=== PATIENT | male | born 1955 | race Caucasian/White ===

== ENCOUNTER 2017-05-28 07:53 | Day surgery (SDC) | payer BC ==
[2017-05-23 11:45] VITALS: BMI 26.4
[~2017-05-28 07:53] MED LIST: LACTATED RINGERS 1,000 ML IV SCH; LIDOCAINE 1% 20 ML VIAL (10MG/ML) FOR IV START INTRADERMA PRN
[2017-05-28 08:29] VITALS: TEMP 98.3
[2017-05-28] MEDS ORDERED: LIDOCAINE 1% 20 ML VIAL (10MG/ML) FOR IV START SQ ONE (08:29)
[2017-05-28 08:34] LABS: Glucose,Whole Blood 90 mg/dL (75-99)
[2017-05-28] MEDS ORDERED: PROPOFOL 10 MG/ML 20 ML VIAL IV ONE (08:40)
[2017-05-28] MEDS ORDERED: LIDOCAINE 1% INJ 10MG/ML (20 ML MDV) ONE (08:40)
--- NOTE | 2017-05-28 09:09 | P.PCN ---
Date of Procedure: 05/28/17 Preoperative Diagnosis: Postoperative Diagnosis: Procedure(s) Performed: Procedure: Colonoscopy and polypectomy. Preoperative diagnosis: Screening for neoplasia. Postoperative diagnosis: 1. Small polyp in the descending colon snared but no large polyps or cancer. 2. Sigmoid diverticulosis with no evidence of acute diverticulitis or strictures. 3. Low-grade internal hemorrhoids not bleeding at the time of this exam. Preparation: HalfLytely prep. Sedation: Was provided by anesthesia. Brief clinical history: The patient is a 61-year-old male who is referred for this evaluation for screening for neoplasia. His prior exam was around 10 years ago. The patient has no abdominal complaints, bleeding or anemia. No family history of colon cancer. Procedure: With the patient on his left lateral decubitus position and after informed consent and adequate sedation, the perianal area was inspected and it did not show any fissures or fistulas. There were no masses felt on digital rectal examination. The Olympus CFQ 160L video colonoscope was then inserted in the rectum in the usual fashion and advanced to the cecum. The mucosa appeared healthy. Several diverticular orifices were seen scattered in the sigmoid with no evidence of acute diverticulitis or strictures. There was a small polyp in the proximal descending colon which I snared and retrieved by suction but there were no large polyps or cancer. I retroflexed the endoscope in the rectum before the endoscope was withdrawn. Low-grade internal hemorrhoids were noted but there was no bleeding. The patient tolerated the procedure well. Plan: The patient was reassured. Discussed dietary measures and local care for hemorrhoids. He will follow up with you as planned and I recommended a repeat exam in 5 years. Implants: Indications for Procedure: Operative Findings: Description of Procedure:
[2017-05-28 09:10] VITALS: PULSE 57
[2017-05-28 09:23] VITALS: BP 146/89; RESP 16
== END 2017-05-28 09:37 | disposition home or self-care (01) ==
LOC: ORWHC2ENDO 07:53
DX: Z12.11 Encounter for screening for malignant neoplasm of colon (principal); D12.4 Benign neoplasm of descending colon; K57.30 Diverticulosis of large intestine without perforation or abscess without bleeding; K64.8 Other hemorrhoids; J44.9 Chronic obstructive pulmonary disease, unspecified; I10 Essential (primary) hypertension; Z79.82 Long term (current) use of aspirin; Z79.51 Long term (current) use of inhaled steroids; Z79.899 Other long term (current) drug therapy
CPT/HCPCS: 88305; 45385; J2001; J2704

== ENCOUNTER → 2018-07-15 | Outpatient (CLI) | payer MEDICARE ==
[2018-07-15 10:02] LABS: Blood Urea Nitrogen 17 mg/dL (9-20)
[2018-07-15 10:53] LABS: Cholesterol 173 mg/dL (<200); HDL Cholesterol 46 mg/dL (40-60); LDL Cholesterol,Calculated 79 mg/dL (0-99); Triglycerides 242 mg/dL (<150)
--- NOTE | 2018-07-15 11:50 | CT ---
EXAMINATION TYPE: CT chest w con DATE OF EXAM: 07/15/2018 COMPARISON: None HISTORY: 63-year-old male other nonspecific abnormal findings of the lung . TECHNIQUE: Contiguous axial scanning of the chest after the administration of 100 ml mL of Isovue 300 . Coronal/sagittal reconstructions performed. CT DLP: 599mGycm. Automatic exposure control utilized for a dose reduction. FINDINGS: Heart normal size without pericardial effusion. Ectatic aortic root at 3.8 cm. Mildly aneurysmal ascending aorta at 4.0 cm. In the chart. Conventiona l arch vessel branching anatomy Nonenlarged right hilar lymph node at 7 mm and nonenlarged precarinal lymph node at 6 mm. No thoracic lymphadenopathy by CT size criteria. Mild to moderate centrilobular emphysema in the upper to mid lungs. There is a spiculated nodule in the right apex measuring 1.4 cm. A couple of satellite nodules in the right upper lung measure 5 mm, axial image 13, 3 mm, axial image 16, and 4 mm axial image 21. A couple right mid lung pulmonary nodules measure 4 mm, axial image 27 and 28. Nonspecific left upper lobe pulmonary nodules measure 5 mm, axial image 13, 4 mm axial image 22, 3 mm axial image 25, and 4 mm axial image 34. Some patchy opacity, probably pleural parenchymal scarring medial left base. Otherwise, no consolidat ion or pleural effusion is seen. Visualized upper abdomen shows a 2.9 cm hypodense lesion posterior right kidney likely a cyst. Bones: Reverse bilateral shoulder arthroplasties partially visualized. Endplate spondylosis mid to lo wer thoracic spine. IMPRESSION: 1. COPD with moderate emphysema. 2. Spiculated right apical nodule measures 1.4 cm and is suspicious for early lung cancer. Three-mary beth h follow-up versus PET CT with appropriate follow-up and management recommended. 3. Scattered bilateral pulmonary nodules measuring up to 5 mm are nonspecific and can also be reasses sed at follow-up. 4. No suspicious lymphadenopathy by CT size criteria. 5. Mildly aneurysmal ascending aorta 4.0 cm.
== END | disposition home or self-care (01) ==
LOC: RADCTMAIN 09:10
PROVIDERS: ATTEND Internal Medicine Critical Care Medicine
DX: J43.9 Emphysema, unspecified (principal); R91.8 Other nonspecific abnormal finding of lung field
CPT/HCPCS: 80061; 82565; 84520; 71260; 36415; Q9967

== ENCOUNTER → 2018-07-20 | Outpatient (CLI) | payer MEDICARE ==
--- NOTE | 2018-07-22 20:14 | PE ---
EXAMINATION TYPE: PET CT fusion skull to thigh DATE OF EXAM: 07/20/2018 CLINICAL HISTORY: 63-year-old male solitary pulmonary nodule. TECHNIQUE: Following the intravenous administration of 10.15 mCi of F-18 FDG, whole body images are performed from the skull base to the midthigh. Images are reviewed on the computer in the coronal, axial, and sagittal planes. Reconstructed rotating images are created on independent workstation and reviewed on the computer. A localization and attenuation correction CT is performed in conjunction with the PET scan. Glucose level: 88 mg/dL CTDI: 4.48 mGy DLP: 457.09 mGy-cm COMPARISON: CT chest 07/15/2018 FINDINGS: PET: Focal uptake at the shoulders, particularly at the right AC joint, max SUV 3.2 likely on a degenerati ve basis. Bilateral reverse total shoulder arthroplasties are present. The previously described right apical pulmonary nodule slightly smaller, 1.1 cm now versus 1.4 cm on 07/15/2018. Minimal FDG uptake, max SUV 1.5. Left upper lobe pulmonary nodule measures 8 mm versus 5 mm, previously. Axial image 82. Trace uptake here, max SUV 0.9. A second left upper lobe pulmonary nodule measures 5 mm versus 4 mm, previously, axial image 95, max SUV 1.0. 7 mm anterior right midlung pulmonary nodule axial image 103 shows mild uptake, max SUV 1.3 and is la rger as compared to 4 mm on 07/15/2015. A 5 mm peripheral right upper lobe pulmonary nodule is unchanged, axial image 82, and shows no discre te FDG uptake. Physiologic FDG uptake within the abdomen and pelvis. ATTENUATION CORRECTION CT: Visualized paranasal sinuses are clear. No cervical lymphadenopathy seen. Heart upper limits of normal in size. Mildly aneurysmal descending aorta and 4.0 cm, unchanged. Mild ly aneurysmal upper descending thoracic aorta at 3.3 cm. Conventional arch vessel branching anatomy. No thoracic lymphadenopathy by CT size criteria. Trace bilateral gynecomastia. Enlarged caliber to th e main right and left pulmonary arteries at 2.8 and 2.6 cm, respectively, suggesting underlying pulmo nary arterial hypertension. Redemonstrated moderate emphysema. No consolidation or pleural effusion. No new nodules are seen. 2.9 cm right renal cyst redemonstrated. No dilated small bowel, free fluid, or free air. No mesenteri c or retroperitoneal lymphadenopathy. Mild proximal sigmoid diverticulosis. Prostate gland measures 4.8 cm wide. No abnormal fluid collection in the pelvis or pelvic lymphadenop athy. Bones: Bilateral reverse total shoulder arthroplasties as mentioned above. Degenerative changes left SI joint and lower lumbar spine. Endplate spondylosis mid to lower thoracic spine. IMPRESSION: 1. Approximately 5 pulmonary nodules show fluctuation in size. The previous dominant nodule in the ri ght apex is smaller at 1.1 cm versus 1.4 cm, previously and has very mild uptake. Some other nodules have increased in size, such as the anterior right midlung nodule at 7 mm versus 4 mm, previously, an d also shows very mild uptake. The rapid fluctuation from 07/15/2018 is more suggestive of an infectio us/inflammatory etiology rather than neoplasm. Three-month follow-up recommended as neoplasm should s till be excluded by ensuring stability or resolution. 2. COPD with moderate emphysema and pulmonary arterial hypertension. 3. Mildly aneurysmal thoracic aorta (ascending 4.0 cm).
== END | disposition home or self-care (01) ==
LOC: RADPETMAIN 13:22
PROVIDERS: ATTEND Internal Medicine Critical Care Medicine
DX: R91.8 Other nonspecific abnormal finding of lung field (principal); J43.9 Emphysema, unspecified; I27.21 Secondary pulmonary arterial hypertension
CPT/HCPCS: 78815; A9552

== ENCOUNTER → 2019-03-10 | Outpatient (CLI) | payer MEDICARE ==
[2019-03-10 09:32] LABS: Blood Urea Nitrogen 15 mg/dL (9-20)
--- NOTE | 2019-03-10 10:31 | CT ---
EXAMINATION TYPE: CT chest w con DATE OF EXAM: 03/10/2019 COMPARISON: July 15, 2018 HISTORY: Pulmonary nodule CT DLP: 400.10 mGycm Automated exposure control for dose reduction was used. CONTRAST: CT scan of the chest is performed with IV Contrast, patient injected with 100 ml mL of Isovue 300. FINDINGS: LUNGS: Right apical pulmonary nodule identified previously measuring 1.4 cm is not redemonstrated at this time. There is a new nodular density right midlung zone measuring 1.6 cm which was not present p reviously. Bilateral small less than 5 mm nodules remain stable bilaterally. No evidence for pleural effusion. Mild bronchial wall thickening noted. MEDIASTINUM: There are no greater than 1 cm hilar or mediastinal lymph nodes. No pericardial effusi on is seen. Thoracic aorta is of normal caliber. The heart is not enlarged. UPPER ABDOMEN: No significant abnormality appreciated. OTHER: No additional significant abnormality is seen. IMPRESSION: 1.Right apical pulmonary nodule identified previously measuring 1.4 cm is not redemonstrated at this time. There is a new nodular density right midlung zone measuring 1.6 cm which was not present previo usly. 2. Remaining sub-5 mm pulmonary nodules remain stable.
== END ==
LOC: RADCTMAIN 08:24
PROVIDERS: ATTEND Internal Medicine Critical Care Medicine
DX: R91.8 Other nonspecific abnormal finding of lung field (principal)
CPT/HCPCS: 82565; 84520; 71260; 36415; Q9967

== ENCOUNTER → 2019-08-26 | Outpatient (CLI) | payer MEDICARE ==
[2019-08-26 14:34] LABS: African American GFR (CKD) >90 (>60 ml/min/1.73 sqM); Blood Urea Nitrogen 15 mg/dL (9-20)
--- NOTE | 2019-08-27 22:11 | CT ---
EXAMINATION TYPE: CT chest w con DATE OF EXAM: 08/26/2019 COMPARISON: 03/10/2019 and 07/15/2018 HISTORY: 64-year-old male COPD. TECHNIQUE: Contiguous axial scanning of the chest after the administration of 100ml mL of Isovue 300. Coronal/sagittal reconstructions performed. CT DLP: 514mGycm. Automatic exposure control utilized for a dose reduction. FINDINGS: Heart normal size without pericardial effusion. Aortic root is mildly aneurysmal at 4.1 cm. Ascending aorta is ectatic at 3.7 cm. Conventional arch v essel branching anatomy. Ectatic upper descending thoracic aorta 3.3 cm. Scattered nonenlarged mediastinal lymph nodes. Trace bilateral gynecomastia. Moderate centrilobular emphysema particularly in the upper lungs strandy atelectasis or scarring at t he lung bases, left greater than right with some associated mild bibasilar bronchiectasis. Scattered 4 mm pulmonary nodules are unchanged. The larger 1.6 cm irregular density in the right uppe r lobe has resolved entirely. A couple additional small pulmonary nodules have also resolved. A few bilateral pulmonary nodules are new in the interval measuring up to 7 mm, for example, on the l eft axial image 17, 24, and 29. On the right, axial images 36 and 40. A few additional 4 mm and smaller pulmonary nodules are unchanged back to at least 07/15/2018. No consolidation or pleural effusion. Visualized upper abdomen shows a relatively stable 3.3 cm exophytic lesion posterior right kidney sug gestive of a cyst Round fat density lesion along the anterior left axilla measures 5.7 cm, suspected lipoma. Bones: Reverse right total shoulder arthroplasty. Moderate degenerative disc disease mid thoracic spi ne with bridging anterior endplate spondylosis mid and lower thoracic spine. IMPRESSION: 1. COPD with moderate upper lung emphysema. 2. Scattered bilateral pulmonary nodules are again noted to fluctuate. The largest 1.6 cm irregular d ensity previously seen in the right upper lobe has entirely resolved. A number of 4 mm and smaller p ulmonary nodules are stable, a couple have resolved, and approximately 5 nodules, measuring up to 7 m m, are new. Again, infectious/inflammatory etiology is suspected. However, given patient's increased risk for development of lung cancer, ongoing follow-up will be needed. Consider a 6 month interval. 3. Incidental stable 5.7 cm subcutaneous lipoma anterior left axilla. Mildly aneurysmal aortic root a t 4.1 cm.
== END | disposition home or self-care (01) ==
LOC: RADCTMAIN 14:01
PROVIDERS: ATTEND Internal Medicine Critical Care Medicine
DX: J43.2 Centrilobular emphysema (principal); R91.8 Other nonspecific abnormal finding of lung field; I71.2 Thoracic aortic aneurysm, without rupture
CPT/HCPCS: 82565; 84520; 71260; 36415; Q9967

== ENCOUNTER → 2020-05-20 | Outpatient (CLI) | payer MEDICARE ==
[2020-05-20 11:42] LABS: African American GFR (CKD) >90 (>60 ml/min/1.73 sqM); Blood Urea Nitrogen 14 mg/dL (9-20); Non-African American GFR(CKD) >90 (>60 ml/min/1.73 sqM)
--- NOTE | 2020-05-20 12:41 | CT ---
EXAMINATION TYPE: CT chest w con DATE OF EXAM: 05/20/2020 COMPARISON: 08/26/2019 HISTORY: LUNG NODULE CT DLP: 333.5 mGycm Automated exposure control for dose reduction was used. CONTRAST: CT scan of the chest is performed with IV Contrast, patient injected with 100 mL of Isovue 300. FINDINGS: LUNGS: Pulmonary nodules: 1. 4 mm right upper lobe image 14. 2. 3 mm right upper lobe image 13 3. 3 mm right upper lobe pulmonary nodule image 17 4. 4 mm left upper lobe pulmonary nodule image 15 Additional previous noted nodules are redemonstrated. All nodules are stable. Emphysematous changes r edemonstrated. There is no pleural effusion or pneumothorax seen. The tracheobronchial tree is paten t. MEDIASTINUM: There are no greater than 1 cm hilar or mediastinal lymph nodes. No pericardial effusi on is seen. Thoracic aorta is mildly aneurysmal at 4.0 cm versus 4.1 cm previously. The heart is not enlarged. UPPER ABDOMEN: No significant abnormality appreciated. Stable right renal cyst. OTHER: No additional significant abnormality is seen. IMPRESSION: 1. Essentially stable pulmonary nodularity although one or 2 of the nodules seen previously are not d emonstrated at this time. 2. Mild ascending thoracic aortic aneurysm.
== END | disposition home or self-care (01) ==
LOC: RADCTMAIN 11:04
PROVIDERS: ATTEND Internal Medicine Critical Care Medicine
DX: R91.8 Other nonspecific abnormal finding of lung field (principal); I71.2 Thoracic aortic aneurysm, without rupture
CPT/HCPCS: 82565; 84520; 71260; 36415; Q9967

== ENCOUNTER → 2023-04-26 | Outpatient (CLI) | payer MEDICARE ==
[2023-04-26 14:04] LABS: African American GFR (CKD) >90 (>60 ml/min/1.73 sqM); Blood Urea Nitrogen 16 mg/dL (9-20); Non-African American GFR(CKD) >90 (>60 ml/min/1.73 sqM)
--- NOTE | 2023-04-26 14:48 | CT ---
EXAMINATION TYPE: CT chest w con CT DLP: 483 mGycm, Automated exposure control for dose reduction was used. DATE OF EXAM: 04/26/2023 2:36 PM COMPARISON: Multiple CT chest with most recent 05/20/2020 CLINICAL INDICATION:Male, 67 years old with history of R91.8 previous abnormal exam lung ybarra; PHH, Abnormal findings on lung field TECHNIQUE: Multiple axial images were obtained through the chest following the administration of 100 cc of Isovue 300. . MIP was performed. Coronal and sagittal reformats reviewed. FINDINGS: LUNGS/ PLEURA: No pleural effusion, pneumothorax, or focal consolidation. New right upper lobe 1.1 x 0.9 cm pulmonary nodule (series 205, image 28). New left upper lobe 3 mm pulmonary nodule (series 205 , image 16). Stable 2 mm left upper lobe pulmonary nodule (series 205, image 10). Stable right upper lobe 3 mm pulmonary nodule (series 205, image 14). Stable right upper lobe 4 mm pulmonary nodule (ser ies 205, image 13). AIRWAY: Patent and unremarkable.. HEART: Size within normal limits. No pericardial effusion. MEDIASTINUM: No evidence of adenopathy. VASCULATURE: No aortic aneurysm. MUSCULOSKELETAL: No acute osseous abnormalities. Bilateral shoulder arthroplasty changes redemonstrat ed. Multilevel anterior osteophytosis of the thoracic spine. SOFT TISSUES/LYMPH NODES: Unremarkable. LOWER NECK: No significant findings. UPPER ABDOMEN: Stable right renal exophytic cyst measuring up to 4.1 cm. IMPRESSION: Couple of new pulmonary nodules with largest in the right upper lobe measuring up to 1.1 cm. Addition al stable scattered small pulmonary nodules from prior examination. Further evaluation with PET/CT is recommended.
== END | disposition home or self-care (01) ==
LOC: RADCTMAIN 13:28
PROVIDERS: ATTEND Internal Medicine Critical Care Medicine
DX: R91.8 Other nonspecific abnormal finding of lung field (principal)
CPT/HCPCS: 82565; 84520; 71260; 36415; Q9967

== ENCOUNTER 2023-07-05 10:26 | Day surgery (SDC) | payer MEDICARE ==
[2023-07-02 16:07] VITALS: BMI 29.9
[~2023-07-05 10:26] MED LIST changes: -LIDOCAINE 1% 20 ML VIAL (10MG/ML) FOR IV START INTRADERMA PRN
--- NOTE | 2023-07-05 11:02 | CT ---
EXAMINATION TYPE: CT chest wo con CT DLP: 384.1 mGycm, Automated exposure control for dose reduction was used. DATE OF EXAM: 07/05/2023 10:48 AM COMPARISON: Multiple CT chest with most recent 04/26/2023, PET/CT 06/09/2023. CLINICAL INDICATION:Male, 68 years old with history of ion robot; PHH, Pre ION bronchoscopy TECHNIQUE: Multiple axial images were obtained through the chest without IV contrast. Lack of IV or o ral contrast limits evaluation of solid and hollow organ viscera. . Coronal and sagittal reformats re viewed. Veran protocol. FINDINGS: LUNGS/ PLEURA: No pleural effusion, pneumothorax, or focal consolidation. Interval increase in size o f 1.7 x 1.2 cm spiculated nodule within the right upper lobe (series 3, image 138), previously 1.4 x 1.0 cm. New right apical irregular nodular density with surrounding spiculations and groundglass opac ities measuring grossly 2.3 x 1.4 cm (series 3, image 66). Additional scattered stable small left upp er lobe pulmonary nodules. AIRWAY: Patent and unremarkable.. HEART: Size within normal limits. No pericardial effusion. MEDIASTINUM: No evidence of adenopathy. VASCULATURE: No aortic aneurysm. MUSCULOSKELETAL: No acute osseous abnormalities. Bilateral shoulder prosthesis. Multilevel anterior o steophytosis of the thoracic spine. SOFT TISSUES/LYMPH NODES: Unremarkable. LOWER NECK: No significant findings. UPPER ABDOMEN: Stable right renal exophytic cyst measuring up to 4.1 cm. Stable hyperdense exophytic left 1.2 cm lesion likely representing a proteinaceous/hemorrhagic cyst. IMPRESSION: 1. Spiculated right upper lung nodules marginal increase in size measuring 1.7 cm, previously measuri ng 1.4 cm. This did demonstrate FDG avidity on prior examination and is concerning for malignancy. 2. New right apical irregular nodular with surrounding reticular opacities measuring grossly 2.3 x 1. 4 cm and is highly concerning for malignancy/metastasis. 3. Additional scattered stable small pulmonary nodules measuring up to 4 mm.
[2023-07-05] MEDS ORDERED: DEXAMETHASONE SOD PHOSPHATE 4 MG/ML 1 ML VIAL IVP ONE (11:44)
[2023-07-05] MEDS ORDERED: ONDANSETRON 4 MG/2 ML VIAL IVP ONE (11:45)
[2023-07-05] MEDS ORDERED: ONDANSETRON 4 MG/2 ML VIAL ONE (11:46)
[2023-07-05] MEDS ORDERED: MIDAZOLAM 2 MG/2 ML VIAL ONE (12:24)
[2023-07-05] MEDS ORDERED: LIDOCAINE 2% INJ 20 MG/ML (2 ML VIAL) ONE (12:24)
[2023-07-05] MEDS ORDERED: PHENYLEPHRINE-0.9% NACL SYG 1,000 MCG/10 ML SYRINGE ONE (12:24)
[2023-07-05] MEDS ORDERED: SUCCINYLCHOLINE CHLORIDE 200 MG/10 ML VIAL IV ONE (12:24)
[2023-07-05] MEDS ORDERED: fentaNYL (PF) 50 MCG/ML 2 ML AMP ONE (12:24)
[2023-07-05] MEDS ORDERED: NEOSTIGMINE 1 MG/ML 10 ML VIAL ONE (12:24)
[2023-07-05] MEDS ORDERED: ROCURONIUM 10 MG/ML (5 ML VIAL) IV ONE (12:24)
[2023-07-05] MEDS ORDERED: PROPOFOL 10 MG/ML 20 ML VIAL IV ONE (12:24)
[2023-07-05] MEDS ORDERED: GLYCOPYRROLATE 0.2 MG/ML 2 ML VIAL ONE (12:24)
--- NOTE | 2023-07-05 13:58 | P.PCN ---
Date of Procedure: 07/05/23 Operative Findings: Preoperative Diagnosis: Right upper lobe nodule, 1.4 centimeter Right upper lobe groundglass/nodular pulmonary infiltrate Postoperative Diagnosis: Right upper lobe nodule, 1.4 centimeter Right upper lobe groundglass/nodular pulmonary infiltrate Mediastinal adenopathy Procedure(s) Performed: Flexible bronchoscopy Robotic-assisted bronchoscopy and addition to radial ultrasound evaluation of the pulmonary nodule Robotic-assisted transbronchial needle aspirate, transbronchial biopsies, transbronchial brushing of the right upper lobe nodule in addition to a bronchioloalveolar lavage Robotic-assisted transbronchial biopsy of right upper lobe nodular consolidation in addition to a bronchioloalveolar lavage EBUS TBNA of a station 7 LN Anesthesia: GETA Surgeon: Prem Marshall Estimated Blood Loss (ml): 0 Pathology: other Condition: stable Disposition: same day Operative Findings: A physical exam was performed. Informed consent was obtained from the patient after explaining all the risks (pneumothorax, life threatening bleeding, infection and adverse effects due to medications), benefits and alternatives to the procedure which the patient appeared to understand and so stated. The patient was connected to the monitoring devices. General anesthesia was induced and the patient was intubated by anesthesia. A final timeout was performed and the procedure confirmed by the attending staff bronchoscopist. The bronchoscope was inserted and the airway examined. The flexible bronchoscope was removed and the robotic bronchoscope was inserted. Registration was completed. I next guided the robotic bronchoscope using the navigation system into the right upper lobe posterior segment. Once in proper position, the bronchoscope was frozen. The radial EBUS probe was placed through the bronchoscope and confirmed abnormal u/s images vs normal lung. A needle was placed through the working channel and under fluoroscopic guidance, we sampled the area thought to have the mass twice. We then used a cloud biopsy pattern with ultrasound confirmation for 2 additional passes with the needle. U/S evaluation was then used to reconfirm location. Forceps were next introduced through working channel and extended the appropriate distance and 3 transbronchial biopsies were performed using fluoroscopic guidance. The u/s probe was then reinserted to confirm location. When confirmed this process was repeated for a total of 6 transbronchial biopsies. After reassessment with EBUS, a brush was placed through the extendable working channel for 1 pass with fluoroscopic guidance. U/S evaluation was then used to confirm location. 40ml of saline was then instilled into the area of the lesion. The robotic bronchoscope was removed and the airway inspected with a flexible bronchoscope and 10 ml of effluent from the BAL was collected. The aspirate was bloody and ultimately declotted and based on that, the sample was discarded. Subsequently, the robotic bronchoscope was directed to the apical segment of the right upper lobe. Ultrasound evaluation confirmed location. Forceps was introduced and transbronchial biopsies of the right upper lobe nodular consolidation was done, a total of 6 transbronchial biopsies were obtained. Also, a bronchial lavage the right apex was done with a total of 20 mL of fluid was infused and 10 mL was aspirated. Fluoroscopic check for pneumothorax was negative upon completion of the procedure. There was 0 ml blood loss with the procedure. Following that, the endobronchial ultrasound was inserted for mediastinal lymph node evaluation. A complete examination is grossly patient's was done. The patient was found to have a 13 x 7 mm subcarinal lymph node. Using a 22-gauge needle, transbronchial needle aspirate of the subcarinal station 7 lymph node was done. A total of 3 passes were obtained without any complications. Endobronchial ultrasound was removed. X-ray bronchoscope was inserted and regular suctioning was done. At the completion of the procedure, no residual secretions or bloody material within the airway. The bronchoscope was removed. The patient was extubated. FINDINGS: 1.The airways appeared normal 2 Successful navigation, ultrasonographic identification, and biopsies of right upper lobe pulmonary nodule, right upper lobe nodular consolidation 3.The the radial ultrasound view was (Concentric/Eccentric)}. 4 subcarinal lymph node, station 7 measuring 13 x 7 mm in size. RECOMMENDATIONS: Await pathology and cytology results The referring physician will be alerted to the results when available. The patient was advised to follow up with the referring physician with the biopsy results Patient will be called with results.
[2023-07-05 14:06] VITALS: TEMP 97
--- NOTE | 2023-07-05 14:27 | FL ---
Intraoperative/procedural fluoroscopic services were provided. Total fluoroscopy time is 3 minutes wi th a total of 7 submitted images to PACS. Please see the operative/procedural note for further detail s. DAP: 13.481 Gycm2
--- NOTE | 2023-07-05 14:34 | XR ---
EXAMINATION TYPE: XR chest 1V DATE OF EXAM: 07/05/2023 COMPARISON: 07/05/2023 HISTORY: Postbiopsy TECHNIQUE: Single frontal view of the chest is obtained. FINDINGS: There is spiculated nodules in the right upper lobe stable in appearance. There is no siza ble pneumothorax. Hyperinflation suggests COPD. Heart size normal. Atherosclerotic change aorta. Bila teral AC joint arthropathy. Hypertrophic and degenerative change of the spine. Subsegmental linear ch anges left lower lobe most typical of atelectasis or scarring. IMPRESSION: 1. No sizable pneumothorax. Small spiculated nodule seen by prior CT scan within the right upper lobe again noted.
[2023-07-05 14:41] VITALS: RESP 18
[2023-07-05 15:03] VITALS: BP 127/79; PULSE 55
== END 2023-07-05 15:24 | disposition home or self-care (01) ==
LOC: ORWHC2ENDO 10:26
PROVIDERS: ATTEND Internal Medicine Critical Care Medicine
DX: C34.11 Malignant neoplasm of upper lobe, right bronchus or lung (principal)
CPT/HCPCS: 87798 ×3; 87496; 87498; 87529; 88108; 88305; 88173; 88342; 87502; 87634; 88341; 87070; 87205; 87116; 87102; 87206; 71045; 71250; 31625; 31633; 31623; 31624; 31652; J2250; J0330; J1100; J2710; J2405; J3010; J2704; J2001; J2371; S2900

== ENCOUNTER → 2023-07-10 | Outpatient (CLI) | payer MEDICARE | LOC: CPPFTMAIN 08:38 | PROVIDERS: ATTEND Thoracic Surgery (Cardiothoracic Vascular Surgery) | DX: R91.1 Solitary pulmonary nodule (principal); Z87.891 Personal history of nicotine dependence | CPT/HCPCS: 94060; 94726; 94729 ==

== ENCOUNTER → 2023-08-06 | Outpatient (CLI) | payer MEDICARE ==
[2023-08-06 16:48] LABS: INR 0.9 (<1.2); Partial Thromboplastin Time 26.2 sec (22.0-30.0)
[2023-08-06 21:26] LABS: Basophils # (A) 0.06 X 10*3/uL (0.00-0.10); Eosinophils # (A) 0.18 X 10*3/uL (0.04-0.35); Eosinophils % (A) 2.9 %; HCT 42.1 % (39.6-50.0); HGB 13.4 d/dL (13.0-17.0); Lymphocytes # (A) 1.35 X 10*3/uL (0.90-5.00); Lymphocytes % (A) 21.9 %; MCH 28.8 pg (27.0-32.0); MCHC 31.8 d/dL (32.0-37.0); MCV 90.3 FL (80.0-97.0); Mean Platelet Volume 9.4 FL (9.5-12.2); Monocytes # (A) 0.57 X 10*3/uL (0.20-1.00); Monocytes % (A) 9.3 %; NRBC Per 100 WBC 0 X 10*3/uL (0.00-0.01); Neutrophils # (A) 3.99 X 10*3/uL (1.80-7.70); Neutrophils % (A) 64.7 %; Platelet Count 200 X 10*3/uL (140-440); RBC 4.66 X 10*6/uL (4.40-5.60); RDW 12.7 % (11.5-14.5); WBC 6.16 X 10*3/uL (4.50-10.00)
[2023-08-06 22:22] LABS: Blood Urea Nitrogen 14.4 mg/dL (9.0-27.0); Carbon Dioxide 28.1 mmol/L (21.6-31.8); Chloride 104 mmol/L (96-109); Glucose 106 mg/dL (70-110); Potassium 4.1 mmol/L (3.5-5.5); Sodium 140 mmol/L (135-145)
[2023-08-06 23:43] LABS: Appearance,Urine Clear (Clear); Bilirubin,Urine Negative (Negative); Blood,Urine Negative (Negative); Color,Urine Yellow (Yellow); Ketones,Urine Negative (Negative); Nitrite,Urine Negative (Negative); Urobilinogen,Urine 0.2 E.U./DL
== END | disposition home or self-care (01) ==
LOC: LABPAT 15:08
PROVIDERS: ATTEND Thoracic Surgery (Cardiothoracic Vascular Surgery)
DX: Z01.812 Encounter for preprocedural laboratory examination (principal); C34.90 Malignant neoplasm of unspecified part of unspecified bronchus or lung; E87.8 Other disorders of electrolyte and fluid balance, not elsewhere classified
CPT/HCPCS: 80051; 81003; 82565; 82947; 84520; 85025; 85610; 85730; 87086

== ENCOUNTER 2023-08-16 05:44 | Inpatient (IN) | payer MEDICARE ==
[2023-08-16] MEDS ORDERED: ONDANSETRON 4 MG/2 ML VIAL ONE (06:49)
[2023-08-16] MEDS ORDERED: LACTATED RINGERS 1,000 ML IV ONE ×3 (06:50→11:56)
[2023-08-16 06:57] LABS: Glucose,Whole Blood 95 mg/dL (70-110)
[2023-08-16] MEDS ORDERED: MIDAZOLAM 2 MG/2 ML VIAL IVP ONE (06:57)
[2023-08-16] MEDS ORDERED: HYDROmorphone (PF) 1 MG/ML ONE (07:30)
[2023-08-16] MEDS ORDERED: PHENYLEPHRINE-0.9% NACL SYG 1,000 MCG/10 ML SYRINGE ONE (07:30)
[2023-08-16] MEDS ORDERED: ROPIVACAINE 5 MG/ML 30 ML VIAL ONE (07:30)
[2023-08-16] MEDS ORDERED: NEOSTIGMINE 1 MG/ML 10 ML VIAL ONE (07:30)
[2023-08-16] MEDS ORDERED: ALBUTEROL HFA INHALER INHALATION ONE (07:30)
[2023-08-16] MEDS ORDERED: KETAMINE HCL IN 0.9 % NACL 50 MG/5 ML SYRINGE ONE (07:30)
[2023-08-16] MEDS ORDERED: ePHEDrine 50 MG/ML 1 ML VIAL ONE (07:30)
[2023-08-16] MEDS ORDERED: GLYCOPYRROLATE 0.2 MG/ML 2 ML VIAL ONE (07:30)
[2023-08-16] MEDS ORDERED: SODIUM CHLORIDE 0.9% (PF) 10 ML VIAL ONE (07:30)
[2023-08-16] MEDS ORDERED: ROCURONIUM 10 MG/ML (5 ML VIAL) IV ONE (07:30)
[2023-08-16] MEDS ORDERED: MIDAZOLAM 2 MG/2 ML VIAL ONE (07:30)
[2023-08-16] MEDS ORDERED: SUCCINYLCHOLINE CHLORIDE 200 MG/10 ML VIAL IV ONE (07:30)
[2023-08-16] MEDS ORDERED: LIDOCAINE 1% INJ 10MG/ML (20 ML MDV) ONE (07:30)
[2023-08-16] MEDS ORDERED: PROPOFOL 10 MG/ML 20 ML VIAL IV ONE (07:30)
[2023-08-16] MEDS ORDERED: ACETAMINOPHEN IV (For NPO) 1,000 MG/100 ML VIAL ONE (07:30)
[2023-08-16] MEDS ORDERED: fentaNYL (PF) 50 MCG/ML 2 ML AMP ONE (07:30)
[2023-08-16] MEDS ORDERED: BUPIVACAINE (PF) 0.5% 30 ML VIAL MISCELLANE ONE ×2 (08:35→10:40)
--- NOTE | 2023-08-16 09:00 | P.ANPRN ---
Procedure Note - Anesthesia - Nerve Block Performed Right Erector Spinae Single Time Out Performed: Yes ([id number]) Date of Procedure: 08/16/23 Location of Patient: PreOp Indication: Acute Post-Operative Pain, Dx/Pain Location (Right chest), Requested by Surgeon Specifically requested for management of pain by DrNeno: Manny Klein Sedation Type: Sedate with meaningful contact maintained Position: Prone Catheter: None Needle Types: Pajunk Needle Gauge: 21 Ultrasound used to visualize needle placement: Yes Ultrasound used to observe medication spread: Yes Injectate: 0.5% Ropivacaine (see comment for volume) (30 mL is 10 mL of normal saline) Blood Aspirated: No Pain Paresthesia on Injection Noted: No Resistance on Injection: Normal Image Stored and Saved: Yes Events: Uneventful and Well Tolerated
--- NOTE | 2023-08-16 12:30 | XR ---
EXAMINATION TYPE: XR chest 1V portable DATE OF EXAM: 08/16/2023 COMPARISON: 07/05/2023 HISTORY: Postop TECHNIQUE: Single frontal view of the chest is obtained. FINDINGS: Volume loss on the right noted with approximately 20% right-sided pneumothorax. Chest tube in position. Diffuse subcutaneous emphysema. Left lung demonstrates linear basilar atelectasis. Postoperative changes bilateral shoulder and bilat eral shoulder AC joint arthropathy. Hypertrophic and degenerative change of the spine. IMPRESSION: 1. Approximate 20% right pneumothorax with diffuse subcutaneous emphysema.
[2023-08-16] MEDS ORDERED: METOCLOPRAMIDE 5 MG/ML 2 ML VIAL IVP PRN (12:33)
[2023-08-16] MEDS ORDERED: ONDANSETRON 4 MG/2 ML VIAL IVP PRN (12:33)
[2023-08-16] MEDS ORDERED: DEXTROSE 5%-0.45% NACL 1,000 ML IV SCH (13:00)
[2023-08-16] MEDS: ACETAMINOPHEN IV (For NPO) 1,000 MG in EMPTY BAG 1 BAG IVPB SCH ×2 (13:39→18:11)
--- NOTE | 2023-08-16 13:53 | P.OP ---
Date of Procedure: 08/16/23 Preoperative Diagnosis: Lung cancer right upper lobe lung Postoperative Diagnosis: Same Procedure(s) Performed: Robotic-assisted, thoracoscopic right upper lobectomy, blebectomy right lower lobe Anesthesia: ROXANE Surgeon: Manny Klein Professor Of Vegetable [employer] #1: Yo Parks Professor Of Vegetable Science #2: Cleve Goff Estimated Blood Loss (ml): 20 IV fluids (ml): 1,000 Urine output (ml): 0 Pathology: other (Right upper lobe, lymph node stations R11 R10 R9 R8 R4 level7) Condition: stable Disposition: PACU Indications for Procedure: 68-year-old male with enlarging mass in the posterior segment of the right upper lobe fairly deep. He has significant COPD. He has nearly incomplete fissures. Workup had revealed carcinoma. No evidence of metastasis by PET scan or EMMA. Patient has good functional status ECOG 0. Patient was initially seen by Dr. Parks but Dr Mae asked that I see the patient and perform the surgery. Patient was seen in the clinic and scheduled electively. Operative Findings: Lesser fissure was nonexistent. Greater fissure was present between the middle lobe and lower lobe but not between the lower lobe and the upper lobe. Was fairly extensive anthracotic adenopathy present. Description of Procedure: Patient is brought to the operating room and placed supine on the operating table. Gen. anesthesia was induced. Double-lumen endotracheal tube was placed and appropriately positioned for isolated lung ventilation. Patient was turned in the left lateral decubitus position and appropriately positioned positioned for robotic lobectomy. Ribs were counted and plan was made to enter in the eighth interspace. Right chest was sterilely prepped and draped. Incision was made in the eighth interspace and 8 mm robotic port was placed. She became evident that despite being low with the count of the ribs we were in the peritoneum. Scope was removed and the port was placed one in interspace higher successfully entering the pleural space. CO2 insufflation was begun. A 12 mm ports were placed anterior and posterior to the initial port and a second 8 mm port was placed posteriorly near the ribs at the level of the superior segment of the right lower lobe. Working port was placed at the level of the diaphragm between the 2 most anterior ports. Chest was explored with the findings as not ed above. Inferior pulmonary ligament was taken down upon reaching the inferior pulmonary vein dissection was carried posteriorly to the azygos vein. R9, R8, level 7 lymph nodes were resected and sent for permanent section. Dissection was carried anteriorly on the bronchus and the takeoff of the right upper lobe bronchus was identified. Right upper lobe bronchus was dissected out. R 11 lymph nodes between the upper lobe bronchus and the bronchus intermedius were resected and sent for permanent section. Upper lobe bronchus was encircled and ligated and divided with a robotic green stapler. Attention was now directed anteriorly. Pleura was opened from the azygos vein inferior pulmonary vein. As a thick fat wire beneath the pleura and we dissected down encountering both the truncus anterior doses superiorly and the superior pulmonary vein more inferiorly branches draining the middle lobe were identified and the branches draining the upper lobe were ligated and divided with robotic vascular stapler. We then dissected out the truncus anterior doses and ligated and divided it with a robotic vascular stapler. Dissection was now carried deeper into the hilum. Posterior segmental branch of the posterior segment of the right upper lobe was identified and ligated and divided with a vascular stapler. Remaining soft tissue attachments were freed and the lobectomy specimen was placed in the Endo Catch bag. Dissection was carried up superiorly and the R 10 lymph nodes were dissected from beneath the azygos vein. R4 lymph nodes were then dissected above the azygos vein. These were all sent for permanent section. Robot was undocked and the working port incision was enlarged. Specimen was brought out onto the field through the enlarged incision in the Endo Catch bag. Was examined on the back table and noted to contain significant number of lymph nodes and also to contain the tumor relatively deep in the specimen. Chest was irrigated out with warm water. There was a large bleb present in the left lower lobe and this was resected with a endoscopic stapler. There is also a tear of the middle lobe which had an air leak and this was stapled shut with a endoscopic stapler. Some pro-gel was applied to some raw areas of the remaining lung the lung was expanded and noted to expand well. 28-Nepali chest tube was placed through the most anterior incision and positioned posterior apically and connected to a Pleur-evac. The lung ventilation was initiated. Lung was noted to inflate well. Thoracoscope was removed. Chest tube was secured with 0 Ethibond suture. Incisions were closed with layers of Vicryl suture. Skin glue and dry sterile dressings were applied. Posterior rib blocks were performed with half percent Marcaine. Dry sterile dressings were applied and the patient was transferred to recovery in stable condition.
[2023-08-16] MEDS: HEPARIN SODIUM,PORCINE 5,000 UNIT/ML 1 ML VIAL SQ SCH ×2 (14:54→23:32)
[2023-08-16] MEDS: IPRATROPIUM-ALBUTEROL 3 ML NEB IH SCH ×3 (15:02→20:44)
[2023-08-16 15:10] LABS: HCT 41.7 % (39.0-53.0); HGB 13.7 gm/dL (13.0-17.5); MCH 30.1 pg (25.0-35.0); MCHC 32.8 g/dL (31.0-37.0); MCV 91.8 fL (80.0-100.0); Mean Platelet Volume 7.2; Platelet Count 177 k/uL (150-450); RBC 4.55 m/uL (4.30-5.90); WBC 13.4 k/uL (3.8-10.6)
[2023-08-16 15:20] LABS: ALT 29 U/L (4-49); AST 46 U/L (17-59); African American GFR (CKD) >90 (>60 ml/min/1.73 sqM); Alkaline Phosphatase 75 U/L (38-126); Anion Gap 8 mmol/L; Blood Urea Nitrogen 14 mg/dL (9-20); Calcium 9.3 mg/dL (8.4-10.2); Carbon Dioxide 27 mmol/L (22-30); Chloride 100 mmol/L (98-107); Glucose 182 mg/dL (74-99); Non-African American GFR(CKD) >90 (>60 ml/min/1.73 sqM); Sodium 135 mmol/L (137-145); Total Bilirubin 0.9 mg/dL (0.2-1.3); Total Protein 6.8 g/dL (6.3-8.2)
--- NOTE | 2023-08-16 15:36 | P.CNPUL ---
History of Present Illness Consult date: 08/16/23 Requesting physician: Manny Klein Reason for consult: COPD, lung mass, abnormal CXR/CT, other Chief complaint: Lung cancer. History of present illness: Pulmonary consult dated 08/16/2023. 68-year-old male, well-known to me. I've been seeing the patient in the office, for a number of years, for his underlying COPD. In addition, in the past, the patient has had pulmonary nodules, which have been relatively stable, and negative on PET scan. More recently, his been in the right upper lobe, was enlarging, and the PET scan, was positive only in that area. The patient was initially seen by Dr. Parks, who requested a biopsy, and evaluation of lymph nodes. My partner did a robotic bronchoscopy, and endobronchial ultrasound on this patient, and the sampling, of the right upper lobe, with positive for squamous cell carcinoma. Sampling of the station 7/subcarinal node, was negative. The patient was then brought to the operating room, today, by Dr. Klein, for robotically-assisted right upper lobectomy, and lymph node dissection/sampling. The patient is seen today in room 350. He is on room air. He is on D5 with half-normal saline at 40 mL an hour. Today is postop day 0. The patient is doing well, without complaints. His family is in the room with him. The patient has a history of COPD, and hyperlipidemia. Current labs include a white count of 13.4, hemoglobin 13.7, hematocrit 41.7, and a normal platelet count. Sodium 135, potassium 4, chlorides 100, CO2 27, BUN 14, and creatinine 0.73. Review of Systems REVIEW OF SYSTEMS: CONSTITUTIONAL: [Negative.] NEUROLOGIC: [ Negative.] HEENT: [ Negative.] CARDIAC: [Negative.] PULMONARY: Dyspnea on exertion, at baseline. GI: [Negative.] : [Negative.] RHEUMATOLOGIC: [ Negative.] IMMUNOLOGIC: [ Negative.] ENDOCRINE: [Negative. ] DERMATOLOGIC: [Negative.] Past Medical History Past Medical History: COPD, Hearing Disorder / Deafness, Hypertension Additional Past Medical History / Comment(s): Current right lung cancer. Severe emphysema. Hypoglycemic. Hard of hearing. History of Any Multi-Drug Resistant Organisms: None Reported Past Surgical History: Hernia Repair, Joint Replacement, Orthopedic Surgery Additional Past Surgical History / Comment(s): Bilateral shoulder replacement, pin in ankle. Past Anesthesia/Blood Transfusion Reactions: No Reported Reaction Additional Past Anesthesia/Blood Transfusion Reaction / Comment(s): No hx blood transfusion. Past Psychological History: No Psychological Hx Reported Smoking Status: Former smoker Past Alcohol Use History: None Reported Additional Past Alcohol Use History / Comment(s): Quit smoking in the , smoked approx 30yrs, 3ppd. Past Drug Use History: None Reported - Past Family History Mother Family Medical History: No Reported History Father Family Medical History: Myocardial Infarction ([place]) Sister(s) Family Medical History: Vascular Disorder Medications and Allergies Home Medications Medication Instructions Recorded Confirmed Type Albuterol Inhaler [Ventolin Hfa 1 - 2 puff INHALATION Q6HR PRN 05/23/17 08/16/23 History Inhaler] Albuterol Nebulized [Ventolin 2.5 mg INHALATION Q6H PRN 05/23/17 08/16/23 History Nebulized] Atorvastatin [Lipitor] 20 mg PO DAILY 05/23/17 08/16/23 History Montelukast Sodium [Singulair] 10 mg PO HS 05/23/17 08/16/23 History Mv-Min/Folic/K1/Lycopen/Lutein 1 each PO DAILY 05/23/17 08/16/23 History [Centrum Silver Men Tablet] Fluticasone/Umeclidin/Vilanter 1 puff INHALATION DAILY 07/02/23 08/16/23 History [Trelegy Ellipta 200-62.5-25] Valsartan/Hydrochlorothiazide 1 each PO DAILY 07/02/23 08/16/23 History [Diovan Hct 160-12.5 mg Tab] Allergies Allergy/AdvReac Type Severity Reaction Status Date / Time No Known Allergies Allergy Verified 08/16/23 06:14 Physical Exam Osteopathic Statement: *. No significant issues noted on an osteopathic structural exam other than those noted in the History and Physical/Consult. Vitals: Vital Signs Temp Pulse Pulse Resp BP BP Pulse Ox 08/16/23 15:18 77 18 08/16/23 15:11 95 08/16/23 15:10 97.8 F 79 18 153/87 94 L 08/16/23 15:08 78 18 08/16/23 13:38 71 18 08/16/23 12:36 64 14 144/78 95 08/16/23 12:21 72 14 152/79 94 L 08/16/23 12:06 69 14 132/77 99 08/16/23 11:51 70 14 161/85 152/86 100 08/16/23 11:36 73 14 146/80 128/78 93 L 08/16/23 11:21 97.0 F L 71 14 128/87 135/77 96 08/16/23 07:14 70 16 166/95 96 08/16/23 06:25 97.1 F L 66 16 165/91 97 Intake and Output 08/16/23 08/16/23 08/16/23 06:59 14:59 22:59 Intake Total 200 3180 Output Total 910 Balance 200 2270 Intake: IV 200 2400 Oral 780 Output: Chest Tube Drainage 30 Chest Tube Right Upper 30 Anterior Chest Urine 825 Estimated Blood Loss 55 Other: Voiding Method Indwelling Catheter Weight 96.3 kg No acute distress, oriented 3. No respiratory distress. Currently on room ai r. Saturations are 95%. HEENT examination is grossly unremarkable. Mucous membranes are moist. No oral lesions. Neck supple. Full range of motion. No adenopathy thyromegaly or neck vein distention. Cardiovascular examination reveals regular rhythm rate. S1-S2 normal. No S3 or S4. No discernible murmur noted. Heart rate 77 bpm. Lungs reveal minimal scattered rhonchi. No wheezes or crackles. Breath sounds equal bilaterally. Right-sided chest tube is noted. Abdomen soft bowel sounds are heard. No masses or tenderness. Extremities are intact. No cyanosis clubbing or edema. Skin is without rash or lesion. Neurologic examination is brief but nonfocal. Results - Laboratory Findings CBC and BMP: 08/16/23 14:56 08/16/23 14:56 Abnormal lab findings: Abnormal Labs 08/16/23 08/16/23 14:56 14:56 WBC 13.4 H Sodium 135 L Glucose 182 H - Diagnostic Findings Chest x-ray: image reviewed Assessment and Plan Assessment: Postop day #0, S/P robotically assisted thoracoscopic right upper lobectomy and lymph node dissection. Recent robotic bronchoscopy and endobronchial ultrasound, revealing squamous cell carcinoma, right upper lobe. Station 7 lymph node was negative. History of moderately severe COPD. History of hyperlipidemia. History of hypertension. Plan: Plan dated 08/16/2023. The patient is seen in room 350. He is currently getting D5 with half-normal saline at 40 mL an hour. He is on room air. Saturations are 95%. Chest tube on the right side is noted. The patient's chest x-ray shows a pneumothorax. This is not unusual after this type of surgery. We will continue to follow make recommendations along the way. Formoterol was discontinued. Symbicort 160/4.5, 2 puffs twice a day, is admitted to the patient's regimen. Labs, x-rays, and medications are reviewed. Prognosis is guarded. We will continue to follow the patient. Time with Patient: Greater than 30
[2023-08-16] MEDS: traMADol 50 MG TAB PO PRN (19:47)
[2023-08-16] MEDS: MONTELUKAST 10 MG TAB PO SCH (19:48)
[2023-08-16] MEDS ORDERED: FORMOTEROL FUMARATE 20 MCG/2 ML NEBU INHALATION SCH (20:00)
[2023-08-16] MEDS: SYMBICORT 160-4.5 MCG INHALER INHALATION SCH (20:44)
[2023-08-17] MEDS: traMADol 50 MG TAB PO PRN ×2 (02:16→21:02)
[2023-08-17] MEDS: ACETAMINOPHEN TAB 325 MG TAB PO PRN ×2 (04:29→21:01)
[2023-08-17 07:00] LABS: African American GFR (CKD) >90 (>60 ml/min/1.73 sqM); Anion Gap 8 mmol/L; Blood Urea Nitrogen 14 mg/dL (9-20); Calcium 8.8 mg/dL (8.4-10.2); Carbon Dioxide 26 mmol/L (22-30); Chloride 95 mmol/L (98-107); Glucose 137 mg/dL (74-99); Non-African American GFR(CKD) >90 (>60 ml/min/1.73 sqM); Potassium 3.7 mmol/L (3.5-5.1); Sodium 129 mmol/L (137-145)
[2023-08-17] MEDS: KETOROLAC 15 MG/ML 1 ML VIAL IVP SCH ×4 (07:04→23:28)
[2023-08-17 07:07] LABS: Basophils % (A) 0 %; Eosinophils % (A) 0 %; HCT 38.7 % (39.0-53.0); HGB 12.9 gm/dL (13.0-17.5); Lymphocytes # (A) 0.6 k/uL (1.0-4.8); Lymphocytes % (A) 6 %; MCH 29.7 pg (25.0-35.0); MCHC 33.3 g/dL (31.0-37.0); MCV 89.3 fL (80.0-100.0); Mean Platelet Volume 7.7; Monocytes # (A) 0.5 k/uL (0-1.0); Monocytes % (A) 5 %; Neutrophils # (A) 9.7 k/uL (1.3-7.7); Neutrophils % (A) 89 %; Platelet Count 174 k/uL (150-450); RBC 4.34 m/uL (4.30-5.90)
[2023-08-17] MEDS: VALSARTAN 160 MG TAB PO SCH (08:07)
[2023-08-17] MEDS: PANTOPRAZOLE 40 MG TABLET PO SCH (08:07)
[2023-08-17] MEDS: ATORVASTATIN 20 MG TAB PO SCH (08:07)
[2023-08-17] MEDS: hydroCHLOROthiazide 12.5 MG CAP PO SCH (08:07)
[2023-08-17] MEDS: HEPARIN SODIUM,PORCINE 5,000 UNIT/ML 1 ML VIAL SQ SCH ×3 (08:07→23:28)
[2023-08-17] MEDS: MULTIVITAMINS, THERA 1 EACH TAB PO SCH (08:09)
--- NOTE | 2023-08-17 08:21 | XR ---
EXAMINATION TYPE: XR chest 1V DATE OF EXAM: 08/17/2023 COMPARISON: 08/08/2023 HISTORY: Postop TECHNIQUE: Single frontal view of the chest is obtained. FINDINGS: Volume loss on the right noted with less than 5% right apical pneumothorax. Chest tube in position. Diffuse subcutaneous emphysema has increased from prior exam. Left lung demonstrates linear basilar atelectasis. Postoperative changes bilateral shoulder and bilat eral shoulder AC joint arthropathy. Hypertrophic and degenerative change of the spine. IMPRESSION: Reduction in size of pneumothorax now measuring less than 5%. There is interval increase in the amount of subcutaneous emphysema.
[2023-08-17] MEDS: SYMBICORT 160-4.5 MCG INHALER INHALATION SCH ×2 (08:35→21:14)
[2023-08-17] MEDS: IPRATROPIUM-ALBUTEROL 3 ML NEB IH SCH ×4 (08:35→21:14)
--- NOTE | 2023-08-17 08:59 | P.PN ---
Subjective Progress Note Date: 08/17/23 Principal diagnosis: Lung cancer, squamous cell carcinoma right upper lobe of the lung. Previous medical history of COPD, previous tobacco dependence, hypertension, hyperlipidemia POD #1 robotic assisted thoracoscopic right upper lobectomy, blebectomy right lower lobe The patient was seen and examined this morning with Dr. Parks sitting up in bed on the cardiac stepdown unit in no acute distress. States pain is controlled on current medication regimen, denies shortness of breath. Remains in sinus rhythm and hemodynamically stable. Right pleural chest tube remains to continuous wall suction, air leak present with expiration. Subcutaneous air present to right neck and upper chest wall. Currently on room air, able to achieve 2250 mL on his incentive spirometry. Chest x-ray, labs reviewed. No other concerns. Objective - Vital Signs Vital signs: Vital Signs Temp 98.3 F 08/17/23 04:00 Pulse 72 08/17/23 08:44 Resp 21 08/17/23 04:00 BP 162/75 08/17/23 04:00 Pulse Ox 94 L 08/17/23 04:00 FiO2 Intake & Output 08/16/23 08/17/23 08/17/23 18:59 06:59 18:59 Intake Total 3298 1120 240 Output Total 1220 1570 Balance 2078 -450 240 Intake: IV 2400 Intake, IV Titration 160 Amount Dextrose 5%-0.45% NaCl 1, 160 000 ml @ 40 mls/hr IV . Q24H [facility] Rx#:[id number] Oral 898 960 240 Output: Chest Tube Drainage 40 620 Chest Tube Right Upper 40 620 Anterior Chest Urine 1125 950 Estimated Blood Loss 55 Other: Voiding Method Indwelling Catheter Indwelling Catheter # Voids 1 - Exam CONSTITUTIONAL: Appears comfortable, cooperative, no acute distress RESPIRATORY: Lungs sounds diminished bilaterally. Respirations even, nonlabored. Currently on room air with oxygen saturation 94%. Able to achieve 2250 mL on incentive spirometry. Strong cough. CARDIOVASCULAR: S1, S2 present. Regular rate and rhythm, sinus rhythm on telemetry. Palpable peripheral pulses bilaterally. No edema present GASTROINTESTINAL: Abdomen soft, nontender, nondistended. Active bowel sounds present 4 quadrants. Tolerating diet GENITOURINARY: Cotter recently discontinued, due to void INTEGUMENTARY: Skin is warm and dry NEUROLOGIC: Cranial nerves II through XII intact MUSKULOSKELETAL: Able to move all extremities, strength equal bilaterally PSYCHIATRIC: Alert and oriented to person place and time, appropriate affect, intact judgment and insight INVASIVE LINES AND TUBES: Right pleural chest tubes present and connected to wa ll suction, air leak present with expiration, 400 mL serosanguineous drainage overnight, 900 mL since surgery - Allied health notes Allied health notes reviewed: nursing - Labs CBC & Chem 7: 08/17/23 06:24 08/17/23 06:24 Labs: Abnormal Lab Results - Last 24 Hours (Table) 08/16/23 08/16/23 08/17/23 Range/Units 14:56 14:56 06:24 WBC 13.4 H 11.0 H (3.8-10.6) k/uL Hgb 12.9 L (13.0-17.5) gm/dL Hct 38.7 L (39.0-53.0) % Neutrophils # 9.7 H (1.3-7.7) k/uL Lymphocytes # 0.6 L (1.0-4.8) k/uL Sodium 135 L (137-145) mmol/L Chloride (98-107) mmol/L Creatinine (0.66-1.25) mg/dL Glucose 182 H (74-99) mg/dL 08/17/23 Range/Units 06:24 WBC (3.8-10.6) k/uL Hgb (13.0-17.5) gm/dL Hct (39.0-53.0) % Neutrophils # (1.3-7.7) k/uL Lymphocytes # (1.0-4.8) k/uL Sodium 129 L (137-145) mmol/L Chloride 95 L (98-107) mmol/L Creatinine 0.63 L (0.66-1.25) mg/dL Glucose 137 H (74-99) mg/dL - Imaging and Cardiology Chest x-ray: report reviewed, image reviewed Assessment and Plan Assessment: Lung cancer, squamous cell carcinoma right upper lobe of the lung, status post robotic assisted thoracoscopic right upper lobectomy, blebectomy right lower lobe History of COPD Previous tobacco dependence Hypertension Hyperlipidemia Plan: Continue chest tube to -20 cm continuous wall suction, monitor for air leak resolution, monitor drainage Encourage incentive spirometry use 10 times every hour while awake. Bronchodilators per pulmonology Will monitor daily labs and x-rays Hep lock IV GI/DVT prophylaxis Increase activity, ambulate as tolerated. May add extension tubing to allow patient to ambulate around the room Continue home medications Pain control with current medication regimen More recommendations to follow
--- NOTE | 2023-08-17 11:33 | P.PN ---
Subjective Progress Note Date: 08/17/23 Principal diagnosis: Lung cancer. Pulmonary consult dated 08/16/2023. 68-year-old male, well-known to me. I've been seeing the patient in the office, for a number of years, for his underlying COPD. In addition, in the past, the patient has had pulmonary nodules, which have been relatively stable, and negative on PET scan. More recently, his been in the right upper lobe, was enlarging, and the PET scan, was positive only in that area. The patient was initially seen by Dr. Parks, who requested a biopsy, and evaluation of lymph nodes. My partner did a robotic bronchoscopy, and endobronchial ultrasound on this patient, and the sampling, of the right upper lobe, with positive for squamous cell carcinoma. Sampling of the station 7/subcarinal node, was negative. The patient was then brought to the operating room, today, by Dr. Klein, for robotically-assisted right upper lobectomy, and lymph node dissection/sampling. The patient is seen today in room 350. He is on room air. He is on D5 with half-normal saline at 40 mL an hour. Today is postop day 0. The patient is doing well, without complaints. His family is in the room with him. The patient has a history of COPD, and hyperlipidemia. Current labs include a white count of 13.4, hemoglobin 13.7, hematocrit 41.7, and a normal platelet count. Sodium 135, potassium 4, chlorides 100, CO2 27, BUN 14, and creatinine 0.73. Progress note dated 08/17/2023. The patient's currently on room air. He's not receiving any IV fluids. The patient is postop day #1, status post robotically-assisted right upper lobectomy and lymph node dissection, by Dr. Klein. The patient does have anterior leak on the right side. He currently feels relatively comfortable. White count 11, hemoglobin 12.9, hematocrit 38.7, and platelet count 174,000. Sodium 129, potassium 3.7, chlorides 95, CO2 26, BUN 14, and creatinine 0.63. Pneumothorax on the right side, is less than 5%. Objective - Vital Signs Vital signs: Vital Signs Temp 98.3 F 08/17/23 08:30 Pulse 72 08/17/23 08:44 Resp 18 08/17/23 08:30 BP 141/80 08/17/23 08:30 Pulse Ox 94 L 08/17/23 08:30 FiO2 Intake & Output 08/16/23 08/17/23 08/17/23 18:59 06:59 18:59 Intake Total 3298 1120 240 Output Total 1220 1570 280 Balance 2078 -450 -40 Intake: IV 2400 Intake, IV Titration 160 Amount Dextrose 5%-0.45% NaCl 1, 160 000 ml @ 40 mls/hr IV . Q24H [facility] Rx#:[id number] Oral 898 960 240 Output: Chest Tube Drainage 40 620 280 Chest Tube Right Upper 40 620 280 Anterior Chest Urine 1125 950 Estimated Blood Loss 55 Other: Voiding Method Indwelling Catheter Indwelling Catheter # Voids 1 - Exam No acute distress, oriented 3. No respiratory distress. Currently on room air. Saturations are 96 %. HEENT examination is grossly unremarkable. Mucous membranes are moist. No oral lesions. Neck supple. Full range of motion. No adenopathy thyromegaly or neck vein distention. Cardiovascular examination reveals regular rhythm rate. S1-S2 normal. No S3 or S4. No discernible murmur noted. Heart rate 82 bpm. Lungs reveal minimal scattered rhonchi. No wheezes or crackles. Breath sounds equal bilaterally. Right-sided chest tube is noted. Abdomen soft bowel sounds are heard. No masses or tenderness. Extremities are intact. No cyanosis clubbing or edema. Skin is without rash or lesion. Neurologic examination is brief but nonfocal. - Labs CBC & Chem 7: 08/17/23 06:24 08/17/23 06:24 Labs: Abnormal Lab Results - Last 24 Hours (Table) 08/16/23 08/16/23 08/17/23 Range/Units 14:56 14:56 06:24 WBC 13.4 H 11.0 H (3.8-10.6) k/uL Hgb 12.9 L (13.0-17.5) gm/dL Hct 38.7 L (39.0-53.0) % Neutrophils # 9.7 H (1.3-7.7) k/uL Lymphocytes # 0.6 L (1.0-4.8) k/uL Sodium 135 L (137-145) mmol/L Chloride (98-107) mmol/L Creatinine (0.66-1.25) mg/dL Glucose 182 H (74-99) mg/dL 08/17/23 Range/Units 06:24 WBC (3.8-10.6) k/uL Hgb (13.0-17.5) gm/dL Hct (39.0-53.0) % Neutrophils # (1.3-7.7) k/uL Lymphocytes # (1.0-4.8) k/uL Sodium 129 L (137-145) mmol/L Chloride 95 L (98-107) mmol/L Creatinine 0.63 L (0.66-1.25) mg/dL Glucose 137 H (74-99) mg/dL Assessment and Plan Assessment: Postop day #1, S/P robotically assisted thoracoscopic right upper lobectomy and lymph node dissection. Recent robotic bronchoscopy and endobronchial ultrasound, revealing squamous cell carcinoma, right upper lobe. Station 7 lymph node was negative. History of moderately severe COPD. History of hyperlipidemia. History of hypertension. Plan: Plan dated 08/16/2023. The patient is seen in room 350. He is currently getting D5 with half-normal saline at 40 mL an hour. He is on room air. Saturations are 95%. Chest tube on the right side is noted. The patient's chest x-ray shows a pneumothorax. This is not unusual after this type of surgery. We will continue to follow make recommendations along the way. Formoterol was discontinued. Symbicort 160/4.5, 2 puffs twice a day, is admitted to the patient's regimen. Labs, x-rays, and medications are reviewed. Prognosis is guarded. We will continue to follow the patient. Plan dated 08/17/2023. The patient is seen today in room 350. He's postop day #1, status post roboti zakia assisted right upper lobectomy, and lymph node dissection. The patient is clinically doing well. He is on room air. No IV fluids. The patient does have a substantial leak, from the right-sided chest tube. We will continue to follow make recommendations along the way. We encourage him to use the incentive spirometer every hour. We also encouraged to deep breathe, cough, and clear secretions. Labs, x-rays, and medications are reviewed. Time with Patient: Less than 30
[2023-08-17] MEDS ORDERED: SENNOSIDES-DOCUSATE SODIUM 1 EACH TAB PO PRN (13:05)
[2023-08-17] MEDS: SENNOSIDES-DOCUSATE SODIUM 1 EACH TAB PO SCH (14:24)
[2023-08-17] MEDS: polyethylene glycoL 3350 17 GM POWD.PACK PO SCH (16:46)
[2023-08-17] MEDS: MONTELUKAST 10 MG TAB PO SCH (21:02)
[2023-08-18] MEDS: traMADol 50 MG TAB PO PRN (04:07)
[2023-08-18] MEDS: ACETAMINOPHEN TAB 325 MG TAB PO PRN (04:07)
[2023-08-18] MEDS: PANTOPRAZOLE 40 MG TABLET PO SCH (05:28)
[2023-08-18] MEDS: KETOROLAC 15 MG/ML 1 ML VIAL IVP SCH ×3 (05:30→17:19)
[2023-08-18 07:06] LABS: HCT 37.9 % (39.0-53.0); HGB 12.8 gm/dL (13.0-17.5); MCH 30.2 pg (25.0-35.0); MCHC 33.7 g/dL (31.0-37.0); MCV 89.6 fL (80.0-100.0); Mean Platelet Volume 7.3; Platelet Count 197 k/uL (150-450); RBC 4.23 m/uL (4.30-5.90); RDW 13.2 % (11.5-15.5); WBC 11.9 k/uL (3.8-10.6)
--- NOTE | 2023-08-18 07:32 | XR ---
EXAMINATION TYPE: XR chest 1V portable DATE OF EXAM: 08/18/2023 COMPARISON: 08/08/2023 HISTORY: Post partial lung resection TECHNIQUE: Single frontal view of the chest is obtained. FINDINGS: No change in the right chest tube and small to moderate right apical pneumothorax. Increasing subcutaneous emphysema on the right chest wall and supraclavicular regions. The heart size normal and the pulmonary vasculature is not congested. The left lung remains clear. There are bilateral reverse shoulder is otherwise the osseous structures are intact. IMPRESSION: No change in the right chest tube and right apical pneumothorax. Increasing subcutaneous emphysema.
[2023-08-18 07:37] LABS: African American GFR (CKD) >90 (>60 ml/min/1.73 sqM); Anion Gap 8 mmol/L; Blood Urea Nitrogen 14 mg/dL (9-20); Calcium 9.4 mg/dL (8.4-10.2); Carbon Dioxide 28 mmol/L (22-30); Chloride 94 mmol/L (98-107); Glucose 113 mg/dL (74-99); Non-African American GFR(CKD) >90 (>60 ml/min/1.73 sqM); Potassium 4.2 mmol/L (3.5-5.1); Sodium 130 mmol/L (137-145)
[2023-08-18] MEDS: HEPARIN SODIUM,PORCINE 5,000 UNIT/ML 1 ML VIAL SQ SCH ×2 (08:26→15:41)
[2023-08-18] MEDS: VALSARTAN 160 MG TAB PO SCH (08:27)
[2023-08-18] MEDS: SENNOSIDES-DOCUSATE SODIUM 1 EACH TAB PO SCH (08:27)
[2023-08-18] MEDS: polyethylene glycoL 3350 17 GM POWD.PACK PO SCH (08:27)
[2023-08-18] MEDS: MULTIVITAMINS, THERA 1 EACH TAB PO SCH (08:27)
[2023-08-18] MEDS: hydroCHLOROthiazide 12.5 MG CAP PO SCH (08:27)
[2023-08-18] MEDS: ATORVASTATIN 20 MG TAB PO SCH (08:27)
[2023-08-18] MEDS: IPRATROPIUM-ALBUTEROL 3 ML NEB IH SCH ×4 (08:48→21:17)
[2023-08-18] MEDS: SYMBICORT 160-4.5 MCG INHALER INHALATION SCH ×2 (08:48→21:17)
--- NOTE | 2023-08-18 09:03 | P.PN ---
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 Previous medical history of COPD, previous tobacco dependence, hypertension, hyperlipidemia POD #2 robotic assisted thoracoscopic right upper lobectomy, blebectomy right lower lobe Subcutaneous emphysema present, expected given type of surgery The patient was seen and examined this morning sitting up in a recliner on the cardiac stepdown unit in no acute distress. States pain is controlled on current medication regimen, denies shortness of breath. Remains in sinus rhythm and hemodynamically stable. Right pleural chest tube remains to continuous wall suction, air leak present with expiration. Subcutaneous air present to right upper chest, right neck extending up to his right eye, does look a bit worse than yesterday. Lengthy discussion took place yesterday with patient and his regarding subcutaneous emphysema. Currently on room air, able to achieve 2250 mL on his incentive spirometry. Chest x-ray, labs reviewed. No other concerns. Objective - Vital Signs Vital signs: Vital Signs Temp 97.9 F 08/18/23 07:40 Pulse 85 08/18/23 08:49 Resp 18 08/18/23 07:40 BP 144/75 08/18/23 07:40 Pulse Ox 95 08/18/23 07:40 FiO2 Intake & Output 08/17/23 08/18/23 08/18/23 18:59 06:59 18:59 Intake Total 960 Output Total 841 1050 Balance 119 -1050 Intake: Oral 960 Output: Chest Tube Drainage 541 250 Chest Tube Right Upper 541 250 Anterior Chest Urine 300 800 Other: Voiding Method Toilet Toilet Urinal Urinal # Voids 1 - Exam CONSTITUTIONAL: Appears comfortable, cooperative, no acute distress RESPIRATORY: Lungs sounds diminished bilaterally. Respirations even, nonlabored. Currently on room air with oxygen saturation 95%. Able to achieve 2250 mL on incentive spirometry. Strong cough. CARDIOVASCULAR: S1, S2 present. Regular rate and rhythm, sinus rhythm on telemetry. Palpable peripheral pulses bilaterally. No edema present GASTROINTESTINAL: Abdomen soft, nontender, nondistended. Active bowel sounds present 4 quadrants. Tolerating diet GENITOURINARY: Continues to void INTEGUMENTARY: Skin is warm and dry. Subcutaneous emphysema present to chest wall, right neck, extending up to his right eye NEUROLOGIC: Cranial nerves II through XII intact MUSKULOSKELETAL: Able to move all extremities, strength equal bilaterally PSYCHIATRIC: Alert and oriented to person place and time, appropriate affect, intact judgment and insight INVASIVE LINES AND TUBES: Right pleural chest tubes present and connected to wall suction, air leak present, 210 mL serosanguineous drainage overnight, 400 mL in the last 24 hours - Allied health notes Allied health notes reviewed: nursing - Labs CBC & Chem 7: 08/18/23 05:20 08/18/23 05:20 Labs: Abnormal Lab Results - Last 24 Hours (Table) 08/18/23 08/18/23 Range/Units 05:20 05:20 WBC 11.9 H (3.8-10.6) k/uL RBC 4.23 L (4.30-5.90) m/uL Hgb 12.8 L (13.0-17.5) gm/dL Hct 37.9 L (39.0-53.0) % Sodium 130 L (137-145) mmol/L Chloride 94 L (98-107) mmol/L Glucose 113 H (74-99) mg/dL - Imaging and Cardiology Chest x-ray: report reviewed, image reviewed Assessment and Plan Assessment: Lung cancer, 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 Bronchodilators per pulmonology Will monitor daily labs and x-rays GI/DVT prophylaxis Increase activity, ambulate as tolerated. May add extension tubing to allow patient to ambulate around the room Continue home medications Pain control with current medication regimen More recommendations to follow
--- NOTE | 2023-08-18 10:09 | P.CONS ---
History of Present Illness - Reason for Consult Consult date: 08/16/23 Medical management Requesting physician: Manny Klein - Chief Complaint Robotic-assisted right upper lobectomy and Blebectomy right lower lobe - History of Present Illness HISTORY OF PRESENT ILLNESS: This is a 68-year-old male one of my patient and the patient medical history significant for COPD, hypertension and hypertensive cardiovascular disease, hyperlipidemia, history of ALLERGIC rhinitis, remote history of tobacco use and dependence he smoked at least 3 pack every day for many years and quit when he was 43-year-old,, patient has been followed by pulmonary medicine Dr. Rendon on a regular basis, he had pulmonary nodules history, he has been having a computed tomography scan of the chest and PET scan and regular basis until recentlyhis PET scan came back positive patient underwent robotic bronchoscopy with ultrasound of the bronchial tree by Dr. 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 Landon underwent robotic-assisted thoracoscopy right upper lobect marilee with lumpectomy of the right lower lobe, and he was admitted to telemetry unit, he was seen and evaluated in his room, appears to be somewhat short of breath, he does have a chest tube in the right side of the chest, draining quite a bit of serosanguineous material, patient appears to be quite short of breath and debility, he did appear to have a significant subcutaneously emphysema as well, Dr. Klein evaluated the patient and the patient has been stable we will follow the patient along with pulmonary as well as thoracic surgery. REVIEW OF SYSTEMS: Constitutional: No documented fever, no chills, no night sweats. No weight change. No weakness, fatigue or lethargy. No daytime sleepiness. EENT: No headache. No blurred vision or double vision, no loss of vision. No loss of Hearing, no ringing in the ears, no dizziness. No nasal drainage or congestion. No epistaxis. No sore throat. Lungs: positive for shortness of breath, occasional cough, no sputum production. No wheezing. Reports dyspnea with activity. Cardiovascular: No chest pain, no lower extremity edema. No palpitations. No paroxysmal nocturnal dyspnea. No orthopnea. No lightheadedness or dizziness. No syncopal episodes. Abdominal: Reports no abdominal pain. No nausea, vomiting. No diarrhea. positive for constipation. No bloody or tarry stools reports loss of appetite. Genitourinary: No dysuria, increased frequency, urgency. No urinary retention. Musculoskeletal: No myalgias. No muscle weakness, no gait dysfunction, no frequent falls. No back pain. No neck pain. Integumentary: No wounds, no lesions. No rash or pruritus. No unusual bruising. No change in hair or nails. Neurologic: No aphasia. No facial droop. No change in mentation. No head injury. No headache. No paralysis. No paresthesia. Psychiatric: No depression. No anxiety. No mood swings. Endocrine: No abnormal blood sugars. No weight change. PAST MEDICAL HISTORY: Hypertension and hypertensive cardio vascular disease. Hyperlipidemia. COPD. ALLERGIC rhinitis. Squamous cell lung cancer of the right upper lobe. Enlarged prostate. Lipoma. Major depressive disorder PAST SURGICAL HISTORY: Bilateral shoulder surgery 2016 2009. Right inguinal hernia repair 1980 Left inguinal hernia repair 1992 Left ankle ORIF Biopsy of the right lung 07/05/2023 SOCIAL HISTORY: Patient smoked about 3 pack every day since the age of 13 and quit at the age of 43 he smoked for a total of 30 years, he denies any alcohol ingestion, no drug use or abuse. He lives with his . FAMILY HISTORY: Father at age 72 from congestive heart failure and COPD, he also had history of CAD, mother at age of 87 from thoracic aortic aneurysm and COPD, patient has one brother who from alcoholism and airborne encephalitis pat ient also has 5 sisters one COPD and there is fine patient also have 1 son and 2 daughters no major medical problems. PHYSICAL EXAMINATION: General: 68-year-old male sitting up in chair in minimal respiratory distress HEENT: Head is atraumatic, normocephalic, pupils were equal round reactive to light and recommendation, extraocular muscle movement were intact, sclera nonicteric, conjunctivae were pale, mucous membranes of the mouth are somewhat dry. Neck: Supple, no JVP, normal carotid upstroke bilaterally, no lymphadenopathy. Chest: Decreased breath sounds at the bases, few rhonchi, right sided chest tube with subcutaneous emphysema, and the chest wall tenderness minimal intercostal retractions. Heart: First heart sound is normal, second heart sound is normal there is systolic ejection murmur 2/6 located in the left sternal border. Abdomen: Soft, nontender, nondistended, positive bowel sounds. Extremities: There is no edema no calf tenderness DP +2 bilaterally. Neurologic examination: Patient is awake alert and oriented X 3, cranial nerves II-12 appear grossly intact, muscle power were 5 out of 5 in upper extremities and 5 out of 5 in bilateral lower extremities, deep tendon reflexes normal bilaterally. ASSESSMENT AND PLAN: 1. Postoperative day #0 status post robotic-assisted laparoscopic right upper lobectomy with blebectomy of th right lower lobe. Continue patient on the use of incentive spirometer, increase activity, monitor the patient chest tube. Closely, continue with DuoNeb 3 mL nebulization 4 times every day, continue supportive and 60/445 g 2 puffs ablation twice every day, continue current pain management as outlined by prostate surgery 2. Hypertension and hypertensive cardio vascular disease. Continue patient on valsartan 160 mg every day, hydrochlorothiazide 12.5 mg every day, monitor the patient very closely. 3. Mixed hyperlipidemia. Continue patient on atorvastatin 20 mg once every day. 4. ALLERGIC rhinitis. Start the patient back on loratadine 10 mg every day, may use the insulin saline spray 2 sprays initial surgery times every day as well as Flonase as needed patient also would be started back on his montelukast 10 mg orally bedtime. 5. Reported constipation. Start the patient on Senokot at bedtime as well as M iraLAX 17 gram in 8 OZ of water daily, we will increase activity. 6. Enlarged prostate. Monitor for urinary retention. 7. CAD. Continue patient on DuoNeb 3 nebulization 4 times every day, continue Symbicort 160/4.5 g 2. Position twice every day, pulmonary is following. 8. DVT prophylaxis. Continue heparin 5000 units subcutaneously every 8 hours. 9. GI prophylaxis. Continue Protonix 40 mg every day. 10. Thank you for the consult we will follow the patient along with you. Past Medical History Past Medical History: COPD, Hearing Disorder / Deafness, Hypertension Additional Past Medical History / Comment(s): Current right lung cancer. Severe emphysema. Hypoglycemic. Hard of hearing. History of Any Multi-Drug Resistant Organisms: None Reported Past Surgical History: Hernia Repair, Joint Replacement, Orthopedic Surgery Additional Past Surgical History / Comment(s): Bilateral shoulder replacement, pin in ankle. Past Anesthesia/Blood Transfusion Reactions: No Reported Reaction Additional Past Anesthesia/Blood Transfusion Reaction / Comm: No hx blood transfusion. Past Psychological History: No Psychological Hx Reported Smoking Status: Former smoker Past Alcohol Use History: None Reported Additional Past Alcohol Use History / Comment(s): Quit smoking in the , smoked approx 30yrs, 3ppd. Past Drug Use History: None Reported - Past Family History Mother Family Medical History: No Reported History Father Family Medical History: Myocardial Infarction ([place]) Sister(s) Family Medical History: Vascular Disorder Medications and Allergies Home Medications Medication Instructions Recorded Confirmed Type Albuterol Inhaler [Ventolin Hfa 1 - 2 puff INHALATION Q6HR PRN 05/23/17 08/16/23 History Inhaler] Albuterol Nebulized [Ventolin 2.5 mg INHALATION Q6H PRN 05/23/17 08/16/23 History Nebulized] Atorvastatin [Lipitor] 20 mg PO DAILY 05/23/17 08/16/23 History Montelukast Sodium [Singulair] 10 mg PO HS 05/23/17 08/16/23 History Mv-Min/Folic/K1/Lycopen/Lutein 1 each PO DAILY 05/23/17 08/16/23 History [Centrum Silver Men Tablet] Fluticasone/Umeclidin/Vilanter 1 puff INHALATION DAILY 07/02/23 08/16/23 History [Trelegy Ellipta 200-62.5-25] Valsartan/Hydrochlorothiazide 1 each PO DAILY 07/02/23 08/16/23 History [Diovan Hct 160-12.5 mg Tab] Allergies Allergy/AdvReac Type Severity Reaction Status Date / Time No Known Allergies Allergy Verified 08/16/23 06:14 Physical Exam Vitals: Vital Signs Temp Pulse Pulse Resp BP BP Pulse Ox 08/16/23 15:18 77 18 08/16/23 15:11 95 08/16/23 15:10 97.8 F 79 18 153/87 94 L 08/16/23 15:08 78 18 08/16/23 13:38 71 18 08/16/23 12:36 64 14 144/78 95 08/16/23 12:21 72 14 152/79 94 L 08/16/23 12:06 69 14 132/77 99 08/16/23 11:51 70 14 161/85 152/86 100 08/16/23 11:36 73 14 146/80 128/78 93 L 08/16/23 11:21 97.0 F L 71 14 128/87 135/77 96 08/16/23 07:14 70 16 166/95 96 08/16/23 06:25 97.1 F L 66 16 165/91 97 Intake and Output 08/16/23 08/16/23 08/16/23 06:59 14:59 22:59 Intake Total 200 3180 118 Output Total 910 310 Balance 200 2270 -192 Intake: IV 200 2400 Oral 780 118 Output: Chest Tube Drainage 30 10 Chest Tube Right Upper 30 10 Anterior Chest Urine 825 300 Estimated Blood Loss 55 Other: Voiding Method Indwelling Catheter Weight 96.3 kg Results CBC & Chem 7: 08/18/23 05:20 08/18/23 05:20 Labs: Abnormal Lab Results - Last 24 Hours (Table) 08/16/23 08/16/23 Range/Units 14:56 14:56 WBC 13.4 H (3.8-10.6) k/uL Sodium 135 L (137-145) mmol/L Glucose 182 H (74-99) mg/dL
--- NOTE | 2023-08-18 10:12 | P.PN ---
Subjective Progress Note Date: 08/17/23 HISTORY OF PRESENT ILLNESS: This is a 68-year-old male one of my patient and the patient medical history significant for COPD, hypertension and hypertensive cardiovascular disease, hyperlipidemia, history of ALLERGIC rhinitis, remote history of tobacco use and dependence he smoked at least 3 pack every day for many years and quit when he was 43-year-old,, patient has been followed by pulmonary medicine Dr. Rendon on a regular basis, he had pulmonary nodules history, he has been having a computed tomography scan of the chest and PET scan and regular basis until recentlyhis PET scan came back positive patient underwent robotic bronchoscopy with ultrasound of the bronchial tree by Dr. 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 Landon underwent robotic-assisted thoracoscopy right upper lobectomy with lumpectomy of the right lower lobe, and he was admitted to telemetry unit, he was seen and evaluated in his room, appears to be somewhat short of breath, he does have a chest tube in the right side of the chest, draining quite a bit of serosanguineous material, patient appears to be quite short of breath and debility, he did appear to have a significant subcutaneously emphysema as well, Dr. Klein evaluated the patient and the patient has been stable we will follow the patient along with pulmonary as well as thoracic surgery. 08/17: Patient is sitting up in chair continues to have some pain in the right side, he continues to be hospitalized, he has not had a bowel movement, is urinating very well, Senokot and MiraLAX were added, increase activity, continue to monitor the patient very closely, continue DuoNeb, continue Symbicort, we will follow-up the patient very closely, subcutis emphysema spirometer to prevent yesterday. Patient will plan to see the hospital for another 1-2 days. REVIEW OF SYSTEMS: Constitutional: No documented fever, no chills, no night sweats. No weight sampson ge. No weakness, fatigue or lethargy. No daytime sleepiness. EENT: No headache. No blurred vision or double vision, no loss of vision. No loss of Hearing, no ringing in the ears, no dizziness. No nasal drainage or congestion. No epistaxis. No sore throat. Lungs: positive for shortness of breath, occasional cough, no sputum production. No wheezing. Reports dyspnea with activity. Cardiovascular: No chest pain, no lower extremity edema. No palpitations. No paroxysmal nocturnal dyspnea. No orthopnea. No lightheadedness or dizziness. No syncopal episodes. Abdominal: Reports no abdominal pain. No nausea, vomiting. No diarrhea. positive for constipation. No bloody or tarry stools reports loss of appetite. Genitourinary: No dysuria, increased frequency, urgency. No urinary retention. Musculoskeletal: No myalgias. No muscle weakness, no gait dysfunction, no frequent falls. No back pain. No neck pain. Integumentary: No wounds, no lesions. No rash or pruritus. No unusual bruising. No change in hair or nails. Neurologic: No aphasia. No facial droop. No change in mentation. No head injury. No headache. No paralysis. No paresthesia. Psychiatric: No depression. No anxiety. No mood swings. Endocrine: No abnormal blood sugars. No weight change. PHYSICAL EXAMINATION: General: 68-year-old male sitting up in chair in minimal respiratory distress HEENT: Head is atraumatic, normocephalic, pupils were equal round reactive to light and recommendation, extraocular muscle movement were intact, sclera nonicteric, conjunctivae were pale, mucous membranes of the mouth are somewhat dry. Neck: Supple, no JVP, normal carotid upstroke bilaterally, no lymphadenopathy. Chest: Decreased breath sounds at the bases, few rhonchi, right sided chest tube with subcutaneous emphysema, and the chest wall tenderness minimal intercostal retractions. Heart: First heart sound is normal, second heart sound is normal there is systolic ejection murmur 2/6 located in the left sternal border. Abdomen: Soft, nontender, nondistended, positive bowel sounds. Extremities: There is no edema no calf tenderness DP +2 bilaterally. Neurologic examination: Patient is awake alert and oriented X 3, cranial nerves II-12 appear grossly intact, muscle power were 5 out of 5 in upper extremities and 5 out of 5 in bilateral lower extremities, deep tendon reflexes normal bilaterally. ASSESSMENT AND PLAN: 1. Postoperative day #1 status post robotic-assisted laparoscopic right upper lobectomy with blebectomy of th right lower lobe. Continue patient on the use of incentive spirometer, increase activity, monitor the patient chest tube. Closely, continue with DuoNeb 3 mL nebulization 4 times every day, continue supportive and 60/445 g 2 puffs ablation twice every day, continue current pain management as outlined by prostate surgery 2. Hypertension and hypertensive cardio vascular disease. Continue patient on valsartan 160 mg every day, hydrochlorothiazide 12.5 mg every day, monitor the patient very closely. 3. Mixed hyperlipidemia. Continue patient on atorvastatin 20 mg once every day. 4. ALLERGIC rhinitis. Start the patient back on loratadine 10 mg every day, may use the insulin saline spray 2 sprays initial surgery times every day as well as Flonase as needed patient also would be started back on his montelukast 10 mg orally bedtime. 5. Reported constipation. Start the patient on Senokot at bedtime as well as MiraLAX 17 gram in 8 OZ of water daily, we will increase activity. 6. Enlarged prostate. Monitor for urinary retention. 7. CAD. Continue patient on DuoNeb 3 nebulization 4 times every day, continue Symbicort 160/4.5 g 2. Position twice every day, pulmonary is following. 8. DVT prophylaxis. Continue heparin 5000 units subcutaneously every 8 hours. 9. GI prophylaxis. Continue Protonix 40 mg every day. 10. We will follow with you. Objective - Vital Signs Vital signs: Vital Signs Temp 97.9 F 08/18/23 07:40 Pulse 85 08/18/23 09:03 Resp 18 08/18/23 07:40 BP 144/75 08/18/23 07:40 Pulse Ox 95 08/18/23 07:40 FiO2 Intake & Output 08/17/23 08/18/23 08/18/23 18:59 06:59 18:59 Intake Total 960 180 Output Total 841 1050 Balance 119 -1050 180 Intake: Oral 960 180 Output: Chest Tube Drainage 541 250 Chest Tube Right Upper 541 250 Anterior Chest Urine 300 800 Other: Voiding Method Toilet Toilet Urinal Urinal # Voids 1 - Labs CBC & Chem 7: 08/18/23 05:20 08/18/23 05:20 Labs: Abnormal Lab Results - Last 24 Hours (Table) 08/18/23 08/18/23 Range/Units 05:20 05:20 WBC 11.9 H (3.8-10.6) k/uL RBC 4.23 L (4.30-5.90) m/uL Hgb 12.8 L (13.0-17.5) gm/dL Hct 37.9 L (39.0-53.0) % Sodium 130 L (137-145) mmol/L Chloride 94 L (98-107) mmol/L Glucose 113 H (74-99) mg/dL
[2023-08-18] MEDS: ALPRAZolam 0.5 MG TAB PO PRN ×2 (11:59→22:41)
--- NOTE | 2023-08-18 12:33 | P.PN ---
Subjective Progress Note Date: 08/18/23 Principal diagnosis: Lung cancer. Pulmonary consult dated 08/16/2023. 68-year-old male, well-known to me. I've been seeing the patient in the office, for a number of years, for his underlying COPD. In addition, in the past, the patient has had pulmonary nodules, which have been relatively stable, and negative on PET scan. More recently, his been in the right upper lobe, was enlarging, and the PET scan, was positive only in that area. The patient was initially seen by Dr. Parks, who requested a biopsy, and evaluation of lymph nodes. My partner did a robotic bronchoscopy, and endobronchial ultrasound on this patient, and the sampling, of the right upper lobe, with positive for squamous cell carcinoma. Sampling of the station 7/subcarinal node, was negative. The patient was then brought to the operating room, today, by Dr. Klein, for robotically-assisted right upper lobectomy, and lymph node dissection/sampling. The patient is seen today in room 350. He is on room air. He is on D5 with half-normal saline at 40 mL an hour. Today is postop day 0. The patient is doing well, without complaints. His family is in the room with him. The patient has a history of COPD, and hyperlipidemia. Current labs include a white count of 13.4, hemoglobin 13.7, hematocrit 41.7, and a normal platelet count. Sodium 135, potassium 4, chlorides 100, CO2 27, BUN 14, and creatinine 0.73. Progress note dated 08/17/2023. The patient's currently on room air. He's not receiving any IV fluids. The patient is postop day #1, status post robotically-assisted right upper lobectomy and lymph node dissection, by Dr. Klein. The patient does have anterior leak on the right side. He currently feels relatively comfortable. White count 11, hemoglobin 12.9, hematocrit 38.7, and platelet count 174,000. Sodium 129, potassium 3.7, chlorides 95, CO2 26, BUN 14, and creatinine 0.63. Pneumothorax on the right side, is less than 5%. Progress note dated 08/18/2023. The patient's currently on room air. He's not receiving any IV fluids. The patient is postop day #2, status post robotically assisted upper lobectomy and lymph node dissection, by Dr. Klein. The patient does have a leak from the chest tube. He has developed significant subcutaneous emphysema, and the right chest, right neck, and facial area. White count is 11.9, hemoglobin 12.8, hematocrit 37.9, within normal platelet count. Sodium 1:30, potassium 4.2, chlorides 94, CO2 28, BUN 14, creatinine 0.69. Chest x-ray shows a right apical pneumothorax. There is increasing subcutaneous emphysema. Objective - Vital Signs Vital signs: Vital Signs Temp 97.6 F 08/18/23 12:00 Pulse 98 08/18/23 12:00 Resp 18 08/18/23 12:00 BP 139/82 08/18/23 12:00 Pulse Ox 95 08/18/23 12:00 FiO2 Intake & Output 08/17/23 08/18/23 08/18/23 18:59 06:59 18:59 Intake Total 960 180 Output Total 841 1050 300 Balance 119 -1050 -120 Intake: Oral 960 180 Output: Chest Tube Drainage 541 250 Chest Tube Right Upper 541 250 Anterior Chest Urine 300 800 300 Other: Voiding Method Toilet Toilet Urinal Urinal # Voids 1 - Exam No acute distress, oriented 3. No respiratory distress. Currently on room air. Saturations are 95 %. HEENT examination is grossly unremarkable. Mucous membranes are moist. No oral lesions. Neck supple. Full range of motion. No adenopathy thyromegaly or neck vein dist ention. Cardiovascular examination reveals regular rhythm rate. S1-S2 normal. No S3 or S4. No discernible murmur noted. Heart rate 85 bpm. Lungs reveal minimal scattered rhonchi. No wheezes or crackles. Breath sounds equal bilaterally. Right-sided chest tube is noted. There is significant right chest neck and facial subcutaneous emphysema. Abdomen soft bowel sounds are heard. No masses or tenderness. Extremities are intact. No cyanosis clubbing or edema. Skin is without rash or lesion. Neurologic examination is brief but nonfocal. - Labs CBC & Chem 7: 08/18/23 05:20 08/18/23 05:20 Labs: Abnormal Lab Results - Last 24 Hours (Table) 08/18/23 08/18/23 Range/Units 05:20 05:20 WBC 11.9 H (3.8-10.6) k/uL RBC 4.23 L (4.30-5.90) m/uL Hgb 12.8 L (13.0-17.5) gm/dL Hct 37.9 L (39.0-53.0) % Sodium 130 L (137-145) mmol/L Chloride 94 L (98-107) mmol/L Glucose 113 H (74-99) mg/dL Assessment and Plan Assessment: Postop day #2, S/P robotically assisted thoracoscopic right upper lobectomy and lymph node dissection. Persistent air leak, with significant subcutaneous emphysema. Recent robotic bronchoscopy and endobronchial ultrasound, revealing squamous cell carcinoma, right upper lobe. Station 7 lymph node was negative. History of moderately severe COPD. History of hyperlipidemia. History of hypertension. Plan: Plan dated 08/16/2023. The patient is seen in room 350. He is currently getting D5 with half-normal saline at 40 mL an hour. He is on room air. Saturations are 95%. Chest tube on the right side is noted. The patient's chest x-ray shows a pneumothorax. This is not unusual after this type of surgery. We will continue to follow make recommendations along the way. Formoterol was discontinued. Symbicort 160/4.5, 2 puffs twice a day, is admitted to the patient's regimen. Labs, x-rays, and medications are reviewed. Prognosis is guarded. We will continue to follow the patient. Plan dated 08/17/2023. The patient is seen today in room 350. He's postop day #1, status post robotically assisted right upper lobectomy, and lymph node dissection. The patient is clinically doing well. He is on room air. No IV fluids. The patient does have a substantial leak, from the right-sided chest tube. We will continue to follow make recommendations along the way. We encourage him to use the incentive spirometer every hour. We also encouraged to deep breathe, cough, and clear secretions. Labs, x-rays, and medications are reviewed. Plan dated 08/18/2023. The patient is postop day #2. He seen in room 350. He is not requiring any supplemental oxygen. He is not on any IV fluids. The patient has developed significant subcutaneous emphysema involving the right chest, neck, and facial area. Labs, x-rays, and medications are reviewed. The patient has a significant air leak, from the right chest tube. We will continue to follow and make recommendations along the way. Prognosis is guarded. Time with Patient: Less than 30
[2023-08-18] MEDS ORDERED: ALBUTEROL HFA INHALER INHALATION PRN (12:38)
--- NOTE | 2023-08-18 13:43 | P.PN ---
Subjective Progress Note Date: 08/18/23 HISTORY OF PRESENT ILLNESS: This is a 68-year-old male one of my patient and the patient medical history significant for COPD, hypertension and hypertensive cardiovascular disease, hyperlipidemia, history of ALLERGIC rhinitis, remote history of tobacco use and dependence he smoked at least 3 pack every day for many years and quit when he was 43-year-old,, patient has been followed by pulmonary medicine Dr. Rendon on a regular basis, he had pulmonary nodules history, he has been having a computed tomography scan of the chest and PET scan and regular basis until recentlyhis PET scan came back positive patient underwent robotic bronchoscopy with ultrasound of the bronchial tree by Dr. 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 Landon underwent robotic-assisted thoracoscopy right upper lobectomy with lumpectomy of the right lower lobe, and he was admitted to telemetry unit, he was seen and evaluated in his room, appears to be somewhat short of breath, he does have a chest tube in the right side of the chest, draining quite a bit of serosanguineous material, patient appears to be quite short of breath and debility, he did appear to have a significant subcutaneously emphysema as well, Dr. Klein evaluated the patient and the patient has been stable we will follow the patient along with pulmonary as well as thoracic surgery. 08/17: Patient is sitting up in chair continues to have some pain in the right side, he continues to be hospitalized, he has not had a bowel movement, is urinating very well, Senokot and MiraLAX were added, increase activity, continue to monitor the patient very closely, continue DuoNeb, continue Symbicort, we will follow-up the patient very closely, subcutis emphysema spirometer to prevent yesterday. Patient will plan to see the hospital for another 1-2 days. 08/18: Patient sitting up in bed in no apparent distress, he denies any chest pain, he continues to have some cough, no phlegm production, he continues to have a chest tube in the second, subcutaneous emphysema that has progressed and now is all the way to his neck and face , he has no abdominal pain, nausea or vomiting, did have a small bowel movement today, he denies any unusual symptom at this time except for dyspnea on exertion. REVIEW OF SYSTEMS: Constitutional: No documented fever, no chills, no night sweats. No weight change. No weakness, fatigue or lethargy. No daytime sleepiness. HEENT: No headache. No blurred vision or double vision, no loss of vision. No loss of Hearing, no ringing in the ears, no dizziness. No nasal drainage or congestion. No epistaxis. No sore throat. Lungs: positive for shortness of breath, occasional cough, no sputum production. No wheezing. Reports dyspnea with activity. Cardiovascular: No chest pain, no lower extremity edema. No palpitations. No paroxysmal nocturnal dyspnea. No orthopnea. No lightheadedness or dizziness. No syncopal episodes. Abdominal: Reports no abdominal pain. No nausea, vomiting. No diarrhea. positive for constipation. No bloody or tarry stools reports loss of appetite. Genitourinary: No dysuria, increased frequency, urgency. No urinary retention. Musculoskeletal: No myalgias. No muscle weakness, no gait dysfunction, no frequent falls. No back pain. No neck pain. Integumentary: No wounds, no lesions. No rash or pruritus. No unusual bruising. No change in hair or nails. Neurologic: No aphasia. No facial droop. No change in mentation. No head injury. No headache. No paralysis. No paresthesia. Psychiatric: No depression. No anxiety. No mood swings. Endocrine: No abnormal blood sugars. No weight change. PHYSICAL EXAMINATION: General: 68-year-old male sitting up in chair in minimal respiratory distress HEENT: Head is atraumatic, normocephalic, pupils were equal round reactive to light and recommendation, extraocular muscle movement were intact, sclera nonicteric, conjunctivae were pale, mucous membranes of the mouth are somewhat dry, subcutaneous emphysema all the way up to the neck and face Neck: Supple, no JVP, normal carotid upstroke bilaterally, no lymphadenopathy, subcutaneous emphysema. Chest: Decreased breath sounds at the bases, few rhonchi, right sided chest tube with subcutaneous emphysema, and the chest wall tenderness minimal intercostal retractions. Heart: First heart sound is normal, second heart sound is normal there is systolic ejection murmur 2/6 located in the left sternal border. Abdomen: Soft, nontender, nondistended, positive bowel sounds. Extremities: There is no edema no calf tenderness DP +2 bilaterally. Neurologic examination: Patient is awake alert and oriented X 3, cranial nerves II-12 appear grossly intact, muscle power were 5 out of 5 in upper extremities and 5 out of 5 in bilateral lower extremities, deep tendon reflexes normal bilaterally. ASSESSMENT AND PLAN: 1. Postoperative day #2 status post robotic-assisted laparoscopic right upper lobectomy with blebectomy of th right lower lobe. Continue patient on the use of incentive spirometer, increase activity, monitor the patient chest tube. Closely, continue with DuoNeb 3 mL nebulization 4 times every day, continue supportive and 60/445 g 2 puffs ablation twice every day, continue current pain management as outlined by prostate surgery. 2. Extensive subcutaneous emphysema due to aor leak. Thoracic surgery is following we will continue to monitor 3. Hypertension and hypertensive cardiovascular disease. Continue patient on valsartan 160 mg every day, hydrochlorothiazide 12.5 mg every day, monitor the patient very closely. 4. Mixed hyperlipidemia. Continue patient on atorvastatin 20 mg once every day. 5. ALLERGIC rhinitis. Start the patient back on loratadine 10 mg every day, may use the insulin saline spray 2 sprays initial surgery times every day as well as Flonase as needed patient also would be started back on his montelukast 10 mg orally bedtime. 6. constipation. patient on Senokot at bedtime as well as MiraLAX 17 gram in 8 OZ of water daily, we will increase activity. 7. Enlarged prostate. Monitor for urinary retention. 8. COPD. Continue patient on DuoNeb 3 nebulization 4 times every day, continue Symbicort 160/4.5 g 2. Position twice every day, pulmonary is following. 9. DVT prophylaxis. Continue heparin 5000 units subcutaneously every 8 hours. 10. GI prophylaxis. Continue Protonix 40 mg every day. 11. We will follow with you. Objective - Vital Signs Vital signs: Vital Signs Temp 97.9 F 08/18/23 07:40 Pulse 85 08/18/23 09:03 Resp 18 08/18/23 07:40 BP 144/75 08/18/23 07:40 Pulse Ox 95 08/18/23 07:40 FiO2 Intake & Output 08/17/23 08/18/23 08/18/23 18:59 06:59 18:59 Intake Total 960 180 Output Total 841 1050 Balance 119 -1050 180 Intake: Oral 960 180 Output: Chest Tube Drainage 541 250 Chest Tube Right Upper 541 250 Anterior Chest Urine 300 800 Other: Voiding Method Toilet Toilet Urinal Urinal # Voids 1 - Labs CBC & Chem 7: 08/18/23 05:20 08/18/23 05:20 Labs: Abnormal Lab Results - Last 24 Hours (Table) 08/18/23 08/18/23 Range/Units 05:20 05:20 WBC 11.9 H (3.8-10.6) k/uL RBC 4.23 L (4.30-5.90) m/uL Hgb 12.8 L (13.0-17.5) gm/dL Hct 37.9 L (39.0-53.0) % Sodium 130 L (137-145) mmol/L Chloride 94 L (98-107) mmol/L Glucose 113 H (74-99) mg/dL
[2023-08-18] MEDS ORDERED: ALBUTEROL MDI INHALATION PRN (17:00)
[2023-08-18] MEDS: MONTELUKAST 10 MG TAB PO SCH (20:53)
[2023-08-19] MEDS: KETOROLAC 15 MG/ML 1 ML VIAL IVP SCH ×5 (00:09→23:23)
[2023-08-19] MEDS: HEPARIN SODIUM,PORCINE 5,000 UNIT/ML 1 ML VIAL SQ SCH ×4 (00:11→23:22)
[2023-08-19] MEDS: traMADol 50 MG TAB PO PRN (03:12)
[2023-08-19] MEDS: ACETAMINOPHEN TAB 325 MG TAB PO PRN (03:13)
[2023-08-19] MEDS: PANTOPRAZOLE 40 MG TABLET PO SCH (06:06)
[2023-08-19] MEDS: IPRATROPIUM-ALBUTEROL 3 ML NEB IH SCH ×4 (07:49→19:26)
[2023-08-19] MEDS: SYMBICORT 160-4.5 MCG INHALER INHALATION SCH ×4 (07:49→19:28)
--- NOTE | 2023-08-19 08:40 | XR ---
EXAMINATION TYPE: XR chest 1V portable DATE OF EXAM: 08/19/2023 COMPARISON: 08/18/2023 HISTORY: Follow-up right pneumothorax TECHNIQUE: Single frontal view of the chest is obtained. FINDINGS: The right chest tube is unchanged in position. There is a persistent approximate 15-20% right apical pneumothorax which is stable. There is marked subcutaneous emphysema in the right chest wall and supr aclavicular regions. The left lung is clear. Heart and pulmonary vasculature are normal. There are bilateral reverse shoulder prosthetics. IMPRESSION: 1. Right chest tube unchanged in position. 2. Stable 15-20% right apical pneumothorax. 3. Stable diffuse subcutaneous emphysema. 4. Left lung remains clear.
--- NOTE | 2023-08-19 08:41 | P.PN ---
Subjective Progress Note Date: 08/19/23 Principal diagnosis: Lung cancer, squamous cell carcinoma right upper lobe of the lung. Previous medical history of COPD, previous tobacco dependence, hypertension, hyperlipidemia POD #3 robotic assisted thoracoscopic right upper lobectomy, blebectomy right lower lobe Subcutaneous emphysema present, expected given type of surgery The patient was seen and examined this morning sitting up in a recliner on the cardiac stepdown unit in no acute distress. States pain is controlled on current medication regimen, denies shortness of breath. Remains in sinus rhythm and hemodynamically stable. Right pleural chest tube remains to continuous wall suction, air leak present with expiration. Subcutaneous air present to right upper chest, right neck extending up to his right eye. Had extended to the left side of his face yesterday afternoon including the left eye, however this morning subcu air knot present over the left eye. Currently on room air, able to achieve 3000 mL on his incentive spirometry. Chest x-ray, labs reviewed. No other concerns. Objective - Vital Signs Vital signs: Vital Signs Temp 98.2 F 08/18/23 20:00 Pulse 84 08/19/23 08:06 Resp 20 08/19/23 05:00 BP 124/75 08/19/23 05:00 Pulse Ox 94 L 08/19/23 05:00 FiO2 Intake & Output 08/18/23 08/19/23 08/19/23 18:59 06:59 18:59 Intake Total 600 180 Output Total 630 1670 Balance -30 -1670 180 Weight 97.5 kg Intake: Oral 600 180 Output: Chest Tube Drainage 330 570 Chest Tube Right Upper 330 570 Anterior Chest Urine 300 1100 Other: Voiding Method Toilet Urinal # Voids 0 - Exam CONSTITUTIONAL: Appears comfortable, cooperative, no acute distress RESPIRATORY: Lungs sounds diminished bilaterally. Respirations even, nonlabored. Currently on room air with oxygen saturation 94%. Able to achieve 3000 mL on incentive spirometry. Strong cough. CARDIOVASCULAR: S1, S2 present. Regular rate and rhythm, sinus rhythm on telemetry. Palpable peripheral pulses bilaterally. No edema present GASTROINTESTINAL: Abdomen soft, nontender, nondistended. Active bowel sounds present 4 quadrants. Tolerating diet GENITOURINARY: Continues to void INTEGUMENTARY: Skin is warm and dry. Subcutaneous emphysema present to chest wall, neck, extending up to his right eye NEUROLOGIC: Cranial nerves II through XII intact MUSKULOSKELETAL: Able to move all extremities, strength equal bilaterally PSYCHIATRIC: Alert and oriented to person place and time, appropriate affect, intact judgment and insight INVASIVE LINES AND TUBES: Right pleural chest tubes present and connected to wall suction, air leak present, 400 mL serosanguineous drainage overnight, 900 mL in the last 24 hours - Allied health notes Allied health notes reviewed: nursing - Labs CBC & Chem 7: 08/19/23 07:41 08/19/23 07:41 - Imaging and Cardiology Chest x-ray: report reviewed, image reviewed Assessment and Plan Assessment: Lung cancer, squamous cell carcinoma right upper lobe of the lung, status post robotic assisted thoracoscopic right upper lobectomy, blebectomy right lower lobe History of COPD Previous tobacco dependence Hypertension Hyperlipidemia Subcutaneous emphysema, expected Plan: Continue chest tube to -20 cm continuous wall suction, monitor for air leak resolution, monitor drainage Patient encouraged to compress subcu tissues emphysema on his face, neck, upper chest Encourage incentive spirometry use 10 times every hour while awake. Bronchodilators per pulmonology Will monitor daily labs and x-rays GI/DVT prophylaxis Increase activity, ambulate as tolerated. May add extension tubing to allow patient to ambulate around the room Continue home medications Pain control with current medication regimen More recommendations to follow
[2023-08-19 08:43] LABS: Basophils % (A) 0 %; Eosinophils # (A) 0.4 k/uL (0-0.7); Eosinophils % (A) 4 %; HCT 36.8 % (39.0-53.0); HGB 12.3 gm/dL (13.0-17.5); Lymphocytes # (A) 1.2 k/uL (1.0-4.8); Lymphocytes % (A) 11 %; MCH 29.9 pg (25.0-35.0); MCHC 33.3 g/dL (31.0-37.0); MCV 89.7 fL (80.0-100.0); Mean Platelet Volume 7.6; Monocytes # (A) 0.5 k/uL (0-1.0); Monocytes % (A) 5 %; Neutrophils # (A) 8.6 k/uL (1.3-7.7); Neutrophils % (A) 79 %; Platelet Count 212 k/uL (150-450); RBC 4.11 m/uL (4.30-5.90); RDW 13.1 % (11.5-15.5); WBC 10.9 k/uL (3.8-10.6)
[2023-08-19 08:56] LABS: ALT 27 U/L (4-49); AST 46 U/L (17-59); African American GFR (CKD) >90 (>60 ml/min/1.73 sqM); Albumin 3.4 g/dL (3.5-5.0); Alkaline Phosphatase 78 U/L (38-126); Anion Gap 7 mmol/L; Blood Urea Nitrogen 18 mg/dL (9-20); Calcium 9.1 mg/dL (8.4-10.2); Carbon Dioxide 29 mmol/L (22-30); Chloride 93 mmol/L (98-107); Glucose 121 mg/dL (74-99); Non-African American GFR(CKD) >90 (>60 ml/min/1.73 sqM); Sodium 129 mmol/L (137-145); Total Bilirubin 1.4 mg/dL (0.2-1.3); Total Protein 5.9 g/dL (6.3-8.2)
[2023-08-19] MEDS: VALSARTAN 160 MG TAB PO SCH (09:01)
[2023-08-19] MEDS: hydroCHLOROthiazide 12.5 MG CAP PO SCH (09:02)
[2023-08-19] MEDS: SENNOSIDES-DOCUSATE SODIUM 1 EACH TAB PO SCH (09:02)
[2023-08-19] MEDS: polyethylene glycoL 3350 17 GM POWD.PACK PO SCH (09:02)
[2023-08-19] MEDS: ATORVASTATIN 20 MG TAB PO SCH (09:02)
[2023-08-19] MEDS: MULTIVITAMINS, THERA 1 EACH TAB PO SCH (09:02)
--- NOTE | 2023-08-19 10:42 | P.PN ---
Subjective Progress Note Date: 08/19/23 HISTORY OF PRESENT ILLNESS: This is a 68-year-old male one of my patient and the patient medical history significant for COPD, hypertension and hypertensive cardiovascular disease, hyperlipidemia, history of ALLERGIC rhinitis, remote history of tobacco use and dependence he smoked at least 3 pack every day for many years and quit when he was 43-year-old,, patient has been followed by pulmonary medicine Dr. Rendon on a regular basis, he had pulmonary nodules history, he has been having a computed tomography scan of the chest and PET scan and regular basis until recentlyhis PET scan came back positive patient underwent robotic bronchoscopy with ultrasound of the bronchial tree by Dr. 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 Landon underwent robotic-assisted thoracoscopy right upper lobectomy with lumpectomy of the right lower lobe, and he was admitted to telemetry unit, he was seen and evaluated in his room, appears to be somewhat short of breath, he does have a chest tube in the right side of the chest, draining quite a bit of serosanguineous material, patient appears to be quite short of breath and debility, he did appear to have a significant subcutaneously emphysema as well, Dr. Klein evaluated the patient and the patient has been stable we will follow the patient along with pulmonary as well as thoracic surgery. 08/17: Patient is sitting up in chair continues to have some pain in the right side, he continues to be hospitalized, he has not had a bowel movement, is urinating very well, Senokot and MiraLAX were added, increase activity, continue to monitor the patient very closely, continue DuoNeb, continue Symbicort, we will follow-up the patient very closely, subcutis emphysema spirometer to prevent yesterday. Patient will plan to see the hospital for another 1-2 days. 08/18: Patient sitting up in bed in no apparent distress, he denies any chest pain, he continues to have some cough, no phlegm production, he continues to have a chest tube in the second, subcutaneous emphysema that has progressed and now is all the way to his neck and face , he has no abdominal pain, nausea or vomiting, did have a small bowel movement today, he denies any unusual symptom at this time except for dyspnea on exertion. 08/19: Patient is sitting up in chair in no distress, he continues to have significant subcutaneous emphysema involving his right upper chest neck face, no respiratory distress, has been followed by plastic surgery, chest tube still in place, -20 cm of water, patient has not had any abdominal pain, nausea or vomiting, he did not have a bowel movement as of yet increase activity, continue to use the incentive spirometer. REVIEW OF SYSTEMS: Constitutional: No documented fever, no chills, no night sweats. No weight change. No weakness, fatigue or lethargy. No daytime sleepiness. HEENT: No headache. No blurred vision or double vision, no loss of vision. No loss of Hearing, no ringing in the ears, no dizziness. No nasal drainage or congestion. No epistaxis. No sore throat. Lungs: positive for shortness of breath, occasional cough, no sputum pro duction. No wheezing. Reports dyspnea with activity. Cardiovascular: No chest pain, no lower extremity edema. No palpitations. No paroxysmal nocturnal dyspnea. No orthopnea. No lightheadedness or dizziness. No syncopal episodes. Abdominal: Reports no abdominal pain. No nausea, vomiting. No diarrhea. positive for constipation. No bloody or tarry stools reports loss of appetite. Genitourinary: No dysuria, increased frequency, urgency. No urinary retention. Musculoskeletal: No myalgias. No muscle weakness, no gait dysfunction, no frequent falls. No back pain. No neck pain. Integumentary: No wounds, no lesions. No rash or pruritus. No unusual bruising. No change in hair or nails. Neurologic: No aphasia. No facial droop. No change in mentation. No head injury. No headache. No paralysis. No paresthesia. Psychiatric: No depression. No anxiety. No mood swings. Endocrine: No abnormal blood sugars. No weight change. PHYSICAL EXAMINATION: General: 68-year-old male sitting up in chair in minimal respiratory distress HEENT: Head is atraumatic, normocephalic, pupils were equal round reactive to light and recommendation, extraocular muscle movement were intact, sclera nonicteric, conjunctivae were pale, mucous membranes of the mouth are somewhat dry, subcutaneous emphysema all the way up to the neck and face Neck: Supple, no JVP, normal carotid upstroke bilaterally, no lymphadenopathy, subcutaneous emphysema. Chest: Decreased breath sounds at the bases, few rhonchi, right sided chest tube with subcutaneous emphysema, and the chest wall tenderness minimal intercostal retractions. Heart: First heart sound is normal, second heart sound is normal there is systolic ejection murmur 2/6 located in the left sternal border. Abdomen: Soft, nontender, nondistended, positive bowel sounds. Extremities: There is no edema no calf tenderness DP +2 bilaterally. Neurologic examination: Patient is awake alert and oriented X 3, cranial nerves II-12 appear grossly intact, muscle power were 5 out of 5 in upper extremities and 5 out of 5 in bilateral lower extremities, deep tendon reflexes normal bilaterally. ASSESSMENT AND PLAN: 1. Postoperative day #3 status post robotic-assisted laparoscopic right upper lobectomy with blebectomy of th right lower lobe. Continue patient on the use of incentive spirometer, increase activity, monitor the patient chest tube. Closely, continue with DuoNeb 3 mL nebulization 4 times every day, continue supportive and 60/445 g 2 puffs ablation twice every day, continue current pain management as outlined by prostate surgery. 2. Extensive subcutaneous emphysema due to aor leak. Thoracic surgery is following we will continue to monitor 3. Hypertension and hypertensive cardiovascular disease. Continue patient on v alsartan 160 mg every day, hydrochlorothiazide 12.5 mg every day, monitor the patient very closely. 4. Mixed hyperlipidemia. Continue patient on atorvastatin 20 mg once every day. 5. ALLERGIC rhinitis. Start the patient back on loratadine 10 mg every day, may use the insulin saline spray 2 sprays initial surgery times every day as well as Flonase as needed patient also would be started back on his montelukast 10 mg orally bedtime. 6. constipation. patient on Senokot at bedtime as well as MiraLAX 17 gram in 8 OZ of water daily, we will increase activity, add Milk of Magnesia with prune juice 7. Enlarged prostate. Monitor for urinary retention. 8. COPD. Continue patient on DuoNeb 3 nebulization 4 times every day, continue Symbicort 160/4.5 g 2. Position twice every day, pulmonary is following. 9. DVT prophylaxis. Continue heparin 5000 units subcutaneously every 8 hours. 10. GI prophylaxis. Continue Protonix 40 mg every day. 11. We will follow with you. Objective - Vital Signs Vital signs: Vital Signs Temp 98.2 F 08/18/23 20:00 Pulse 84 08/19/23 08:06 Resp 20 08/19/23 05:00 BP 124/75 08/19/23 05:00 Pulse Ox 94 L 08/19/23 05:00 FiO2 Intake & Output 08/18/23 08/19/23 08/19/23 18:59 06:59 18:59 Intake Total 600 180 Output Total 630 1670 Balance -30 -1670 180 Weight 97.5 kg Intake: Oral 600 180 Output: Chest Tube Drainage 330 570 Chest Tube Right Upper 330 570 Anterior Chest Urine 300 1100 Other: Voiding Method Toilet Urinal # Voids 0 - Labs CBC & Chem 7: 08/19/23 07:41 08/19/23 07:41 Labs: Abnormal Lab Results - Last 24 Hours (Table) 08/19/23 08/19/23 Range/Units 07:41 07:41 WBC 10.9 H (3.8-10.6) k/uL RBC 4.11 L (4.30-5.90) m/uL Hgb 12.3 L (13.0-17.5) gm/dL Hct 36.8 L (39.0-53.0) % Neutrophils # 8.6 H (1.3-7.7) k/uL Sodium 129 L (137-145) mmol/L Chloride 93 L (98-107) mmol/L Glucose 121 H (74-99) mg/dL Total Bilirubin 1.4 H (0.2-1.3) mg/dL Total Protein 5.9 L (6.3-8.2) g/dL Albumin 3.4 L (3.5-5.0) g/dL
[2023-08-19] MEDS: MAGNESIUM HYDROXIDE 2,400 MG/30 ML CUP PO PRN (12:26)
[2023-08-19] MEDS: VENLAFAXINE HCL ER 37.5 MG CAP PO SCH (12:27)
--- NOTE | 2023-08-19 12:54 | P.PN ---
Subjective Progress Note Date: 08/19/23 Principal diagnosis: Lung cancer. Pulmonary consult dated 08/16/2023. 68-year-old male, well-known to me. I've been seeing the patient in the office, for a number of years, for his underlying COPD. In addition, in the past, the patient has had pulmonary nodules, which have been relatively stable, and negative on PET scan. More recently, his been in the right upper lobe, was enlarging, and the PET scan, was positive only in that area. The patient was initially seen by Dr. Parks, who requested a biopsy, and evaluation of lymph nodes. My partner did a robotic bronchoscopy, and endobronchial ultrasound on this patient, and the sampling, of the right upper lobe, with positive for squamous cell carcinoma. Sampling of the station 7/subcarinal node, was negative. The patient was then brought to the operating room, today, by Dr. Klein, for robotically-assisted right upper lobectomy, and lymph node dissection/sampling. The patient is seen today in room 350. He is on room air. He is on D5 with half-normal saline at 40 mL an hour. Today is postop day 0. The patient is doing well, without complaints. His family is in the room with him. The patient has a history of COPD, and hyperlipidemia. Current labs include a white count of 13.4, hemoglobin 13.7, hematocrit 41.7, and a normal platelet count. Sodium 135, potassium 4, chlorides 100, CO2 27, BUN 14, and creatinine 0.73. Progress note dated 08/17/2023. The patient's currently on room air. He's not receiving any IV fluids. The patient is postop day #1, status post robotically-assisted right upper lobectomy and lymph node dissection, by Dr. Klein. The patient does have anterior leak on the right side. He currently feels relatively comfortable. White count 11, hemoglobin 12.9, hematocrit 38.7, and platelet count 174,000. Sodium 129, potassium 3.7, chlorides 95, CO2 26, BUN 14, and creatinine 0.63. Pneumothorax on the right side, is less than 5%. Progress note dated 08/18/2023. The patient's currently on room air. He's not receiving any IV fluids. The patient is postop day #2, status post robotically assisted upper lobectomy and lymph node dissection, by Dr. Klein. The patient does have a leak from the chest tube. He has developed significant subcutaneous emphysema, and the right chest, right neck, and facial area. White count is 11.9, hemoglobin 12.8, hematocrit 37.9, within normal platelet count. Sodium 1:30, potassium 4.2, chlorides 94, CO2 28, BUN 14, creatinine 0.69. Chest x-ray shows a right apical pneumothorax. There is increasing subcutaneous emphysema. Progress note dated 08/19/2023. The patient is seen again in room 350. The patient is postop day #3, status post robotically assisted right upper lobectomy, and lymph node dissection. The patient continues with an air leak, and is having significant, subcutaneous emphysema. The patient is in no respiratory distress. He is not receiving any IV fluids. Today we added back his Effexor, and increase his Xanax dose for anxiety. White count 10.9, hemoglobin 12.3, hematocrit 36.8, within normal platelet count. Sodium 129, potassium 4, chlorides 93, CO2 29, BUN 18, and creatinine 0.74. Chest x-ray shows a right chest tube be unchanged in its position, and 15-20% right apical pneumothorax, and diffuse subcutaneous emphysema. Objective - Vital Signs Vital signs: Vital Signs Temp 97.6 F 08/19/23 08:00 Pulse 86 08/19/23 12:00 Resp 18 08/19/23 12:00 BP 111/72 08/19/23 12:00 Pulse Ox 100 08/19/23 12:00 FiO2 Intake & Output 08/18/23 08/19/23 08/19/23 18:59 06:59 18:59 Intake Total 600 180 Output Total 630 1670 Balance -30 -1670 180 Weight 97.5 kg Intake: Oral 600 180 Output: Chest Tube Drainage 330 570 Chest Tube Right Upper 330 570 Anterior Chest Urine 300 1100 Other: Voiding Method Toilet Toilet Urinal Urinal # Voids 0 1 - Exam No acute distress, oriented 3. No respiratory distress. Currently on room air. Saturations are 98 %. HEENT examination is grossly unremarkable. Mucous membranes are moist. No oral lesions. Neck supple. Full range of motion. No adenopathy thyromegaly or neck vein distention. Cardiovascular examination reveals regular rhythm rate. S1-S2 normal. No S3 or S4. No discernible murmur noted. Heart rate 86 bpm. Lungs reveal minimal scattered rhonchi. No wheezes or crackles. Breath sounds equal bilaterally. Right-sided chest tube is noted. There is significant right chest neck and facial subcutaneous emphysema. Abdomen soft bowel sounds are heard. No masses or tenderness. Extremities are intact. No cyanosis clubbing or edema. Skin is without rash or lesion. Neurologic examination is brief but nonfocal. - Labs CBC & Chem 7: 08/19/23 07:41 08/19/23 07:41 Labs: Abnormal Lab Results - Last 24 Hours (Table) 08/19/23 08/19/23 Range/Units 07:41 07:41 WBC 10.9 H (3.8-10.6) k/uL RBC 4.11 L (4.30-5.90) m/uL Hgb 12.3 L (13.0-17.5) gm/dL Hct 36.8 L (39.0-53.0) % Neutrophils # 8.6 H (1.3-7.7) k/uL Sodium 129 L (137-145) mmol/L Chloride 93 L (98-107) mmol/L Glucose 121 H (74-99) mg/dL Total Bilirubin 1.4 H (0.2-1.3) mg/dL Total Protein 5.9 L (6.3-8.2) g/dL Albumin 3.4 L (3.5-5.0) g/dL Assessment and Plan Assessment: Postop day #3, S/P robotically assisted thoracoscopic right upper lobectomy and lymph node dissection. Persistent air leak, with significant subcutaneous emphysema. Recent robotic bronchoscopy and endobronchial ultrasound, revealing squamous cell carcinoma, right upper lobe. Station 7 lymph node was negative. History of moderately severe COPD. History of hyperlipidemia. History of hypertension. Plan: Plan dated 08/16/2023. The patient is seen in room 350. He is currently getting D5 with half-normal saline at 40 mL an hour. He is on room air. Saturations are 95%. Chest tube on the right side is noted. The patient's chest x-ray shows a pneumothorax. This is not unusual after this type of surgery. We will continue to follow make recommendations along the way. Formoterol was discontinued. Symbicort 160/4.5, 2 puffs twice a day, is admitted to the patient's regimen. Labs, x-rays, and medications are reviewed. Prognosis is guarded. We will continue to follow the patient. Plan dated 08/17/2023. The patient is seen today in room 350. He's postop day #1, status post robotically assisted right upper lobectomy, and lymph node dissection. The patient is clinically doing well. He is on room air. No IV fluids. The patient does have a substantial leak, from the right-sided chest tube. We will continue to follow make recommendations along the way. We encourage him to use the incentive spirometer every hour. We also encouraged to deep breathe, cough, and clear secretions. Labs, x-rays, and medications are reviewed. Plan dated 08/18/2023. The patient is postop day #2. He seen in room 350. He is not requiring any s upplemental oxygen. He is not on any IV fluids. The patient has developed significant subcutaneous emphysema involving the right chest, neck, and facial area. Labs, x-rays, and medications are reviewed. The patient has a significant air leak, from the right chest tube. We will continue to follow and make recommendations along the way. Prognosis is guarded. Plan dated 08/19/2023. The patient's right-sided chest tube remains to suction. He has a significant leak. The patient's not having any respiratory distress. The subcutaneous emphysema is about the same. The patient's Effexor is added back, and we increase his Xanax dose for anxiety. Labs, x-rays, medications are reviewed. We continue to follow the patient, and make recommendations along the way. He is postop day #3. Time with Patient: Less than 30
[2023-08-19] MEDS: ALPRAZolam 0.5 MG TAB PO PRN (14:05)
[2023-08-19] MEDS: MONTELUKAST 10 MG TAB PO SCH (19:42)
[2023-08-20] MEDS: KETOROLAC 15 MG/ML 1 ML VIAL IVP SCH ×4 (05:24→23:24)
[2023-08-20] MEDS: PANTOPRAZOLE 40 MG TABLET PO SCH (05:25)
[2023-08-20] MEDS: ALPRAZolam 0.5 MG TAB PO PRN ×3 (06:08→23:24)
[2023-08-20] MEDS: SYMBICORT 160-4.5 MCG INHALER INHALATION SCH ×3 (07:21→21:32)
[2023-08-20] MEDS: IPRATROPIUM-ALBUTEROL 3 ML NEB IH SCH ×4 (07:21→21:32)
[2023-08-20 08:15] LABS: ALT 56 U/L (4-49); AST 74 U/L (17-59); African American GFR (CKD) >90 (>60 ml/min/1.73 sqM); Albumin 3.3 g/dL (3.5-5.0); Alkaline Phosphatase 92 U/L (38-126); Anion Gap 8 mmol/L; Blood Urea Nitrogen 21 mg/dL (9-20); Calcium 9.1 mg/dL (8.4-10.2); Carbon Dioxide 27 mmol/L (22-30); Chloride 93 mmol/L (98-107); Glucose 108 mg/dL (74-99); Non-African American GFR(CKD) >90 (>60 ml/min/1.73 sqM); Potassium 4.5 mmol/L (3.5-5.1); Sodium 128 mmol/L (137-145); Total Bilirubin 1.2 mg/dL (0.2-1.3); Total Protein 5.9 g/dL (6.3-8.2)
--- NOTE | 2023-08-20 08:17 | P.PN ---
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 Previous medical history of COPD, previous tobacco dependence, hypertension, hyperlipidemia POD #4 robotic assisted thoracoscopic right upper lobectomy, blebectomy right lower lobe Subcutaneous emphysema present, expected given type of surgery The patient was seen and examined this morning sitting up in a recliner on the cardiac stepdown unit in no acute distress. States pain is controlled on current medication regimen, does feel a bit more shortness of breath. Remains in sinus rhythm and hemodynamically stable. Right pleural chest tube remains to continuous wall suction, air leak present. Subcutaneous air present to right upper chest, right neck extending up to his entire face. Patient states he did fine all night until he got up this morning-that's when rest of his face "blew up" and he began to feel a little worse than yesterday. Currently on 2LPM NC, able to achieve 2500 mL on his incentive spirometry. Chest x-ray reviewed. Objective - Vital Signs Vital signs: Vital Signs Temp 97.5 F L 08/20/23 04:00 Pulse 88 08/20/23 07:33 Resp 20 08/20/23 04:00 BP 146/82 08/20/23 04:00 Pulse Ox 92 L 08/20/23 04:00 FiO2 Intake & Output 08/19/23 08/20/23 08/20/23 18:59 06:59 18:59 Intake Total 360 Output Total 240 1080 Balance 120 -1080 Weight 97 kg Intake: Oral 360 Output: Chest Tube Drainage 240 380 Chest Tube Right Upper 240 380 Anterior Chest Urine 700 Other: Voiding Method Toilet Toilet Urinal Urinal # Voids 1 - Exam CONSTITUTIONAL: Appears somewhat comfortable, cooperative, no acute distress RESPIRATORY: Lungs sounds diminished bilaterally, right > left. Respirations even, nonlabored. Currently on 2LPM NC with oxygen saturation 92%. Able to achieve 2500 mL on incentive spirometry. Strong cough. CARDIOVASCULAR: S1, S2 present. Regular rate and rhythm, sinus rhythm on telemetry. Palpable peripheral pulses bilaterally. No edema present GASTROINTESTINAL: Abdomen soft, nontender, nondistended. Active bowel sounds present 4 quadrants. Tolerating diet GENITOURINARY: Continues to void INTEGUMENTARY: Skin is warm and dry. Subcutaneous emphysema present to chest wall, neck, extending up to entire face NEUROLOGIC: Cranial nerves II through XII intact MUSKULOSKELETAL: Able to move all extremities, strength equal bilaterally PSYCHIATRIC: Alert and oriented to person place and time, appropriate affect, intact judgment and insight INVASIVE LINES AND TUBES: Right pleural chest tubes present and connected to wall suction, air leak present, 300 mL serosanguineous drainage overnight, 650 mL in the last 24 hours - Allied health notes Allied health notes reviewed: nursing - Labs CBC & Chem 7: 08/20/23 07:01 08/20/23 07:01 Labs: Abnormal Lab Results - Last 24 Hours (Table) 08/19/23 08/19/23 Range/Units 07:41 07:41 WBC 10.9 H (3.8-10.6) k/uL RBC 4.11 L (4.30-5.90) m/uL Hgb 12.3 L (13.0-17.5) gm/dL Hct 36.8 L (39.0-53.0) % Neutrophils # 8.6 H (1.3-7.7) k/uL Sodium 129 L (137-145) mmol/L Chloride 93 L (98-107) mmol/L Glucose 121 H (74-99) mg/dL Total Bilirubin 1.4 H (0.2-1.3) mg/dL Total Protein 5.9 L (6.3-8.2) g/dL Albumin 3.4 L (3.5-5.0) g/dL - Imaging and Cardiology Chest x-ray: image reviewed Assessment and Plan Assessment: Lung cancer, 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 Bronchodilators per pulmonology Will monitor daily labs and x-rays GI/DVT prophylaxis Increase activity, ambulate as tolerated. May add extension tubing to allow patient to ambulate around the room Continue home medications Pain control with current medication regimen More recommendations to follow
[2023-08-20 08:19] LABS: Basophils % (A) 0 %; Eosinophils # (A) 0.4 k/uL (0-0.7); Eosinophils % (A) 4 %; HCT 34.5 % (39.0-53.0); HGB 11.6 gm/dL (13.0-17.5); Lymphocytes # (A) 0.9 k/uL (1.0-4.8); Lymphocytes % (A) 9 %; MCH 29.8 pg (25.0-35.0); MCHC 33.5 g/dL (31.0-37.0); MCV 88.9 fL (80.0-100.0); Mean Platelet Volume 8.3; Monocytes # (A) 0.8 k/uL (0-1.0); Monocytes % (A) 7 %; Neutrophils # (A) 8.1 k/uL (1.3-7.7); Neutrophils % (A) 79 %; Platelet Count 239 k/uL (150-450); RBC 3.88 m/uL (4.30-5.90); RDW 13.3 % (11.5-15.5); WBC 10.3 k/uL (3.8-10.6)
[2023-08-20] MEDS: hydroCHLOROthiazide 12.5 MG CAP PO SCH (08:19)
[2023-08-20] MEDS: SENNOSIDES-DOCUSATE SODIUM 1 EACH TAB PO SCH (08:19)
[2023-08-20] MEDS: VENLAFAXINE HCL ER 37.5 MG CAP PO SCH (08:19)
[2023-08-20] MEDS: polyethylene glycoL 3350 17 GM POWD.PACK PO SCH (08:19)
[2023-08-20] MEDS: ATORVASTATIN 20 MG TAB PO SCH (08:19)
[2023-08-20] MEDS: MULTIVITAMINS, THERA 1 EACH TAB PO SCH (08:19)
[2023-08-20] MEDS: VALSARTAN 160 MG TAB PO SCH (08:20)
[2023-08-20] MEDS: HEPARIN SODIUM,PORCINE 5,000 UNIT/ML 1 ML VIAL SQ SCH ×3 (08:22→23:24)
--- NOTE | 2023-08-20 08:22 | XR ---
EXAMINATION TYPE: XR chest 1V portable DATE OF EXAM: 08/20/2023 COMPARISON: NONE HISTORY: post lobectomy TECHNIQUE: Single frontal view of the chest is obtained. FINDINGS: Diffuse subcutaneous emphysema. Right-sided chest tube seen with approximate 30% pneumotho rax stable. Postsurgical changes bilateral shoulder. Increased density along the right hilum stable. Left lung clear. IMPRESSION: 1. Stable approximate 30 % right-sided pneumothorax and diffuse subcutaneous emphysema.
--- NOTE | 2023-08-20 13:03 | P.PN ---
Subjective Progress Note Date: 08/20/23 Pulmonary consult dated 08/16/2023. 68-year-old male, well-known to me. I've been seeing the patient in the office, for a number of years, for his underlying COPD. In addition, in the past, the patient has had pulmonary nodules, which have been relatively stable, and negative on PET scan. More recently, his been in the right upper lobe, was enlarging, and the PET scan, was positive only in that area. The patient was initially seen by Dr. Parks, who requested a biopsy, and evaluation of lymph nod es. My partner did a robotic bronchoscopy, and endobronchial ultrasound on this patient, and the sampling, of the right upper lobe, with positive for squamous cell carcinoma. Sampling of the station 7/subcarinal node, was negative. The patient was then brought to the operating room, today, by Dr. Klein, for robotically-assisted right upper lobectomy, and lymph node dissection/sampling. The patient is seen today in room 350. He is on room air. He is on D5 with half-normal saline at 40 mL an hour. Today is postop day 0. The patient is doing well, without complaints. His family is in the room with him. The patient has a history of COPD, and hyperlipidemia. Current labs include a white count of 13.4, hemoglobin 13.7, hematocrit 41.7, and a normal platelet count. Sodium 135, potassium 4, chlorides 100, CO2 27, BUN 14, and creatinine 0.73. Progress note dated 08/17/2023. The patient's currently on room air. He's not receiving any IV fluids. The patient is postop day #1, status post robotically-assisted right upper lobectomy and lymph node dissection, by Dr. Klein. The patient does have anterior leak on the right side. He currently feels relatively comfortable. White count 11, hemoglobin 12.9, hematocrit 38.7, and platelet count 174,000. Sodium 129, potassium 3.7, chlorides 95, CO2 26, BUN 14, and creatinine 0.63. Pneumothorax on the right side, is less than 5%. Progress note dated 08/18/2023. The patient's currently on room air. He's not receiving any IV fluids. The patient is postop day #2, status post robotically assisted upper lobectomy and lymph node dissection, by Dr. Klein. The patient does have a leak from the chest tube. He has developed significant subcutaneous emphysema, and the right chest, right neck, and facial area. White count is 11.9, hemoglobin 12.8, hematocrit 37.9, within normal platelet count. Sodium 1:30, potassium 4.2, c hlorides 94, CO2 28, BUN 14, creatinine 0.69. Chest x-ray shows a right apical pneumothorax. There is increasing subcutaneous emphysema. Progress note dated 08/19/2023. The patient is seen again in room 350. The patient is postop day #3, status post robotically assisted right upper lobectomy, and lymph node dissection. The patient continues with an air leak, and is having significant, subcutaneous emphysema. The patient is in no respiratory distress. He is not receiving any IV fluids. Today we added back his Effexor, and increase his Xanax dose for anxiety. White count 10.9, hemoglobin 12.3, hematocrit 36.8, within normal platelet count. Sodium 129, potassium 4, chlorides 93, CO2 29, BUN 18, and creatinine 0.74. Chest x-ray shows a right chest tube be unchanged in its position, and 15-20% right apical pneumothorax, and diffuse subcutaneous emphysema. Today's evaluation of 08/20/2023, the patient is postop day #4. The patient underwent a right upper lobe resection, with lymph node dissection and this was a robotic-assisted procedure. The patient continues to have a right-sided chest tube in place and the patient has a significant ongoing care leak. No follow-up chest x-ray from today shows no evidence of any pneumothorax. Nevertheless, the patient has a continuous air leak and the patient has developed extensive subcu in his emphysema involving the face, neck, eyes, and chest and upper extremities. At the same time, the patient has achieved his voice related to the subcu in his emphysema. His current cardiac rhythm is sinus. Right-sided chest tube in place and is/2 suction. No significant shortness of breath. The patient is an obvious cause of 10.3, hemoglobin is 11.6 and a platelet count is at 239. BUN is at 21 with a creatinine of 0.6 and a sodium level is at 128. No issues with pain. No altered mentation. He remains on oxygen at room air with a pulse ox of 97%. Objective - Vital Signs Vital signs: Vital Signs Temp 97.8 F 08/20/23 08:18 Pulse 74 08/20/23 08:18 Resp 18 08/20/23 08:18 BP 124/76 08/20/23 08:18 Pulse Ox 94 L 08/20/23 08:18 FiO2 Intake & Output 08/19/23 08/20/23 08/20/23 18:59 06:59 18:59 Intake Total 360 Output Total 240 1080 Balance 120 -1080 Weight 97 kg Intake: Oral 360 Output: Chest Tube Drainage 240 380 Chest Tube Right Upper 240 380 Anterior Chest Urine 700 Other: Voiding Method Toilet Toilet Urinal Urinal # Voids 1 - Exam CONSTITUTIONAL: Appears somewhat comfortable, cooperative, no acute distress, the patient has extensive subcutaneous emphysema involving the face neck, eyes, RESPIRATORY: Lungs sounds diminished bilaterally, right > left. Respirations even, nonlabored. Currently on room air oxygen with a pulse ox of 97%. Able to achieve 2500 mL on incentive spirometry. Strong cough. CARDIOVASCULAR: S1, S2 present. Regular rate and rhythm, sinus rhythm on telemetry. Palpable peripheral pulses bilaterally. No edema present GASTROINTESTINAL: Abdomen soft, nontender, nondistended. Active bowel sounds present 4 quadrants. Tolerating diet GENITOURINARY: Continues to void INTEGUMENTARY: Skin is warm and dry. Subcutaneous emphysema present to chest wall, neck, extending up to entire face NEUROLOGIC: Cranial nerves II through XII intact MUSKULOSKELETAL: Able to move all extremities, strength equal bilaterally PSYCHIATRIC: Alert and oriented to person place and time, appropriate affect, intact judgment and insight INVASIVE LINES AND TUBES: Right pleural chest tubes present and connected to wall suction, air leak present, 300 mL serosanguineous drainage overnight, 650 mL in the last 24 hours - Labs CBC & Chem 7: 08/20/23 07:01 08/20/23 07:01 Labs: Abnormal Lab Results - Last 24 Hours (Table) 08/20/23 08/20/23 Range/Units 07:01 07:01 RBC 3.88 L (4.30-5.90) m/uL Hgb 11.6 L (13.0-17.5) gm/dL Hct 34.5 L (39.0-53.0) % Neutrophils # 8.1 H (1.3-7.7) k/uL Lymphocytes # 0.9 L (1.0-4.8) k/uL Sodium 128 L (137-145) mmol/L Chloride 93 L (98-107) mmol/L BUN 21 H (9-20) mg/dL Glucose 108 H (74-99) mg/dL AST 74 H (17-59) U/L ALT 56 H (4-49) U/L Total Protein 5.9 L (6.3-8.2) g/dL Albumin 3.3 L (3.5-5.0) g/dL Assessment and Plan Plan: Lung cancer, 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 No evidence of any pneumothorax Acute hypoxic respiratory failure, improved and the patient is currently on room air oxygen History of COPD Previous tobacco dependence Hypertension Hyperlipidemia Plan: Continue chest tube to -20 cm continuous wall suction, monitor for air leak resolution, monitor drainage Patient encouraged to compress subcu tissues emphysema on his face, neck, upper chest Encourage incentive spirometry use 10 times every hour while awake. Monitored air leak Daily chest x-rays Is had subcutaneous needles to deflate the subcutaneous emphysema, the son discussed with the surgeon Increase activity, ambulate as tolerated. Continue home medications Pain control with current medication regimen More recommendations to follow
--- NOTE | 2023-08-20 13:27 | P.PN ---
Subjective Progress Note Date: 08/20/23 HISTORY OF PRESENT ILLNESS: This is a 68-year-old male one of my patient and the patient medical history significant for COPD, hypertension and hypertensive cardiovascular disease, hyperlipidemia, history of ALLERGIC rhinitis, remote history of tobacco use and dependence he smoked at least 3 pack every day for many years and quit when he was 43-year-old,, patient has been followed by pulmonary medicine Dr. Rendon on a regular basis, he had pulmonary nodules history, he has been having a computed tomography scan of the chest and PET scan and regular basis until recentlyhis PET scan came back positive patient underwent robotic bronchoscopy with ultrasound of the bronchial tree by Dr. 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 Landon underwent robotic-assisted thoracoscopy right upper lobectomy with lumpectomy of the right lower lobe, and he was admitted to telemetry unit, he was seen and evaluated in his room, appears to be somewhat short of breath, he does have a chest tube in the right side of the chest, draining quite a bit of serosanguineous material, patient appears to be quite short of breath and debility, he did appear to have a significant subcutaneously emphysema as well, Dr. Klein evaluated the patient and the patient has been stable we will follow the patient along with pulmonary as well as thoracic surgery. 08/17: Patient is sitting up in chair continues to have some pain in the right side, he continues to be hospitalized, he has not had a bowel movement, is urinating very well, Senokot and MiraLAX were added, increase activity, continue to monitor the patient very closely, continue DuoNeb, continue Symbicort, we will follow-up the patient very closely, subcutis emphysema spirometer to prevent yesterday. Patient will plan to see the hospital for another 1-2 days. 08/18: Patient sitting up in bed in no apparent distress, he denies any chest pain, he continues to have some cough, no phlegm production, he continues to have a chest tube in the second, subcutaneous emphysema that has progressed and now is all the way to his neck and face , he has no abdominal pain, nausea or vomiting, did have a small bowel movement today, he denies any unusual symptom at this time except for dyspnea on exertion. 08/19: Patient is sitting up in chair in no distress, he continues to have significant subcutaneous emphysema involving his right upper chest neck face, no respiratory distress, has been followed by plastic surgery, chest tube still in place, -20 cm of water, patient has not had any abdominal pain, nausea or vomiting, he did not have a bowel movement as of yet increase activity, continue to use the incentive spirometer. 08/20: Repeat chest x-ray this morning reveals stable 30% right-sided pneumothorax and diffuse subcutaneous emphysema. Patient remains with subcutaneous emphysema, chest tube is in place. Patient is performing incentive spirometry and reaching 2000 mL. Heart rate is in the 70s to 90s, blood pressure 12/12/1977, pulse ox 94% on 2 L nasal cannula. The blood work reveals WBC 10.3, hemoglobin 11.6. Sodium is 128, potassium 4.5, chloride 93, CO2 27, BUN 21 creatinine 0.68. AST 74 and ALT 56. Pathology report is pending. REVIEW OF SYSTEMS: Constitutional: No documented fever, no chills, no night sweats. No weight change. No weakness, fatigue or lethargy. No daytime sleepiness. HEENT: No headache. No blurred vision or double vision, no loss of vision. No loss of Hearing, no ringing in the ears, no dizziness. No nasal drainage or congestion. No epistaxis. No sore throat. Lungs: positive for shortness of breath, occasional cough, no sputum production. No wheezing. Reports dyspnea with activity. Cardiovascular: No chest pain, no lower extremity edema. No palpitations. No paroxysmal nocturnal dyspnea. No orthopnea. No lightheadedness or dizziness. No syncopal episodes. Abdominal: Reports no abdominal pain. No nausea, vomiting. No diarrhea. positive for constipation. No bloody or tarry stools reports loss of appetite. Genitourinary: No dysuria, increased frequency, urgency. No urinary retention. Musculoskeletal: No myalgias. No muscle weakness, no gait dysfunction, no frequent falls. No back pain. No neck pain. Integumentary: No wounds, no lesions. No rash or pruritus. No unusual bruising. No change in hair or nails. Neurologic: No aphasia. No facial droop. No change in mentation. No head injury. No headache. No paralysis. No paresthesia. Psychiatric: No depression. No anxiety. No mood swings. Endocrine: No abnormal blood sugars. No weight change. PHYSICAL EXAMINATION: General: 68-year-old male sitting up in chair in minimal respiratory distress HEENT: Head is atraumatic, normocephalic, pupils were equal round reactive to light and recommendation, extraocular muscle movement were intact, sclera nonicteric, conjunctivae were pale, mucous membranes of the mouth are somewhat dry, subcutaneous emphysema all the way up to the neck and face Neck: Supple, no JVP, normal carotid upstroke bilaterally, no lymphadenopathy, subcutaneous emphysema. Chest: Decreased breath sounds at the bases, few rhonchi, right sided chest tube with subcutaneous emphysema, and the chest wall tenderness minimal intercostal retractions. Heart: First heart sound is normal, second heart sound is normal there is systolic ejection murmur 2/6 located in the left sternal border. Abdomen: Soft, nontender, nondistended, positive bowel sounds. Extremities: There is no edema no calf tenderness DP +2 bilaterally. Neurologic examination: Patient is awake alert and oriented X 3, cranial nerves II-12 appear grossly intact, muscle power were 5 out of 5 in upper extremities and 5 out of 5 in bilateral lower extremities, deep tendon reflexes normal bilaterally. ASSESSMENT AND PLAN: 1. Postoperative day #4 status post robotic-assisted laparoscopic right upper lobectomy with blebectomy of the right lower lobe. Continue patient on the use of incentive spirometer, increase activity, monitor the patient chest tube. Continue with DuoNeb 3 mL nebulization 4 times every day, continue Symbicort 60/4.5 g 2 puffs twice every day, continue current pain management as outlined by CTS. 2. Extensive subcutaneous emphysema due to aor leak. Thoracic surgery is following we will continue to monitor 3. Hypertension and hypertensive cardiovascular disease. Continue patient on valsartan 160 mg every day, hydrochlorothiazide 12.5 mg every day, monitor the patient very closely. 4. Mixed hyperlipidemia. Continue patient on atorvastatin 20 mg once every day. 5. ALLERGIC rhinitis. Start the patient back on loratadine 10 mg every day, may use the insulin saline spray 2 sprays initial surgery times every day as well as Flonase as needed patient also would be started back on his montelukast 10 mg orally bedtime. 6. Constipation. patient on Senokot at bedtime as well as MiraLAX 17 gram in 8 OZ of water daily, we will increase activity, add Milk of Magnesia with prune juice 7. Enlarged prostate. Monitor for urinary retention. 8. COPD. Continue patient on DuoNeb 3 nebulization 4 times every day, continue Symbicort 160/4.5 g 2. Position twice every day, pulmonary is following. 9. DVT prophylaxis. Continue heparin 5000 units subcutaneously every 8 hours. 10. GI prophylaxis. Continue Protonix 40 mg every day. 11. We will follow with you. Impression and plan of care have been directed as dictated by the signing physician. Myrtle Giordano nurse practitioner acting as scribe for signing physician. Objective - Vital Signs Vital signs: Vital Signs Temp 97.8 F 08/20/23 08:18 Pulse 74 08/20/23 08:18 Resp 18 08/20/23 08:18 BP 124/76 08/20/23 08:18 Pulse Ox 94 L 08/20/23 08:18 FiO2 Intake & Output 08/19/23 08/20/23 08/20/23 18:59 06:59 18:59 Intake Total 360 Output Total 240 1080 Balance 120 -1080 Weight 97 kg Intake: Oral 360 Output: Chest Tube Drainage 240 380 Chest Tube Right Upper 240 380 Anterior Chest Urine 700 Other: Voiding Method Toilet Toilet Urinal Urinal # Voids 1 - Labs CBC & Chem 7: 08/20/23 07:01 08/20/23 07:01 Labs: Abnormal Lab Results - Last 24 Hours (Table) 08/20/23 08/20/23 Range/Units 07:01 07:01 RBC 3.88 L (4.30-5.90) m/uL Hgb 11.6 L (13.0-17.5) gm/dL Hct 34.5 L (39.0-53.0) % Neutrophils # 8.1 H (1.3-7.7) k/uL Lymphocytes # 0.9 L (1.0-4.8) k/uL Sodium 128 L (137-145) mmol/L Chloride 93 L (98-107) mmol/L BUN 21 H (9-20) mg/dL Glucose 108 H (74-99) mg/dL AST 74 H (17-59) U/L ALT 56 H (4-49) U/L Total Protein 5.9 L (6.3-8.2) g/dL Albumin 3.3 L (3.5-5.0) g/dL
[2023-08-20] MEDS ORDERED: LIDOCAINE 1% INJ 10MG/ML (20 ML MDV) ONE (13:51)
[2023-08-20] MEDS: bisacodyL 10 MG SUPP RECTAL PRN (14:32)
[2023-08-20] MEDS: MONTELUKAST 10 MG TAB PO SCH (20:11)
[2023-08-21] MEDS: IPRATROPIUM-ALBUTEROL 3 ML NEB IH PRN (05:10)
[2023-08-21] MEDS: KETOROLAC 15 MG/ML 1 ML VIAL IVP SCH ×3 (06:13→17:43)
[2023-08-21] MEDS: PANTOPRAZOLE 40 MG TABLET PO SCH (06:17)
--- NOTE | 2023-08-21 06:52 | XR ---
EXAMINATION TYPE: XR chest 1V portable DATE OF EXAM: 08/21/2023 Comparison: 08/20/2023 Clinical History: 68-year-old male chest tube, possible displacement Findings: Right-sided apically directed chest tube remains in place. Extensive subcutaneous emphysema) in the l eft chest dunbar. Volume loss persists in the right lung. Increasing interstitial and patchy opacity r ight mid and lower lung. Decreasing size of the right-sided pneumothorax currently measuring 3.4 cm a t the apex versus right 0.0 cm, previously. Left lung and pleural space appear clear. Heart borderlin e in size. Partially visualized traversing left shoulder arthroplasty. Impression: 1. Right-sided apically directed chest tube remains in place. Slight worsening of volume loss in the right hemithorax with increasing patchy opacity right mid and lower lung. 2. Extensive subcutaneous emphysema persists overlying the right groin and left chest dunbar. An under lying right-sided pneumothorax is decreasing in size currently 3.4 cm at the apex versus 5.0 cm, prev iously.
[2023-08-21 07:58] LABS: HCT 34.1 % (39.0-53.0); HGB 11.4 gm/dL (13.0-17.5); MCH 29.7 pg (25.0-35.0); MCHC 33.6 g/dL (31.0-37.0); MCV 88.5 fL (80.0-100.0); Mean Platelet Volume 7.4; Platelet Count 294 k/uL (150-450); RBC 3.85 m/uL (4.30-5.90); RDW 13.1 % (11.5-15.5)
[2023-08-21 08:10] LABS: African American GFR (CKD) >90 (>60 ml/min/1.73 sqM); Anion Gap 8 mmol/L; Blood Urea Nitrogen 19 mg/dL (9-20); Calcium 9.1 mg/dL (8.4-10.2); Carbon Dioxide 26 mmol/L (22-30); Chloride 94 mmol/L (98-107); Glucose 109 mg/dL (74-99); Non-African American GFR(CKD) >90 (>60 ml/min/1.73 sqM); Potassium 4.3 mmol/L (3.5-5.1); Sodium 128 mmol/L (137-145)
[2023-08-21] MEDS: HEPARIN SODIUM,PORCINE 5,000 UNIT/ML 1 ML VIAL SQ SCH ×2 (08:23→17:43)
[2023-08-21] MEDS: ATORVASTATIN 20 MG TAB PO SCH (08:24)
[2023-08-21] MEDS: hydroCHLOROthiazide 12.5 MG CAP PO SCH (08:24)
[2023-08-21] MEDS: MULTIVITAMINS, THERA 1 EACH TAB PO SCH (08:25)
[2023-08-21] MEDS: SYMBICORT 160-4.5 MCG INHALER INHALATION SCH ×4 (08:25→21:49)
[2023-08-21] MEDS: IPRATROPIUM-ALBUTEROL 3 ML NEB IH SCH ×4 (08:25→21:47)
[2023-08-21] MEDS: polyethylene glycoL 3350 17 GM POWD.PACK PO SCH (08:25)
[2023-08-21] MEDS: VENLAFAXINE HCL ER 37.5 MG CAP PO SCH (08:26)
[2023-08-21] MEDS: VALSARTAN 160 MG TAB PO SCH (08:26)
[2023-08-21] MEDS: SENNOSIDES-DOCUSATE SODIUM 1 EACH TAB PO SCH (08:26)
--- NOTE | 2023-08-21 09:08 | XR ---
EXAMINATION TYPE: XR chest 1V portable DATE OF EXAM: 08/21/2023 COMPARISON: 08/21/2023 HISTORY: Postlobectomy TECHNIQUE: Single frontal view of the chest is obtained. FINDINGS: Severe diffuse subcutaneous emphysema bilaterally. There is a chest tube in position. Smal l pneumothorax measuring approximately 5-10%. Volume loss on the right noted and there is consolidati on in the right lung base stable. Left lung clear. Bilateral shoulder placement surgery. Hypertrophic degenerative change of the spine. IMPRESSION: Approximately 5-10% right pneumothorax with severe diffuse bilateral subcutaneous emphys sunshine.
--- NOTE | 2023-08-21 09:51 | P.PN ---
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 Previous medical history of COPD, previous tobacco dependence, hypertension, hyperlipidemia POD #5 robotic assisted thoracoscopic right upper lobectomy, blebectomy right lower lobe Subcutaneous emphysema present, expected given type of surgery, status post creation of blow hole Prolonged air leak The patient was seen and examined this morning sitting up in a recliner on the cardiac stepdown unit. States pain is controlled on current medication regimen. Remains in sinus rhythm and hemodynamically stable. Right pleural chest tube remains to continuous wall suction, air leak present. Subcutaneous air present to right upper chest, right neck extending up to his entire face. Patient did have a blowhole created surgically yesterday by Dr. Klein who did have a long discussion with the patient in the family regarding subcutaneous emphysema which does sometimes happen after this type of surgery, is not detrimental and takes time to recover from. Yesterday afternoon subcu emphysema had decreased a bit, however overnight it has increased again and remains across his entire face, neck, upper chest. In addition, patient had an episode last night where he couldn't see and was a bit disoriented per the nursing staff, this morning he is alert and oriented and does remember the incident, states he felt a bit out of his head. Currently on 2LPM NC, able to achieve 1500 mL on his incentive spirometry. Chest x-ray reviewed. Objective - Vital Signs Vital signs: Vital Signs Temp 97.3 F L 08/21/23 07:53 Pulse 104 H 08/21/23 08:37 Resp 18 08/21/23 07:53 BP 134/75 08/21/23 07:53 Pulse Ox 94 L 08/21/23 02:56 FiO2 Intake & Output 08/20/23 08/21/23 08/21/23 18:59 06:59 18:59 Intake Total 800 10 120 Output Total 200 835 50 Balance 600 -825 70 Weight 96.3 kg Intake: IV 20 10 10 0.9 10 Invasive Line 4 20 10 Oral 780 110 Output: Chest Tube Drainage 200 260 50 Chest Tube Right Upper 200 260 50 Anterior Chest Urine 575 Other: Voiding Method Toilet Toilet Toilet Urinal Urinal Urinal # Voids 1 - Exam CONSTITUTIONAL: Appears somewhat comfortable, cooperative, no acute distress RESPIRATORY: Lungs sounds diminished bilaterally, right > left. Respirations even, nonlabored. Currently on 2LPM NC with oxygen saturation 94%. Able to achieve 1500 mL on incentive spirometry. Strong cough. CARDIOVASCULAR: S1, S2 present. Regular rate and rhythm, sinus rhythm on telemetry. Palpable peripheral pulses bilaterally. No edema present GASTROINTESTINAL: Abdomen soft, nontender, nondistended. Active bowel sounds present 4 quadrants. Tolerating diet GENITOURINARY: Continues to void INTEGUMENTARY: Skin is warm and dry. Subcutaneous emphysema present to chest wall, neck, extending up to entire face NEUROLOGIC: Cranial nerves II through XII intact MUSKULOSKELETAL: Able to move all extremities, strength equal bilaterally PSYCHIATRIC: Alert and oriented to person place and time, appropriate affect, intact judgment and insight INVASIVE LINES AND TUBES: Right pleural chest tubes present and connected to wall suction, air leak present, 460 mL serosanguineous drainage in the last 24 hours - Allied health notes Allied health notes reviewed: nursing - Labs CBC & Chem 7: 08/21/23 07:26 08/21/23 07:26 Labs: Abnormal Lab Results - Last 24 Hours (Table) 08/21/23 08/21/23 Range/Units 07:26 07:26 RBC 3.85 L (4.30-5.90) m/uL Hgb 11.4 L (13.0-17.5) gm/dL Hct 34.1 L (39.0-53.0) % Sodium 128 L (137-145) mmol/L Chloride 94 L (98-107) mmol/L Glucose 109 H (74-99) mg/dL - Imaging and Cardiology Chest x-ray: report reviewed, image reviewed Assessment and Plan Assessment: Lung cancer, 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 Klein Prolonged air leak Plan: Continue chest tube to continuous wall suction, monitor for air leak resolution, monitor drainage Blow holes placed to left chest wall to aid resolution of subcu emphysema, will take time Patient encouraged to compress subcu tissues emphysema on his face, neck, upper chest Encourage incentive spirometry use 10 times every hour while awake. Bronchodilators per pulmonology Will monitor daily labs and x-rays GI/DVT prophylaxis Increase activity, ambulate as tolerated. May add extension tubing to allow patient to ambulate around the room Continue home medications Pain control with current medication regimen More recommendations to follow
--- NOTE | 2023-08-21 12:23 | P.PN ---
Subjective Progress Note Date: 08/21/23 Pulmonary consult dated 08/16/2023. 68-year-old male, well-known to me. I've been seeing the patient in the office, for a number of years, for his underlying COPD. In addition, in the past, the patient has had pulmonary nodules, which have been relatively stable, and negative on PET scan. More recently, his been in the right upper lobe, was enlarging, and the PET scan, was positive only in that area. The patient was initially seen by Dr. Parks, who requested a biopsy, and evaluation of lymph nod es. My partner did a robotic bronchoscopy, and endobronchial ultrasound on this patient, and the sampling, of the right upper lobe, with positive for squamous cell carcinoma. Sampling of the station 7/subcarinal node, was negative. The patient was then brought to the operating room, today, by Dr. Klein, for robotically-assisted right upper lobectomy, and lymph node dissection/sampling. The patient is seen today in room 350. He is on room air. He is on D5 with half-normal saline at 40 mL an hour. Today is postop day 0. The patient is doing well, without complaints. His family is in the room with him. The patient has a history of COPD, and hyperlipidemia. Current labs include a white count of 13.4, hemoglobin 13.7, hematocrit 41.7, and a normal platelet count. Sodium 135, potassium 4, chlorides 100, CO2 27, BUN 14, and creatinine 0.73. Progress note dated 08/17/2023. The patient's currently on room air. He's not receiving any IV fluids. The patient is postop day #1, status post robotically-assisted right upper lobectomy and lymph node dissection, by Dr. Klein. The patient does have anterior leak on the right side. He currently feels relatively comfortable. White count 11, hemoglobin 12.9, hematocrit 38.7, and platelet count 174,000. Sodium 129, potassium 3.7, chlorides 95, CO2 26, BUN 14, and creatinine 0.63. Pneumothorax on the right side, is less than 5%. Progress note dated 08/18/2023. The patient's currently on room air. He's not receiving any IV fluids. The patient is postop day #2, status post robotically assisted upper lobectomy and lymph node dissection, by Dr. Klein. The patient does have a leak from the chest tube. He has developed significant subcutaneous emphysema, and the right chest, right neck, and facial area. White count is 11.9, hemoglobin 12.8, hematocrit 37.9, within normal platelet count. Sodium 1:30, potassium 4.2, c hlorides 94, CO2 28, BUN 14, creatinine 0.69. Chest x-ray shows a right apical pneumothorax. There is increasing subcutaneous emphysema. Progress note dated 08/19/2023. The patient is seen again in room 350. The patient is postop day #3, status post robotically assisted right upper lobectomy, and lymph node dissection. The patient continues with an air leak, and is having significant, subcutaneous emphysema. The patient is in no respiratory distress. He is not receiving any IV fluids. Today we added back his Effexor, and increase his Xanax dose for anxiety. White count 10.9, hemoglobin 12.3, hematocrit 36.8, within normal platelet count. Sodium 129, potassium 4, chlorides 93, CO2 29, BUN 18, and creatinine 0.74. Chest x-ray shows a right chest tube be unchanged in its position, and 15-20% right apical pneumothorax, and diffuse subcutaneous emphysema. Today's evaluation of 08/20/2023, the patient is postop day #4. The patient underwent a right upper lobe resection, with lymph node dissection and this was a robotic-assisted procedure. The patient continues to have a right-sided chest tube in place and the patient has a significant ongoing care leak. No follow-up chest x-ray from today shows no evidence of any pneumothorax. Nevertheless, the patient has a continuous air leak and the patient has developed extensive subcu in his emphysema involving the face, neck, eyes, and chest and upper extremities. At the same time, the patient has achieved his voice related to the subcu in his emphysema. His current cardiac rhythm is sinus. Right-sided chest tube in place and is/2 suction. No significant shortness of breath. The patient is an obvious cause of 10.3, hemoglobin is 11.6 and a platelet count is at 239. BUN is at 21 with a creatinine of 0.6 and a sodium level is at 128. No issues with pain. No altered mentation. He remains on oxygen at room air with a pulse ox of 97%. 08/21/2023, the patient continues to have persistent air leak and extensive s ubcutaneous emphysema involving the face, neck, chest, and extremities. Blow holes were created with some limited success. Chest tube remains in place. No evidence of any pneumothorax. No significant respiratory distress and the patient remains on O2 at 2 L. Using the senna spirometer. Pulling approximately 1.2 L on his incentive spirometer. His resting comfortably in bed. Overnight, he felt slightly more short of breath. This morning he is feeling comfortable. No cough. No sputum production. Surgical 1 site is dry clean and intact and the patient is currently postoperative day #5 following a robotic-assisted thoracoscopic right upper lobe resection and the patient also had bleb resection from the right lower lobe area. Labs show a white cell count of 10, hemoglobin 11.4, sodium is at 128, BUN is at 19 with a creatinine of 0.7. Remains on subcutaneous heparin for DVT prophylaxis. Remains on tramadol for pain control Objective - Vital Signs Vital signs: Vital Signs Temp 97.3 F L 08/21/23 07:53 Pulse 104 H 08/21/23 08:37 Resp 18 08/21/23 07:53 BP 134/75 08/21/23 07:53 Pulse Ox 94 L 08/21/23 02:56 FiO2 Intake & Output 08/20/23 08/21/23 08/21/23 18:59 06:59 18:59 Intake Total 800 10 120 Output Total 200 835 50 Balance 600 -825 70 Weight 96.3 kg Intake: IV 20 10 10 0.9 10 Invasive Line 4 20 10 Oral 780 110 Output: Chest Tube Drainage 200 260 50 Chest Tube Right Upper 200 260 50 Anterior Chest Urine 575 Other: Voiding Method Toilet Toilet Toilet Urinal Urinal Urinal # Voids 1 - Exam CONSTITUTIONAL: Appears somewhat comfortable, cooperative, no acute distress, the patient has extensive subcutaneous emphysema involving the face neck, eyes, RESPIRATORY: Lungs sounds diminished bilaterally, right > left. Respirations even, nonlabored. Currently on room air oxygen with a pulse ox of 97%. Able to achieve 2500 mL on incentive spirometry. Strong cough. CARDIOVASCULAR: S1, S2 present. Regular rate and rhythm, sinus rhythm on telemetry. Palpable peripheral pulses bilaterally. No edema present GASTROINTESTINAL: Abdomen soft, nontender, nondistended. Active bowel sounds present 4 quadrants. Tolerating diet GENITOURINARY: Continues to void INTEGUMENTARY: Skin is warm and dry. Subcutaneous emphysema present to chest wall, neck, extending up to entire face NEUROLOGIC: Cranial nerves II through XII intact MUSKULOSKELETAL: Able to move all extremities, strength equal bilaterally PSYCHIATRIC: Alert and oriented to person place and time, appropriate affect, intact judgment and insight INVASIVE LINES AND TUBES: Right pleural chest tubes present and connected to wall suction, air leak present, 460 mL serosanguineous drainage in the last 24 hours - Labs CBC & Chem 7: 08/21/23 07:26 08/21/23 07:26 Labs: Abnormal Lab Results - Last 24 Hours (Table) 08/21/23 08/21/23 Range/Units 07:26 07:26 RBC 3.85 L (4.30-5.90) m/uL Hgb 11.4 L (13.0-17.5) gm/dL Hct 34.1 L (39.0-53.0) % Sodium 128 L (137-145) mmol/L Chloride 94 L (98-107) mmol/L Glucose 109 H (74-99) mg/dL Assessment and Plan Plan: Lung cancer, 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 No evidence of any pneumothorax Acute hypoxic respiratory failure, improved and the patient is currently on room air oxygen History of COPD Previous tobacco dependence Hypertension Hyperlipidemia Plan: Continue conservative management Monitor the output from the chest tube Moderate air leak Continue chest tube to -20 cm continuous wall suction, monitor for air leak resolution, monitor drainage Patient encouraged to compress subcu tissues emphysema on his face, neck, upper chest Encourage incentive spirometry use 10 times every hour while awake. Blowhole was constructed Monitored air leak Daily chest x-rays Increase activity, ambulate as tolerated. Continue home medications Pain control with current medication regimen More recommendations to follow
[2023-08-21 13:24] VITALS: BMI 30.4
--- NOTE | 2023-08-21 13:52 | P.PN ---
Subjective Progress Note Date: 08/21/23 HISTORY OF PRESENT ILLNESS: This is a 68-year-old male one of my patient and the patient medical history significant for COPD, hypertension and hypertensive cardiovascular disease, hyperlipidemia, history of ALLERGIC rhinitis, remote history of tobacco use and dependence he smoked at least 3 pack every day for many years and quit when he was 43-year-old,, patient has been followed by pulmonary medicine Dr. Rendon on a regular basis, he had pulmonary nodules history, he has been having a computed tomography scan of the chest and PET scan and regular basis until recentlyhis PET scan came back positive patient underwent robotic bronchoscopy with ultrasound of the bronchial tree by Dr. 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 Landon underwent robotic-assisted thoracoscopy right upper lobectomy with lumpectomy of the right lower lobe, and he was admitted to telemetry unit, he was seen and evaluated in his room, appears to be somewhat short of breath, he does have a chest tube in the right side of the chest, draining quite a bit of serosanguineous material, patient appears to be quite short of breath and debility, he did appear to have a significant subcutaneously emphysema as well, Dr. Klein evaluated the patient and the patient has been stable we will follow the patient along with pulmonary as well as thoracic surgery. 08/17: Patient is sitting up in chair continues to have some pain in the right side, he continues to be hospitalized, he has not had a bowel movement, is urinating very well, Senokot and MiraLAX were added, increase activity, continue to monitor the patient very closely, continue DuoNeb, continue Symbicort, we will follow-up the patient very closely, subcutis emphysema spirometer to prevent yesterday. Patient will plan to see the hospital for another 1-2 days. 08/18: Patient sitting up in bed in no apparent distress, he denies any chest pain, he continues to have some cough, no phlegm production, he continues to have a chest tube in the second, subcutaneous emphysema that has progressed and now is all the way to his neck and face , he has no abdominal pain, nausea or vomiting, did have a small bowel movement today, he denies any unusual symptom at this time except for dyspnea on exertion. 08/19: Patient is sitting up in chair in no distress, he continues to have significant subcutaneous emphysema involving his right upper chest neck face, no respiratory distress, has been followed by plastic surgery, chest tube still in place, -20 cm of water, patient has not had any abdominal pain, nausea or vomiting, he did not have a bowel movement as of yet increase activity, continue to use the incentive spirometer. 08/20: Repeat chest x-ray this morning reveals stable 30% right-sided pneumothorax and diffuse subcutaneous emphysema. Patient remains with subcutaneous emphysema, chest tube is in place. Patient is performing incentive spirometry and reaching 2000 mL. Heart rate is in the 70s to 90s, blood pressure 12/12/1977, pulse ox 94% on 2 L nasal cannula. The blood work reveals WBC 10.3, hemoglobin 11.6. Sodium is 128, potassium 4.5, chloride 93, CO2 27, BUN 21 creatinine 0.68. AST 74 and ALT 56. Pathology report is pending. 08/21: Heart rate is 100 104, blood pressure 134/75, afebrile, pulse ox 94% on 2 L. Repeat blood work reveals sodium of 128, potassium 4.3, CO2 94, BUN 19 creatinine 0.72. WBC 10, hemoglobin 11.4, platelet count 294. Repeat chest x- ray revealed reports approximate 5-10% right pneumothorax with severe diffuse bilateral subcutaneous emphysema. Biopsy report right upper lobectomy invasive moderately differential squamous cell carcinoma, margins negative. 6 lymph nodes negative. Right upper lobe bleb excision benign lung parenchyma. Right pleural chest tubes remain in place to wall suction. Patient continues to have significant subcutaneous emphysema. REVIEW OF SYSTEMS: Constitutional: No documented fever, no chills, no night sweats. No weight change. No weakness, fatigue or lethargy. No daytime sleepiness. HEENT: No headache. No blurred vision or double vision, no loss of vision. No loss of Hearing, no ringing in the ears, no dizziness. No nasal drainage or congestion. No epistaxis. No sore throat. Lungs: positive for shortness of breath, occasional cough, no sputum production. No wheezing. Reports dyspnea with activity. Cardiovascular: No chest pain, no lower extremity edema. No palpitations. No paroxysmal nocturnal dyspnea. No orthopnea. No lightheadedness or dizziness. No syncopal episodes. Abdominal: Reports no abdominal pain. No nausea, vomiting. No diarrhea. positive for constipation. No bloody or tarry stools reports loss of appetite. Genitourinary: No dysuria, increased frequency, urgency. No urinary retention. Musculoskeletal: No myalgias. No muscle weakness, no gait dysfunction, no frequent falls. No back pain. No neck pain. Integumentary: No wounds, no lesions. No rash or pruritus. No unusual bruising. No change in hair or nails. Neurologic: No aphasia. No facial droop. No change in mentation. No head injury. No headache. No paralysis. No paresthesia. Psychiatric: No depression. No anxiety. No mood swings. Endocrine: No abnormal blood sugars. No weight change. PHYSICAL EXAMINATION: General: 68-year-old male sitting up in chair in minimal respiratory distress HEENT: Head is atraumatic, normocephalic, pupils were equal round reactive to light and recommendation, extraocular muscle movement were intact, sclera n onicteric, conjunctivae were pale, mucous membranes of the mouth are somewhat dry, subcutaneous emphysema all the way up to the neck and face Neck: Supple, no JVP, normal carotid upstroke bilaterally, no lymphadenopathy, subcutaneous emphysema. Chest: Decreased breath sounds at the bases, few rhonchi, right sided chest tube with subcutaneous emphysema, and the chest wall tenderness minimal intercostal retractions. Heart: First heart sound is normal, second heart sound is normal there is systolic ejection murmur 2/6 located in the left sternal border. Abdomen: Soft, nontender, nondistended, positive bowel sounds. Extremities: There is no edema no calf tenderness DP +2 bilaterally. Neurologic examination: Patient is awake alert and oriented X 3, cranial nerves II-12 appear grossly intact, muscle power were 5 out of 5 in upper extremities and 5 out of 5 in bilateral lower extremities, deep tendon reflexes normal bilaterally. ASSESSMENT AND PLAN: 1. Postoperative day #5 status post robotic-assisted laparoscopic right upper lobectomy with blebectomy of the right lower lobe, positive pathology for moderately differential squamous cell carcinoma. Continue patient on the use of incentive spirometer, increase activity, monitor the patient chest tube. Continue with DuoNeb 3 mL nebulization 4 times every day, continue Symbicort 60/4.5 g 2 puffs twice every day, continue current pain management as outlined by CTS. 2. Extensive subcutaneous emphysema due to air leak. Thoracic surgery is following we will continue to monitor 3. Hypertension and hypertensive cardiovascular disease. Continue patient on valsartan 160 mg every day, hydrochlorothiazide 12.5 mg every day, monitor the patient very closely. 4. Mixed hyperlipidemia. Continue patient on atorvastatin 20 mg once every day. 5. ALLERGIC rhinitis. Start the patient back on loratadine 10 mg every day, may use the insulin saline spray 2 sprays initial surgery times every day as well as Flonase as needed patient also would be started back on his montelukast 10 mg orally bedtime. 6. Constipation. patient on Senokot at bedtime as well as MiraLAX 17 gram in 8 OZ of water daily, we will increase activity, add Milk of Magnesia with prune juice 7. Enlarged prostate. Monitor for urinary retention. 8. COPD. Continue patient on DuoNeb 3 nebulization 4 times every day, continue Symbicort 160/4.5 g 2. Position twice every day, pulmonary is following. 9. DVT prophylaxis. Continue heparin 5000 units subcutaneously every 8 hours. 10. GI prophylaxis. Continue Protonix 40 mg every day. 11. We will follow with you. Impression and plan of care have been directed as dictated by the signing physician. Myrtle Giordano nurse practitioner acting as scribe for signing physician. Objective - Vital Signs Vital signs: Vital Signs Temp 97.3 F L 08/21/23 07:53 Pulse 104 H 08/21/23 08:37 Resp 18 08/21/23 07:53 BP 134/75 08/21/23 07:53 Pulse Ox 94 L 08/21/23 02:56 FiO2 Intake & Output 08/20/23 08/21/23 08/21/23 18:59 06:59 18:59 Intake Total 800 10 120 Output Total 200 835 50 Balance 600 -825 70 Weight 96.3 kg Intake: IV 20 10 10 0.9 10 Invasive Line 4 20 10 Oral 780 110 Output: Chest Tube Drainage 200 260 50 Chest Tube Right Upper 200 260 50 Anterior Chest Urine 575 Other: Voiding Method Toilet Toilet Toilet Urinal Urinal Urinal # Voids 1 - Labs CBC & Chem 7: 08/21/23 07:26 08/21/23 07:26 Labs: Abnormal Lab Results - Last 24 Hours (Table) 08/21/23 08/21/23 Range/Units 07:26 07:26 RBC 3.85 L (4.30-5.90) m/uL Hgb 11.4 L (13.0-17.5) gm/dL Hct 34.1 L (39.0-53.0) % Sodium 128 L (137-145) mmol/L Chloride 94 L (98-107) mmol/L Glucose 109 H (74-99) mg/dL
[2023-08-21] MEDS ORDERED: HYDROmorphone 0.5 MG/0.5 ML SYRINGE IVP STA (15:54)
[2023-08-21] MEDS: MONTELUKAST 10 MG TAB PO SCH (20:10)
[2023-08-21] MEDS: ALPRAZolam 0.5 MG TAB PO PRN (22:27)
[2023-08-22] MEDS: KETOROLAC 15 MG/ML 1 ML VIAL IVP SCH ×2 (01:49→06:23)
[2023-08-22] MEDS: HEPARIN SODIUM,PORCINE 5,000 UNIT/ML 1 ML VIAL SQ SCH ×4 (01:49→23:58)
[2023-08-22] MEDS: PANTOPRAZOLE 40 MG TABLET PO SCH (06:23)
--- NOTE | 2023-08-22 08:36 | XR ---
EXAMINATION TYPE: XR chest 1V portable DATE OF EXAM: 08/22/2023 COMPARISON: 08/21/2023 HISTORY: Post lobectomy TECHNIQUE: Single frontal view of the chest is obtained. FINDINGS: Severe diffuse subcutaneous emphysema bilaterally. There is a chest tube in position. Smal l pneumothorax measuring approximately 5-10%. Volume loss on the right noted and there is consolidati on in the right lung base stable. Left lung clear. Bilateral shoulder placement surgery. Hypertrophic degenerative change of the spine. IMPRESSION: 1. Stable severe subcutaneous emphysema and approximately 5-10% right pneumothorax.
[2023-08-22] MEDS: MULTIVITAMINS, THERA 1 EACH TAB PO SCH (08:37)
[2023-08-22] MEDS: VENLAFAXINE HCL ER 37.5 MG CAP PO SCH (08:37)
[2023-08-22] MEDS: ATORVASTATIN 20 MG TAB PO SCH (08:37)
[2023-08-22] MEDS: SENNOSIDES-DOCUSATE SODIUM 1 EACH TAB PO SCH (08:37)
[2023-08-22] MEDS: SYMBICORT 160-4.5 MCG INHALER INHALATION SCH ×3 (08:42→20:54)
[2023-08-22] MEDS: IPRATROPIUM-ALBUTEROL 3 ML NEB IH SCH ×4 (08:42→20:53)
[2023-08-22] MEDS: polyethylene glycoL 3350 17 GM POWD.PACK PO SCH (08:45)
[2023-08-22] MEDS: hydroCHLOROthiazide 12.5 MG CAP PO SCH (09:00)
--- NOTE | 2023-08-22 09:05 | P.PN ---
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 Previous medical history of COPD, previous tobacco dependence, hypertension, hyperlipidemia POD #6 robotic assisted thoracoscopic right upper lobectomy, blebectomy right lower lobe Subcutaneous emphysema present, expected given type of surgery, status post creation of blow hole Prolonged air leak The patient was seen and examined this morning with Dr. Klein sitting up in a recliner on the cardiac stepdown unit in no acute distress eating breakfast. States pain is controlled on current medication regimen. States he got good sleep last night. Remains in sinus rhythm and hemodynamically stable. Right pleural chest tube remains to continuous wall suction, air leak present. Subc utaneous air present to right upper chest, right neck extending up to his face. Patient did had additional left sided blowhole created surgically yesterday by Dr. Parks, wound vac was connected to both blow holes, subq air appears a little less today and patient is able to see out of his left eye again. Currently on 2LPM NC, able to achieve 1500 mL on his incentive spirometry. Chest x-ray reviewed. Objective - Vital Signs Vital signs: Vital Signs Temp 98.7 F 08/22/23 05:19 Pulse 107 H 08/22/23 05:19 Resp 17 08/22/23 05:19 BP 121/66 08/22/23 05:19 Pulse Ox 91 L 08/22/23 05:19 FiO2 Intake & Output 08/21/23 08/22/23 08/22/23 18:59 06:59 18:59 Intake Total 870 20 650 Output Total 352 1000 Balance 518 -980 650 Weight 96.3 kg 95.6 kg Intake: IV 20 20 Invasive Line 4 20 10 Invasive Line 5 10 Oral 850 650 Output: Chest Tube Drainage 350 450 Chest Tube Right Upper 350 450 Anterior Chest Urine 2 550 Other: Voiding Method Urinal Toilet Urinal # Voids 2 1 # Bowel Movements 1 1 - Exam CONSTITUTIONAL: Appears comfortable, cooperative, no acute distress RESPIRATORY: Lungs sounds diminished bilaterally, right > left. Respirations even, nonlabored. Currently on 2LPM NC with oxygen saturation 94%. Able to achieve 1500 mL on incentive spirometry. Strong cough. CARDIOVASCULAR: S1, S2 present. Regular rate and rhythm, sinus rhythm on telemetry. Palpable peripheral pulses bilaterally. No edema present GASTROINTESTINAL: Abdomen soft, nontender, nondistended. Active bowel sounds present 4 quadrants. Tolerating diet. Admits to small bowel movement which wasn't documented GENITOURINARY: Continues to void INTEGUMENTARY: Skin is warm and dry. Subcutaneous emphysema present to chest wall, neck, extending up to face. Wound vac in place at both blowholes to suction NEUROLOGIC: Cranial nerves II through XII intact MUSKULOSKELETAL: Able to move all extremities, strength equal bilaterally PSYCHIATRIC: Alert and oriented to person place and time, appropriate affect, intact judgment and insight INVASIVE LINES AND TUBES: Right pleural chest tubes present and connected to wall suction, air leak present, 800 mL serosanguineous drainage in the last 24 hours - Allied health notes Allied health notes reviewed: nursing - Labs CBC & Chem 7: 08/21/23 07:26 08/21/23 07:26 Labs: Abnormal Lab Results - Last 24 Hours (Table) 08/21/23 Range/Units 07:26 Sodium 128 L (137-145) mmol/L Chloride 94 L (98-107) mmol/L Glucose 109 H (74-99) mg/dL - Imaging and Cardiology Chest x-ray: report reviewed, image reviewed Assessment and Plan Assessment: Lung cancer, 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 Klein, status post second blowhole creation by Dr. Parks Prolonged air leak Plan: Chest tube placed to waterseal, will repeat chest x-ray 10 AM, monitor for air leak resolution, monitor drainage Blow holes placed to chest wall to aid resolution of subcu emphysema, will take time Patient encouraged to compress subcu tissues emphysema on his face, neck, upper chest Encourage incentive spirometry use 10 times every hour while awake. Bronchodilators per pulmonology Will monitor daily labs and x-rays GI/DVT prophylaxis Increase activity, ambulate as tolerated Continue home medications Pain control with current medication regimen More recommendations to follow
[2023-08-22] MEDS: bisacodyL 10 MG SUPP RECTAL PRN (10:00)
--- NOTE | 2023-08-22 10:22 | XR ---
EXAMINATION TYPE: XR chest 1V portable DATE OF EXAM: 08/22/2023 COMPARISON: 08/22/2023 HISTORY: Postop pneumothorax TECHNIQUE: Single frontal view of the chest is obtained. FINDINGS: Severe diffuse subcutaneous emphysema bilaterally. There is a chest tube in position. Smal l pneumothorax measuring approximately 5-10%. Volume loss on the right noted and there is consolidati on in the right lung base stable. Left lung clear. Bilateral shoulder placement surgery. Hypertrophic degenerative change of the spine. IMPRESSION: Stable severe subcutaneous emphysema and approximately 5-10% right pneumothorax.
--- NOTE | 2023-08-22 14:59 | XR ---
EXAMINATION TYPE: XR chest 1V portable DATE OF EXAM: 08/22/2023 COMPARISON: 08/22/2023 HISTORY: Chest tube TECHNIQUE: Single frontal view of the chest is obtained. FINDINGS: Severe diffuse subcutaneous emphysema bilaterally. There is a chest tube in position. Inte rval increase in size of right-sided pneumothorax measuring approximately 20%. Volume loss on the rig ht noted and there is consolidation in the right lung base stable. Left lung clear. Bilateral shoulde r placement surgery. Hypertrophic degenerative change of the spine. Suspect pneumomediastinum. IMPRESSION: 1. Interval increase in size of right-sided pneumothorax now measuring 20%. Severe diffuse subcutaneo us emphysema persists. 2. Now suspect a small amount of pneumomediastinum.
--- NOTE | 2023-08-22 15:06 | P.PN ---
Subjective Progress Note Date: 08/22/23 HISTORY OF PRESENT ILLNESS: This is a 68-year-old male one of my patient and the patient medical history significant for COPD, hypertension and hypertensive cardiovascular disease, hyperlipidemia, history of ALLERGIC rhinitis, remote history of tobacco use and dependence he smoked at least 3 pack every day for many years and quit when he was 43-year-old,, patient has been followed by pulmonary medicine Dr. Rendon on a regular basis, he had pulmonary nodules history, he has been having a computed tomography scan of the chest and PET scan and regular basis until recentlyhis PET scan came back positive patient underwent robotic bronchoscopy with ultrasound of the bronchial tree by Dr. 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 Landon underwent robotic-assisted thoracoscopy right upper lobectomy with lumpectomy of the right lower lobe, and he was admitted to telemetry unit, he was seen and evaluated in his room, appears to be somewhat short of breath, he does have a chest tube in the right side of the chest, draining quite a bit of serosanguineous material, patient appears to be quite short of breath and debility, he did appear to have a significant subcutaneously emphysema as well, Dr. Klein evaluated the patient and the patient has been stable we will follow the patient along with pulmonary as well as thoracic surgery. 08/17: Patient is sitting up in chair continues to have some pain in the right side, he continues to be hospitalized, he has not had a bowel movement, is urinating very well, Senokot and MiraLAX were added, increase activity, continue to monitor the patient very closely, continue DuoNeb, continue Symbicort, we will follow-up the patient very closely, subcutis emphysema spirometer to prevent yesterday. Patient will plan to see the hospital for another 1-2 days. 08/18: Patient sitting up in bed in no apparent distress, he denies any chest pain, he continues to have some cough, no phlegm production, he continues to have a chest tube in the second, subcutaneous emphysema that has progressed and now is all the way to his neck and face , he has no abdominal pain, nausea or vomiting, did have a small bowel movement today, he denies any unusual symptom at this time except for dyspnea on exertion. 08/19: Patient is sitting up in chair in no distress, he continues to have significant subcutaneous emphysema involving his right upper chest neck face, no respiratory distress, has been followed by plastic surgery, chest tube still in place, -20 cm of water, patient has not had any abdominal pain, nausea or vomiting, he did not have a bowel movement as of yet increase activity, continue to use the incentive spirometer. 08/20: Repeat chest x-ray this morning reveals stable 30% right-sided pneumothorax and diffuse subcutaneous emphysema. Patient remains with subcutaneous emphysema, chest tube is in place. Patient is performing incentive spirometry and reaching 2000 mL. Heart rate is in the 70s to 90s, blood pressure 12/12/1977, pulse ox 94% on 2 L nasal cannula. The blood work reveals WBC 10.3, hemoglobin 11.6. Sodium is 128, potassium 4.5, chloride 93, CO2 27, BUN 21 creatinine 0.68. AST 74 and ALT 56. Pathology report is pending. 08/21: Heart rate is 100 104, blood pressure 134/75, afebrile, pulse ox 94% on 2 L. Repeat blood work reveals sodium of 128, potassium 4.3, CO2 94, BUN 19 creatinine 0.72. WBC 10, hemoglobin 11.4, platelet count 294. Repeat chest x- ray revealed reports approximate 5-10% right pneumothorax with severe diffuse bilateral subcutaneous emphysema. Biopsy report right upper lobectomy invasive moderately differential squamous cell carcinoma, margins negative. 6 lymph nodes negative. Right upper lobe bleb excision benign lung parenchyma. Right pleural chest tubes remain in place to wall suction. Patient continues to have significant subcutaneous emphysema. 08/22: Repeat chest x-ray reveals stable severe subcutaneous emphysema, possibly 5-10% right pneumothorax. Patient remains afebrile, heart rate in the 60s to 100, blood pressure 93/62, pulse ox 94% on room air. Patient continues to have significant subcutaneous emphysema and cardiothoracic surgeon did additional left sided blow hole to assist in resolution of subcutaneous emphysema. Drainage from chest tube. Patient is reaching 2000 mL's on incentive spirometry. He still feels shortness of breath. HCTZ discontinued. REVIEW OF SYSTEMS: Constitutional: No documented fever, no chills, no night sweats. No weight change. No weakness, fatigue or lethargy. No daytime sleepiness. HEENT: No headache. No blurred vision or double vision, no loss of vision. No loss of Hearing, no ringing in the ears, no dizziness. No nasal drainage or congestion. No epistaxis. No sore throat. Lungs: positive for shortness of breath, occasional cough, no sputum production. No wheezing. Reports dyspnea with activity. Cardiovascular: No chest pain, no lower extremity edema. No palpitations. No paroxysmal nocturnal dyspnea. No orthopnea. No lightheadedness or dizziness. No syncopal episodes. Abdominal: Reports no abdominal pain. No nausea, vomiting. No diarrhea. positive for constipation. No bloody or tarry stools reports loss of appetite. Genitourinary: No dysuria, increased frequency, urgency. No urinary retention. Musculoskeletal: No myalgias. No muscle weakness, no gait dysfunction, no frequent falls. No back pain. No neck pain. Integumentary: No wounds, no lesions. No rash or pruritus. No unusual bruising. Significant subcutaneous emphysema Neurologic: No aphasia. No facial droop. No change in mentation. No head injury. No headache. No paralysis. No paresthesia. Psychiatric: No depression. No anxiety. No mood swings. Endocrine: No abnormal blood sugars. No weight change. PHYSICAL EXAMINATION: General: 68-year-old male sitting up in chair in minimal respiratory distress HEENT: Head is atraumatic, normocephalic, pupils were equal round reactive to light and recommendation, extraocular muscle movement were intact, sclera nonicteric, conjunctivae were pale, mucous membranes of the mouth are somewhat dry, subcutaneous emphysema all the way up to the neck and face Neck: Supple, no JVP, normal carotid upstroke bilaterally, no lymphadenopathy, subcutaneous emphysema. Chest: Decreased breath sounds at the bases, few rhonchi, right sided chest tube with subcutaneous emphysema, and the chest wall tenderness minimal intercostal retractions. Heart: First heart sound is normal, second heart sound is normal there is systolic ejection murmur 2/6 located in the left sternal border. Abdomen: Soft, nontender, nondistended, positive bowel sounds. Extremities: There is no edema no calf tenderness DP +2 bilaterally. Neurologic examination: Patient is awake alert and oriented X 3, cranial nerves II-12 appear grossly intact, muscle power were 5 out of 5 in upper extremities and 5 out of 5 in bilateral lower extremities, deep tendon reflexes normal bilaterally. ASSESSMENT AND PLAN: 1. Postoperative day #6 status post robotic-assisted laparoscopic right upper lobectomy with blebectomy of the right lower lobe, positive pathology for moderately differential squamous cell carcinoma. Continue patient on the use of incentive spirometer, increase activity, monitor the patient chest tube. Continue with DuoNeb 3 mL nebulization 4 times every day, continue Symbicort 60/4.5 g 2 puffs twice every day, continue current pain management as outlined by CTS. 2. Extensive subcutaneous emphysema due to air leak. Thoracic surgery is following we will continue to monitor 3. Hypertension and hypertensive cardiovascular disease. Continue patient on valsartan 160 mg every day, hydrochlorothiazide discontinued as it maybe contributing to hyponatremia. Continue to monitor the patient very closely. 4. Mixed hyperlipidemia. Continue patient on atorvastatin 20 mg once every day. 5. ALLERGIC rhinitis. Start the patient back on loratadine 10 mg every day, may use the insulin saline spray 2 sprays initial surgery times every day as well as Flonase as needed patient also would be started back on his montelukast 10 mg orally bedtime. 6. Constipation. patient on Senokot at bedtime as well as MiraLAX 17 gram in 8 OZ of water daily, we will increase activity, add Milk of Magnesia with prune juice 7. Enlarged prostate. Monitor for urinary retention. 8. COPD. Continue patient on DuoNeb 3 nebulization 4 times every day, continue Symbicort 160/4.5 g 2. Position twice every day, pulmonary is following. 9. DVT prophylaxis. Continue heparin 5000 units subcutaneously every 8 hours. 10. GI prophylaxis. Continue Protonix 40 mg every day. 11. Hyponatremia. DC HCTZ. . Impression and plan of care have been directed as dictated by the signing physician. Myrtle Giordano nurse practitioner acting as scribe for signing physician. Objective - Vital Signs Vital signs: Vital Signs Temp 97.6 F 08/22/23 08:00 Pulse 100 08/22/23 08:56 Resp 20 08/22/23 08:00 BP 93/62 08/22/23 08:00 Pulse Ox 94 L 08/22/23 08:00 FiO2 Intake & Output 08/21/23 08/22/23 08/22/23 18:59 06:59 18:59 Intake Total 870 20 650 Output Total 352 1000 Balance 518 -980 650 Weight 96.3 kg 95.6 kg Intake: IV 20 20 Invasive Line 4 20 10 Invasive Line 5 10 Oral 850 650 Output: Chest Tube Drainage 350 450 Chest Tube Right Upper 350 450 Anterior Chest Urine 2 550 Other: Voiding Method Urinal Toilet Urinal # Voids 2 1 # Bowel Movements 1 1 - Labs CBC & Chem 7: 08/21/23 07:26 08/21/23 07:26
--- NOTE | 2023-08-22 16:04 | P.PN ---
Subjective Progress Note Date: 08/22/23 Pulmonary consult dated 08/16/2023. 68-year-old male, well-known to me. I've been seeing the patient in the office, for a number of years, for his underlying COPD. In addition, in the past, the patient has had pulmonary nodules, which have been relatively stable, and negative on PET scan. More recently, his been in the right upper lobe, was enlarging, and the PET scan, was positive only in that area. The patient was initially seen by Dr. Parks, who requested a biopsy, and evaluation of lymph nod es. My partner did a robotic bronchoscopy, and endobronchial ultrasound on this patient, and the sampling, of the right upper lobe, with positive for squamous cell carcinoma. Sampling of the station 7/subcarinal node, was negative. The patient was then brought to the operating room, today, by Dr. Klein, for robotically-assisted right upper lobectomy, and lymph node dissection/sampling. The patient is seen today in room 350. He is on room air. He is on D5 with half-normal saline at 40 mL an hour. Today is postop day 0. The patient is doing well, without complaints. His family is in the room with him. The patient has a history of COPD, and hyperlipidemia. Current labs include a white count of 13.4, hemoglobin 13.7, hematocrit 41.7, and a normal platelet count. Sodium 135, potassium 4, chlorides 100, CO2 27, BUN 14, and creatinine 0.73. Progress note dated 08/17/2023. The patient's currently on room air. He's not receiving any IV fluids. The patient is postop day #1, status post robotically-assisted right upper lobectomy and lymph node dissection, by Dr. Klein. The patient does have anterior leak on the right side. He currently feels relatively comfortable. White count 11, hemoglobin 12.9, hematocrit 38.7, and platelet count 174,000. Sodium 129, potassium 3.7, chlorides 95, CO2 26, BUN 14, and creatinine 0.63. Pneumothorax on the right side, is less than 5%. Progress note dated 08/18/2023. The patient's currently on room air. He's not receiving any IV fluids. The patient is postop day #2, status post robotically assisted upper lobectomy and lymph node dissection, by Dr. Klein. The patient does have a leak from the chest tube. He has developed significant subcutaneous emphysema, and the right chest, right neck, and facial area. White count is 11.9, hemoglobin 12.8, hematocrit 37.9, within normal platelet count. Sodium 1:30, potassium 4.2, c hlorides 94, CO2 28, BUN 14, creatinine 0.69. Chest x-ray shows a right apical pneumothorax. There is increasing subcutaneous emphysema. Progress note dated 08/19/2023. The patient is seen again in room 350. The patient is postop day #3, status post robotically assisted right upper lobectomy, and lymph node dissection. The patient continues with an air leak, and is having significant, subcutaneous emphysema. The patient is in no respiratory distress. He is not receiving any IV fluids. Today we added back his Effexor, and increase his Xanax dose for anxiety. White count 10.9, hemoglobin 12.3, hematocrit 36.8, within normal platelet count. Sodium 129, potassium 4, chlorides 93, CO2 29, BUN 18, and creatinine 0.74. Chest x-ray shows a right chest tube be unchanged in its position, and 15-20% right apical pneumothorax, and diffuse subcutaneous emphysema. Today's evaluation of 08/20/2023, the patient is postop day #4. The patient underwent a right upper lobe resection, with lymph node dissection and this was a robotic-assisted procedure. The patient continues to have a right-sided chest tube in place and the patient has a significant ongoing care leak. No follow-up chest x-ray from today shows no evidence of any pneumothorax. Nevertheless, the patient has a continuous air leak and the patient has developed extensive subcu in his emphysema involving the face, neck, eyes, and chest and upper extremities. At the same time, the patient has achieved his voice related to the subcu in his emphysema. His current cardiac rhythm is sinus. Right-sided chest tube in place and is/2 suction. No significant shortness of breath. The patient is an obvious cause of 10.3, hemoglobin is 11.6 and a platelet count is at 239. BUN is at 21 with a creatinine of 0.6 and a sodium level is at 128. No issues with pain. No altered mentation. He remains on oxygen at room air with a pulse ox of 97%. 08/21/2023, the patient continues to have persistent air leak and extensive s ubcutaneous emphysema involving the face, neck, chest, and extremities. Blow holes were created with some limited success. Chest tube remains in place. No evidence of any pneumothorax. No significant respiratory distress and the patient remains on O2 at 2 L. Using the senna spirometer. Pulling approximately 1.2 L on his incentive spirometer. His resting comfortably in bed. Overnight, he felt slightly more short of breath. This morning he is feeling comfortable. No cough. No sputum production. Surgical 1 site is dry clean and intact and the patient is currently postoperative day #5 following a robotic-assisted thoracoscopic right upper lobe resection and the patient also had bleb resection from the right lower lobe area. Labs show a white cell count of 10, hemoglobin 11.4, sodium is at 128, BUN is at 19 with a creatinine of 0.7. Remains on subcutaneous heparin for DVT prophylaxis. Remains on tramadol for pain control 08/22/2023, the patient is being seen in follow-up. The patient is postop day #6 following a right upper lobe lobectomy. Continues to have air leak through the right-sided chest tube. Continues to have significant amount of subcu in his emphysema although this could've slightly subsided compared to yesterday. The patient remained on 2 L of Oxymizer nasal cannula. Pulse ox in the order of 95%. Continues to use incentive spirometer. Denies having any significant shortness of breath. Has some chest discomfort at the site of the chest tube insertion. Blow holes were inserted.chest x-ray was reviewed. There is evidence of excessive subcutaneous emphysema. No evidence of any pneumothorax.The blood work showed a WBC count of 10, hemoglobin of 11.4, sodium is at 128, BUN is at 19 with a creatinine of 0.72. No other significant events otherwise over the past 24 hours. Cardiothoracic surgeries on the case. The patient remains on DuoNeb updrafts. Rest of the medications remain unchanged. Objective - Vital Signs Vital signs: Vital Signs Temp 97.6 F 08/22/23 08:00 Pulse 100 08/22/23 08:56 Resp 20 08/22/23 08:00 BP 93/62 08/22/23 08:00 Pulse Ox 94 L 08/22/23 08:00 FiO2 Intake & Output 08/21/23 08/22/23 08/22/23 18:59 06:59 18:59 Intake Total 870 20 650 Output Total 352 1000 Balance 518 -980 650 Weight 96.3 kg 95.6 kg Intake: IV 20 20 Invasive Line 4 20 10 Invasive Line 5 10 Oral 850 650 Output: Chest Tube Drainage 350 450 Chest Tube Right Upper 350 450 Anterior Chest Urine 2 550 Other: Voiding Method Urinal Toilet Urinal # Voids 2 1 # Bowel Movements 1 1 - Exam CONSTITUTIONAL: Appears somewhat comfortable, cooperative, no acute distress, the patient has extensive subcutaneous emphysema involving the face neck, eyes, RESPIRATORY: Lungs sounds diminished bilaterally, right > left. Respirations even, nonlabored. Currently on room air oxygen with a pulse ox of 97%. Able to achieve 2500 mL on incentive spirometry. Strong cough. CARDIOVASCULAR: S1, S2 present. Regular rate and rhythm, sinus rhythm on telemetry. Palpable peripheral pulses bilaterally. No edema present GASTROINTESTINAL: Abdomen soft, nontender, nondistended. Active bowel sounds present 4 quadrants. Tolerating diet GENITOURINARY: Continues to void INTEGUMENTARY: Skin is warm and dry. 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 There is still persistent positive air leak through the chest tube. Total amount of output through the chest tube has been 800 mL over the past 24 hours, output is serosanguineous. Extensive subcu emphysema involving the face, neck, and chest, and the patient had blowhole constructed over the anterior chest area with some limited success Positive air leak post right upper lobe resection the patient is a right-sided chest tube is still in place. No evidence of any pneumothorax Acute hypoxic respiratory failure, improved and the patient is currently on room air oxygen History of COPD Previous tobacco dependence Hypertension Hyperlipidemia Plan: Continue conservative management Monitor the output from the chest tube, we'll keep the chest tube in place Moderate air leak mmonitor the subclavian his emphysema Continue chest tube to -20 cm continuous wall suction, monitor for air leak resolution, monitor drainage Patient encouraged to compress subcu tissues emphysema on his face, neck, upper chest Encourage incentive spirometry use 10 times every hour while awake. Blowhole was constructed Monitored air leak Daily chest x-rays Increase activity, ambulate as tolerated. Continue home medications Pain control with current medication regimen
[2023-08-22] MEDS: VALSARTAN 160 MG TAB PO SCH (16:53)
[2023-08-22] MEDS: MONTELUKAST 10 MG TAB PO SCH (20:07)
[2023-08-22] MEDS: ACETAMINOPHEN TAB 325 MG TAB PO PRN (20:07)
[2023-08-22] MEDS: ALPRAZolam 0.5 MG TAB PO PRN (20:08)
[2023-08-23] MEDS: PANTOPRAZOLE 40 MG TABLET PO SCH (05:55)
[2023-08-23 07:54] LABS: HCT 35.7 % (39.0-53.0); HGB 11.7 gm/dL (13.0-17.5); MCH 29.5 pg (25.0-35.0); MCHC 32.7 g/dL (31.0-37.0); MCV 90.3 fL (80.0-100.0); Mean Platelet Volume 7.3; Platelet Count 320 k/uL (150-450); RBC 3.96 m/uL (4.30-5.90); WBC 12.8 k/uL (3.8-10.6)
[2023-08-23 08:10] LABS: African American GFR (CKD) >90 (>60 ml/min/1.73 sqM); Anion Gap 10 mmol/L; Blood Urea Nitrogen 20 mg/dL (9-20); Calcium 8.8 mg/dL (8.4-10.2); Carbon Dioxide 22 mmol/L (22-30); Chloride 92 mmol/L (98-107); Glucose 104 mg/dL (74-99); Non-African American GFR(CKD) >90 (>60 ml/min/1.73 sqM); Sodium 124 mmol/L (137-145)
--- NOTE | 2023-08-23 08:16 | XR ---
EXAMINATION TYPE: XR chest 1V portable DATE OF EXAM: 08/23/2023 HISTORY: Follow-up pneumothorax COMPARISON: 08/22/2023 TECHNIQUE: Single view of the chest is submitted. FINDINGS: Right-sided chest tube with right-sided pneumothorax estimated at 30%. Apical pleural distance of 5.5 cm versus 4.6 cm previously. Extensive subcutaneous emphysema about the chest wall extending into th e neck. Suspected pneumomediastinum. The heart is stable. Hilar and mediastinal structures are within normal limits. Degenerative changes are seen of the dorsal spine. IMPRESSION: 1. Right-sided chest tube with right-sided pneumothorax estimated at 30%. Apical pleural distance of 5.5 cm versus 4.6 cm previously. Extensive subcutaneous emphysema about the chest wall extending int o the neck. Suspected pneumomediastinum.
[2023-08-23 08:19] LABS: Potassium 4.7 mmol/L (3.5-5.1)
[2023-08-23] MEDS: IPRATROPIUM-ALBUTEROL 3 ML NEB IH SCH ×4 (08:34→20:33)
[2023-08-23] MEDS: HEPARIN SODIUM,PORCINE 5,000 UNIT/ML 1 ML VIAL SQ SCH ×3 (08:50→23:15)
[2023-08-23] MEDS: polyethylene glycoL 3350 17 GM POWD.PACK PO SCH (08:50)
[2023-08-23] MEDS: MULTIVITAMINS, THERA 1 EACH TAB PO SCH (08:51)
[2023-08-23] MEDS: SENNOSIDES-DOCUSATE SODIUM 1 EACH TAB PO SCH (08:51)
[2023-08-23] MEDS: VENLAFAXINE HCL ER 37.5 MG CAP PO SCH (08:52)
[2023-08-23] MEDS: SYMBICORT 160-4.5 MCG INHALER INHALATION SCH ×2 (08:52→20:33)
[2023-08-23] MEDS: VALSARTAN 160 MG TAB PO SCH (08:52)
[2023-08-23] MEDS: ATORVASTATIN 20 MG TAB PO SCH (08:52)
--- NOTE | 2023-08-23 11:38 | P.PN ---
Subjective Progress Note Date: 08/23/23 Pulmonary consult dated 08/16/2023. 68-year-old male, well-known to me. I've been seeing the patient in the office, for a number of years, for his underlying COPD. In addition, in the past, the patient has had pulmonary nodules, which have been relatively stable, and negative on PET scan. More recently, his been in the right upper lobe, was enlarging, and the PET scan, was positive only in that area. The patient was initially seen by Dr. Parks, who requested a biopsy, and evaluation of lymph nod es. My partner did a robotic bronchoscopy, and endobronchial ultrasound on this patient, and the sampling, of the right upper lobe, with positive for squamous cell carcinoma. Sampling of the station 7/subcarinal node, was negative. The patient was then brought to the operating room, today, by Dr. Klein, for robotically-assisted right upper lobectomy, and lymph node dissection/sampling. The patient is seen today in room 350. He is on room air. He is on D5 with half-normal saline at 40 mL an hour. Today is postop day 0. The patient is doing well, without complaints. His family is in the room with him. The patient has a history of COPD, and hyperlipidemia. Current labs include a white count of 13.4, hemoglobin 13.7, hematocrit 41.7, and a normal platelet count. Sodium 135, potassium 4, chlorides 100, CO2 27, BUN 14, and creatinine 0.73. Progress note dated 08/17/2023. The patient's currently on room air. He's not receiving any IV fluids. The patient is postop day #1, status post robotically-assisted right upper lobectomy and lymph node dissection, by Dr. Klein. The patient does have anterior leak on the right side. He currently feels relatively comfortable. White count 11, hemoglobin 12.9, hematocrit 38.7, and platelet count 174,000. Sodium 129, potassium 3.7, chlorides 95, CO2 26, BUN 14, and creatinine 0.63. Pneumothorax on the right side, is less than 5%. Progress note dated 08/18/2023. The patient's currently on room air. He's not receiving any IV fluids. The patient is postop day #2, status post robotically assisted upper lobectomy and lymph node dissection, by Dr. Klein. The patient does have a leak from the chest tube. He has developed significant subcutaneous emphysema, and the right chest, right neck, and facial area. White count is 11.9, hemoglobin 12.8, hematocrit 37.9, within normal platelet count. Sodium 1:30, potassium 4.2, c hlorides 94, CO2 28, BUN 14, creatinine 0.69. Chest x-ray shows a right apical pneumothorax. There is increasing subcutaneous emphysema. Progress note dated 08/19/2023. The patient is seen again in room 350. The patient is postop day #3, status post robotically assisted right upper lobectomy, and lymph node dissection. The patient continues with an air leak, and is having significant, subcutaneous emphysema. The patient is in no respiratory distress. He is not receiving any IV fluids. Today we added back his Effexor, and increase his Xanax dose for anxiety. White count 10.9, hemoglobin 12.3, hematocrit 36.8, within normal platelet count. Sodium 129, potassium 4, chlorides 93, CO2 29, BUN 18, and creatinine 0.74. Chest x-ray shows a right chest tube be unchanged in its position, and 15-20% right apical pneumothorax, and diffuse subcutaneous emphysema. Today's evaluation of 08/20/2023, the patient is postop day #4. The patient underwent a right upper lobe resection, with lymph node dissection and this was a robotic-assisted procedure. The patient continues to have a right-sided chest tube in place and the patient has a significant ongoing care leak. No follow-up chest x-ray from today shows no evidence of any pneumothorax. Nevertheless, the patient has a continuous air leak and the patient has developed extensive subcu in his emphysema involving the face, neck, eyes, and chest and upper extremities. At the same time, the patient has achieved his voice related to the subcu in his emphysema. His current cardiac rhythm is sinus. Right-sided chest tube in place and is/2 suction. No significant shortness of breath. The patient is an obvious cause of 10.3, hemoglobin is 11.6 and a platelet count is at 239. BUN is at 21 with a creatinine of 0.6 and a sodium level is at 128. No issues with pain. No altered mentation. He remains on oxygen at room air with a pulse ox of 97%. 08/21/2023, the patient continues to have persistent air leak and extensive s ubcutaneous emphysema involving the face, neck, chest, and extremities. Blow holes were created with some limited success. Chest tube remains in place. No evidence of any pneumothorax. No significant respiratory distress and the patient remains on O2 at 2 L. Using the senna spirometer. Pulling approximately 1.2 L on his incentive spirometer. His resting comfortably in bed. Overnight, he felt slightly more short of breath. This morning he is feeling comfortable. No cough. No sputum production. Surgical 1 site is dry clean and intact and the patient is currently postoperative day #5 following a robotic-assisted thoracoscopic right upper lobe resection and the patient also had bleb resection from the right lower lobe area. Labs show a white cell count of 10, hemoglobin 11.4, sodium is at 128, BUN is at 19 with a creatinine of 0.7. Remains on subcutaneous heparin for DVT prophylaxis. Remains on tramadol for pain control 08/22/2023, the patient is being seen in follow-up. The patient is postop day #6 following a right upper lobe lobectomy. Continues to have air leak through the right-sided chest tube. Continues to have significant amount of subcu in his emphysema although this could've slightly subsided compared to yesterday. The patient remained on 2 L of Oxymizer nasal cannula. Pulse ox in the order of 95%. Continues to use incentive spirometer. Denies having any significant shortness of breath. Has some chest discomfort at the site of the chest tube insertion. Blow holes were inserted.chest x-ray was reviewed. There is evidence of excessive subcutaneous emphysema. No evidence of any pneumothorax.The blood work showed a WBC count of 10, hemoglobin of 11.4, sodium is at 128, BUN is at 19 with a creatinine of 0.72. No other significant events otherwise over the past 24 hours. Cardiothoracic surgeries on the case. The patient remains on DuoNeb updrafts. Rest of the medications remain unchanged. 08/23/2023, seeing the patient for a follow-up. The patient is postop day #7. There is still persistent air leak. He is currently on waterseal. Much improved in terms of his subcutaneous emphysema. His eyes are open and he is able to see adequately. The swelling in his neck area and the face has improved significantly. The chest x-ray shows some residual pneumothorax in order of 30%. This is an apical pneumothorax. There is also supplemented his emphysema still present. The patient is ambulating. The patient using the [employer] pirometer. He is only on 2 L of oxygen by nasal cannula. Sodium level is at 124, potassium levels at 4.7, BUN is at 20 with a creatinine of 0.4. The white cell count is at 12.8 with a hemoglobin of 11.5. He has no specific complaints otherwise. He is on Symbicort. He is also on DuoNeb nebulized treatments [id number]. Objective - Vital Signs Vital signs: Vital Signs Temp 97.7 F 08/23/23 05:12 Pulse 89 08/23/23 08:47 Resp 18 08/23/23 05:12 BP 122/80 08/23/23 05:12 Pulse Ox 93 L 08/23/23 05:12 FiO2 Intake & Output 08/22/23 08/23/23 08/23/23 18:59 06:59 18:59 Intake Total 850 20 Output Total 570 495 Balance 280 -475 Weight 94.5 kg Intake: IV 20 Invasive Line 5 20 Oral 850 Output: Chest Tube Drainage 220 295 Chest Tube Right Upper 220 295 Anterior Chest Urine 350 200 Other: Voiding Method Toilet Urinal # Voids 4 # Bowel Movements 1 - Exam CONSTITUTIONAL: Appears somewhat comfortable, cooperative, no acute distress, the patient has extensive subcutaneous emphysema involving the face neck, eyes, no other the subcutaneous emphysema is improved considerably. RESPIRATORY: Lungs sounds diminished bilaterally, right > left. Respirations even, nonlabored. Currently on room air oxygen with a pulse ox of 97%. Able to achieve 2500 mL on incentive spirometry. Strong cough. CARDIOVASCULAR: S1, S2 present. Regular rate and rhythm, sinus rhythm on telemetry. Palpable peripheral pulses bilaterally. No edema present GASTROINTESTINAL: Abdomen soft, nontender, nondistended. Active bowel sounds present 4 quadrants. Tolerating diet GENITOURINARY: Continues to void INTEGUMENTARY: Skin is warm and dry. Subcutaneous emphysema present to chest wall, neck, extending up to entire face NEUROLOGIC: Cranial nerves II through XII intact MUSKULOSKELETAL: Able to move all extremities, strength equal bilaterally PSYCHIATRIC: Alert and oriented to person place and time, appropriate affect, intact judgment and insight INVASIVE LINES AND TUBES: Right pleural chest tubes present and connected to wall suction, air leak present, there is also superior his emphysema along the chest wall. 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 The patient had early stage TI be N0 M0 disease, squamous cell carcinoma without lymph node involvement. The margins were also clear. Right apical pneumothorax in order of 30%, chest tube is in good location and the patient continues to have air leak Extensive subcu emphysema involving the face, neck, and chest, and the patient had blowhole constructed over the anterior chest area with some limited success Positive air leak post right upper lobe resection the patient is a right-sided chest tube is still in place. No evidence of any pneumothorax Acute hypoxic respiratory failure, improved and the patient is currently on room air oxygen History of COPD Previous tobacco dependence Hypertension Hyperlipidemia Plan: Continue conservative management Monitor the output from the chest tube Moderate air leak Subjective his emphysema is improved Continue chest tube is currently to waterseal Continues to have a 30% pneumothorax on the right. We'll continue to monitor the patient is having daily chest x-rays Encourage incentive spirometry use 10 times every hour while awake. The patient will be kept in the hospital. The patient is currently on 2 L of oxygen by nasal cannula. We'll continue to follow
--- NOTE | 2023-08-23 12:51 | P.PN ---
Subjective Progress Note Date: 08/23/23 HISTORY OF PRESENT ILLNESS: This is a 68-year-old male one of my patient and the patient medical history significant for COPD, hypertension and hypertensive cardiovascular disease, hyperlipidemia, history of ALLERGIC rhinitis, remote history of tobacco use and dependence he smoked at least 3 pack every day for many years and quit when he was 43-year-old,, patient has been followed by pulmonary medicine Dr. Rendon on a regular basis, he had pulmonary nodules history, he has been having a computed tomography scan of the chest and PET scan and regular basis until recentlyhis PET scan came back positive patient underwent robotic bronchoscopy with ultrasound of the bronchial tree by Dr. 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 Landon underwent robotic-assisted thoracoscopy right upper lobectomy with lumpectomy of the right lower lobe, and he was admitted to telemetry unit, he was seen and evaluated in his room, appears to be somewhat short of breath, he does have a chest tube in the right side of the chest, draining quite a bit of serosanguineous material, patient appears to be quite short of breath and debility, he did appear to have a significant subcutaneously emphysema as well, Dr. Klein evaluated the patient and the patient has been stable we will follow the patient along with pulmonary as well as thoracic surgery. 08/17: Patient is sitting up in chair continues to have some pain in the right side, he continues to be hospitalized, he has not had a bowel movement, is urinating very well, Senokot and MiraLAX were added, increase activity, continue to monitor the patient very closely, continue DuoNeb, continue Symbicort, we will follow-up the patient very closely, subcutis emphysema spirometer to prevent yesterday. Patient will plan to see the hospital for another 1-2 days. 08/18: Patient sitting up in bed in no apparent distress, he denies any chest pain, he continues to have some cough, no phlegm production, he continues to have a chest tube in the second, subcutaneous emphysema that has progressed and now is all the way to his neck and face , he has no abdominal pain, nausea or vomiting, did have a small bowel movement today, he denies any unusual symptom at this time except for dyspnea on exertion. 08/19: Patient is sitting up in chair in no distress, he continues to have significant subcutaneous emphysema involving his right upper chest neck face, no respiratory distress, has been followed by plastic surgery, chest tube still in place, -20 cm of water, patient has not had any abdominal pain, nausea or vomiting, he did not have a bowel movement as of yet increase activity, continue to use the incentive spirometer. 08/20: Repeat chest x-ray this morning reveals stable 30% right-sided pneumothorax and diffuse subcutaneous emphysema. Patient remains with subcutaneous emphysema, chest tube is in place. Patient is performing incentive spirometry and reaching 2000 mL. Heart rate is in the 70s to 90s, blood pressure 12/12/1977, pulse ox 94% on 2 L nasal cannula. The blood work reveals WBC 10.3, hemoglobin 11.6. Sodium is 128, potassium 4.5, chloride 93, CO2 27, BUN 21 creatinine 0.68. AST 74 and ALT 56. Pathology report is pending. 08/21: Heart rate is 100 104, blood pressure 134/75, afebrile, pulse ox 94% on 2 L. Repeat blood work reveals sodium of 128, potassium 4.3, CO2 94, BUN 19 creatinine 0.72. WBC 10, hemoglobin 11.4, platelet count 294. Repeat chest x- ray revealed reports approximate 5-10% right pneumothorax with severe diffuse bilateral subcutaneous emphysema. Biopsy report right upper lobectomy invasive moderately differential squamous cell carcinoma, margins negative. 6 lymph nodes negative. Right upper lobe bleb excision benign lung parenchyma. Right pleural chest tubes remain in place to wall suction. Patient continues to have significant subcutaneous emphysema. 08/22: Repeat chest x-ray reveals stable severe subcutaneous emphysema, possibly 5-10% right pneumothorax. Patient remains afebrile, heart rate in the 60s to 100, blood pressure 93/62, pulse ox 94% on room air. Patient continues to have significant subcutaneous emphysema and cardiothoracic surgeon did additional left sided blow hole to assist in resolution of subcutaneous emphysema. Drainage from chest tube. Patient is reaching 2000 mL's on incentive spirometry. He still feels shortness of breath. HCTZ discontinued. 08/23: Repeat chest x-ray reveals right-sided chest tube with right-sided pneumothorax 30%. Apical pleural distance 5.5 cm versus 4.6 cm previously. Extensive subcutaneous emphysema. Suspected pneumomediastinum. Patient is on 2 L nasal cannula with pulse ox 100%. Heart rate is running in the 80s and 90s, blood pressure 109/68. Patient remains afebrile. Patient continues to have persistent air leak and currently on water seal. He has had improvement of the subcutaneous emphysema and has bilateral blow holes. Repeat blood work reveals sodium is 124, potassium 4.7, chloride 92, CO2 22. Creatinine 0.47. WBC 12.8 and hemoglobin 11.7. REVIEW OF SYSTEMS: Constitutional: No documented fever, no chills, no night sweats. No weight change. No weakness, fatigue or lethargy. No daytime sleepiness. HEENT: No headache. No blurred vision or double vision, no loss of vision. No loss of Hearing, no ringing in the ears, no dizziness. No nasal drainage or congestion. No epistaxis. No sore throat. Lungs: positive for shortness of breath, occasional cough, no sputum production. No wheezing. Reports dyspnea with activity. Cardiovascular: No chest pain, no lower extremity edema. No palpitations. No paroxysmal nocturnal dyspnea. No orthopnea. No lightheadedness or dizziness. No syncopal episodes. Abdominal: Reports no abdominal pain. No nausea, vomiting. No diarrhea. positive for constipation. No bloody or tarry stools reports loss of appetite. Genitourinary: No dysuria, increased frequency, urgency. No urinary retention. Musculoskeletal: No myalgias. No muscle weakness, no gait dysfunction, no frequent falls. No back pain. Integumentary: No wounds, no lesions. No rash or pruritus. No unusual bruising. Significant subcutaneous emphysema Neurologic: No aphasia. No facial droop. No change in mentation. No head injury. No headache. No paralysis. No paresthesia. Psychiatric: No depression. No anxiety. No mood swings. Endocrine: No abnormal blood sugars. No weight change. PHYSICAL EXAMINATION: General: 68-year-old male sitting up in chair in no respiratory distress HEENT: Head is atraumatic, normocephalic, pupils were equal round reactive to light, sclera nonicteric, conjunctivae were pale, mucous membranes of the mouth are somewhat dry, subcutaneous emphysema all the way up to the neck and face Neck: Supple, no JVP, normal carotid upstroke bilaterally, no lymphadenopathy, subcutaneous emphysema. Chest: Decreased breath sounds at the bases, few rhonchi, right sided chest tube with subcutaneous emphysema, and the chest wall tenderness minimal intercostal retractions. Heart: First heart sound is normal, second heart sound is normal there is systol ic ejection murmur 2/6 located in the left sternal border. Abdomen: Soft, nontender, nondistended, positive bowel sounds. Extremities: There is no edema no calf tenderness DP +2 bilaterally. Neurologic examination: Patient is awake alert and oriented X 3, cranial nerves II-12 appear grossly intact, muscle power were 5 out of 5 in upper extremities and 5 out of 5 in bilateral lower extremities, deep tendon reflexes normal bilaterally. ASSESSMENT AND PLAN: 1. Postoperative day #7 status post robotic-assisted laparoscopic right upper lobectomy with blebectomy of the right lower lobe, positive pathology for moderately differential squamous cell carcinoma. Continue patient on the use of incentive spirometer, increase activity, monitor the patient chest tube. Continue with DuoNeb 3 mL nebulization 4 times every day, continue Symbicort 60/4.5 g 2 puffs twice every day, continue current pain management as outlined by CTS. 2. Extensive subcutaneous emphysema due to air leak. Thoracic surgery is following we will continue to monitor 3. Hypertension and hypertensive cardiovascular disease. Continue patient on valsartan 160 mg every day, hydrochlorothiazide discontinued as it maybe contributing to hyponatremia. Continue to monitor the patient very closely. 4. Mixed hyperlipidemia. Continue patient on atorvastatin 20 mg once every day. 5. ALLERGIC rhinitis. Start the patient back on loratadine 10 mg every day, may use the insulin saline spray 2 sprays initial surgery times every day as well as Flonase as needed patient also would be started back on his montelukast 10 mg orally bedtime. 6. Constipation. patient on Senokot at bedtime as well as MiraLAX 17 gram in 8 OZ of water daily, we will increase activity, add Milk of Magnesia with prune juice 7. Enlarged prostate. Monitor for urinary retention. 8. COPD. Continue patient on DuoNeb 3 nebulization 4 times every day, continue Symbicort 160/4.5 g 2. Position twice every day, pulmonary is following. 9. DVT prophylaxis. Continue heparin 5000 units subcutaneously every 8 hours. 10. GI prophylaxis. Continue Protonix 40 mg every day. 11. Hyponatremia. DC HCTZ. Impression and plan of care have been directed as dictated by the signing physician. Myrtle Giordano nurse practitioner acting as scribe for signing physician. Objective - Vital Signs Vital signs: Vital Signs Temp 98.4 F 08/23/23 12:00 Pulse 96 08/23/23 12:00 Resp 18 08/23/23 12:00 BP 109/68 08/23/23 12:00 Pulse Ox 100 08/23/23 12:00 FiO2 Intake & Output 08/22/23 08/23/23 08/23/23 18:59 06:59 18:59 Intake Total 850 20 940 Output Total 570 495 100 Balance 280 -475 840 Weight 94.5 kg Intake: IV 20 Invasive Line 5 20 Oral 850 940 Output: Chest Tube Drainage 220 295 100 Chest Tube Right Upper 220 295 100 Anterior Chest Urine 350 200 Other: Voiding Method Toilet Toilet Urinal Urinal # Voids 4 # Bowel Movements 1 - Labs CBC & Chem 7: 08/23/23 06:48 08/23/23 06:48 Labs: Abnormal Lab Results - Last 24 Hours (Table) 08/23/23 08/23/23 Range/Units 06:48 06:48 WBC 12.8 H (3.8-10.6) k/uL RBC 3.96 L (4.30-5.90) m/uL Hgb 11.7 L (13.0-17.5) gm/dL Hct 35.7 L (39.0-53.0) % Sodium 124 L (137-145) mmol/L Chloride 92 L (98-107) mmol/L Creatinine 0.47 L (0.66-1.25) mg/dL Glucose 104 H (74-99) mg/dL
--- NOTE | 2023-08-23 15:14 | P.PN ---
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 Past medical history significant for COPD, previous tobacco dependence, hypertension, hyper lipidemia. POD #7 robotic assisted thoracoscopic right upper lobectomy, blebectomy right lower lobe Subcutaneous emphysema present, expected given type of surgery, status post creation of blow hole Prolonged air leak The patient was seen and examined in follow-up today 08/23/2023 at his bedside on the third floor cardiac stepdown unit. Currently sitting up to the bedside chair, is awake, alert, oriented 3 and is in no acute distress. The patient reports he is feeling somewhat improved in regards to his subcutaneous emphysema and states that the swelling has gone down some in the last 24 hours. Denies any complaints of pain or shortness of breath at this time. He remains hemodynamically stable and currently on no inotropic or pressor support. Right pleural chest tube remains in place to water seal. Intermittent air leak is present with coughing and taking a deep breath. Draining thin serosanguineous drainage with thin serosanguineous drainage 225 mL output in the last 8 hours and 620 mL output in the last 24 hours. Due to this subcutaneous emphysema the patient has had to blow holes placed to his bilateral upper chest, with wound VAC applied to both blow holes. Wound VAC remains in place. Oxygen saturations are 93% on 2 L nasal cannula and he is achieving 2000 mL on his incentive spirometry with encouragement. Chest x-ray was reviewed. Objective - Vital Signs Vital signs: Vital Signs Temp 98.4 F 08/23/23 12:00 Pulse 96 08/23/23 14:00 Resp 18 08/23/23 14:00 BP 109/68 08/23/23 12:00 Pulse Ox 100 08/23/23 12:00 FiO2 Intake & Output 08/22/23 08/23/23 08/23/23 18:59 06:59 18:59 Intake Total 850 20 940 Output Total 570 495 100 Balance 280 -475 840 Weight 94.5 kg Intake: IV 20 Invasive Line 5 20 Oral 850 940 Output: Chest Tube Drainage 220 295 100 Chest Tube Right Upper 220 295 100 Anterior Chest Urine 350 200 Other: Voiding Method Toilet Toilet Urinal Urinal # Voids 4 # Bowel Movements 1 - Exam CONSTITUTIONAL: Appears comfortable, cooperative, no acute distress RESPIRATORY: Lungs sounds diminished bilaterally, right greater than left, few scattered expiratory wheezes throughout. Respirations are symmetrical, nonl abored. Currently on 2LPM NC with oxygen saturation 93%. Able to achieve 2000 mL on incentive spirometry. Strong cough. CARDIOVASCULAR: S1, S2 present. Regular rate and rhythm, sinus rhythm on telemetry. Palpable peripheral pulses bilaterally. No edema present GASTROINTESTINAL: Abdomen soft, nontender, nondistended. Active bowel sounds present 4 quadrants. Tolerating diet. Bowel movement yesterday 08/22/2023. GENITOURINARY: Continues to void. INTEGUMENTARY: Skin is warm and dry. Subcutaneous emphysema present to chest wall, neck, extending up to face. Wound vac in place at both blowholes to suction. NEUROLOGIC: Cranial nerves II through XII intact. MUSKULOSKELETAL: Able to move all extremities, strength equal bilaterally. PSYCHIATRIC: Alert and oriented to person place and time, appropriate affect, intact judgment and insight. INVASIVE LINES AND TUBES: Right pleural chest tubes present and connected to wall suction, air leak present with coughing and taking a deep breath, 620 mL serosanguineous drainage in the last 24 hours - Allied health notes Allied health notes reviewed: nursing - Labs CBC & Chem 7: 08/23/23 06:48 08/23/23 06:48 Labs: Abnormal Lab Results - Last 24 Hours (Table) 08/23/23 08/23/23 Range/Units 06:48 06:48 WBC 12.8 H (3.8-10.6) k/uL RBC 3.96 L (4.30-5.90) m/uL Hgb 11.7 L (13.0-17.5) gm/dL Hct 35.7 L (39.0-53.0) % Sodium 124 L (137-145) mmol/L Chloride 92 L (98-107) mmol/L Creatinine 0.47 L (0.66-1.25) mg/dL Glucose 104 H (74-99) mg/dL - Imaging and Cardiology Chest x-ray: report reviewed, image reviewed Assessment and Plan Assessment: Lung cancer, 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 Klein, status post second blowhole creation by Dr. Parks Prolonged air leak Plan: Continue chest tube to waterseal, will repeat chest x-ray in AM, monitor for air leak resolution, monitor drainage. Blow holes placed to chest wall to aid resolution of subcu emphysema, will take time, keep wound VAC in place. Patient encouraged to compress subcu tissues emphysema on his face, neck, upper chest. Encourage incentive spirometry use 10 times every hour while awake. Bronchodilators per pulmonology. Will monitor daily labs and chest x-rays. GI/DVT prophylaxis. Increase activity, ambulate as tolerated. Continue home medications. Pain control with current medication regimen. Based on patient's clinical course. More recommendations to follow based on patient's clinical course. Time with Patient: Greater than 30
[2023-08-23] MEDS: ALPRAZolam 0.5 MG TAB PO PRN (17:00)
[2023-08-23] MEDS: MONTELUKAST 10 MG TAB PO SCH (19:45)
[2023-08-24] MEDS: PANTOPRAZOLE 40 MG TABLET PO SCH (06:22)
[2023-08-24 07:33] LABS: HCT 34.2 % (39.0-53.0); HGB 11.3 gm/dL (13.0-17.5); MCH 29.3 pg (25.0-35.0); MCHC 33.1 g/dL (31.0-37.0); MCV 88.5 fL (80.0-100.0); Mean Platelet Volume 7.2; Platelet Count 400 k/uL (150-450); RBC 3.87 m/uL (4.30-5.90)
[2023-08-24 07:54] LABS: ALT 121 U/L (4-49); AST 102 U/L (17-59); African American GFR (CKD) >90 (>60 ml/min/1.73 sqM); Albumin 2.9 g/dL (3.5-5.0); Alkaline Phosphatase 136 U/L (38-126); Anion Gap 8 mmol/L; Blood Urea Nitrogen 17 mg/dL (9-20); Calcium 8.9 mg/dL (8.4-10.2); Carbon Dioxide 27 mmol/L (22-30); Chloride 87 mmol/L (98-107); Glucose 100 mg/dL (74-99); Non-African American GFR(CKD) >90 (>60 ml/min/1.73 sqM); Potassium 4.5 mmol/L (3.5-5.1); Sodium 122 mmol/L (137-145); Total Protein 5.4 g/dL (6.3-8.2)
[2023-08-24] MEDS: HEPARIN SODIUM,PORCINE 5,000 UNIT/ML 1 ML VIAL SQ SCH ×2 (08:03→16:07)
[2023-08-24] MEDS: ATORVASTATIN 20 MG TAB PO SCH (08:03)
[2023-08-24] MEDS: VENLAFAXINE HCL ER 37.5 MG CAP PO SCH (08:03)
[2023-08-24] MEDS: SENNOSIDES-DOCUSATE SODIUM 1 EACH TAB PO SCH (08:03)
[2023-08-24] MEDS: VALSARTAN 160 MG TAB PO SCH (08:03)
[2023-08-24] MEDS: MULTIVITAMINS, THERA 1 EACH TAB PO SCH (08:03)
[2023-08-24] MEDS: polyethylene glycoL 3350 17 GM POWD.PACK PO SCH (08:04)
--- NOTE | 2023-08-24 08:36 | XR ---
EXAMINATION TYPE: XR chest 1V portable DATE OF EXAM: 08/24/2023 COMPARISON: 08/23/2023 HISTORY: Postop TECHNIQUE: Single frontal view of the chest is obtained. FINDINGS: Right-sided chest tube with approximately 20% pneumothorax. Right-sided consolidation and hilar prominence with volume loss stable. Left lung clear. Severe diffuse subcutaneous emphysema. Hung ateral shoulder arthropathy. Small amount of pneumomediastinum suspected. IMPRESSION: 1. Mild interval reduction in size pneumothorax.
[2023-08-24] MEDS: IPRATROPIUM-ALBUTEROL 3 ML NEB IH SCH ×4 (08:42→20:10)
[2023-08-24] MEDS: SYMBICORT 160-4.5 MCG INHALER INHALATION SCH ×2 (08:43→20:12)
[2023-08-24] MEDS ORDERED: TOLVAPTAN 15 MG TABLET PO ONE ×2 (10:47→13:00)
--- NOTE | 2023-08-24 12:27 | P.PN ---
Subjective Progress Note Date: 08/24/23 Pulmonary consult dated 08/16/2023. 68-year-old male, well-known to me. I've been seeing the patient in the office, for a number of years, for his underlying COPD. In addition, in the past, the patient has had pulmonary nodules, which have been relatively stable, and negative on PET scan. More recently, his been in the right upper lobe, was enlarging, and the PET scan, was positive only in that area. The patient was initially seen by Dr. Parks, who requested a biopsy, and evaluation of lymph nod es. My partner did a robotic bronchoscopy, and endobronchial ultrasound on this patient, and the sampling, of the right upper lobe, with positive for squamous cell carcinoma. Sampling of the station 7/subcarinal node, was negative. The patient was then brought to the operating room, today, by Dr. Klein, for robotically-assisted right upper lobectomy, and lymph node dissection/sampling. The patient is seen today in room 350. He is on room air. He is on D5 with half-normal saline at 40 mL an hour. Today is postop day 0. The patient is doing well, without complaints. His family is in the room with him. The patient has a history of COPD, and hyperlipidemia. Current labs include a white count of 13.4, hemoglobin 13.7, hematocrit 41.7, and a normal platelet count. Sodium 135, potassium 4, chlorides 100, CO2 27, BUN 14, and creatinine 0.73. Progress note dated 08/17/2023. The patient's currently on room air. He's not receiving any IV fluids. The patient is postop day #1, status post robotically-assisted right upper lobectomy and lymph node dissection, by Dr. Klein. The patient does have anterior leak on the right side. He currently feels relatively comfortable. White count 11, hemoglobin 12.9, hematocrit 38.7, and platelet count 174,000. Sodium 129, potassium 3.7, chlorides 95, CO2 26, BUN 14, and creatinine 0.63. Pneumothorax on the right side, is less than 5%. Progress note dated 08/18/2023. The patient's currently on room air. He's not receiving any IV fluids. The patient is postop day #2, status post robotically assisted upper lobectomy and lymph node dissection, by Dr. Klein. The patient does have a leak from the chest tube. He has developed significant subcutaneous emphysema, and the right chest, right neck, and facial area. White count is 11.9, hemoglobin 12.8, hematocrit 37.9, within normal platelet count. Sodium 1:30, potassium 4.2, c hlorides 94, CO2 28, BUN 14, creatinine 0.69. Chest x-ray shows a right apical pneumothorax. There is increasing subcutaneous emphysema. Progress note dated 08/19/2023. The patient is seen again in room 350. The patient is postop day #3, status post robotically assisted right upper lobectomy, and lymph node dissection. The patient continues with an air leak, and is having significant, subcutaneous emphysema. The patient is in no respiratory distress. He is not receiving any IV fluids. Today we added back his Effexor, and increase his Xanax dose for anxiety. White count 10.9, hemoglobin 12.3, hematocrit 36.8, within normal platelet count. Sodium 129, potassium 4, chlorides 93, CO2 29, BUN 18, and creatinine 0.74. Chest x-ray shows a right chest tube be unchanged in its position, and 15-20% right apical pneumothorax, and diffuse subcutaneous emphysema. Today's evaluation of 08/20/2023, the patient is postop day #4. The patient underwent a right upper lobe resection, with lymph node dissection and this was a robotic-assisted procedure. The patient continues to have a right-sided chest tube in place and the patient has a significant ongoing care leak. No follow-up chest x-ray from today shows no evidence of any pneumothorax. Nevertheless, the patient has a continuous air leak and the patient has developed extensive subcu in his emphysema involving the face, neck, eyes, and chest and upper extremities. At the same time, the patient has achieved his voice related to the subcu in his emphysema. His current cardiac rhythm is sinus. Right-sided chest tube in place and is/2 suction. No significant shortness of breath. The patient is an obvious cause of 10.3, hemoglobin is 11.6 and a platelet count is at 239. BUN is at 21 with a creatinine of 0.6 and a sodium level is at 128. No issues with pain. No altered mentation. He remains on oxygen at room air with a pulse ox of 97%. 08/21/2023, the patient continues to have persistent air leak and extensive s ubcutaneous emphysema involving the face, neck, chest, and extremities. Blow holes were created with some limited success. Chest tube remains in place. No evidence of any pneumothorax. No significant respiratory distress and the patient remains on O2 at 2 L. Using the senna spirometer. Pulling approximately 1.2 L on his incentive spirometer. His resting comfortably in bed. Overnight, he felt slightly more short of breath. This morning he is feeling comfortable. No cough. No sputum production. Surgical 1 site is dry clean and intact and the patient is currently postoperative day #5 following a robotic-assisted thoracoscopic right upper lobe resection and the patient also had bleb resection from the right lower lobe area. Labs show a white cell count of 10, hemoglobin 11.4, sodium is at 128, BUN is at 19 with a creatinine of 0.7. Remains on subcutaneous heparin for DVT prophylaxis. Remains on tramadol for pain control 08/22/2023, the patient is being seen in follow-up. The patient is postop day #6 following a right upper lobe lobectomy. Continues to have air leak through the right-sided chest tube. Continues to have significant amount of subcu in his emphysema although this could've slightly subsided compared to yesterday. The patient remained on 2 L of Oxymizer nasal cannula. Pulse ox in the order of 95%. Continues to use incentive spirometer. Denies having any significant shortness of breath. Has some chest discomfort at the site of the chest tube insertion. Blow holes were inserted.chest x-ray was reviewed. There is evidence of excessive subcutaneous emphysema. No evidence of any pneumothorax.The blood work showed a WBC count of 10, hemoglobin of 11.4, sodium is at 128, BUN is at 19 with a creatinine of 0.72. No other significant events otherwise over the past 24 hours. Cardiothoracic surgeries on the case. The patient remains on DuoNeb updrafts. Rest of the medications remain unchanged. 08/23/2023, seeing the patient for a follow-up. The patient is postop day #7. There is still persistent air leak. He is currently on waterseal. Much improved in terms of his subcutaneous emphysema. His eyes are open and he is able to see adequately. The swelling in his neck area and the face has improved significantly. The chest x-ray shows some residual pneumothorax in order of 30%. This is an apical pneumothorax. There is also supplemented his emphysema still present. The patient is ambulating. The patient using the Single Digits pirometer. He is only on 2 L of oxygen by nasal cannula. Sodium level is at 124, potassium levels at 4.7, BUN is at 20 with a creatinine of 0.4. The white cell count is at 12.8 with a hemoglobin of 11.5. He has no specific complaints otherwise. He is on Symbicort. He is also on DuoNeb nebulized treatments [id number]. On 08/24/2023, the patient is postop day #8. Continues to have an air leak and total amount of output from the chest tube has been 225 mL over the past 8 hours. Chest x-ray shows no evidence of any pneumothorax. This appears emphysema and clinically the patient also subcu emphysema. The patient has also developed hyponatremia. He is receiving no fluids. In fact, he is on fluid restriction. The patient had blow holes placed in the upper chest with a one VAC applied to the area. Oxygenation is stable and the patient is currently on 2 L of oxygen by nasal cannula with a pulse ox of 94%. No other complaints otherwise. No altered mentation. Family is at the bedside. The chest tube is in place to low suction at -10 cm of water. Objective - Vital Signs Vital signs: Vital Signs Temp 98.0 F 08/24/23 08:00 Pulse 104 H 08/24/23 08:59 Resp 18 08/24/23 08:00 BP 130/80 08/24/23 08:00 Pulse Ox 95 08/24/23 08:45 FiO2 Intake & Output 08/23/23 08/24/23 08/24/23 18:59 06:59 18:59 Intake Total 1720 480 Output Total 370 260 Balance 1350 -260 480 Weight 94.9 kg Intake: Oral 1720 480 Output: Chest Tube Drainage 370 260 Chest Tube Right Upper 370 260 Anterior Chest Other: Voiding Method Toilet Toilet Toilet Urinal Urinal Urinal # Voids 2 1 # Bowel Movements 1 - Exam CONSTITUTIONAL: Appears somewhat comfortable, cooperative, no acute distress, the patient has subcutaneous emphysema RESPIRATORY: Lungs sounds diminished bilaterally, right > left. Respirations even, nonlabored. Currently on room air oxygen with a pulse ox of 97%. Able to achieve 2500 mL on incentive spirometry. Strong cough. The patient has blow holes over the anterior chest area with a wound VAC placed CARDIOVASCULAR: S1, S2 present. Regular rate and rhythm, sinus rhythm on telemetry. Palpable peripheral pulses bilaterally. No edema present GASTROINTESTINAL: Abdomen soft, nontender, nondistended. Active bowel sounds present 4 quadrants. Tolerating diet GENITOURINARY: Continues to void INTEGUMENTARY: Skin is warm and dry. Subcutaneous emphysema present to chest wall, neck, extending up to entire face NEUROLOGIC: Cranial nerves II through XII intact MUSKULOSKELETAL: Able to move all extremities, strength equal bilaterally PSYCHIATRIC: Alert and oriented to person place and time, appropriate affect, intact judgment and insight INVASIVE LINES AND TUBES: Right pleural chest tubes present and connected to wall suction, air leak present, there is also subcutaneous emphysema along the chest wall, neck and chest area. 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 The patient had early stage TI be N0 M0 disease, squamous cell carcinoma without lymph node involvement. The margins were also clear. Right apical pneumothorax note on today's chest x-ray, chest tube is in good location and the patient continues to have air leak Extensive subcu emphysema involving the face, neck, and chest, and the patient had blowhole constructed over the anterior chest area with some improvement Positive air leak post right upper lobe resection the patient is a right-sided chest tube is still in place. 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 The patient may benefit from fluid restriction and [facility] [place]ourage incentive spirometry use 10 times every hour while awake. The patient will be kept in the hospital. The patient is currently on 2 L of oxygen by nasal cannula. We'll continue to follow
[2023-08-24] MEDS ORDERED: SODIUM CHLORIDE TAB 1 GM TAB PO STA (12:50)
--- NOTE | 2023-08-24 12:54 | P.NPCON ---
History of Present Illness - Reason for Consult hyponatremia - History of Present Illness Reason for consultation: Hyponatremia History of present illness: Patient is a 68-year-old male seen in renal consultation for hyponatremia. Patient's sodium levels on admission on 08/08/2023 was 135 and has been gr adually decreasing. It is down to 122 this morning. Patient has history of lung cancer and underwent robotic-assisted thorascopic right upper lobe lobectomy and blebectomy right lower lobe on 08/08/2023. Patient denies any pain. Denies chest pain or shortness of breath. Denies vomiting or diarrhea. Has been voiding. Denies hematuria or dysuria. Denies personal or family history of kidney disease. GFR is at baseline. He does take hydrochlorothiazide outpatient but it is currently held. He was put on fluid restriction last night. Oral intake is fair. He currently has a chest tube on the right side. Blood pressure stable. Blood glucose controlled. Vital signs are stable. General: No acute distress. HEENT: Head exam is unremarkable. LUNGS: No audible rhonchi or wheezes. HEART: Rate and Rhythm are regular. Right-sided chest tube noted. ABDOMEN: Nontender. EXTREMITITES: No edema. Past Medical History Past Medical History: COPD, Hearing Disorder / Deafness, Hypertension Additional Past Medical History / Comment(s): Current right lung cancer. Severe emphysema. Hypoglycemic. Hard of hearing. History of Any Multi-Drug Resistant Organisms: None Reported Past Surgical History: Hernia Repair, Joint Replacement, Orthopedic Surgery Additional Past Surgical History / Comment(s): Bilateral shoulder replacement, pin in ankle. Past Anesthesia/Blood Transfusion Reactions: No Reported Reaction Additional Past Anesthesia/Blood Transfusion Reaction / Comment(s): No hx blood transfusion. Past Psychological History: No Psychological Hx Reported Smoking Status: Former smoker Past Alcohol Use History: None Reported Additional Past Alcohol Use History / Comment(s): Quit smoking in the , smoked approx 30yrs, 3ppd. Past Drug Use History: None Reported - Past Family History Mother Family Medical History: No Reported History Father Family Medical History: Myocardial Infarction ([place]) Sister(s) Family Medical History: Vascular Disorder Medications and Allergies Home Medications Medication Instructions Recorded Confirmed Type Albuterol Inhaler [Ventolin Hfa 1 - 2 puff INHALATION Q6HR PRN 05/23/17 08/16/23 History Inhaler] Albuterol Nebulized [Ventolin 2.5 mg INHALATION Q6H PRN 05/23/17 08/16/23 History Nebulized] Atorvastatin [Lipitor] 20 mg PO DAILY 05/23/17 08/16/23 History Montelukast Sodium [Singulair] 10 mg PO HS 05/23/17 08/16/23 History Mv-Min/Folic/K1/Lycopen/Lutein 1 each PO DAILY 05/23/17 08/16/23 History [Centrum Silver Men Tablet] Fluticasone/Umeclidin/Vilanter 1 puff INHALATION DAILY 07/02/23 08/16/23 History [Trelegy Ellipta 200-62.5-25] Valsartan/Hydrochlorothiazide 1 each PO DAILY 07/02/23 08/16/23 History [Diovan Hct 160-12.5 mg Tab] Allergies Allergy/AdvReac Type Severity Reaction Status Date / Time No Known Allergies Allergy Verified 08/16/23 06:14 Physical Exam Vitals: Vital Signs Temp Pulse Pulse Resp BP Pulse Ox 08/24/23 12:18 100 08/24/23 08:59 104 H 08/24/23 08:45 96 95 08/24/23 08:00 98.0 F 96 18 130/80 94 L 08/24/23 04:04 98.0 F 95 19 129/81 96 08/23/23 23:47 98.2 F 95 19 137/84 92 L 08/23/23 20:42 98 08/23/23 20:34 95 08/23/23 20:00 98.2 F 94 19 128/78 93 L 08/23/23 16:13 85 08/23/23 16:04 84 08/23/23 16:00 98.7 F 68 16 125/62 96 08/23/23 14:00 96 18 Intake and Output 08/23/23 08/24/23 08/24/23 22:59 06:59 14:59 Intake Total 480 Output Total 370 260 Balance -370 -260 480 Intake: Oral 480 Output: Chest Tube Drainage 370 260 Chest Tube Right Upper 370 260 Anterior Chest Other: Voiding Method Toilet Toilet Toilet Urinal Urinal Urinal # Voids 2 1 # Bowel Movements 1 Weight 94.9 kg Results - Lab Results Most recent lab results Calcium 8.9 mg/dL (8.4-10.2) 08/24/23 06:39 08/24/23 06:39 08/24/23 06:39 Assessment and Plan Plan: Assessment: 1. Hyponatremia. Patient appears euvolemic. Suspect SIADH post surgery. Sodium level CXXII today. Currently not getting thiazide diuretic. 2. Lung cancer status post right upper lobectomy 08/08/2023. 3. Benign hypertension. Controlled. 4. History of COPD. Plan: Change fluid restriction to 1200 mL. Check bladder scan to rule out urinary retention. Sodium chloride tab 1 dose today. Check serum and urine osmolality and urine sodium level. Check TSH. If no improvement in sodium level tomorrow, will give Samsca. Thank you for the consultation. I will continue to follow the patient with you during his hospital stay.
--- NOTE | 2023-08-24 15:23 | P.PN ---
Subjective Progress Note Date: 08/24/23 HISTORY OF PRESENT ILLNESS: This is a 68-year-old male one of my patient and the patient medical history significant for COPD, hypertension and hypertensive cardiovascular disease, hyperlipidemia, history of ALLERGIC rhinitis, remote history of tobacco use and dependence he smoked at least 3 pack every day for many years and quit when he was 43-year-old,, patient has been followed by pulmonary medicine Dr. Rendon on a regular basis, he had pulmonary nodules history, he has been having a computed tomography scan of the chest and PET scan and regular basis until recentlyhis PET scan came back positive patient underwent robotic bronchoscopy with ultrasound of the bronchial tree by Dr. 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 Landon underwent robotic-assisted thoracoscopy right upper lobectomy with lumpectomy of the right lower lobe, and he was admitted to telemetry unit, he was seen and evaluated in his room, appears to be somewhat short of breath, he does have a chest tube in the right side of the chest, draining quite a bit of serosanguineous material, patient appears to be quite short of breath and debility, he did appear to have a significant subcutaneously emphysema as well, Dr. Klein evaluated the patient and the patient has been stable we will follow the patient along with pulmonary as well as thoracic surgery. 08/17: Patient is sitting up in chair continues to have some pain in the right side, he continues to be hospitalized, he has not had a bowel movement, is urinating very well, Senokot and MiraLAX were added, increase activity, continue to monitor the patient very closely, continue DuoNeb, continue Symbicort, we will follow-up the patient very closely, subcutis emphysema spirometer to prevent yesterday. Patient will plan to see the hospital for another 1-2 days. 08/18: Patient sitting up in bed in no apparent distress, he denies any chest pain, he continues to have some cough, no phlegm production, he continues to have a chest tube in the second, subcutaneous emphysema that has progressed and now is all the way to his neck and face , he has no abdominal pain, nausea or vomiting, did have a small bowel movement today, he denies any unusual symptom at this time except for dyspnea on exertion. 08/19: Patient is sitting up in chair in no distress, he continues to have significant subcutaneous emphysema involving his right upper chest neck face, no respiratory distress, has been followed by plastic surgery, chest tube still in place, -20 cm of water, patient has not had any abdominal pain, nausea or vomiting, he did not have a bowel movement as of yet increase activity, continue to use the incentive spirometer. 08/20: Repeat chest x-ray this morning reveals stable 30% right-sided pneumothorax and diffuse subcutaneous emphysema. Patient remains with subcutaneous emphysema, chest tube is in place. Patient is performing incentive spirometry and reaching 2000 mL. Heart rate is in the 70s to 90s, blood pressure 12/12/1977, pulse ox 94% on 2 L nasal cannula. The blood work reveals WBC 10.3, hemoglobin 11.6. Sodium is 128, potassium 4.5, chloride 93, CO2 27, BUN 21 creatinine 0.68. AST 74 and ALT 56. Pathology report is pending. 08/21: Heart rate is 100 104, blood pressure 134/75, afebrile, pulse ox 94% on 2 L. Repeat blood work reveals sodium of 128, potassium 4.3, CO2 94, BUN 19 creatinine 0.72. WBC 10, hemoglobin 11.4, platelet count 294. Repeat chest x- ray revealed reports approximate 5-10% right pneumothorax with severe diffuse bilateral subcutaneous emphysema. Biopsy report right upper lobectomy invasive moderately differential squamous cell carcinoma, margins negative. 6 lymph nodes negative. Right upper lobe bleb excision benign lung parenchyma. Right pleural chest tubes remain in place to wall suction. Patient continues to have significant subcutaneous emphysema. 08/22: Repeat chest x-ray reveals stable severe subcutaneous emphysema, possibly 5-10% right pneumothorax. Patient remains afebrile, heart rate in the 60s to 100, blood pressure 93/62, pulse ox 94% on room air. Patient continues to have significant subcutaneous emphysema and cardiothoracic surgeon did additional left sided blow hole to assist in resolution of subcutaneous emphysema. Drainage from chest tube. Patient is reaching 2000 mL's on incentive spirometry. He still feels shortness of breath. HCTZ discontinued. 08/23: Repeat chest x-ray reveals right-sided chest tube with right-sided pneumothorax 30%. Apical pleural distance 5.5 cm versus 4.6 cm previously. Extensive subcutaneous emphysema. Suspected pneumomediastinum. Patient is on 2 L nasal cannula with pulse ox 100%. Heart rate is running in the 80s and 90s, blood pressure 109/68. Patient remains afebrile. Patient continues to have persistent air leak and currently on water seal. He has had improvement of the subcutaneous emphysema and has bilateral blow holes. Repeat blood work reveals sodium is 124, potassium 4.7, chloride 92, CO2 22. Creatinine 0.47. WBC 12.8 and hemoglobin 11.7. 08/24: A consult for nephrology was admitted for hyponatremia with recommen dations for fluid restriction 1200 mL, bladder scan, sodium chloride tablet 1 today, check serum and urine osmolality and urine sodium, check TSH. He may consider ordering Samsca for the patient. Repeat sodium today is 122, chloride 87, potassium 4.5, BUN 17 creatinine 0.55. Blood sugar 100. WBC 12, hemoglobin 0.3, platelet count 400. Patient remains afebrile, heart rate 100, blood pressure 118/73, pulse ox 94% on room air. Patient continues to have some shortness of breath. Occasional cough and phlegm. No fever or chills. He is having normal BMS. He walked short distance today with shortness of breath. Chest tube is to wall suction. Repeat chest x-ray reveals mild interval reduction in size of pneumothorax. REVIEW OF SYSTEMS: Constitutional: No documented fever, no chills, no night sweats. No weight change. No weakness, fatigue or lethargy. No daytime sleepiness. HEENT: No headache. No blurred vision or double vision, no loss of vision. No loss of Hearing, no ringing in the ears, no dizziness. No nasal drainage or congestion. No epistaxis. No sore throat. Lungs: positive for shortness of breath, occasional cough, no sputum production. No wheezing. Reports dyspnea with activity. Cardiovascular: No chest pain, no lower extremity edema. No palpitations. No p aroxysmal nocturnal dyspnea. No orthopnea. No lightheadedness or dizziness. No syncopal episodes. Abdominal: Reports no abdominal pain. No nausea, vomiting. No diarrhea. positive for constipation. No bloody or tarry stools reports loss of appetite. Genitourinary: No dysuria, increased frequency, urgency. No urinary retention. Musculoskeletal: No myalgias. No muscle weakness, no gait dysfunction, no frequent falls. No back pain. Integumentary: No wounds, no lesions. No rash or pruritus. No unusual bruising. Significant subcutaneous emphysema Neurologic: No aphasia. No facial droop. No change in mentation. No head injury. No headache. No paralysis. No paresthesia. Psychiatric: No depression. No anxiety. No mood swings. Endocrine: No abnormal blood sugars. No weight change. PHYSICAL EXAMINATION: General: 68-year-old male sitting up in chair in no respiratory distress HEENT: Head is atraumatic, normocephalic, pupils were equal round reactive to light, sclera nonicteric, conjunctivae were pale, mucous membranes of the mouth are somewhat dry, subcutaneous emphysema all the way up to the neck and face Neck: Supple, no JVP, normal carotid upstroke bilaterally, no lymphadenopathy, subcutaneous emphysema. Chest: Decreased breath sounds at the bases, few rhonchi, right sided chest tube with subcutaneous emphysema, and the chest wall tenderness minimal intercostal retractions. Heart: First heart sound is normal, second heart sound is normal there is syst olic ejection murmur 2/6 located in the left sternal border. Abdomen: Soft, nontender, nondistended, positive bowel sounds. Extremities: There is no edema no calf tenderness DP +2 bilaterally. Neurologic examination: Patient is awake alert and oriented X 3, cranial nerves II-12 appear grossly intact, muscle power were 5 out of 5 in upper extremities and 5 out of 5 in bilateral lower extremities, deep tendon reflexes normal bilaterally. ASSESSMENT AND PLAN: 1. Postoperative day #8 status post robotic-assisted laparoscopic right upper lobectomy with blebectomy of the right lower lobe, positive pathology for moderately differential squamous cell carcinoma. Continue patient on the use of incentive spirometer, increase activity, monitor the patient chest tube. Continue with DuoNeb 3 mL nebulization 4 times every day, continue Symbicort 60/4.5 g 2 puffs twice every day, continue current pain management as outlined by CTS. 2. Extensive subcutaneous emphysema due to air leak. Thoracic surgery is following we will continue to monitor, noted improvement. 3. Hypertension and hypertensive cardiovascular disease. Continue patient on valsartan 160 mg every day, hydrochlorothiazide discontinued as it maybe contributing to hyponatremia. Continue to monitor the patient very closely. 4. Mixed hyperlipidemia. Continue patient on atorvastatin 20 mg once every day. 5. ALLERGIC rhinitis. Start the patient back on loratadine 10 mg every day, may use the insulin saline spray 2 sprays initial surgery times every day as well as Flonase as needed patient also would be started back on his montelukast 10 mg orally bedtime. 6. Constipation. patient on Senokot at bedtime as well as MiraLAX 17 gram in 8 OZ of water daily, we will increase activity, add Milk of Magnesia with prune juice 7. Enlarged prostate. Monitor for urinary retention. 8. COPD. Continue patient on DuoNeb 3 nebulization 4 times every day, continue Symbicort 160/4.5 g 2. Position twice every day, pulmonary is following. 9. DVT prophylaxis. Continue heparin 5000 units subcutaneously every 8 hours. 10. GI prophylaxis. Continue Protonix 40 mg every day. 11. Hyponatremia. DC HCTZ. Consult with nephrology. Patient has been added fluid restriction 1200 mL, bladder scan for urinary retention, one dose of sodium chloride tablet and obtain osmolality urine and sodium, urine sodium. Impression and plan of care have been directed as dictated by the signing physician. Myrtle Giordano nurse practitioner acting as scribe for signing physician. Objective - Vital Signs Vital signs: Vital Signs Temp 97.7 F 08/24/23 12:00 Pulse 100 08/24/23 14:00 Resp 18 08/24/23 14:00 BP 118/73 08/24/23 12:00 Pulse Ox 94 L 08/24/23 12:00 FiO2 Intake & Output 08/23/23 08/24/23 08/24/23 18:59 06:59 18:59 Intake Total 1720 480 Output Total 370 260 Balance 1350 -260 480 Weight 94.9 kg Intake: Oral 1720 480 Output: Chest Tube Drainage 370 260 Chest Tube Right Upper 370 260 Anterior Chest Other: Voiding Method Toilet Toilet Toilet Urinal Urinal Urinal # Voids 2 1 # Bowel Movements 1 - Labs CBC & Chem 7: 08/24/23 06:39 08/24/23 06:39 Labs: Abnormal Lab Results - Last 24 Hours (Table) 08/24/23 08/24/23 08/24/23 Range/Units 06:39 06:39 06:39 WBC 12.0 H (3.8-10.6) k/uL RBC 3.87 L (4.30-5.90) m/uL Hgb 11.3 L (13.0-17.5) gm/dL Hct 34.2 L (39.0-53.0) % Sodium 122 L (137-145) mmol/L Chloride 87 L (98-107) mmol/L Creatinine 0.55 L (0.66-1.25) mg/dL Glucose 100 H (74-99) mg/dL Osmolality 262 L (280-301) mosm/kg AST 102 H (17-59) U/L ALT 121 H (4-49) U/L Alkaline Phosphatase 136 H (38-126) U/L Total Protein 5.4 L (6.3-8.2) g/dL Albumin 2.9 L (3.5-5.0) g/dL
[2023-08-24] MEDS: ACETAMINOPHEN TAB 325 MG TAB PO PRN (16:07)
[2023-08-24] MEDS: ALPRAZolam 0.5 MG TAB PO PRN (16:07)
--- NOTE | 2023-08-24 16:41 | P.PN ---
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 Past medical history significant for COPD, previous tobacco dependence, hypertension, hyper lipidemia. POD #8 robotic assisted thoracoscopic right upper lobectomy, blebectomy right lower lobe Subcutaneous emphysema present, expected given type of surgery, status post creation of blow hole Prolonged air leak The patient was seen and examined in follow-up today 08/24/2023 at his bedside on the third floor cardiac stepdown unit. Currently sitting up to bedside chair, is awake, alert, oriented 3 and is in no acute apparent distress. Denies any complaints of shortness of breath or pain at this time, although is complaining of feeling lack of energy today. Oxygen saturations are 96% on room air and he is achieving 2000 mL on his incentive spirometry with encouragement. Remote telemetry showing normal sinus rhythm heart rate 94 BPM. Yesterday's chest x-ray showed a right-sided pneumothorax, and his chest tube was placed to low continuous wall suction -10 cm H2O. He continues to have an intermittent air leak today with coughing. Draining thin serosanguineous drainage with 260 mL output through the right pleural chest tube in the last 24 hours. Chest x- ray was reviewed. Laboratory results were reviewed, his sodium level today is 122, he was placed on a fluid restriction of 1500 mL yesterday for a sodium of 124. Objective - Vital Signs Vital signs: Vital Signs Temp 98.0 F 08/24/23 16:00 Pulse 98 08/24/23 16:07 Resp 18 08/24/23 16:00 BP 113/72 08/24/23 16:00 Pulse Ox 94 L 08/24/23 16:00 FiO2 Intake & Output 08/23/23 08/24/23 08/24/23 18:59 06:59 18:59 Intake Total 1720 480 Output Total 370 260 170 Balance 1350 -260 310 Weight 94.9 kg Intake: Oral 1720 480 Output: Chest Tube Drainage 370 260 170 Chest Tube Right Upper 370 260 170 Anterior Chest Other: Voiding Method Toilet Toilet Toilet Urinal Urinal Urinal # Voids 2 3 # Bowel Movements 1 - Exam CONSTITUTIONAL: Appears comfortable, cooperative, no acute distress RESPIRATORY: Lungs sounds diminished bilaterally, right greater than left, few scattered expiratory wheezes throughout. Respirations are symmetrical, nonlabored. Currently on room air with oxygen saturation 96%. Able to achieve 2000 mL on incentive spirometry. Strong cough. CARDIOVASCULAR: S1, S2 present. Regular rate and rhythm, sinus rhythm on telemetry. Palpable peripheral pulses bilaterally. No edema present GASTROINTESTINAL: Abdomen soft, nontender, nondistended. Active bowel sounds present 4 quadrants. Tolerating diet. Bowel movement yesterday 08/22/2023. GENITOURINARY: Continues to void. INTEGUMENTARY: Skin is warm and dry. Subcutaneous emphysema present to chest wall, neck, extending up to face improving. Wound vac in place at both blowholes to suction. NEUROLOGIC: Cranial nerves II through XII intact. MUSKULOSKELETAL: Able to move all extremities, strength equal bilaterally. PSYCHIATRIC: Alert and oriented to person place and time, appropriate affect, intact judgment and insight. INVASIVE LINES AND TUBES: Right pleural chest tubes present and connected to low continuous wall suction -10 cm H2O, air leak present with coughing and taking a deep breath, 260 mL serosanguineous drainage in the last 24 hours. - Allied health notes Allied health notes reviewed: nursing - Labs CBC & Chem 7: 08/24/23 06:39 08/24/23 06:39 Labs: Abnormal Lab Results - Last 24 Hours (Table) 08/24/23 08/24/23 08/24/23 Range/Units 06:39 06:39 06:39 WBC 12.0 H (3.8-10.6) k/uL RBC 3.87 L (4.30-5.90) m/uL Hgb 11.3 L (13.0-17.5) gm/dL Hct 34.2 L (39.0-53.0) % Sodium 122 L (137-145) mmol/L Chloride 87 L (98-107) mmol/L Creatinine 0.55 L (0.66-1.25) mg/dL Glucose 100 H (74-99) mg/dL Osmolality 262 L (280-301) mosm/kg AST 102 H (17-59) U/L ALT 121 H (4-49) U/L Alkaline Phosphatase 136 H (38-126) U/L Total Protein 5.4 L (6.3-8.2) g/dL Albumin 2.9 L (3.5-5.0) g/dL - Imaging and Cardiology Chest x-ray: report reviewed, image reviewed Assessment and Plan Assessment: Lung cancer, 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 Klein, status post second blowhole creation by Dr. Parks Prolonged air leak Plan: Continue chest tube to low continuous wall suction -10 cm H2O, will repeat chest x-ray in AM, monitor for air leak resolution, monitor drainage. Blow holes placed to chest wall to aid resolution of subcu emphysema, will take time, keep wound VAC in place. Patient encouraged to compress subcu tissues emphysema on his face, neck, upper chest. Encourage incentive spirometry use 10 times every hour while awake. Bronchodilators per pulmonology. Will monitor daily labs and chest x-rays. GI/DVT prophylaxis. Increase activity, ambulate as tolerated. Continue home medications. Pain control with current medication regimen. Based on patient's clinical course. Consult nephrology for sodium level of 122. More recommendations to follow based on patient's clinical course. Time with Patient: Less than 30
[2023-08-24] MEDS: MONTELUKAST 10 MG TAB PO SCH (19:35)
[2023-08-25] MEDS: HEPARIN SODIUM,PORCINE 5,000 UNIT/ML 1 ML VIAL SQ SCH ×4 (00:02→23:26)
[2023-08-25] MEDS: PANTOPRAZOLE 40 MG TABLET PO SCH (06:06)
[2023-08-25] MEDS: SYMBICORT 160-4.5 MCG INHALER INHALATION SCH ×3 (07:48→20:26)
[2023-08-25] MEDS: IPRATROPIUM-ALBUTEROL 3 ML NEB IH SCH ×4 (07:48→20:26)
[2023-08-25] MEDS: SENNOSIDES-DOCUSATE SODIUM 1 EACH TAB PO SCH (07:52)
[2023-08-25] MEDS: polyethylene glycoL 3350 17 GM POWD.PACK PO SCH (07:52)
[2023-08-25] MEDS: MULTIVITAMINS, THERA 1 EACH TAB PO SCH (07:53)
[2023-08-25] MEDS: VALSARTAN 160 MG TAB PO SCH (07:57)
[2023-08-25] MEDS: VENLAFAXINE HCL ER 37.5 MG CAP PO SCH (07:57)
--- NOTE | 2023-08-25 08:27 | P.PN ---
Subjective Progress Note Date: 08/25/23 Principal diagnosis: Lung cancer, squamous cell carcinoma right upper lobe of the lung. 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 States he does feel better every day. States pain is controlled on current medication regimen, denies current shortness of breath. Subcutaneous emphysema appears improved. Patient is currently on room air with oxygen saturation in the mid 90s. Right pleural chest tube remains to -10 cm continuous wall suction, air leak present with expiration and coughing. Able to achieve 2000 mL on his incentive spirometry. Patient developed hyponatremia and was given Samsca and sodium chloride tablets yesterday as well as fluid restricted. Objective - Vital Signs Vital signs: Vital Signs Temp 99.3 F 08/25/23 07:50 Pulse 98 08/25/23 08:04 Resp 18 08/25/23 07:50 BP 123/70 08/25/23 07:50 Pulse Ox 93 L 08/25/23 07:50 FiO2 Intake & Output 08/24/23 08/25/23 08/25/23 18:59 06:59 18:59 Intake Total 480 540 Output Total 170 390 200 Balance 310 150 -200 Intake: Oral 480 540 Output: Chest Tube Drainage 170 390 Chest Tube Right Upper 170 390 Anterior Chest Urine 200 Other: Voiding Method Toilet Toilet Urinal Urinal # Voids 3 - Exam CONSTITUTIONAL: Appears comfortable, cooperative, no acute distress RESPIRATORY: Lungs sounds diminished bilaterally. Respirations even, nonl abored. Currently on room air with oxygen saturation 94%. Able to achieve 2000 mL on incentive spirometry. Strong cough. CARDIOVASCULAR: S1, S2 present. Regular rate and rhythm, sinus rhythm on telemetry. Palpable peripheral pulses bilaterally. No edema present. No calf pain or tenderness noted. SCDs present. GASTROINTESTINAL: Abdomen soft, nontender, nondistended. Active bowel sounds present 4 quadrants. Tolerating diet. Positive bowel movement. GENITOURINARY: Continues to void clear, yellow urine INTEGUMENTARY: Skin is warm and dry. Subcutaneous emphysema present to chest, neck, face although significantly decreased NEUROLOGIC: Cranial nerves II through XII intact MUSKULOSKELETAL: Able to move all extremities, strength equal bilaterally, gait normal PSYCHIATRIC: Alert and oriented to person place and time, appropriate affect, intact judgment and insight INVASIVE LINES AND TUBES: Right pleural chest tubes present and connected to wall suction, air leak present with expiration and coughing, 390 mL serosanguineous drainage overnight, 550 mL in the last 24 hours - Allied health notes Allied health notes reviewed: nursing - Labs CBC & Chem 7: 08/25/23 08:09 08/25/23 08:09 Labs: Abnormal Lab Results - Last 24 Hours (Table) 08/24/23 08/24/23 Range/Units 06:39 14:00 Osmolality 262 L (280-301) mosm/kg Ur Random Sodium <20 L (40-220) mmol/L - Imaging and Cardiology Chest x-ray: image reviewed Assessment and Plan Assessment: Lung cancer, 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 Klein, status post second blowhole creation by Dr. Parks Prolonged air leak Hyponatremia, secondary to SIADH, secondary to underlying malignancy Plan: Chest tube placed to water seal, monitor for air leak resolution, monitor drainage Patient encouraged to compress subcu tissues emphysema on his face, neck, upper chest Keep wound VAC in place for now Encourage incentive spirometry use 10 times every hour while awake. Bronchodilators per pulmonology Will monitor daily labs and x-rays GI/DVT prophylaxis Increase activity, ambulate as tolerated Continue home medications Pain control with current medication regimen More recommendations to follow
[2023-08-25 08:55] LABS: HCT 35.2 % (39.0-53.0); HGB 11.6 gm/dL (13.0-17.5); MCH 29.7 pg (25.0-35.0); Mean Platelet Volume 6.6; Platelet Count 479 k/uL (150-450); RBC 3.92 m/uL (4.30-5.90); RDW 12.8 % (11.5-15.5); WBC 12.4 k/uL (3.8-10.6)
[2023-08-25 09:10] LABS: ALT 127 U/L (4-49); AST 105 U/L (17-59); African American GFR (CKD) >90 (>60 ml/min/1.73 sqM); Albumin 2.9 g/dL (3.5-5.0); Alkaline Phosphatase 134 U/L (38-126); Anion Gap 7 mmol/L; Blood Urea Nitrogen 16 mg/dL (9-20); Calcium 8.8 mg/dL (8.4-10.2); Carbon Dioxide 29 mmol/L (22-30); Chloride 88 mmol/L (98-107); Glucose 133 mg/dL (74-99); Magnesium 2.2 mg/dL (1.6-2.3); Non-African American GFR(CKD) >90 (>60 ml/min/1.73 sqM); Potassium 4.2 mmol/L (3.5-5.1); Sodium 124 mmol/L (137-145); Total Bilirubin 0.8 mg/dL (0.2-1.3); Total Protein 5.3 g/dL (6.3-8.2)
[2023-08-25] MEDS ORDERED: TEMAZEPAM 15 MG CAP PO PRN (10:17)
--- NOTE | 2023-08-25 10:17 | P.PN ---
Subjective Progress Note Date: 08/25/23 HISTORY OF PRESENT ILLNESS: This is a 68-year-old male one of my patient and the patient medical history significant for COPD, hypertension and hypertensive cardiovascular disease, hyperlipidemia, history of ALLERGIC rhinitis, remote history of tobacco use and dependence he smoked at least 3 pack every day for many years and quit when he was 43-year-old,, patient has been followed by pulmonary medicine Dr. Rendon on a regular basis, he had pulmonary nodules history, he has been having a computed tomography scan of the chest and PET scan and regular basis until recentlyhis PET scan came back positive patient underwent robotic bronchoscopy with ultrasound of the bronchial tree by Dr. 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 Landon underwent robotic-assisted thoracoscopy right upper lobectomy with lumpectomy of the right lower lobe, and he was admitted to telemetry unit, he was seen and evaluated in his room, appears to be somewhat short of breath, he does have a chest tube in the right side of the chest, draining quite a bit of serosanguineous material, patient appears to be quite short of breath and debility, he did appear to have a significant subcutaneously emphysema as well, Dr. Klein evaluated the patient and the patient has been stable we will follow the patient along with pulmonary as well as thoracic surgery. 08/17: Patient is sitting up in chair continues to have some pain in the right side, he continues to be hospitalized, he has not had a bowel movement, is urinating very well, Senokot and MiraLAX were added, increase activity, continue to monitor the patient very closely, continue DuoNeb, continue Symbicort, we will follow-up the patient very closely, subcutis emphysema spirometer to prevent yesterday. Patient will plan to see the hospital for another 1-2 days. 08/18: Patient sitting up in bed in no apparent distress, he denies any chest pain, he continues to have some cough, no phlegm production, he continues to have a chest tube in the second, subcutaneous emphysema that has progressed and now is all the way to his neck and face , he has no abdominal pain, nausea or vomiting, did have a small bowel movement today, he denies any unusual symptom at this time except for dyspnea on exertion. 08/19: Patient is sitting up in chair in no distress, he continues to have significant subcutaneous emphysema involving his right upper chest neck face, no respiratory distress, has been followed by plastic surgery, chest tube still in place, -20 cm of water, patient has not had any abdominal pain, nausea or vomiting, he did not have a bowel movement as of yet increase activity, continue to use the incentive spirometer. 08/20: Repeat chest x-ray this morning reveals stable 30% right-sided pneumothorax and diffuse subcutaneous emphysema. Patient remains with subcutaneous emphysema, chest tube is in place. Patient is performing incentive spirometry and reaching 2000 mL. Heart rate is in the 70s to 90s, blood pressure 12/12/1977, pulse ox 94% on 2 L nasal cannula. The blood work reveals WBC 10.3, hemoglobin 11.6. Sodium is 128, potassium 4.5, chloride 93, CO2 27, BUN 21 creatinine 0.68. AST 74 and ALT 56. Pathology report is pending. 08/21: Heart rate is 100 104, blood pressure 134/75, afebrile, pulse ox 94% on 2 L. Repeat blood work reveals sodium of 128, potassium 4.3, CO2 94, BUN 19 creatinine 0.72. WBC 10, hemoglobin 11.4, platelet count 294. Repeat chest x- ray revealed reports approximate 5-10% right pneumothorax with severe diffuse bilateral subcutaneous emphysema. Biopsy report right upper lobectomy invasive moderately differential squamous cell carcinoma, margins negative. 6 lymph nodes negative. Right upper lobe bleb excision benign lung parenchyma. Right pleural chest tubes remain in place to wall suction. Patient continues to have significant subcutaneous emphysema. 08/22: Repeat chest x-ray reveals stable severe subcutaneous emphysema, possibly 5-10% right pneumothorax. Patient remains afebrile, heart rate in the 60s to 100, blood pressure 93/62, pulse ox 94% on room air. Patient continues to have significant subcutaneous emphysema and cardiothoracic surgeon did additional left sided blow hole to assist in resolution of subcutaneous emphysema. Drainage from chest tube. Patient is reaching 2000 mL's on incentive spirometry. He still feels shortness of breath. HCTZ discontinued. 08/23: Repeat chest x-ray reveals right-sided chest tube with right-sided pneumothorax 30%. Apical pleural distance 5.5 cm versus 4.6 cm previously. Extensive subcutaneous emphysema. Suspected pneumomediastinum. Patient is on 2 L nasal cannula with pulse ox 100%. Heart rate is running in the 80s and 90s, blood pressure 109/68. Patient remains afebrile. Patient continues to have persistent air leak and currently on water seal. He has had improvement of the subcutaneous emphysema and has bilateral blow holes. Repeat blood work reveals sodium is 124, potassium 4.7, chloride 92, CO2 22. Creatinine 0.47. WBC 12.8 and hemoglobin 11.7. 08/24: A consult for nephrology was admitted for hyponatremia with recommen dations for fluid restriction 1200 mL, bladder scan, sodium chloride tablet 1 today, check serum and urine osmolality and urine sodium, check TSH. He may consider ordering Samsca for the patient. Repeat sodium today is 122, chloride 87, potassium 4.5, BUN 17 creatinine 0.55. Blood sugar 100. WBC 12, hemoglobin 0.3, platelet count 400. Patient remains afebrile, heart rate 100, blood pressure 118/73, pulse ox 94% on room air. Patient continues to have some shortness of breath. Occasional cough and phlegm. No fever or chills. He is having normal BMS. He walked short distance today with shortness of breath. Chest tube is to wall suction. Repeat chest x-ray reveals mild interval reduction in size of pneumothorax. 08/25: Patient is sitting up in his recliner his feeling a bit better today, he continues to have his chest tube in place, he continues to have significant drainage from it, he also continued to have a to [place] the chest wall for the subcutaneous emphysema that appears to be a bit better today than yesterday, he did not sleep very well last night he is asking for a sleeping pill as his Xanax is not doing the trick for him, he has a good bowel movement he ate his br eakfast, breast surgeries following. REVIEW OF SYSTEMS: Constitutional: No documented fever, no chills, no night sweats. No weight change. No weakness, fatigue or lethargy. No daytime sleepiness. HEENT: No headache. No blurred vision or double vision, no loss of vision. No loss of Hearing, no ringing in the ears, no dizziness. No nasal drainage or congestion. No epistaxis. No sore throat. Lungs: positive for shortness of breath, occasional cough, no sputum production. No wheezing. Reports dyspnea with activity. Cardiovascular: No chest pain, no lower extremity edema. No palpitations. No paroxysmal nocturnal dyspnea. No orthopnea. No lightheadedness or dizziness. No syncopal episodes. Abdominal: Reports no abdominal pain. No nausea, vomiting. No diarrhea. positive for constipation. No bloody or tarry stools reports loss of appetite. Genitourinary: No dysuria, increased frequency, urgency. No urinary retention. Musculoskeletal: No myalgias. No muscle weakness, no gait dysfunction, no frequent falls. No back pain. Integumentary: No wounds, no lesions. No rash or pruritus. No unusual bruising. Significant subcutaneous emphysema Neurologic: No aphasia. No facial droop. No change in mentation. No head injury. No headache. No paralysis. No paresthesia. Psychiatric: No depression. No anxiety. No mood swings. Endocrine: No abnormal blood sugars. No weight change. PHYSICAL EXAMINATION: General: 68-year-old male sitting up in chair in no respiratory distress HEENT: Head is atraumatic, normocephalic, pupils were equal round reactive to l ight, sclera nonicteric, conjunctivae were pale, mucous membranes of the mouth are somewhat dry, subcutaneous emphysema all the way up to the neck and face Neck: Supple, no JVP, normal carotid upstroke bilaterally, no lymphadenopathy, subcutaneous emphysema. Chest: Decreased breath sounds at the bases, few rhonchi, right sided chest tube with subcutaneous emphysema, and the chest wall tenderness minimal intercostal retractions. Heart: First heart sound is normal, second heart sound is normal there is systolic ejection murmur 2/6 located in the left sternal border. Abdomen: Soft, nontender, nondistended, positive bowel sounds. Extremities: There is no edema no calf tenderness DP +2 bilaterally. Neurologic examination: Patient is awake alert and oriented X 3, cranial nerves II-12 appear grossly intact, muscle power were 5 out of 5 in upper extremities and 5 out of 5 in bilateral lower extremities, deep tendon reflexes normal bilaterally. ASSESSMENT AND PLAN: 1. Postoperative day #9 status post robotic-assisted laparoscopic right upper lobectomy with blebectomy of the right lower lobe, positive pathology for moderately differential squamous cell carcinoma. Continue patient on the use of incentive spirometer, increase activity, monitor the patient chest tube. Continue with DuoNeb 3 mL nebulization 4 times every day, continue Symbicort 60/4.5 g 2 puffs twice every day, continue current pain management as outlined by CTS. 2. Extensive subcutaneous emphysema due to air leak. Thoracic surgery is following we will continue to monitor, noted improvement. 3. Hypertension and hypertensive cardiovascular disease. Continue patient on valsartan 160 mg every day, hydrochlorothiazide discontinued as it maybe contributing to hyponatremia. Continue to monitor the patient very closely. 4. Mixed hyperlipidemia. Continue patient on atorvastatin 20 mg once every day. 5. ALLERGIC rhinitis. Start the patient back on loratadine 10 mg every day, may use the insulin saline spray 2 sprays initial surgery times every day as well as Flonase as needed patient also would be started back on his montelukast 10 mg orally bedtime. 6. Constipation. patient on Senokot at bedtime as well as MiraLAX 17 gram in 8 OZ of water daily, we will increase activity, add Milk of Magnesia with prune juice 7. Enlarged prostate. Monitor for urinary retention. 8. COPD. Continue patient on DuoNeb 3 nebulization 4 times every day, continue Symbicort 160/4.5 g 2. Position twice every day, pulmonary is following. 9. DVT prophylaxis. Continue heparin 5000 units subcutaneously every 8 hours. 10. GI prophylaxis. Continue Protonix 40 mg every day. 11. Hyponatremia. DC HCTZ. Consult with nephrology. Patient has been added fluid restriction 1200 ml. 12. Insomnia. Start the patient on temazepam 15 mg at bedtime. Objective - Vital Signs Vital signs: Vital Signs Temp 99.3 F 08/25/23 07:50 Pulse 98 08/25/23 08:04 Resp 18 08/25/23 08:00 BP 123/70 08/25/23 07:50 Pulse Ox 93 L 08/25/23 07:50 FiO2 Intake & Output 08/24/23 08/25/23 08/25/23 18:59 06:59 18:59 Intake Total 480 540 240 Output Total 170 390 200 Balance 310 150 40 Intake: Oral 480 540 240 Output: Chest Tube Drainage 170 390 Chest Tube Right Upper 170 390 Anterior Chest Urine 200 Other: Voiding Method Toilet Toilet Toilet Urinal Urinal # Voids 3 - Labs CBC & Chem 7: 08/25/23 08:09 08/25/23 08:09 Labs: Abnormal Lab Results - Last 24 Hours (Table) 08/24/23 08/24/23 08/25/23 Range/Units 06:39 14:00 08:09 WBC (3.8-10.6) k/uL RBC (4.30-5.90) m/uL Hgb (13.0-17.5) gm/dL Hct (39.0-53.0) % Plt Count (150-450) k/uL Sodium 124 L (137-145) mmol/L Chloride 88 L (98-107) mmol/L Creatinine 0.55 L (0.66-1.25) mg/dL Glucose 133 H (74-99) mg/dL Osmolality 262 L (280-301) mosm/kg AST 105 H (17-59) U/L ALT 127 H (4-49) U/L Alkaline Phosphatase 134 H (38-126) U/L Total Protein 5.3 L (6.3-8.2) g/dL Albumin 2.9 L (3.5-5.0) g/dL Ur Random Sodium <20 L (40-220) mmol/L 08/25/23 Range/Units 08:09 WBC 12.4 H (3.8-10.6) k/uL RBC 3.92 L (4.30-5.90) m/uL Hgb 11.6 L (13.0-17.5) gm/dL Hct 35.2 L (39.0-53.0) % Plt Count 479 H (150-450) k/uL Sodium (137-145) mmol/L Chloride (98-107) mmol/L Creatinine (0.66-1.25) mg/dL Glucose (74-99) mg/dL Osmolality (280-301) mosm/kg AST (17-59) U/L ALT (4-49) U/L Alkaline Phosphatase (38-126) U/L Total Protein (6.3-8.2) g/dL Albumin (3.5-5.0) g/dL Ur Random Sodium (40-220) mmol/L
--- NOTE | 2023-08-25 10:43 | P.PN ---
Subjective Patient is seen in follow-up for hyponatremia. Sodium level better today. Sitting up in chair. Denies chest pain or shortness of breath. Oral intake is good. No active complains. Vital signs are stable. General: No acute distress. HEENT: Head exam is unremarkable. LUNGS: No audible rhonchi or wheezes. Chest tube noted. HEART: Rate and Rhythm are regular. ABDOMEN: Nontender. EXTREMITITES: No edema. Objective - Vital Signs Vital signs: Vital Signs Temp 99.3 F 08/25/23 07:50 Pulse 98 08/25/23 08:04 Resp 18 08/25/23 08:00 BP 123/70 08/25/23 07:50 Pulse Ox 93 L 08/25/23 07:50 FiO2 Intake & Output 08/24/23 08/25/23 08/25/23 18:59 06:59 18:59 Intake Total 480 540 240 Output Total 170 390 260 Balance 310 150 -20 Intake: Oral 480 540 240 Output: Chest Tube Drainage 170 390 60 Chest Tube Right Upper 170 390 60 Anterior Chest Urine 200 Other: Voiding Method Toilet Toilet Toilet Urinal Urinal # Voids 3 - Labs CBC & Chem 7: 08/25/23 08:09 08/25/23 08:09 Labs: Abnormal Lab Results - Last 24 Hours (Table) 08/24/23 08/24/23 08/25/23 Range/Units 06:39 14:00 08:09 WBC (3.8-10.6) k/uL RBC (4.30-5.90) m/uL Hgb (13.0-17.5) gm/dL Hct (39.0-53.0) % Plt Count (150-450) k/uL Sodium 124 L (137-145) mmol/L Chloride 88 L (98-107) mmol/L Creatinine 0.55 L (0.66-1.25) mg/dL Glucose 133 H (74-99) mg/dL Osmolality 262 L (280-301) mosm/kg AST 105 H (17-59) U/L ALT 127 H (4-49) U/L Alkaline Phosphatase 134 H (38-126) U/L Total Protein 5.3 L (6.3-8.2) g/dL Albumin 2.9 L (3.5-5.0) g/dL Ur Random Sodium <20 L (40-220) mmol/L 08/25/23 Range/Units 08:09 WBC 12.4 H (3.8-10.6) k/uL RBC 3.92 L (4.30-5.90) m/uL Hgb 11.6 L (13.0-17.5) gm/dL Hct 35.2 L (39.0-53.0) % Plt Count 479 H (150-450) k/uL Sodium (137-145) mmol/L Chloride (98-107) mmol/L Creatinine (0.66-1.25) mg/dL Glucose (74-99) mg/dL Osmolality (280-301) mosm/kg AST (17-59) U/L ALT (4-49) U/L Alkaline Phosphatase (38-126) U/L Total Protein (6.3-8.2) g/dL Albumin (3.5-5.0) g/dL Ur Random Sodium (40-220) mmol/L Assessment and Plan Plan: Assessment: 1. Hyponatremia. Patient appears euvolemic. Suspect SIADH post surgery. Sodium level 124today. Currently not getting thiazide diuretic. Urine sodium less than 20 and urine osmolality 320. TSH normal. 2. Lung cancer status post right upper lobectomy 08/08/2023. 3. Benign hypertension. Controlled. 4. History of COPD. Plan: Maintain fluid restriction. Samsca 7.5 mg once today. Repeat labs in the morning.
[2023-08-25] MEDS ORDERED: TOLVAPTAN 15 MG TABLET PO ONE (11:15)
--- NOTE | 2023-08-25 11:58 | P.PN ---
Subjective Progress Note Date: 08/25/23 Pulmonary consult dated 08/16/2023. 68-year-old male, well-known to me. I've been seeing the patient in the office, for a number of years, for his underlying COPD. In addition, in the past, the patient has had pulmonary nodules, which have been relatively stable, and negative on PET scan. More recently, his been in the right upper lobe, was enlarging, and the PET scan, was positive only in that area. The patient was initially seen by Dr. Parks, who requested a biopsy, and evaluation of lymph nod es. My partner did a robotic bronchoscopy, and endobronchial ultrasound on this patient, and the sampling, of the right upper lobe, with positive for squamous cell carcinoma. Sampling of the station 7/subcarinal node, was negative. The patient was then brought to the operating room, today, by Dr. Klein, for robotically-assisted right upper lobectomy, and lymph node dissection/sampling. The patient is seen today in room 350. He is on room air. He is on D5 with half-normal saline at 40 mL an hour. Today is postop day 0. The patient is doing well, without complaints. His family is in the room with him. The patient has a history of COPD, and hyperlipidemia. Current labs include a white count of 13.4, hemoglobin 13.7, hematocrit 41.7, and a normal platelet count. Sodium 135, potassium 4, chlorides 100, CO2 27, BUN 14, and creatinine 0.73. Progress note dated 08/17/2023. The patient's currently on room air. He's not receiving any IV fluids. The patient is postop day #1, status post robotically-assisted right upper lobectomy and lymph node dissection, by Dr. Klein. The patient does have anterior leak on the right side. He currently feels relatively comfortable. White count 11, hemoglobin 12.9, hematocrit 38.7, and platelet count 174,000. Sodium 129, potassium 3.7, chlorides 95, CO2 26, BUN 14, and creatinine 0.63. Pneumothorax on the right side, is less than 5%. Progress note dated 08/18/2023. The patient's currently on room air. He's not receiving any IV fluids. The patient is postop day #2, status post robotically assisted upper lobectomy and lymph node dissection, by Dr. Klein. The patient does have a leak from the chest tube. He has developed significant subcutaneous emphysema, and the right chest, right neck, and facial area. White count is 11.9, hemoglobin 12.8, hematocrit 37.9, within normal platelet count. Sodium 1:30, potassium 4.2, c hlorides 94, CO2 28, BUN 14, creatinine 0.69. Chest x-ray shows a right apical pneumothorax. There is increasing subcutaneous emphysema. Progress note dated 08/19/2023. The patient is seen again in room 350. The patient is postop day #3, status post robotically assisted right upper lobectomy, and lymph node dissection. The patient continues with an air leak, and is having significant, subcutaneous emphysema. The patient is in no respiratory distress. He is not receiving any IV fluids. Today we added back his Effexor, and increase his Xanax dose for anxiety. White count 10.9, hemoglobin 12.3, hematocrit 36.8, within normal platelet count. Sodium 129, potassium 4, chlorides 93, CO2 29, BUN 18, and creatinine 0.74. Chest x-ray shows a right chest tube be unchanged in its position, and 15-20% right apical pneumothorax, and diffuse subcutaneous emphysema. Today's evaluation of 08/20/2023, the patient is postop day #4. The patient underwent a right upper lobe resection, with lymph node dissection and this was a robotic-assisted procedure. The patient continues to have a right-sided chest tube in place and the patient has a significant ongoing care leak. No follow-up chest x-ray from today shows no evidence of any pneumothorax. Nevertheless, the patient has a continuous air leak and the patient has developed extensive subcu in his emphysema involving the face, neck, eyes, and chest and upper extremities. At the same time, the patient has achieved his voice related to the subcu in his emphysema. His current cardiac rhythm is sinus. Right-sided chest tube in place and is/2 suction. No significant shortness of breath. The patient is an obvious cause of 10.3, hemoglobin is 11.6 and a platelet count is at 239. BUN is at 21 with a creatinine of 0.6 and a sodium level is at 128. No issues with pain. No altered mentation. He remains on oxygen at room air with a pulse ox of 97%. 08/21/2023, the patient continues to have persistent air leak and extensive s ubcutaneous emphysema involving the face, neck, chest, and extremities. Blow holes were created with some limited success. Chest tube remains in place. No evidence of any pneumothorax. No significant respiratory distress and the patient remains on O2 at 2 L. Using the senna spirometer. Pulling approximately 1.2 L on his incentive spirometer. His resting comfortably in bed. Overnight, he felt slightly more short of breath. This morning he is feeling comfortable. No cough. No sputum production. Surgical 1 site is dry clean and intact and the patient is currently postoperative day #5 following a robotic-assisted thoracoscopic right upper lobe resection and the patient also had bleb resection from the right lower lobe area. Labs show a white cell count of 10, hemoglobin 11.4, sodium is at 128, BUN is at 19 with a creatinine of 0.7. Remains on subcutaneous heparin for DVT prophylaxis. Remains on tramadol for pain control 08/22/2023, the patient is being seen in follow-up. The patient is postop day #6 following a right upper lobe lobectomy. Continues to have air leak through the right-sided chest tube. Continues to have significant amount of subcu in his emphysema although this could've slightly subsided compared to yesterday. The patient remained on 2 L of Oxymizer nasal cannula. Pulse ox in the order of 95%. Continues to use incentive spirometer. Denies having any significant shortness of breath. Has some chest discomfort at the site of the chest tube insertion. Blow holes were inserted.chest x-ray was reviewed. There is evidence of excessive subcutaneous emphysema. No evidence of any pneumothorax.The blood work showed a WBC count of 10, hemoglobin of 11.4, sodium is at 128, BUN is at 19 with a creatinine of 0.72. No other significant events otherwise over the past 24 hours. Cardiothoracic surgeries on the case. The patient remains on DuoNeb updrafts. Rest of the medications remain unchanged. 08/23/2023, seeing the patient for a follow-up. The patient is postop day #7. There is still persistent air leak. He is currently on waterseal. Much improved in terms of his subcutaneous emphysema. His eyes are open and he is able to see adequately. The swelling in his neck area and the face has improved significantly. The chest x-ray shows some residual pneumothorax in order of 30%. This is an apical pneumothorax. There is also supplemented his emphysema still present. The patient is ambulating. The patient using the DTT pirometer. He is only on 2 L of oxygen by nasal cannula. Sodium level is at 124, potassium levels at 4.7, BUN is at 20 with a creatinine of 0.4. The white cell count is at 12.8 with a hemoglobin of 11.5. He has no specific complaints otherwise. He is on Symbicort. He is also on DuoNeb nebulized treatments [id number]. On 08/24/2023, the patient is postop day #8. Continues to have an air leak and total amount of output from the chest tube has been 225 mL over the past 8 hours. Chest x-ray shows no evidence of any pneumothorax. This appears emphysema and clinically the patient also subcu emphysema. The patient has also developed hyponatremia. He is receiving no fluids. In fact, he is on fluid restriction. The patient had blow holes placed in the upper chest with a one VAC applied to the area. Oxygenation is stable and the patient is currently on 2 L of oxygen by nasal cannula with a pulse ox of 94%. No other complaints otherwise. No altered mentation. Family is at the bedside. The chest tube is in place to low suction at -10 cm of water. On 08/25/2023, the patient is postop day #9. Clinically stable. Continues emphysema stable. Chest x-ray shows no pneumothorax. There is positive air leak and the chest tube is attached to waterseal. His condition is essentially unchanged. His sodium level is at 124. The white cell cause of 12.4. Objective - Vital Signs Vital signs: Vital Signs Temp 99.3 F 08/25/23 07:50 Pulse 98 08/25/23 08:04 Resp 18 08/25/23 08:00 BP 123/70 08/25/23 07:50 Pulse Ox 93 L 08/25/23 07:50 FiO2 Intake & Output 08/24/23 08/25/23 08/25/23 18:59 06:59 18:59 Intake Total 480 540 240 Output Total 170 390 260 Balance 310 150 -20 Intake: Oral 480 540 240 Output: Chest Tube Drainage 170 390 60 Chest Tube Right Upper 170 390 60 Anterior Chest Urine 200 Other: Voiding Method Toilet Toilet Toilet Urinal Urinal # Voids 3 - Exam CONSTITUTIONAL: Appears somewhat comfortable, cooperative, no acute distress, the patient has subcutaneous emphysema RESPIRATORY: Lungs sounds diminished bilaterally, right > left. Respirations even, nonlabored. Currently on room air oxygen with a pulse ox of 97%. Able to achieve 2500 mL on incentive spirometry. Strong cough. The patient has blow holes over the anterior chest area with a wound VAC placed CARDIOVASCULAR: S1, S2 present. Regular rate and rhythm, sinus rhythm on telemetry. Palpable peripheral pulses bilaterally. No edema present GASTROINTESTINAL: Abdomen soft, nontender, nondistended. Active bowel sounds present 4 quadrants. Tolerating diet GENITOURINARY: Continues to void INTEGUMENTARY: Skin is warm and dry. Subcutaneous emphysema present to chest wall, neck, extending up to entire face NEUROLOGIC: Cranial nerves II through XII intact MUSKULOSKELETAL: Able to move all extremities, strength equal bilaterally PSYCHIATRIC: Alert and oriented to person place and time, appropriate affect, intact judgment and insight INVASIVE LINES AND TUBES: Right pleural chest tubes present and connected to wall suction, air leak present, there is also subcutaneous emphysema along the chest wall, neck and chest area. He is currently waterseal. - Labs CBC & Chem 7: 08/25/23 08:09 08/25/23 08:09 Labs: Abnormal Lab Results - Last 24 Hours (Table) 08/24/23 08/24/23 08/25/23 Range/Units 06:39 14:00 08:09 WBC (3.8-10.6) k/uL RBC (4.30-5.90) m/uL Hgb (13.0-17.5) gm/dL Hct (39.0-53.0) % Plt Count (150-450) k/uL Sodium 124 L (137-145) mmol/L Chloride 88 L (98-107) mmol/L Creatinine 0.55 L (0.66-1.25) mg/dL Glucose 133 H (74-99) mg/dL Osmolality 262 L (280-301) mosm/kg AST 105 H (17-59) U/L ALT 127 H (4-49) U/L Alkaline Phosphatase 134 H (38-126) U/L Total Protein 5.3 L (6.3-8.2) g/dL Albumin 2.9 L (3.5-5.0) g/dL Ur Random Sodium <20 L (40-220) mmol/L 08/25/23 Range/Units 08:09 WBC 12.4 H (3.8-10.6) k/uL RBC 3.92 L (4.30-5.90) m/uL Hgb 11.6 L (13.0-17.5) gm/dL Hct 35.2 L (39.0-53.0) % Plt Count 479 H (150-450) k/uL Sodium (137-145) mmol/L Chloride (98-107) mmol/L Creatinine (0.66-1.25) mg/dL Glucose (74-99) mg/dL Osmolality (280-301) mosm/kg AST (17-59) U/L ALT (4-49) U/L Alkaline Phosphatase (38-126) U/L Total Protein (6.3-8.2) g/dL Albumin (3.5-5.0) g/dL Ur Random Sodium (40-220) mmol/L Assessment and Plan Plan: 8 Lung cancer, squamous cell carcinoma right upper lobe of the lung, status post robotic assisted thoracoscopic right upper lobectomy, blebectomy right lower lobe, the patient is postop day #9 , residual pneumothorax on the right and There is still persistent positive air leak through the chest tube. He is currently advised to waterseal. The chest x-ray showed no evidence of any pneumothorax The patient had early stage TI be N0 M0 disease, squamous cell carcinoma without lymph node involvement. The margins were also clear. Right apical pneumothorax note on today's chest x-ray, chest tube is in good location and the patient continues to have air leak, he is on waterseal Extensive subcu emphysema involving the face, neck, and chest, and the patient had blowhole constructed over the anterior chest area with some improvement Positive air leak post right upper lobe resection the patient is a right-sided chest tube is still in place. 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 The patient may benefit from fluid restriction and [facility] Encourage incentive spirometry use 10 times every hour while awake. The patient will be kept in the hospital. The patient is currently on 2 L of oxygen by nasal cannula. Will given undergoes of [place] We'll continue to follow
--- NOTE | 2023-08-25 12:48 | XR ---
EXAM: XR chest 1V portable CLINICAL INDICATION:Male, 68 years old with history of s/p right upper lobectomy; [facility] COMPARISON: 08/24/2023 and before TECHNIQUE: Chest single view. FINDINGS: Lines/tubes/devices: Similar position of right apical chest tube. EKG leads and other extrinsic struc tures overlie the chest. Cardiomediastinum: Stable. No gross cardiomegaly. Somewhat tortuous aorta. Vasculature: No increased pulmonary vasculature. Lungs/pleura: Similar appearance of volume loss in the right hemithorax, with scattered opacities in the right lung which could be due to atelectasis or pneumonia. An approximately 20% right-sided pneumothorax, great est in the apical region, appears stable. Left lung mildly hyperinflated and clear. No left-sided ple ural effusion or pneumothorax is seen. Stable appearance of probable small right pleural effusion. Bones/soft tissues: Bony thorax appears grossly unchanged as seen. Bilateral reversed glenohumeral arthroplasties. Modera te soft tissue emphysema throughout the bilateral chest and base of neck, similar to the prior exam. IMPRESSION: * Stable right chest tube and right-sided pneumothorax. * Similar scattered opacities the right lung could be due to atelectasis or pneumonia. * Moderate soft tissue emphysema throughout the bilateral chest and base of neck, similar to the godfrey or exam.
[2023-08-25] MEDS: ACETAMINOPHEN TAB 325 MG TAB PO PRN (15:27)
[2023-08-25] MEDS: MONTELUKAST 10 MG TAB PO SCH (20:11)
[2023-08-26] MEDS: IPRATROPIUM-ALBUTEROL 3 ML NEB IH PRN (03:42)
[2023-08-26] MEDS: PANTOPRAZOLE 40 MG TABLET PO SCH (06:16)
--- NOTE | 2023-08-26 07:48 | P.PN ---
Subjective Progress Note Date: 08/26/23 Principal diagnosis: Lung cancer, squamous cell carcinoma right upper lobe of the lung. Previous medical history of COPD, previous tobacco dependence, hypertension, hyperlipidemia POD #10 robotic assisted thoracoscopic right upper lobectomy, blebectomy right lower lobe Subcutaneous emphysema present, expected given type of surgery, status post creation of blow hole Prolonged air leak Hyponatremia secondary to SIADH from underlying malignancy The patient was seen and examined this morning sitting up in a recliner in the cardiac stepdown unit in no acute distress eating breakfast. States he does feel better every day although he is tired of being in hospital. States pain is controlled on current medication regimen, denies current shortness of breath. Subcutaneous emphysema appears improved. Patient is currently on room air with oxygen saturation in the mid 90s. Right pleural chest tube was placed to water seal yesterday but somehow got placed back to suction. Air leak remains present with coughing and expiration. Able to achieve 2000 mL on his incentive spirometry. Objective - Vital Signs Vital signs: Vital Signs Temp 98.1 F 08/25/23 20:00 Pulse 95 08/26/23 04:00 Resp 18 08/26/23 04:00 BP 133/75 08/26/23 04:00 Pulse Ox 97 08/26/23 04:00 FiO2 Intake & Output 08/25/23 08/26/23 08/26/23 18:59 06:59 18:59 Intake Total 240 780 Output Total 470 1380 Balance -230 -600 Intake: Oral 240 780 Output: Chest Tube Drainage 270 330 Chest Tube Right Upper 270 330 Anterior Chest Urine 200 1050 Other: Voiding Method Toilet Toilet # Voids 1 # Bowel Movements 1 - Exam CONSTITUTIONAL: Appears comfortable, cooperative, no acute distress RESPIRATORY: Lungs sounds diminished bilaterally. Respirations even, nonlabored. Currently on room air with oxygen saturation 97%. Able to achieve 2000 mL on incentive spirometry. Strong cough. CARDIOVASCULAR: S1, S2 present. Regular rate and rhythm, sinus rhythm on telemetry. Palpable peripheral pulses bilaterally. No edema present. No calf pain or tenderness noted. SCDs present. GASTROINTESTINAL: Abdomen soft, nontender, nondistended. Active bowel sounds present 4 quadrants. Tolerating diet. Positive bowel movement. GENITOURINARY: Continues to void clear, yellow urine INTEGUMENTARY: Skin is warm and dry. Subcutaneous emphysema present to chest, neck, face although significantly decreased NEUROLOGIC: Cranial nerves II through XII intact MUSKULOSKELETAL: Able to move all extremities, strength equal bilaterally, gait normal PSYCHIATRIC: Alert and oriented to person place and time, appropriate affect, intact judgment and insight INVASIVE LINES AND TUBES: Right pleural chest tubes present and connected to wall suction, air leak present with expiration and coughing, 330 mL serosanguineous drainage overnight, 650 mL in the last 24 hours - Allied health notes Allied health notes reviewed: nursing - Labs CBC & Chem 7: 08/25/23 08:09 08/25/23 08:09 Labs: Abnormal Lab Results - Last 24 Hours (Table) 08/25/23 08/25/23 Range/Units 08:09 08:09 WBC 12.4 H (3.8-10.6) k/uL RBC 3.92 L (4.30-5.90) m/uL Hgb 11.6 L (13.0-17.5) gm/dL Hct 35.2 L (39.0-53.0) % Plt Count 479 H (150-450) k/uL Sodium 124 L (137-145) mmol/L Chloride 88 L (98-107) mmol/L Creatinine 0.55 L (0.66-1.25) mg/dL Glucose 133 H (74-99) mg/dL AST 105 H (17-59) U/L ALT 127 H (4-49) U/L Alkaline Phosphatase 134 H (38-126) U/L Total Protein 5.3 L (6.3-8.2) g/dL Albumin 2.9 L (3.5-5.0) g/dL - Imaging and Cardiology Chest x-ray: image reviewed Assessment and Plan Assessment: Lung cancer, 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 Klein, status post second blowhole creation by Dr. Parks Prolonged air leak Hyponatremia, secondary to SIADH, secondary to underlying malignancy Plan: Will place chest tube placed to water seal again, monitor for air leak resolution, monitor drainage Patient encouraged to compress subcu tissues emphysema on his face, neck, upper chest Keep wound VAC in place for now Encourage incentive spirometry use 10 times every hour while awake. Bronchodilators per pulmonology Will monitor daily labs and x-rays GI/DVT prophylaxis Increase activity, ambulate as tolerated Continue home medications Pain control with current medication regimen More recommendations to follow
[2023-08-26] MEDS: SYMBICORT 160-4.5 MCG INHALER INHALATION SCH ×2 (08:10→20:52)
[2023-08-26] MEDS: IPRATROPIUM-ALBUTEROL 3 ML NEB IH SCH ×4 (08:10→20:52)
[2023-08-26] MEDS: polyethylene glycoL 3350 17 GM POWD.PACK PO SCH (09:36)
[2023-08-26] MEDS: SENNOSIDES-DOCUSATE SODIUM 1 EACH TAB PO SCH (09:41)
[2023-08-26] MEDS: VALSARTAN 160 MG TAB PO SCH (09:41)
[2023-08-26] MEDS: ACETAMINOPHEN TAB 325 MG TAB PO PRN ×2 (09:41→16:32)
[2023-08-26] MEDS: MULTIVITAMINS, THERA 1 EACH TAB PO SCH (09:41)
[2023-08-26] MEDS: VENLAFAXINE HCL ER 37.5 MG CAP PO SCH (09:41)
[2023-08-26] MEDS: HEPARIN SODIUM,PORCINE 5,000 UNIT/ML 1 ML VIAL SQ SCH ×3 (09:42→23:34)
--- NOTE | 2023-08-26 10:05 | P.PN ---
Subjective Patient is seen in follow-up for hyponatremia. Sodium level 124 yesterday. Morning labs pending. Sitting up in chair. Denies chest pain or shortness of breath. Oral intake is good. No active complains. Vital signs are stable. General: No acute distress. HEENT: Head exam is unremarkable. LUNGS: No audible rhonchi or wheezes. Chest tube noted. HEART: Rate and Rhythm are regular. ABDOMEN: Nontender. EXTREMITITES: No edema. Objective - Vital Signs Vital signs: Vital Signs Temp 98.1 F 08/25/23 20:00 Pulse 90 08/26/23 08:12 Resp 18 08/26/23 04:00 BP 133/75 08/26/23 04:00 Pulse Ox 95 08/26/23 08:12 FiO2 21 08/26/23 08:12 Intake & Output 08/25/23 08/26/23 08/26/23 18:59 06:59 18:59 Intake Total 240 780 200 Output Total 470 1380 Balance -230 -600 200 Intake: Oral 240 780 200 Output: Chest Tube Drainage 270 330 Chest Tube Right Upper 270 330 Anterior Chest Urine 200 1050 Other: Voiding Method Toilet Toilet # Voids 1 # Bowel Movements 1 - Labs CBC & Chem 7: 08/25/23 08:09 08/25/23 08:09 Assessment and Plan Plan: Assessment: 1. Hyponatremia. Patient appears euvolemic. Suspect SIADH post surgery. Sodium level 124 yesterday. Currently not getting thiazide diuretic. Urine sodium less than 20 and urine osmolality 320. TSH normal. 2. Lung cancer status post right upper lobectomy 08/08/2023. 3. Benign hypertension. Controlled. 4. History of COPD. Plan: Maintain fluid restriction. Encouraged oral intake. Status post [facility]. Morning labs pending.
--- NOTE | 2023-08-26 10:09 | XR ---
EXAM: XR chest 1V portable CLINICAL INDICATION:Male, 68 years old with history of post lobectomy; [facility] COMPARISON: 08/25/2023 and before TECHNIQUE: Chest single view. FINDINGS: FINDINGS: Lines/tubes/devices: Similar position of right chest tube with tip at the lung apex. EKG leads and ot her extrinsic structures overlie the chest. Cardiomediastinum: Stable. No gross cardiomegaly. Somewhat tortuous aorta and soft tissue density along the right hilar/ suprahilar region again seen. Vasculature: No increased pulmonary vasculature. Lungs/pleura: Similar appearance of volume loss in the right hemithorax, with scattered opacities in the right lung . An approximately 20% right-sided pneumothorax, greatest in the apical region, appears stable. Left lung is mildly hyperinflated and clear. No left-sided pleural effusion or pneumothorax is seen. Stabl e appearance of probable small right pleural effusion or thickening. Bones/soft tissues: Bony thorax appears grossly unchanged as seen. Bilateral reverse glenohumeral arthroplasties. Moderat e soft tissue emphysema throughout the bilateral chest and base of neck, similar to the prior exam. IMPRESSION: 1. Unchanged right chest tube and right-sided pneumothorax. 2. Similar scattered opacities in the right lung could be due to atelectasis and or pneumonia. 3. Moderate soft tissue emphysema throughout the bilateral chest and base of neck, similar to prior.
--- NOTE | 2023-08-26 10:50 | P.PN ---
Subjective Progress Note Date: 08/26/23 HISTORY OF PRESENT ILLNESS: This is a 68-year-old male one of my patient and the patient medical history significant for COPD, hypertension and hypertensive cardiovascular disease, hyperlipidemia, history of ALLERGIC rhinitis, remote history of tobacco use and dependence he smoked at least 3 pack every day for many years and quit when he was 43-year-old,, patient has been followed by pulmonary medicine Dr. Rendon on a regular basis, he had pulmonary nodules history, he has been having a computed tomography scan of the chest and PET scan and regular basis until recentlyhis PET scan came back positive patient underwent robotic bronchoscopy with ultrasound of the bronchial tree by Dr. 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 Landon underwent robotic-assisted thoracoscopy right upper lobectomy with lumpectomy of the right lower lobe, and he was admitted to telemetry unit, he was seen and evaluated in his room, appears to be somewhat short of breath, he does have a chest tube in the right side of the chest, draining quite a bit of serosanguineous material, patient appears to be quite short of breath and debility, he did appear to have a significant subcutaneously emphysema as well, Dr. Klein evaluated the patient and the patient has been stable we will follow the patient along with pulmonary as well as thoracic surgery. 08/17: Patient is sitting up in chair continues to have some pain in the right side, he continues to be hospitalized, he has not had a bowel movement, is urinating very well, Senokot and MiraLAX were added, increase activity, continue to monitor the patient very closely, continue DuoNeb, continue Symbicort, we will follow-up the patient very closely, subcutis emphysema spirometer to prevent yesterday. Patient will plan to see the hospital for another 1-2 days. 08/18: Patient sitting up in bed in no apparent distress, he denies any chest pain, he continues to have some cough, no phlegm production, he continues to have a chest tube in the second, subcutaneous emphysema that has progressed and now is all the way to his neck and face , he has no abdominal pain, nausea or vomiting, did have a small bowel movement today, he denies any unusual symptom at this time except for dyspnea on exertion. 08/19: Patient is sitting up in chair in no distress, he continues to have significant subcutaneous emphysema involving his right upper chest neck face, no respiratory distress, has been followed by plastic surgery, chest tube still in place, -20 cm of water, patient has not had any abdominal pain, nausea or vomiting, he did not have a bowel movement as of yet increase activity, continue to use the incentive spirometer. 08/20: Repeat chest x-ray this morning reveals stable 30% right-sided pneumothorax and diffuse subcutaneous emphysema. Patient remains with subcutaneous emphysema, chest tube is in place. Patient is performing incentive spirometry and reaching 2000 mL. Heart rate is in the 70s to 90s, blood pressure 12/12/1977, pulse ox 94% on 2 L nasal cannula. The blood work reveals WBC 10.3, hemoglobin 11.6. Sodium is 128, potassium 4.5, chloride 93, CO2 27, BUN 21 creatinine 0.68. AST 74 and ALT 56. Pathology report is pending. 08/21: Heart rate is 100 104, blood pressure 134/75, afebrile, pulse ox 94% on 2 L. Repeat blood work reveals sodium of 128, potassium 4.3, CO2 94, BUN 19 creatinine 0.72. WBC 10, hemoglobin 11.4, platelet count 294. Repeat chest x- ray revealed reports approximate 5-10% right pneumothorax with severe diffuse bilateral subcutaneous emphysema. Biopsy report right upper lobectomy invasive moderately differential squamous cell carcinoma, margins negative. 6 lymph nodes negative. Right upper lobe bleb excision benign lung parenchyma. Right pleural chest tubes remain in place to wall suction. Patient continues to have significant subcutaneous emphysema. 08/22: Repeat chest x-ray reveals stable severe subcutaneous emphysema, possibly 5-10% right pneumothorax. Patient remains afebrile, heart rate in the 60s to 100, blood pressure 93/62, pulse ox 94% on room air. Patient continues to have significant subcutaneous emphysema and cardiothoracic surgeon did additional left sided blow hole to assist in resolution of subcutaneous emphysema. Drainage from chest tube. Patient is reaching 2000 mL's on incentive spirometry. He still feels shortness of breath. HCTZ discontinued. 08/23: Repeat chest x-ray reveals right-sided chest tube with right-sided pneumothorax 30%. Apical pleural distance 5.5 cm versus 4.6 cm previously. Extensive subcutaneous emphysema. Suspected pneumomediastinum. Patient is on 2 L nasal cannula with pulse ox 100%. Heart rate is running in the 80s and 90s, blood pressure 109/68. Patient remains afebrile. Patient continues to have persistent air leak and currently on water seal. He has had improvement of the subcutaneous emphysema and has bilateral blow holes. Repeat blood work reveals sodium is 124, potassium 4.7, chloride 92, CO2 22. Creatinine 0.47. WBC 12.8 and hemoglobin 11.7. 08/24: A consult for nephrology was admitted for hyponatremia with recommen dations for fluid restriction 1200 mL, bladder scan, sodium chloride tablet 1 today, check serum and urine osmolality and urine sodium, check TSH. He may consider ordering Samsca for the patient. Repeat sodium today is 122, chloride 87, potassium 4.5, BUN 17 creatinine 0.55. Blood sugar 100. WBC 12, hemoglobin 0.3, platelet count 400. Patient remains afebrile, heart rate 100, blood pressure 118/73, pulse ox 94% on room air. Patient continues to have some shortness of breath. Occasional cough and phlegm. No fever or chills. He is having normal BMS. He walked short distance today with shortness of breath. Chest tube is to wall suction. Repeat chest x-ray reveals mild interval reduction in size of pneumothorax. 08/25: Patient is sitting up in his recliner his feeling a bit better today, he continues to have his chest tube in place, he continues to have significant drainage from it, he also continued to have a to [place] the chest wall for the subcutaneous emphysema that appears to be a bit better today than yesterday, he did not sleep very well last night he is asking for a sleeping pill as his Xanax is not doing the trick for him, he has a good bowel movement he ate his br eakfast, breast surgeries following. 08/26: Patient is sitting up in his chair his is giving him a sponge graft, he appears to be somewhat depressed today, he continues to be on venlafaxine, his sodium was 124, did receive Samsca yesterday repeat a sodium 70 the time of dictation, continue to monitor the patient very closely, continue fluid restriction, liver enzymes are elevated would need an ultrasound of the abdomen with the chest resolved, keep atorvastatin off, we will continue to monitor the patient very closely. Discontinue sleeping pill REVIEW OF SYSTEMS: Constitutional: No documented fever, no chills, no night sweats. No weight change. No weakness, fatigue or lethargy. No daytime sleepiness. HEENT: No headache. No blurred vision or double vision, no loss of vision. No loss of Hearing, no ringing in the ears, no dizziness. No nasal drainage or congestion. No epistaxis. No sore throat. Lungs: positive for shortness of breath, occasional cough, no sputum producti on. No wheezing. Reports dyspnea with activity. Cardiovascular: No chest pain, no lower extremity edema. No palpitations. No paroxysmal nocturnal dyspnea. No orthopnea. No lightheadedness or dizziness. No syncopal episodes. Abdominal: Reports no abdominal pain. No nausea, vomiting. No diarrhea. positive for constipation. No bloody or tarry stools reports loss of appetite. Genitourinary: No dysuria, increased frequency, urgency. No urinary retention. Musculoskeletal: No myalgias. No muscle weakness, no gait dysfunction, no frequent falls. No back pain. Integumentary: No wounds, no lesions. No rash or pruritus. No unusual bruising. Significant subcutaneous emphysema Neurologic: No aphasia. No facial droop. No change in mentation. No head injury. No headache. No paralysis. No paresthesia. Psychiatric: No depression. No anxiety. No mood swings. Endocrine: No abnormal blood sugars. No weight change. PHYSICAL EXAMINATION: General: 68-year-old male sitting up in chair in no respiratory distress HEENT: Head is atraumatic, normocephalic, pupils were equal round reactive to light, sclera nonicteric, conjunctivae were pale, mucous membranes of the mouth are somewhat dry, subcutaneous emphysema all the way up to the neck and face Neck: Supple, no JVP, normal carotid upstroke bilaterally, no lymphadenopathy, subcutaneous emphysema. Chest: Decreased breath sounds at the bases, few rhonchi, right sided chest tube with subcutaneous emphysema, and the chest wall tenderness minimal intercostal retractions. Heart: First heart sound is normal, second heart sound is normal there is systolic ejection murmur 2/6 located in the left sternal border. Abdomen: Soft, nontender, nondistended, positive bowel sounds. Extremities: There is no edema no calf tenderness DP +2 bilaterally. Neurologic examination: Patient is awake alert and oriented X 3, cranial nerves II-12 appear grossly intact, muscle power were 5 out of 5 in upper extremities and 5 out of 5 in bilateral lower extremities, deep tendon reflexes normal bilaterally. ASSESSMENT AND PLAN: 1. Postoperative day #10 status post robotic-assisted laparoscopic right upper lobectomy with blebectomy of the right lower lobe, positive pathology for moderately differential squamous cell carcinoma. Continue patient on the use of incentive spirometer, increase activity, monitor the patient chest tube. Continue with DuoNeb 3 mL nebulization 4 times every day, continue Symbicort 60/4.5 g 2 puffs twice every day, continue current pain management as outlined by CTS. 2. Extensive subcutaneous emphysema due to air leak. Thoracic surgery is following we will continue to monitor, noted improvement. 3. SIADH . Continue fluid restrictions, patient did receive 1 dose of Samsca yesterday no HCTZ 3. Hypertension and hypertensive cardiovascular disease. Continue patient on valsartan 160 mg every day, Continue to monitor the patient very closely. 4. Mixed hyperlipidemia. hold off atorvastatin due to elevated liver function test. 5. ALLERGIC rhinitis. Start the patient back on loratadine 10 mg every day, may use the insulin saline spray 2 sprays initial surgery times every day as wel l as Flonase as needed patient also would be started back on his montelukast 10 mg orally bedtime. 6. Constipation. patient on Senokot at bedtime as well as MiraLAX 17 gram in 8 OZ of water daily, we will increase activity, add Milk of Magnesia with prune juice 7. Enlarged prostate. Monitor for urinary retention. 8. COPD. Continue patient on DuoNeb 3 nebulization 4 times every day, continue Symbicort 160/4.5 g 2. Position twice every day, pulmonary is following. 9. DVT prophylaxis. Continue heparin 5000 units subcutaneously every 8 hours. 10. GI prophylaxis. Continue Protonix 40 mg every day. 11. Elevated AST and inability due to drug-induced hepatitis likely rule out other pathology ultrasound of the liver would be done when the chest tube is out. Keep the patient off his statins for now. 12. Insomnia. continue Xanax and discontinue Temazepam. Objective - Vital Signs Vital signs: Vital Signs Temp 98.1 F 08/25/23 20:00 Pulse 90 08/26/23 08:12 Resp 18 08/26/23 04:00 BP 133/75 08/26/23 04:00 Pulse Ox 95 08/26/23 08:12 FiO2 21 08/26/23 08:12 Intake & Output 08/25/23 08/26/23 08/26/23 18:59 06:59 18:59 Intake Total 240 780 200 Output Total 470 1380 Balance -230 -600 200 Intake: Oral 240 780 200 Output: Chest Tube Drainage 270 330 Chest Tube Right Upper 270 330 Anterior Chest Urine 200 1050 Other: Voiding Method Toilet Toilet # Voids 1 # Bowel Movements 1 - Labs CBC & Chem 7: 08/25/23 08:09 08/25/23 08:09
--- NOTE | 2023-08-26 11:23 | P.PN ---
Subjective Progress Note Date: 08/26/23 Pulmonary consult dated 08/16/2023. 68-year-old male, well-known to me. I've been seeing the patient in the office, for a number of years, for his underlying COPD. In addition, in the past, the patient has had pulmonary nodules, which have been relatively stable, and negative on PET scan. More recently, his been in the right upper lobe, was enlarging, and the PET scan, was positive only in that area. The patient was initially seen by Dr. Parks, who requested a biopsy, and evaluation of lymph nod es. My partner did a robotic bronchoscopy, and endobronchial ultrasound on this patient, and the sampling, of the right upper lobe, with positive for squamous cell carcinoma. Sampling of the station 7/subcarinal node, was negative. The patient was then brought to the operating room, today, by Dr. Klein, for robotically-assisted right upper lobectomy, and lymph node dissection/sampling. The patient is seen today in room 350. He is on room air. He is on D5 with half-normal saline at 40 mL an hour. Today is postop day 0. The patient is doing well, without complaints. His family is in the room with him. The patient has a history of COPD, and hyperlipidemia. Current labs include a white count of 13.4, hemoglobin 13.7, hematocrit 41.7, and a normal platelet count. Sodium 135, potassium 4, chlorides 100, CO2 27, BUN 14, and creatinine 0.73. Progress note dated 08/17/2023. The patient's currently on room air. He's not receiving any IV fluids. The patient is postop day #1, status post robotically-assisted right upper lobectomy and lymph node dissection, by Dr. Klein. The patient does have anterior leak on the right side. He currently feels relatively comfortable. White count 11, hemoglobin 12.9, hematocrit 38.7, and platelet count 174,000. Sodium 129, potassium 3.7, chlorides 95, CO2 26, BUN 14, and creatinine 0.63. Pneumothorax on the right side, is less than 5%. Progress note dated 08/18/2023. The patient's currently on room air. He's not receiving any IV fluids. The patient is postop day #2, status post robotically assisted upper lobectomy and lymph node dissection, by Dr. Klein. The patient does have a leak from the chest tube. He has developed significant subcutaneous emphysema, and the right chest, right neck, and facial area. White count is 11.9, hemoglobin 12.8, hematocrit 37.9, within normal platelet count. Sodium 1:30, potassium 4.2, c hlorides 94, CO2 28, BUN 14, creatinine 0.69. Chest x-ray shows a right apical pneumothorax. There is increasing subcutaneous emphysema. Progress note dated 08/19/2023. The patient is seen again in room 350. The patient is postop day #3, status post robotically assisted right upper lobectomy, and lymph node dissection. The patient continues with an air leak, and is having significant, subcutaneous emphysema. The patient is in no respiratory distress. He is not receiving any IV fluids. Today we added back his Effexor, and increase his Xanax dose for anxiety. White count 10.9, hemoglobin 12.3, hematocrit 36.8, within normal platelet count. Sodium 129, potassium 4, chlorides 93, CO2 29, BUN 18, and creatinine 0.74. Chest x-ray shows a right chest tube be unchanged in its position, and 15-20% right apical pneumothorax, and diffuse subcutaneous emphysema. Today's evaluation of 08/20/2023, the patient is postop day #4. The patient underwent a right upper lobe resection, with lymph node dissection and this was a robotic-assisted procedure. The patient continues to have a right-sided chest tube in place and the patient has a significant ongoing care leak. No follow-up chest x-ray from today shows no evidence of any pneumothorax. Nevertheless, the patient has a continuous air leak and the patient has developed extensive subcu in his emphysema involving the face, neck, eyes, and chest and upper extremities. At the same time, the patient has achieved his voice related to the subcu in his emphysema. His current cardiac rhythm is sinus. Right-sided chest tube in place and is/2 suction. No significant shortness of breath. The patient is an obvious cause of 10.3, hemoglobin is 11.6 and a platelet count is at 239. BUN is at 21 with a creatinine of 0.6 and a sodium level is at 128. No issues with pain. No altered mentation. He remains on oxygen at room air with a pulse ox of 97%. 08/21/2023, the patient continues to have persistent air leak and extensive s ubcutaneous emphysema involving the face, neck, chest, and extremities. Blow holes were created with some limited success. Chest tube remains in place. No evidence of any pneumothorax. No significant respiratory distress and the patient remains on O2 at 2 L. Using the senna spirometer. Pulling approximately 1.2 L on his incentive spirometer. His resting comfortably in bed. Overnight, he felt slightly more short of breath. This morning he is feeling comfortable. No cough. No sputum production. Surgical 1 site is dry clean and intact and the patient is currently postoperative day #5 following a robotic-assisted thoracoscopic right upper lobe resection and the patient also had bleb resection from the right lower lobe area. Labs show a white cell count of 10, hemoglobin 11.4, sodium is at 128, BUN is at 19 with a creatinine of 0.7. Remains on subcutaneous heparin for DVT prophylaxis. Remains on tramadol for pain control 08/22/2023, the patient is being seen in follow-up. The patient is postop day #6 following a right upper lobe lobectomy. Continues to have air leak through the right-sided chest tube. Continues to have significant amount of subcu in his emphysema although this could've slightly subsided compared to yesterday. The patient remained on 2 L of Oxymizer nasal cannula. Pulse ox in the order of 95%. Continues to use incentive spirometer. Denies having any significant shortness of breath. Has some chest discomfort at the site of the chest tube insertion. Blow holes were inserted.chest x-ray was reviewed. There is evidence of excessive subcutaneous emphysema. No evidence of any pneumothorax.The blood work showed a WBC count of 10, hemoglobin of 11.4, sodium is at 128, BUN is at 19 with a creatinine of 0.72. No other significant events otherwise over the past 24 hours. Cardiothoracic surgeries on the case. The patient remains on DuoNeb updrafts. Rest of the medications remain unchanged. 08/23/2023, seeing the patient for a follow-up. The patient is postop day #7. There is still persistent air leak. He is currently on waterseal. Much improved in terms of his subcutaneous emphysema. His eyes are open and he is able to see adequately. The swelling in his neck area and the face has improved significantly. The chest x-ray shows some residual pneumothorax in order of 30%. This is an apical pneumothorax. There is also supplemented his emphysema still present. The patient is ambulating. The patient using the [employer] s pirometer. He is only on 2 L of oxygen by nasal cannula. Sodium level is at 124, potassium levels at 4.7, BUN is at 20 with a creatinine of 0.4. The white cell count is at 12.8 with a hemoglobin of 11.5. He has no specific complaints otherwise. He is on Symbicort. He is also on DuoNeb nebulized treatments [id number]. On 08/24/2023, the patient is postop day #8. Continues to have an air leak and total amount of output from the chest tube has been 225 mL over the past 8 hours. Chest x-ray shows no evidence of any pneumothorax. This appears emphysema and clinically the patient also subcu emphysema. The patient has also developed hyponatremia. He is receiving no fluids. In fact, he is on fluid restriction. The patient had blow holes placed in the upper chest with a one VAC applied to the area. Oxygenation is stable and the patient is currently on 2 L of oxygen by nasal cannula with a pulse ox of 94%. No other complaints otherwise. No altered mentation. Family is at the bedside. The chest tube is in place to low suction at -10 cm of water. On 08/25/2023, the patient is postop day #9. Clinically stable. Continues emphysema stable. Chest x-ray shows no pneumothorax. There is positive air leak and the chest tube is attached to waterseal. His condition is essentially unchanged. His sodium level is at 124. The white cell cause of 12.4. On today's evaluation of 08/26/2023, the patient portably #10. Chest tube is still in place. No evidence of any pneumothorax. He has bilateral subcutaneous emphysema which is essentially stable. No interval worsening shortness of breath. Clinically stable. The right-sided chest tube is attached to waterseal. There is persistent air leak. The plan is to monitor this patient conservatively. He remains on bronchodilators. No other new complaints otherwise for now. Is ambulating. Sodium level is currently at 124, WBC was a 12.4, hemoglobin 11.6. Objective - Vital Signs Vital signs: Vital Signs Temp 98.1 F 08/25/23 20:00 Pulse 90 08/26/23 08:12 Resp 18 08/26/23 04:00 BP 133/75 08/26/23 04:00 Pulse Ox 95 08/26/23 08:12 FiO2 21 08/26/23 08:12 Intake & Output 08/25/23 08/26/23 08/26/23 18:59 06:59 18:59 Intake Total 240 780 200 Output Total 470 1380 Balance -230 -600 200 Intake: Oral 240 780 200 Output: Chest Tube Drainage 270 330 Chest Tube Right Upper 270 330 Anterior Chest Urine 200 1050 Other: Voiding Method Toilet Toilet # Voids 1 # Bowel Movements 1 - Exam CONSTITUTIONAL: Appears somewhat comfortable, cooperative, no acute distress, the patient has subcutaneous emphysema RESPIRATORY: Lungs sounds diminished bilaterally, right > left. Respirations even, nonlabored. Currently on room air oxygen with a pulse ox of 97%. Able to achieve 2500 mL on incentive spirometry. Strong cough. The patient has blow holes over the anterior chest area with a wound VAC placed CARDIOVASCULAR: S1, S2 present. Regular rate and rhythm, sinus rhythm on telemetry. Palpable peripheral pulses bilaterally. No edema present GASTROINTESTINAL: Abdomen soft, nontender, nondistended. Active bowel sounds present 4 quadrants. Tolerating diet GENITOURINARY: Continues to void INTEGUMENTARY: Skin is warm and dry. Subcutaneous emphysema present to chest wall, neck, extending up to entire face NEUROLOGIC: Cranial nerves II through XII intact MUSKULOSKELETAL: Able to move all extremities, strength equal bilaterally PSYCHIATRIC: Alert and oriented to person place and time, appropriate affect, intact judgment and insight INVASIVE LINES AND TUBES: Right pleural chest tubes present and connected to wall suction, air leak present, there is also subcutaneous emphysema along the chest wall, neck and chest area. He is currently waterseal. - Labs CBC & Chem 7: 08/25/23 08:09 08/25/23 08:09 Assessment and Plan Plan: 8 Lung cancer, squamous cell carcinoma right upper lobe of the lung, status post robotic assisted thoracoscopic right upper lobectomy, blebectomy right lower lobe, the patient is postop day #9 , residual pneumothorax on the right and There is still persistent positive air leak through the chest tube. He is currently advised to waterseal. The chest x-ray showed no evidence of any pneumothorax The patient had early stage TI be N0 M0 disease, squamous cell ca rcinoma without lymph node involvement. The margins were also clear. Right apical pneumothorax , chest tube is in good location and the patient continues to have air leak, he is on waterseal, no interval change in today's chest x-ray and there is no evidence of any pneumothorax. Extensive subcu emphysema involving the face, neck, and chest, and the patient had blowhole constructed over the anterior chest area with some improvement Positive air leak post right upper lobe resection the patient is a right-sided chest tube is still in place. 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 The patient may benefit from fluid restriction and [facility] Encourage incentive spirometry use 10 times every hour while awake. The patient will be kept in the hospital. The patient is currently on 2 L of oxygen by nasal cannula. Sodium level is stable at 124. The findings on the case. We'll continue to follow
[2023-08-26 12:37] LABS: Basophils # (A) 0.1 k/uL (0-0.2); Basophils % (A) 0 %; Eosinophils # (A) 0.2 k/uL (0-0.7); Eosinophils % (A) 1 %; HCT 37.8 % (39.0-53.0); HGB 12.3 gm/dL (13.0-17.5); Lymphocytes # (A) 1.1 k/uL (1.0-4.8); Lymphocytes % (A) 7 %; MCH 29.5 pg (25.0-35.0); MCHC 32.4 g/dL (31.0-37.0); MCV 90.9 fL (80.0-100.0); Mean Platelet Volume 6.9; Monocytes # (A) 0.9 k/uL (0-1.0); Monocytes % (A) 6 %; Neutrophils # (A) 13.8 k/uL (1.3-7.7); Neutrophils % (A) 85 %; Platelet Count 558 k/uL (150-450); RBC 4.16 m/uL (4.30-5.90); RDW 12.8 % (11.5-15.5); WBC 16.2 k/uL (3.8-10.6)
[2023-08-26 12:53] LABS: ALT 146 U/L (4-49); AST 116 U/L (17-59); African American GFR (CKD) >90 (>60 ml/min/1.73 sqM); Albumin 3.1 g/dL (3.5-5.0); Alkaline Phosphatase 133 U/L (38-126); Anion Gap 9 mmol/L; Blood Urea Nitrogen 16 mg/dL (9-20); Calcium 9.1 mg/dL (8.4-10.2); Carbon Dioxide 26 mmol/L (22-30); Chloride 92 mmol/L (98-107); Glucose 128 mg/dL (74-99); Magnesium 2.3 mg/dL (1.6-2.3); Non-African American GFR(CKD) 88 (>60 ml/min/1.73 sqM); Potassium 4.6 mmol/L (3.5-5.1); Sodium 127 mmol/L (137-145); Total Bilirubin 0.8 mg/dL (0.2-1.3); Total Protein 5.6 g/dL (6.3-8.2)
[2023-08-26] MEDS ORDERED: TOLVAPTAN 15 MG TABLET PO ONE (14:00)
[2023-08-26] MEDS: MAGNESIUM HYDROXIDE 2,400 MG/30 ML CUP PO PRN (16:34)
[2023-08-26] MEDS: MONTELUKAST 10 MG TAB PO SCH (19:55)
[2023-08-27] MEDS: PANTOPRAZOLE 40 MG TABLET PO SCH (06:27)
--- NOTE | 2023-08-27 07:31 | P.PN ---
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 Previous medical history of COPD, previous tobacco dependence, hypertension, hyperlipidemia POD #11 robotic assisted thoracoscopic right upper lobectomy, blebectomy right lower lobe Subcutaneous emphysema present, expected given type of surgery, status post creation of blow hole Prolonged air leak Hyponatremia secondary to SIADH from underlying malignancy The patient was seen and examined this morning sitting up in a recliner in the cardiac stepdown unit in no acute distress. States he does feel better every day although he is tired of being in hospital. States pain is controlled on current medication regimen, denies current shortness of breath. Subcutaneous emphysema appears much improved. Patient is currently on room air with oxygen saturation in the mid 90s. Right pleural chest tube remains to water seal, air leak remains present with forceful coughing. Able to achieve 2000 mL on his incentive spirometry. Objective - Vital Signs Vital signs: Vital Signs Temp 98 F 08/27/23 04:00 Pulse 95 08/27/23 04:00 Resp 16 08/27/23 04:00 BP 113/72 08/27/23 04:00 Pulse Ox 93 L 08/27/23 04:00 FiO2 21 08/26/23 08:12 Intake & Output 08/26/23 08/27/23 08/27/23 18:59 06:59 18:59 Intake Total 425 750 Output Total 130 160 Balance 295 590 Weight 91.3 kg Intake: Oral 425 750 Output: Chest Tube Drainage 80 160 Chest Tube Right Upper 80 160 Anterior Chest Drainage 50 Right Lateral Chest 50 Other: Voiding Method Toilet # Voids 1 2 # Bowel Movements 1 - Exam CONSTITUTIONAL: Appears comfortable, cooperative, no acute distress RESPIRATORY: Lungs sounds diminished bilaterally. Respirations even, nonlabored. Currently on room air with oxygen saturation 93%. Able to achieve 2000 mL on incentive spirometry. Strong cough. CARDIOVASCULAR: S1, S2 present. Regular rate and rhythm, sinus rhythm on telemetry. Palpable peripheral pulses bilaterally. No edema present. No calf pain or tenderness noted. SCDs present. GASTROINTESTINAL: Abdomen soft, nontender, nondistended. Active bowel sounds present 4 quadrants. Tolerating diet. Positive bowel movement. GENITOURINARY: Continues to void clear, yellow urine INTEGUMENTARY: Skin is warm and dry. Subcutaneous emphysema minimally present to chest, neck, face, significantly decreased. Wound VAC in place to blow holes NEUROLOGIC: Cranial nerves II through XII intact MUSKULOSKELETAL: Able to move all extremities, strength equal bilaterally, gait normal PSYCHIATRIC: Alert and oriented to person place and time, appropriate affect, intact judgment and insight INVASIVE LINES AND TUBES: Right pleural chest tubes present to waterseal, air leak present with forceful coughing, 120 mL serosanguineous drainage overnight, 250 mL in the last 24 hours - Allied health notes Allied health notes reviewed: nursing - Labs CBC & Chem 7: 08/26/23 11:27 08/26/23 11:27 Labs: Abnormal Lab Results - Last 24 Hours (Table) 08/26/23 08/26/23 Range/Units 11:27 11:27 WBC 16.2 H (3.8-10.6) k/uL RBC 4.16 L (4.30-5.90) m/uL Hgb 12.3 L (13.0-17.5) gm/dL Hct 37.8 L (39.0-53.0) % Plt Count 558 H (150-450) k/uL Neutrophils # 13.8 H (1.3-7.7) k/uL Sodium 127 L (137-145) mmol/L Chloride 92 L (98-107) mmol/L Glucose 128 H (74-99) mg/dL AST 116 H (17-59) U/L ALT 146 H (4-49) U/L Alkaline Phosphatase 133 H (38-126) U/L Total Protein 5.6 L (6.3-8.2) g/dL Albumin 3.1 L (3.5-5.0) g/dL - Imaging and Cardiology Chest x-ray: image reviewed Assessment and Plan Assessment: Lung cancer, 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 Klein, status post second blowhole creation by Dr. Parks Prolonged air leak Hyponatremia, secondary to SIADH, secondary to underlying malignancy Plan: Continue chest tube placed to water seal, monitor for air leak resolution, monitor drainage Keep wound VAC in place for now Encourage incentive spirometry use 10 times every hour while awake. Bronchodilators per pulmonology Will monitor daily labs and x-rays GI/DVT prophylaxis Increase activity, ambulate as tolerated Continue home medications Pain control with current medication regimen More recommendations to follow
[2023-08-27] MEDS: SYMBICORT 160-4.5 MCG INHALER INHALATION SCH (07:53)
[2023-08-27] MEDS: IPRATROPIUM-ALBUTEROL 3 ML NEB IH SCH ×4 (07:53→21:55)
[2023-08-27] MEDS: VALSARTAN 160 MG TAB PO SCH (08:03)
[2023-08-27] MEDS: SENNOSIDES-DOCUSATE SODIUM 1 EACH TAB PO SCH (08:03)
[2023-08-27] MEDS: VENLAFAXINE HCL ER 37.5 MG CAP PO SCH (08:03)
[2023-08-27] MEDS: HEPARIN SODIUM,PORCINE 5,000 UNIT/ML 1 ML VIAL SQ SCH ×2 (08:03→17:22)
[2023-08-27] MEDS: MULTIVITAMINS, THERA 1 EACH TAB PO SCH (08:03)
[2023-08-27] MEDS: polyethylene glycoL 3350 17 GM POWD.PACK PO SCH (08:04)
--- NOTE | 2023-08-27 08:43 | XR ---
EXAMINATION TYPE: XR chest 2V DATE OF EXAM: 08/27/2023 COMPARISON: 08/26/2023 TECHNIQUE: PA and lateral views submitted. HISTORY: Postop FINDINGS: Right-sided chest tube with approximately 25% pneumothorax. Right- sided consolidation and hilar prom inence with volume loss stable. Left lung clear. Severe diffuse subcutaneous emphysema. Bilateral reinaldo ulder arthropathy. Small amount of pneumomediastinum suspected. Nodular area of soft tissue attenuati on in the left upper lobe may be artifactual structures recommend follow-up x-ray short-term basis. IMPRESSION: 1. Mild interval progression in size pneumothorax now measuring 25%. 2. There is a large area of nodular consolidation in the left upper lobe. This could be superficial l ocation rather than representing interval consolidation. Short-term follow-up chest x-ray recommended
--- NOTE | 2023-08-27 11:23 | P.PN ---
Subjective Patient is seen for follow-up for hyponatremia. Status post Samsca and sodium is improved to 127 as of yesterday. No significant complaints today. Tolerating oral intake. Objective - Vital Signs Vital signs: Vital Signs Temp 97.8 F 08/27/23 08:00 Pulse 101 H 08/27/23 08:06 Resp 18 08/27/23 08:06 BP 103/71 08/27/23 08:00 Pulse Ox 92 L 08/27/23 07:53 FiO2 21 08/26/23 08:12 Intake & Output 08/26/23 08/27/23 08/27/23 18:59 06:59 18:59 Intake Total 425 750 240 Output Total 130 160 Balance 295 590 240 Weight 91.3 kg Intake: Oral 425 750 240 Output: Chest Tube Drainage 80 160 Chest Tube Right Upper 80 160 Anterior Chest Drainage 50 Right Lateral Chest 50 Other: Voiding Method Toilet Toilet # Voids 1 2 1 # Bowel Movements 1 - Exam Awake, comfortable, no acute distress Examination of the heart S1 and S2 Examination of the lungs bilateral breath sounds are heard right chest tube noted Abdomen is soft obese Examination lower extremity shows no significant edema BIOCHEMISTRY TECHNICIAN exam grossly intact - Labs CBC & Chem 7: 08/26/23 11:27 08/26/23 11:27 Labs: Abnormal Lab Results - Last 24 Hours (Table) 08/26/23 08/26/23 Range/Units 11:27 11:27 WBC 16.2 H (3.8-10.6) k/uL RBC 4.16 L (4.30-5.90) m/uL Hgb 12.3 L (13.0-17.5) gm/dL Hct 37.8 L (39.0-53.0) % Plt Count 558 H (150-450) k/uL Neutrophils # 13.8 H (1.3-7.7) k/uL Sodium 127 L (137-145) mmol/L Chloride 92 L (98-107) mmol/L Glucose 128 H (74-99) mg/dL AST 116 H (17-59) U/L ALT 146 H (4-49) U/L Alkaline Phosphatase 133 H (38-126) U/L Total Protein 5.6 L (6.3-8.2) g/dL Albumin 3.1 L (3.5-5.0) g/dL Assessment and Plan Assessment: 1. Hyponatremia. Patient appears euvolemic. Suspect SIADH post surgery. Sodium level 127 yesterday. Currently off of thiazide diuretic. Urine sodium less than 20 and urine osmolality 320. TSH normal. 2. Lung cancer status post right upper lobectomy 08/08/2023. 3. Benign hypertension. Controlled. 4. History of COPD. Plan: Check sodium today Maintain fluid restriction Encourage increased oral protein intake
[2023-08-27 12:50] LABS: Basophils # (A) 0.1 k/uL (0-0.2); Basophils % (A) 0 %; Eosinophils # (A) 0.3 k/uL (0-0.7); Eosinophils % (A) 2 %; HGB 12.7 gm/dL (13.0-17.5); Lymphocytes # (A) 1.4 k/uL (1.0-4.8); Lymphocytes % (A) 8 %; MCH 29.2 pg (25.0-35.0); MCHC 31.6 g/dL (31.0-37.0); MCV 92.3 fL (80.0-100.0); Mean Platelet Volume 6.5; Monocytes # (A) 0.8 k/uL (0-1.0); Monocytes % (A) 5 %; Neutrophils # (A) 14.4 k/uL (1.3-7.7); Neutrophils % (A) 84 %; Platelet Count 588 k/uL (150-450); RBC 4.34 m/uL (4.30-5.90); RDW 13.1 % (11.5-15.5); WBC 17.1 k/uL (3.8-10.6)
[2023-08-27 13:06] LABS: ALT 137 U/L (4-49); AST 96 U/L (17-59); African American GFR (CKD) >90 (>60 ml/min/1.73 sqM); Albumin 3.2 g/dL (3.5-5.0); Alkaline Phosphatase 132 U/L (38-126); Anion Gap 8 mmol/L; Blood Urea Nitrogen 18 mg/dL (9-20); Calcium 9.3 mg/dL (8.4-10.2); Carbon Dioxide 28 mmol/L (22-30); Chloride 91 mmol/L (98-107); Glucose 106 mg/dL (74-99); Magnesium 2.6 mg/dL (1.6-2.3); Non-African American GFR(CKD) >90 (>60 ml/min/1.73 sqM); Potassium 4.7 mmol/L (3.5-5.1); Sodium 127 mmol/L (137-145); Total Bilirubin 0.7 mg/dL (0.2-1.3); Total Protein 5.9 g/dL (6.3-8.2)
--- NOTE | 2023-08-27 14:59 | P.PN ---
Subjective Progress Note Date: 08/27/23 Principal diagnosis: Squamous cell lung cancer, status post robotic-assisted thoracoscopic right upper lobectomy postoperative day #10 On 08/24/2023, the patient is postop day #8. Continues to have an air leak and total amount of output from the chest tube has been 225 mL over the past 8 hours. Chest x-ray shows no evidence of any pneumothorax. This appears emphysema and clinically the patient also subcu emphysema. The patient has also developed hyponatremia. He is receiving no fluids. In fact, he is on fluid restriction. The patient had blow holes placed in the upper chest with a one VAC applied to the area. Oxygenation is stable and the patient is currently on 2 L of oxygen by nasal cannula with a pulse ox of 94%. No other complaints otherwise. No altered mentation. Family is at the bedside. The chest tube is in place to low suction at -10 cm of water. On 08/25/2023, the patient is postop day #9. Clinically stable. Continues emphysema stable. Chest x-ray shows no pneumothorax. There is positive air leak and the chest tube is attached to waterseal. His condition is essentially unchanged. His sodium level is at 124. The white cell cause of 12.4. On today's evaluation of 08/26/2023, the patient portably #10. Chest tube is still in place. No evidence of any pneumothorax. He has bilateral subcutaneous emphysema which is essentially stable. No interval worsening shortness of breath. Clinically stable. The right-sided chest tube is attached to waterseal. There is persistent air leak. The plan is to monitor this patient conservatively. He remains on bronchodilators. No other new complaints otherwise for now. Is ambulating. Sodium level is currently at 124, WBC was a 12.4, hemoglobin 11.6. Patient was reevaluated today on 08/27/2023, postoperative day #11, patient continues to have chest tube in place, continues to have persistent air leak, remains on bronchodilators and incentive spirometry he is on room air, and not in any distress. Subcutaneous emphysema seems to be less. Air leak remains present and his right pleural chest tube placed to waterseal Objective - Vital Signs Vital signs: Vital Signs Temp 97.8 F 08/27/23 08:00 Pulse 90 08/27/23 11:23 Resp 17 08/27/23 11:23 BP 98/66 08/27/23 11:23 Pulse Ox 94 L 08/27/23 11:23 FiO2 21 08/26/23 08:12 Intake & Output 08/26/23 08/27/23 08/27/23 18:59 06:59 18:59 Intake Total 425 750 720 Output Total 130 160 Balance 295 590 720 Weight 91.3 kg Intake: Oral 425 750 720 Output: Chest Tube Drainage 80 160 Chest Tube Right Upper 80 160 Anterior Chest Drainage 50 Right Lateral Chest 50 Other: Voiding Method Toilet Toilet # Voids 1 2 1 # Bowel Movements 1 - Exam Physical Exam: Revealed 68-year-old white male in no distress. Head: Atraumatic, normocephalic. HEENT:[Neck is supple.] [No neck masses.] [No thyromegaly.] [No JVD.] Chest: [Clear throughout, no crackles, no rhonchi, no wheezes.] Right pleural chest tube noted, present it is warm to water seal, air leak noted. Cardiac Exam: [Normal S1 and S2, no S3 gallop, no murmur.] Abdomen: [Soft, nontender, no megaly, no rebound, no guarding, normal bowel sounds.] Extremities: [No clubbing, no edema, no cyanosis.] Neurological Exam: [No focal neurologic deficit.] Alert oriented 3 Psychiatric: Normal mood, affect and normal status exam. Skin: No rash - Labs CBC & Chem 7: 08/27/23 11:43 08/27/23 11:43 Labs: Abnormal Lab Results - Last 24 Hours (Table) 08/27/23 08/27/23 Range/Units 11:43 11:43 WBC 17.1 H (3.8-10.6) k/uL Hgb 12.7 L (13.0-17.5) gm/dL Plt Count 588 H (150-450) k/uL Neutrophils # 14.4 H (1.3-7.7) k/uL Sodium 127 L (137-145) mmol/L Chloride 91 L (98-107) mmol/L Creatinine 0.60 L (0.66-1.25) mg/dL Glucose 106 H (74-99) mg/dL Magnesium 2.6 H (1.6-2.3) mg/dL AST 96 H (17-59) U/L ALT 137 H (4-49) U/L Alkaline Phosphatase 132 H (38-126) U/L Total Protein 5.9 L (6.3-8.2) g/dL Albumin 3.2 L (3.5-5.0) g/dL Assessment and Plan Assessment: Impression: Lung cancer, squamous cell carcinoma right upper lobe of the lung, status post robotic assisted thoracoscopic right upper lobectomy, blebectomy right lower lobe, pathology consistent with invasive moderately differentiated squamous cell carcinoma, postoperative day #11 History of COPD Ex-smoker Hypertension Hyperlipidemia Subcutaneous emphysema and pneumothorax, expected, status post blow-hole creation by Dr. Klein, status post second blowhole creation by Dr. Parks Prolonged air leak Hyponatremia, secondary to SIADH, secondary to underlying malignancy Recommendation: Continue chest tube to waterseal Continue to monitor the drainage Continue wound VAC in place Continue incentive spirometry Continue GI and DVT prophylaxis Continue bronchodilators Continue pain control management We continue to follow Time with Patient: Less than 30
--- NOTE | 2023-08-27 16:12 | P.PN ---
Subjective Progress Note Date: 08/27/23 HISTORY OF PRESENT ILLNESS: This is a 68-year-old male one of my patient and the patient medical history significant for COPD, hypertension and hypertensive cardiovascular disease, hyperlipidemia, history of ALLERGIC rhinitis, remote history of tobacco use and dependence he smoked at least 3 pack every day for many years and quit when he was 43-year-old,, patient has been followed by pulmonary medicine Dr. Rendon on a regular basis, he had pulmonary nodules history, he has been having a computed tomography scan of the chest and PET scan and regular basis until recentlyhis PET scan came back positive patient underwent robotic bronchoscopy with ultrasound of the bronchial tree by Dr. 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 Landon underwent robotic-assisted thoracoscopy right upper lobectomy with lumpectomy of the right lower lobe, and he was admitted to telemetry unit, he was seen and evaluated in his room, appears to be somewhat short of breath, he does have a chest tube in the right side of the chest, draining quite a bit of serosanguineous material, patient appears to be quite short of breath and debility, he did appear to have a significant subcutaneously emphysema as well, Dr. Klein evaluated the patient and the patient has been stable we will follow the patient along with pulmonary as well as thoracic surgery. 08/17: Patient is sitting up in chair continues to have some pain in the right side, he continues to be hospitalized, he has not had a bowel movement, is urinating very well, Senokot and MiraLAX were added, increase activity, continue to monitor the patient very closely, continue DuoNeb, continue Symbicort, we will follow-up the patient very closely, subcutis emphysema spirometer to prevent yesterday. Patient will plan to see the hospital for another 1-2 days. 08/18: Patient sitting up in bed in no apparent distress, he denies any chest pain, he continues to have some cough, no phlegm production, he continues to have a chest tube in the second, subcutaneous emphysema that has progressed and now is all the way to his neck and face , he has no abdominal pain, nausea or vomiting, did have a small bowel movement today, he denies any unusual symptom at this time except for dyspnea on exertion. 08/19: Patient is sitting up in chair in no distress, he continues to have significant subcutaneous emphysema involving his right upper chest neck face, no respiratory distress, has been followed by plastic surgery, chest tube still in place, -20 cm of water, patient has not had any abdominal pain, nausea or vomiting, he did not have a bowel movement as of yet increase activity, continue to use the incentive spirometer. 08/20: Repeat chest x-ray this morning reveals stable 30% right-sided pneumothorax and diffuse subcutaneous emphysema. Patient remains with subcutaneous emphysema, chest tube is in place. Patient is performing incentive spirometry and reaching 2000 mL. Heart rate is in the 70s to 90s, blood pressure 12/12/1977, pulse ox 94% on 2 L nasal cannula. The blood work reveals WBC 10.3, hemoglobin 11.6. Sodium is 128, potassium 4.5, chloride 93, CO2 27, BUN 21 creatinine 0.68. AST 74 and ALT 56. Pathology report is pending. 08/21: Heart rate is 100 104, blood pressure 134/75, afebrile, pulse ox 94% on 2 L. Repeat blood work reveals sodium of 128, potassium 4.3, CO2 94, BUN 19 creatinine 0.72. WBC 10, hemoglobin 11.4, platelet count 294. Repeat chest x- ray revealed reports approximate 5-10% right pneumothorax with severe diffuse bilateral subcutaneous emphysema. Biopsy report right upper lobectomy invasive moderately differential squamous cell carcinoma, margins negative. 6 lymph nodes negative. Right upper lobe bleb excision benign lung parenchyma. Right pleural chest tubes remain in place to wall suction. Patient continues to have significant subcutaneous emphysema. 08/22: Repeat chest x-ray reveals stable severe subcutaneous emphysema, possibly 5-10% right pneumothorax. Patient remains afebrile, heart rate in the 60s to 100, blood pressure 93/62, pulse ox 94% on room air. Patient continues to have significant subcutaneous emphysema and cardiothoracic surgeon did additional left sided blow hole to assist in resolution of subcutaneous emphysema. Drainage from chest tube. Patient is reaching 2000 mL's on incentive spirometry. He still feels shortness of breath. HCTZ discontinued. 08/23: Repeat chest x-ray reveals right-sided chest tube with right-sided pneumothorax 30%. Apical pleural distance 5.5 cm versus 4.6 cm previously. Extensive subcutaneous emphysema. Suspected pneumomediastinum. Patient is on 2 L nasal cannula with pulse ox 100%. Heart rate is running in the 80s and 90s, blood pressure 109/68. Patient remains afebrile. Patient continues to have persistent air leak and currently on water seal. He has had improvement of the subcutaneous emphysema and has bilateral blow holes. Repeat blood work reveals sodium is 124, potassium 4.7, chloride 92, CO2 22. Creatinine 0.47. WBC 12.8 and hemoglobin 11.7. 08/24: A consult for nephrology was admitted for hyponatremia with recommen dations for fluid restriction 1200 mL, bladder scan, sodium chloride tablet 1 today, check serum and urine osmolality and urine sodium, check TSH. He may consider ordering Samsca for the patient. Repeat sodium today is 122, chloride 87, potassium 4.5, BUN 17 creatinine 0.55. Blood sugar 100. WBC 12, hemoglobin 0.3, platelet count 400. Patient remains afebrile, heart rate 100, blood pressure 118/73, pulse ox 94% on room air. Patient continues to have some shortness of breath. Occasional cough and phlegm. No fever or chills. He is having normal BMS. He walked short distance today with shortness of breath. Chest tube is to wall suction. Repeat chest x-ray reveals mild interval reduction in size of pneumothorax. 08/25: Patient is sitting up in his recliner his feeling a bit better today, he continues to have his chest tube in place, he continues to have significant drainage from it, he also continued to have a to [place] the chest wall for the subcutaneous emphysema that appears to be a bit better today than yesterday, he did not sleep very well last night he is asking for a sleeping pill as his Xanax is not doing the trick for him, he has a good bowel movement he ate his br eakfast, breast surgeries following. 08/26: Patient is sitting up in his chair his is giving him a sponge graft, he appears to be somewhat depressed today, he continues to be on venlafaxine, his sodium was 124, did receive Samsca yesterday repeat a sodium 70 the time of dictation, continue to monitor the patient very closely, continue fluid restriction, liver enzymes are elevated would need an ultrasound of the abdomen with the chest resolved, keep atorvastatin off, we will continue to monitor the patient very closely. Discontinue sleeping pill 08/27: Today, sodium is improved to 127 he is status post Samsca and sodium. Patient is maintained on fluid restriction and encouraged to increase oral protein intake. Other lab work reveals WBC of 17.1 and hemoglobin 12.7, platelet count 588. Potassium 4.7, chloride 91, CO2 28, BUN 18 creatinine 0.6. Liver enzymes are elevated with AST 96, ALT 137, alkaline phosphatase 132. Repeat chest x-ray reveals mild interval progression in size no orthotics now measuring 25%. Large area of nodular consolidation in the left upper lobe. This could be superficial location rather than representing interval consolidation. The patient is now postop day #11 and continues to have a persistent air leak. Subcutaneous emphysema is improving. He has a right pleural chest tube to waterseal. Blood pressure 116/71, pulse ox 94% on room air, heart rate in the 90s. REVIEW OF SYSTEMS: Constitutional: No documented fever, no chills, no night sweats. No weight change. No weakness, fatigue or lethargy. No daytime sleepiness. HEENT: No headache. No blurred vision or double vision, no loss of vision. No loss of Hearing, no ringing in the ears, no dizziness. No nasal drainage or congestion. No epistaxis. No sore throat. Lungs: positive for shortness of breath, occasional cough, no sputum production. No wheezing. Reports dyspnea with activity. Cardiovascular: No chest pain, no lower extremity edema. No palpitations. No paroxysmal nocturnal dyspnea. No orthopnea. No lightheadedness or dizziness. No syncopal episodes. Abdominal: Reports no abdominal pain. No nausea, vomiting. No diarrhea. positive for constipation. No bloody or tarry stools reports loss of appetite. Genitourinary: No dysuria, increased frequency, urgency. No urinary retention. Musculoskeletal: No myalgias. No muscle weakness, no gait dysfunction, no frequent falls. No back pain. Integumentary: No wounds, no lesions. No rash or pruritus. No unusual bruising. Significant subcutaneous emphysema Neurologic: No aphasia. No facial droop. No change in mentation. No head injury. No headache. No paralysis. No paresthesia. Psychiatric: Reports depression. No anxiety. No mood swings. Endocrine: No abnormal blood sugars. No weight change. PHYSICAL EXAMINATION: General: 68-year-old male sitting up in chair in no respiratory di stress HEENT: Head is atraumatic, normocephalic, pupils were equal round reactive to light, sclera nonicteric, conjunctivae were pale, mucous membranes of the mouth are somewhat dry, subcutaneous emphysema all the way up to the neck and face Neck: Supple, no JVP, normal carotid upstroke bilaterally, no lymphadenopathy, subcutaneous emphysema. Chest: Decreased breath sounds at the bases, few rhonchi, right sided chest tube with subcutaneous emphysema, and the chest wall tenderness minimal intercostal retractions. Heart: First heart sound is normal, second heart sound is normal there is systolic ejection murmur 2/6 located in the left sternal border. Abdomen: Soft, nontender, nondistended, positive bowel sounds. Extremities: There is no edema no calf tenderness DP +2 bilaterally. Neurologic examination: Patient is awake alert and oriented X 3, cranial nerves II-12 appear grossly intact, muscle power were 5 out of 5 in upper extremities and 5 out of 5 in bilateral lower extremities, deep tendon reflexes normal bilaterally. ASSESSMENT AND PLAN: 1. Postoperative day #11 status post robotic-assisted laparoscopic right upper lobectomy with blebectomy of the right lower lobe, positive pathology for moderately differential squamous cell carcinoma. Continue patient on the use of incentive spirometer, increase activity, monitor the patient chest tube. Continue with DuoNeb 3 mL nebulization 4 times every day, continue Symbicort 60/4.5 g 2 puffs twice every day, continue current pain management as outlined by CTS. 2. Extensive subcutaneous emphysema due to air leak. Thoracic surgery is following we will continue to monitor, noted improvement. 3. SIADH . Continue fluid restrictions, patient did receive 1 dose of Samsca yesterday no HCTZ 3. Hypertension and hypertensive cardiovascular disease. Continue patient on valsartan 160 mg every day, Continue to monitor the patient very closely. 4. Mixed hyperlipidemia. hold off atorvastatin due to elevated liver function test. 5. ALLERGIC rhinitis. Start the patient back on loratadine 10 mg every day, may use the insulin saline spray 2 sprays initial surgery times every day as well as Flonase as needed patient also would be started back on his montelukast 10 mg orally bedtime. 6. Constipation. patient on Senokot at bedtime as well as MiraLAX 17 gram in 8 OZ of water daily, we will increase activity, add Milk of Magnesia with prune juice 7. Enlarged prostate. Monitor for urinary retention. 8. COPD. Continue patient on DuoNeb 3 nebulization 4 times every day, continue Symbicort 160/4.5 g 2. Position twice every day, pulmonary is following. 9. DVT prophylaxis. Continue heparin 5000 units subcutaneously every 8 hours. 10. GI prophylaxis. Continue Protonix 40 mg every day. 11. Elevated AST and inability due to drug-induced hepatitis likely rule out other pathology ultrasound of the liver would be done when the chest tube is out. Keep the patient off his statins for now. 12. Insomnia. continue Xanax and discontinue Temazepam. Impression and plan of care have been directed as dictated by the signing physician. Myrtle Giodrano nurse practitioner acting as scribe for signing phys ician. Objective - Vital Signs Vital signs: Vital Signs Temp 97.8 F 08/27/23 08:00 Pulse 91 08/27/23 15:25 Resp 18 08/27/23 15:25 BP 116/71 08/27/23 15:25 Pulse Ox 94 L 08/27/23 11:23 FiO2 21 08/26/23 08:12 Intake & Output 08/26/23 08/27/23 08/27/23 18:59 06:59 18:59 Intake Total 425 750 720 Output Total 130 160 Balance 295 590 720 Weight 91.3 kg Intake: Oral 425 750 720 Output: Chest Tube Drainage 80 160 Chest Tube Right Upper 80 160 Anterior Chest Drainage 50 Right Lateral Chest 50 Other: Voiding Method Toilet Toilet # Voids 1 2 1 # Bowel Movements 1 - Labs CBC & Chem 7: 08/27/23 11:43 08/27/23 11:43 Labs: Abnormal Lab Results - Last 24 Hours (Table) 08/27/23 08/27/23 Range/Units 11:43 11:43 WBC 17.1 H (3.8-10.6) k/uL Hgb 12.7 L (13.0-17.5) gm/dL Plt Count 588 H (150-450) k/uL Neutrophils # 14.4 H (1.3-7.7) k/uL Sodium 127 L (137-145) mmol/L Chloride 91 L (98-107) mmol/L Creatinine 0.60 L (0.66-1.25) mg/dL Glucose 106 H (74-99) mg/dL Magnesium 2.6 H (1.6-2.3) mg/dL AST 96 H (17-59) U/L ALT 137 H (4-49) U/L Alkaline Phosphatase 132 H (38-126) U/L Total Protein 5.9 L (6.3-8.2) g/dL Albumin 3.2 L (3.5-5.0) g/dL
[2023-08-27] MEDS: MONTELUKAST 10 MG TAB PO SCH (19:37)
[2023-08-28] MEDS: HEPARIN SODIUM,PORCINE 5,000 UNIT/ML 1 ML VIAL SQ SCH ×4 (00:10→23:32)
[2023-08-28] MEDS: IPRATROPIUM-ALBUTEROL 3 ML NEB IH SCH ×4 (06:17→21:19)
[2023-08-28] MEDS: PANTOPRAZOLE 40 MG TABLET PO SCH (06:53)
--- NOTE | 2023-08-28 08:04 | P.PN ---
Subjective Progress Note Date: 08/28/23 Principal diagnosis: Lung cancer, squamous cell carcinoma right upper lobe of the lung. Previous medical history of COPD, previous tobacco dependence, hypertension, hyperlipidemia POD #12 robotic assisted thoracoscopic right upper lobectomy, blebectomy right lower lobe Subcutaneous emphysema present, expected given type of surgery, status post creation of blow hole Prolonged air leak Hyponatremia secondary to SIADH from underlying malignancy The patient was seen and examined this morning sitting up in a recliner in the cardiac stepdown unit in no acute distress eating breakfast. States he feels pretty good. States pain is controlled, denies current shortness of breath. Subcutaneous emphysema appears much improved. Patient is currently on room air with oxygen saturation in the mid 90s. Right pleural chest tube remains to water seal, air leak remains present with forceful coughing. Able to achieve 2500 mL on his incentive spirometry. Has been ambulatory in the room and occasionally in the hallway without difficulty. No other new concerns. Patient's updated daily and all questions answered. Objective - Vital Signs Vital signs: Vital Signs Temp 98 F 08/28/23 04:00 Pulse 92 08/28/23 06:29 Resp 16 08/28/23 04:00 BP 125/76 08/28/23 04:00 Pulse Ox 95 08/28/23 04:00 FiO2 21 08/26/23 08:12 Intake & Output 08/27/23 08/28/23 08/28/23 18:59 06:59 18:59 Intake Total 720 540 Output Total 450 Balance 720 90 Weight 90.7 kg Intake: Oral 720 540 Output: Chest Tube Drainage 450 Chest Tube Right Upper 450 Anterior Chest Other: Voiding Method Toilet Toilet # Voids 1 - Exam CONSTITUTIONAL: Appears comfortable, cooperative, no acute distress RESPIRATORY: Lungs sounds diminished bilaterally. Respirations even, nonlabored. Currently on room air with oxygen saturation 95%. Able to achieve 2500 mL on incentive spirometry. Strong cough. CARDIOVASCULAR: S1, S2 present. Regular rate and rhythm, sinus rhythm on telemetry. Palpable peripheral pulses bilaterally. No edema present. No calf pain or tenderness noted. SCDs present. GASTROINTESTINAL: Abdomen soft, nontender, nondistended. Active bowel sounds present 4 quadrants. Tolerating diet. Positive bowel movement. GENITOURINARY: Continues to void clear, yellow urine INTEGUMENTARY: Skin is warm and dry. Subcutaneous emphysema minimally present to chest, neck, face, significantly decreased. Wound VAC in place to blow holes NEUROLOGIC: Cranial nerves II through XII intact MUSKULOSKELETAL: Able to move all extremities, strength equal bilaterally, gait normal PSYCHIATRIC: Alert and oriented to person place and time, appropriate affect, intact judgment and insight INVASIVE LINES AND TUBES: Right pleural chest tubes present to waterseal, air leak present with forceful coughing, 350 mL serosanguineous drainage in the last 24 hours - Allied health notes Allied health notes reviewed: nursing - Labs CBC & Chem 7: 08/27/23 11:43 08/27/23 11:43 Labs: Abnormal Lab Results - Last 24 Hours (Table) 08/27/23 08/27/23 Range/Units 11:43 11:43 WBC 17.1 H (3.8-10.6) k/uL Hgb 12.7 L (13.0-17.5) gm/dL Plt Count 588 H (150-450) k/uL Neutrophils # 14.4 H (1.3-7.7) k/uL Sodium 127 L (137-145) mmol/L Chloride 91 L (98-107) mmol/L Creatinine 0.60 L (0.66-1.25) mg/dL Glucose 106 H (74-99) mg/dL Magnesium 2.6 H (1.6-2.3) mg/dL AST 96 H (17-59) U/L ALT 137 H (4-49) U/L Alkaline Phosphatase 132 H (38-126) U/L Total Protein 5.9 L (6.3-8.2) g/dL Albumin 3.2 L (3.5-5.0) g/dL - Imaging and Cardiology Chest x-ray: image reviewed Assessment and Plan Assessment: Lung cancer, 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 Klein, status post second blowhole creation by Dr. Parks Prolonged air leak Hyponatremia, secondary to SIADH, secondary to underlying malignancy Plan: Continue chest tube placed to water seal, monitor for air leak resolution, monitor drainage Keep wound VAC in place for now Encourage incentive spirometry use 10 times every hour while awake. Bronchodilators per pulmonology Will monitor daily labs and x-rays GI/DVT prophylaxis Increase activity, ambulate as tolerated Continue home medications Pain control with current medication regimen More recommendations to follow
[2023-08-28] MEDS ORDERED: SENNOSIDES-DOCUSATE SODIUM 1 EACH TAB PO PRN (08:19)
[2023-08-28] MEDS ORDERED: polyethylene glycoL 3350 17 GM POWD.PACK PO PRN (08:19)
[2023-08-28] MEDS: VALSARTAN 160 MG TAB PO SCH (08:20)
--- NOTE | 2023-08-28 08:20 | XR ---
EXAMINATION TYPE: XR chest 2V DATE OF EXAM: 08/28/2023 COMPARISON: 08/27/2023 TECHNIQUE: PA and lateral views submitted. HISTORY: Pneumothorax follow-up FINDINGS: Right-sided chest tube with approximately 25% pneumothorax. Right- sided consolidation and hilar prom inence with volume loss stable. Left lung clear. Severe diffuse subcutaneous emphysema. Bilateral reinaldo ulder arthropathy. Small amount of pneumomediastinum suspected. Nodular area of soft tissue attenuati on in the left upper lobe may be artifactual structures recommend follow-up x-ray short-term basis. IMPRESSION: 1. Stable size pneumothorax now measuring 25%. 2. There is a large area of nodular consolidation in the left upper lobe. This is stable from prior e xam.
[2023-08-28] MEDS: MULTIVITAMINS, THERA 1 EACH TAB PO SCH (08:23)
[2023-08-28 08:51] LABS: HCT 37.4 % (39.0-53.0); MCH 29.1 pg (25.0-35.0); MCHC 32.1 g/dL (31.0-37.0); MCV 90.7 fL (80.0-100.0); Mean Platelet Volume 6.7; Platelet Count 631 k/uL (150-450); RBC 4.13 m/uL (4.30-5.90); WBC 18.1 k/uL (3.8-10.6)
--- NOTE | 2023-08-28 08:55 | P.PN ---
Subjective Progress Note Date: 08/28/23 HISTORY OF PRESENT ILLNESS: This is a 68-year-old male one of my patient and the patient medical history significant for COPD, hypertension and hypertensive cardiovascular disease, hyperlipidemia, history of ALLERGIC rhinitis, remote history of tobacco use and dependence he smoked at least 3 pack every day for many years and quit when he was 43-year-old,, patient has been followed by pulmonary medicine Dr. Rendon on a regular basis, he had pulmonary nodules history, he has been having a computed tomography scan of the chest and PET scan and regular basis until recentlyhis PET scan came back positive patient underwent robotic bronchoscopy with ultrasound of the bronchial tree by Dr. 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 Landon underwent robotic-assisted thoracoscopy right upper lobectomy with lumpectomy of the right lower lobe, and he was admitted to telemetry unit, he was seen and evaluated in his room, appears to be somewhat short of breath, he does have a chest tube in the right side of the chest, draining quite a bit of serosanguineous material, patient appears to be quite short of breath and debility, he did appear to have a significant subcutaneously emphysema as well, Dr. Klein evaluated the patient and the patient has been stable we will follow the patient along with pulmonary as well as thoracic surgery. 08/17: Patient is sitting up in chair continues to have some pain in the right side, he continues to be hospitalized, he has not had a bowel movement, is urinating very well, Senokot and MiraLAX were added, increase activity, continue to monitor the patient very closely, continue DuoNeb, continue Symbicort, we will follow-up the patient very closely, subcutis emphysema spirometer to prevent yesterday. Patient will plan to see the hospital for another 1-2 days. 08/18: Patient sitting up in bed in no apparent distress, he denies any chest pain, he continues to have some cough, no phlegm production, he continues to have a chest tube in the second, subcutaneous emphysema that has progressed and now is all the way to his neck and face , he has no abdominal pain, nausea or vomiting, did have a small bowel movement today, he denies any unusual symptom at this time except for dyspnea on exertion. 08/19: Patient is sitting up in chair in no distress, he continues to have significant subcutaneous emphysema involving his right upper chest neck face, no respiratory distress, has been followed by plastic surgery, chest tube still in place, -20 cm of water, patient has not had any abdominal pain, nausea or vomiting, he did not have a bowel movement as of yet increase activity, continue to use the incentive spirometer. 08/20: Repeat chest x-ray this morning reveals stable 30% right-sided pneumothorax and diffuse subcutaneous emphysema. Patient remains with subcutaneous emphysema, chest tube is in place. Patient is performing incentive spirometry and reaching 2000 mL. Heart rate is in the 70s to 90s, blood pressure 12/12/1977, pulse ox 94% on 2 L nasal cannula. The blood work reveals WBC 10.3, hemoglobin 11.6. Sodium is 128, potassium 4.5, chloride 93, CO2 27, BUN 21 creatinine 0.68. AST 74 and ALT 56. Pathology report is pending. 08/21: Heart rate is 100 104, blood pressure 134/75, afebrile, pulse ox 94% on 2 L. Repeat blood work reveals sodium of 128, potassium 4.3, CO2 94, BUN 19 creatinine 0.72. WBC 10, hemoglobin 11.4, platelet count 294. Repeat chest x- ray revealed reports approximate 5-10% right pneumothorax with severe diffuse bilateral subcutaneous emphysema. Biopsy report right upper lobectomy invasive moderately differential squamous cell carcinoma, margins negative. 6 lymph nodes negative. Right upper lobe bleb excision benign lung parenchyma. Right pleural chest tubes remain in place to wall suction. Patient continues to have significant subcutaneous emphysema. 08/22: Repeat chest x-ray reveals stable severe subcutaneous emphysema, possibly 5-10% right pneumothorax. Patient remains afebrile, heart rate in the 60s to 100, blood pressure 93/62, pulse ox 94% on room air. Patient continues to have significant subcutaneous emphysema and cardiothoracic surgeon did additional left sided blow hole to assist in resolution of subcutaneous emphysema. Drainage from chest tube. Patient is reaching 2000 mL's on incentive spirometry. He still feels shortness of breath. HCTZ discontinued. 08/23: Repeat chest x-ray reveals right-sided chest tube with right-sided pneumothorax 30%. Apical pleural distance 5.5 cm versus 4.6 cm previously. Extensive subcutaneous emphysema. Suspected pneumomediastinum. Patient is on 2 L nasal cannula with pulse ox 100%. Heart rate is running in the 80s and 90s, blood pressure 109/68. Patient remains afebrile. Patient continues to have persistent air leak and currently on water seal. He has had improvement of the subcutaneous emphysema and has bilateral blow holes. Repeat blood work reveals sodium is 124, potassium 4.7, chloride 92, CO2 22. Creatinine 0.47. WBC 12.8 and hemoglobin 11.7. 08/24: A consult for nephrology was admitted for hyponatremia with recommen dations for fluid restriction 1200 mL, bladder scan, sodium chloride tablet 1 today, check serum and urine osmolality and urine sodium, check TSH. He may consider ordering Samsca for the patient. Repeat sodium today is 122, chloride 87, potassium 4.5, BUN 17 creatinine 0.55. Blood sugar 100. WBC 12, hemoglobin 0.3, platelet count 400. Patient remains afebrile, heart rate 100, blood pressure 118/73, pulse ox 94% on room air. Patient continues to have some shortness of breath. Occasional cough and phlegm. No fever or chills. He is having normal BMS. He walked short distance today with shortness of breath. Chest tube is to wall suction. Repeat chest x-ray reveals mild interval reduction in size of pneumothorax. 08/25: Patient is sitting up in his recliner his feeling a bit better today, he continues to have his chest tube in place, he continues to have significant drainage from it, he also continued to have a to [place] the chest wall for the subcutaneous emphysema that appears to be a bit better today than yesterday, he did not sleep very well last night he is asking for a sleeping pill as his Xanax is not doing the trick for him, he has a good bowel movement he ate his br eakfast, breast surgeries following. 08/26: Patient is sitting up in his chair his is giving him a sponge graft, he appears to be somewhat depressed today, he continues to be on venlafaxine, his sodium was 124, did receive Samsca yesterday repeat a sodium 70 the time of dictation, continue to monitor the patient very closely, continue fluid restriction, liver enzymes are elevated would need an ultrasound of the abdomen with the chest resolved, keep atorvastatin off, we will continue to monitor the patient very closely. Discontinue sleeping pill 08/27: Today, sodium is improved to 127 he is status post Samsca and sodium. Patient is maintained on fluid restriction and encouraged to increase oral protein intake. Other lab work reveals WBC of 17.1 and hemoglobin 12.7, platelet count 588. Potassium 4.7, chloride 91, CO2 28, BUN 18 creatinine 0.6. Liver enzymes are elevated with AST 96, ALT 137, alkaline phosphatase 132. Repeat chest x-ray reveals mild interval progression in size no orthotics now measuring 25%. Large area of nodular consolidation in the left upper lobe. This could be superficial location rather than representing interval consolidation. The patient is now postop day #11 and continues to have a persistent air leak. Subcutaneous emphysema is improving. He has a right pleural chest tube to waterseal. Blood pressure 116/71, pulse ox 94% on room air, heart rate in the 90s. 08/28: Patient remains afebrile, heart rate in the 80s and 90s, blood pressure 125/76, pulse ox 95% on room air. Repeat chest x-ray reveals stable size pneumothorax now measuring 25%. Large area of nodular consolidation in the left upper lobe stable. Patient denies having any chest pressure. He states he has slight amount of shortness of breath with ambulating. He has noted no blood in his stools no blood in his urine. He did have a bowel movement every day. It is on the runny side and MiraLAX and Senokot changed to as needed. Chest tube wound VAC in place. Patient is reaching 2500 ML's on incentive spirometry. REVIEW OF SYSTEMS: Constitutional: No documented fever, no chills, no night sweats. No weight change. No weakness, fatigue or lethargy. No daytime sleepiness. HEENT: No headache. No blurred vision or double vision, no loss of vision. No loss of Hearing, no ringing in the ears, no dizziness. No nasal drainage or congestion. No epistaxis. No sore throat. Lungs: positive for shortness of breath, occasional cough, no sputum production. No wheezing. Reports dyspnea with activity. Cardiovascular: No chest pain, no lower extremity edema. No palpitations. No paroxysmal nocturnal dyspnea. No orthopnea. No lightheadedness or dizziness. No syncopal episodes. Abdominal: Reports no abdominal pain. No nausea, vomiting. No diarrhea. Ernesto es constipation. No bloody or tarry stools reports loss of appetite. Genitourinary: No dysuria, increased frequency, urgency. No urinary retention. Musculoskeletal: No myalgias. No muscle weakness, no gait dysfunction, no frequent falls. No back pain. Integumentary: No wounds, no lesions. No rash or pruritus. No unusual bruising. Significant subcutaneous emphysema Neurologic: No aphasia. No facial droop. No change in mentation. No head injury. No headache. No paralysis. No paresthesia. Psychiatric: Reports depression. No anxiety. No mood swings. Endocrine: No abnormal blood sugars. No weight change. PHYSICAL EXAMINATION: General: 68-year-old male sitting up in chair in no respiratory distress HEENT: Head is atraumatic, normocephalic, pupils were equal round reactive to light, sclera nonicteric, conjunctivae were pale, mucous membranes of the mouth are somewhat dry, subcutaneous emphysema all the way up to the neck and face Neck: Supple, no JVP, normal carotid upstroke bilaterally, no lymphadenopathy, subcutaneous emphysema. Chest: Decreased breath sounds at the bases, few rhonchi, right sided chest tube with subcutaneous emphysema, and the chest wall tenderness minimal intercostal retractions. Heart: First heart sound is normal, second heart sound is normal there is systolic ejection murmur 2/6 located in the left sternal border. Abdomen: Soft, nontender, nondistended, positive bowel sounds. Extremities: There is no edema no calf tenderness DP +2 bilaterally. Neurologic examination: Patient is awake alert and oriented X 3, cranial nerves II-12 appear grossly intact, muscle power were 5 out of 5 in upper extremities and 5 out of 5 in bilateral lower extremities, deep tendon reflexes normal bilaterally. ASSESSMENT AND PLAN: 1. Postoperative day #12 status post robotic-assisted laparoscopic right upper lobectomy with blebectomy of the right lower lobe, positive pathology for moderately differential squamous cell carcinoma. Continue patient on the use of incentive spirometer, increase activity, monitor the patient chest tube. Continue with DuoNeb 3 mL nebulization 4 times every day, continue Symbicort 60/4.5 g 2 puffs twice every day, continue current pain management as outlined by CTS. 2. Extensive subcutaneous emphysema due to air leak. Thoracic surgery is following we will continue to monitor, noted improvement. 3. SIADH . Continue fluid restrictions, patient did receive 1 dose of Samsca yesterday no HCTZ 3. Hypertension and hypertensive cardiovascular disease. Continue patient on valsartan 160 mg every day, Continue to monitor the patient very closely. 4. Mixed hyperlipidemia. hold off atorvastatin due to elevated liver function test. 5. ALLERGIC rhinitis. Start the patient back on loratadine 10 mg every day, may use the insulin saline spray 2 sprays initial surgery times every day as well as Flonase as needed patient also would be started back on his montelukast 10 mg orally bedtime. 6. Constipation. patient on Senokot at bedtime as well as MiraLAX 17 gram in 8 OZ of water daily, we will increase activity, add Milk of Magnesia with prune juice 7. Enlarged prostate. Monitor for urinary retention. 8. COPD. Continue patient on DuoNeb 3 nebulization 4 times every day, continue Symbicort 160/4.5 g 2. Position twice every day, pulmonary is following. 9. DVT prophylaxis. Continue heparin 5000 units subcutaneously every 8 hours. 10. GI prophylaxis. Continue Protonix 40 mg every day. 11. Elevated AST and inability due to drug-induced hepatitis likely rule out other pathology ultrasound of the liver would be done when the chest tube is out. Keep the patient off his statins for now. 12. Insomnia. continue Xanax and discontinue Temazepam. Impression and plan of care have been directed as dictated by the signing physician. Myrtle Giordano nurse practitioner acting as scribe for signing physician. Objective - Vital Signs Vital signs: Vital Signs Temp 98 F 08/28/23 04:00 Pulse 92 08/28/23 06:29 Resp 16 08/28/23 04:00 BP 125/76 08/28/23 04:00 Pulse Ox 95 08/28/23 04:00 FiO2 21 08/26/23 08:12 Intake & Output 08/27/23 08/28/23 08/28/23 18:59 06:59 18:59 Intake Total 720 540 Output Total 450 Balance 720 90 Weight 90.7 kg Intake: Oral 720 540 Output: Chest Tube Drainage 450 Chest Tube Right Upper 450 Anterior Chest Other: Voiding Method Toilet Toilet # Voids 1 - Labs CBC & Chem 7: 08/28/23 08:28 08/27/23 11:43 Labs: Abnormal Lab Results - Last 24 Hours (Table) 08/27/23 08/27/23 Range/Units 11:43 11:43 WBC 17.1 H (3.8-10.6) k/uL Hgb 12.7 L (13.0-17.5) gm/dL Plt Count 588 H (150-450) k/uL Neutrophils # 14.4 H (1.3-7.7) k/uL Sodium 127 L (137-145) mmol/L Chloride 91 L (98-107) mmol/L Creatinine 0.60 L (0.66-1.25) mg/dL Glucose 106 H (74-99) mg/dL Magnesium 2.6 H (1.6-2.3) mg/dL AST 96 H (17-59) U/L ALT 137 H (4-49) U/L Alkaline Phosphatase 132 H (38-126) U/L Total Protein 5.9 L (6.3-8.2) g/dL Albumin 3.2 L (3.5-5.0) g/dL
[2023-08-28 09:01] LABS: African American GFR (CKD) >90 (>60 ml/min/1.73 sqM); Anion Gap 8 mmol/L; Blood Urea Nitrogen 21 mg/dL (9-20); Calcium 9.3 mg/dL (8.4-10.2); Carbon Dioxide 27 mmol/L (22-30); Chloride 91 mmol/L (98-107); Glucose 126 mg/dL (74-99); Non-African American GFR(CKD) >90 (>60 ml/min/1.73 sqM); Potassium 4.7 mmol/L (3.5-5.1); Sodium 126 mmol/L (137-145)
[2023-08-28] MEDS: VENLAFAXINE HCL ER 37.5 MG CAP PO SCH (09:37)
[2023-08-28] MEDS ORDERED: TOLVAPTAN 15 MG TABLET PO ONE (11:00)
--- NOTE | 2023-08-28 12:28 | P.PN ---
Subjective Patient is seen for follow-up for hyponatremia. Status post Samsca and sodium is improved to 127 and back down to 126 today.. No significant complaints today. Tolerating oral intake. Right chest tube remains in place Objective - Vital Signs Vital signs: Vital Signs Temp 98.4 F 08/28/23 08:15 Pulse 99 08/28/23 11:59 Resp 18 08/28/23 11:57 BP 106/64 08/28/23 11:57 Pulse Ox 98 08/28/23 11:57 FiO2 21 08/26/23 08:12 Intake & Output 08/27/23 08/28/23 08/28/23 18:59 06:59 18:59 Intake Total 720 540 200 Output Total 450 Balance 720 90 200 Weight 90.7 kg Intake: Oral 720 540 200 Output: Chest Tube Drainage 450 Chest Tube Right Upper 450 Anterior Chest Other: Voiding Method Toilet Toilet Toilet # Voids 1 - Exam Awake, comfortable, no acute distress Examination of the heart S1 and S2 Examination of the lungs bilateral breath sounds are heard right chest tube noted Abdomen is soft obese Examination lower extremity shows no significant edema WATER HAULER exam grossly intact - Labs CBC & Chem 7: 08/28/23 08:28 08/28/23 08:28 Labs: Abnormal Lab Results - Last 24 Hours (Table) 08/27/23 08/27/23 08/28/23 Range/Units 11:43 11:43 08:28 WBC 17.1 H 18.1 H (3.8-10.6) k/uL RBC 4.13 L (4.30-5.90) m/uL Hgb 12.7 L 12.0 L (13.0-17.5) gm/dL Hct 37.4 L (39.0-53.0) % Plt Count 588 H 631 H (150-450) k/uL Neutrophils # 14.4 H (1.3-7.7) k/uL Sodium 127 L (137-145) mmol/L Chloride 91 L (98-107) mmol/L BUN (9-20) mg/dL Creatinine 0.60 L (0.66-1.25) mg/dL Glucose 106 H (74-99) mg/dL Magnesium 2.6 H (1.6-2.3) mg/dL AST 96 H (17-59) U/L ALT 137 H (4-49) U/L Alkaline Phosphatase 132 H (38-126) U/L Total Protein 5.9 L (6.3-8.2) g/dL Albumin 3.2 L (3.5-5.0) g/dL 08/28/23 Range/Units 08:28 WBC (3.8-10.6) k/uL RBC (4.30-5.90) m/uL Hgb (13.0-17.5) gm/dL Hct (39.0-53.0) % Plt Count (150-450) k/uL Neutrophils # (1.3-7.7) k/uL Sodium 126 L (137-145) mmol/L Chloride 91 L (98-107) mmol/L BUN 21 H (9-20) mg/dL Creatinine 0.65 L (0.66-1.25) mg/dL Glucose 126 H (74-99) mg/dL Magnesium (1.6-2.3) mg/dL AST (17-59) U/L ALT (4-49) U/L Alkaline Phosphatase (38-126) U/L Total Protein (6.3-8.2) g/dL Albumin (3.5-5.0) g/dL Assessment and Plan Assessment: 1. Hyponatremia. Patient appears euvolemic. Suspect SIADH post surgery. Sodium improved with Samsca. Currently off of thiazide diuretic. Urine sodium less than 20 and urine osmolality 320. TSH normal. 2. Lung cancer status post right upper lobectomy 08/08/2023. 3. Benign hypertension. Controlled. 4. History of COPD. Plan: Repeat Samsca Maintain fluid restriction Encourage increased oral protein intake
--- NOTE | 2023-08-28 13:13 | P.PN ---
Subjective Progress Note Date: 08/28/23 Principal diagnosis: Squamous cell lung cancer, status post robotic-assisted thoracoscopic right upper lobectomy postoperative day #12 On 08/24/2023, the patient is postop day #8. Continues to have an air leak and total amount of output from the chest tube has been 225 mL over the past 8 hours. Chest x-ray shows no evidence of any pneumothorax. This appears emphysema and clinically the patient also subcu emphysema. The patient has also developed hyponatremia. He is receiving no fluids. In fact, he is on fluid restriction. The patient had blow holes placed in the upper chest with a one VAC applied to the area. Oxygenation is stable and the patient is currently on 2 L of oxygen by nasal cannula with a pulse ox of 94%. No other complaints otherwise. No altered mentation. Family is at the bedside. The chest tube is in place to low suction at -10 cm of water. On 08/25/2023, the patient is postop day #9. Clinically stable. Continues emphysema stable. Chest x-ray shows no pneumothorax. There is positive air leak and the chest tube is attached to waterseal. His condition is essentially unchanged. His sodium level is at 124. The white cell cause of 12.4. On today's evaluation of 08/26/2023, the patient portably #10. Chest tube is still in place. No evidence of any pneumothorax. He has bilateral subcutaneous emphysema which is essentially stable. No interval worsening shortness of breath. Clinically stable. The right-sided chest tube is attached to waterseal. There is persistent air leak. The plan is to monitor this patient conservatively. He remains on bronchodilators. No other new complaints otherwise for now. Is ambulating. Sodium level is currently at 124, WBC was a 12.4, hemoglobin 11.6. Patient was reevaluated today on 08/27/2023, postoperative day #11, patient continues to have chest tube in place, continues to have persistent air leak, remains on bronchodilators and incentive spirometry he is on room air, and not in any distress. Subcutaneous emphysema seems to be less. Air leak remains present and his right pleural chest tube placed to waterseal Reevaluated today on 08/28/2023, patient remains on the cardiac floor, doing fairly well, O2 sats is 98% on room air, patient does not seem to be in any form of respiratory distress. Continues to have some subcutaneous emphysema continues to have some air leak in the pleural VAC/chest tube, clinically however the patient is doing great. Patient is status post robotic-assisted thoracoscopic right upper lobectomy, blebectomy/right lower Objective - Vital Signs Vital signs: Vital Signs Temp 98.4 F 08/28/23 08:15 Pulse 99 08/28/23 11:59 Resp 18 08/28/23 11:57 BP 106/64 08/28/23 11:57 Pulse Ox 98 08/28/23 11:57 FiO2 21 08/26/23 08:12 Intake & Output 08/27/23 08/28/23 08/28/23 18:59 06:59 18:59 Intake Total 720 540 200 Output Total 450 Balance 720 90 200 Weight 90.7 kg Intake: Oral 720 540 200 Output: Chest Tube Drainage 450 Chest Tube Right Upper 450 Anterior Chest Other: Voiding Method Toilet Toilet Toilet # Voids 1 1 # Bowel Movements 1 - Exam Physical Exam: Revealed 68-year-old white male in no distress. On room air Head: Atraumatic, normocephalic. HEENT:[Neck is supple.] [No neck masses.] [No thyromegaly.] [No JVD.] Chest: [Clear throughout, no crackles, no rhonchi, no wheezes.] Right pleural chest tube noted, present it is warm to water seal, air leak noted. Cardiac Exam: [Normal S1 and S2, no S3 gallop, no murmur.] Abdomen: [Soft, nontender, no megaly, no rebound, no guarding, normal bowel sounds.] Extremities: [No clubbing, no edema, no cyanosis.] Neurological Exam: [No focal neurologic deficit.] Alert oriented 3 Psychiatric: Normal mood, affect and normal status exam. Skin: No rash - Labs CBC & Chem 7: 08/28/23 08:28 08/28/23 08:28 Labs: Abnormal Lab Results - Last 24 Hours (Table) 08/28/23 08/28/23 Range/Units 08:28 08:28 WBC 18.1 H (3.8-10.6) k/uL RBC 4.13 L (4.30-5.90) m/uL Hgb 12.0 L (13.0-17.5) gm/dL Hct 37.4 L (39.0-53.0) % Plt Count 631 H (150-450) k/uL Sodium 126 L (137-145) mmol/L Chloride 91 L (98-107) mmol/L BUN 21 H (9-20) mg/dL Creatinine 0.65 L (0.66-1.25) mg/dL Glucose 126 H (74-99) mg/dL Assessment and Plan Assessment: Impression: Lung cancer, squamous cell carcinoma right upper lobe of the lung, status post robotic assisted thoracoscopic right upper lobectomy, blebectomy right lower lobe, pathology consistent with invasive moderately differentiated squamous cell carcinoma, postoperative day #12 History of COPD Ex-smoker Hypertension Hyperlipidemia Subcutaneous emphysema and pneumothorax, expected, status post blow-hole creation by Dr. Klein, status post second blowhole creation by Dr. Parks Prolonged air leak Hyponatremia, secondary to SIADH, secondary to underlying malignancy Recommendation: Continue chest tube to waterseal Continue to monitor the drainage Continue wound VAC in place Continue incentive spirometry Continue GI and DVT prophylaxis Continue bronchodilators Ambulate We continue to follow Time with Patient: Less than 30
[2023-08-28] MEDS: MONTELUKAST 10 MG TAB PO SCH (19:45)
[2023-08-29] MEDS: IPRATROPIUM-ALBUTEROL 3 ML NEB IH PRN (04:31)
[2023-08-29] MEDS: PANTOPRAZOLE 40 MG TABLET PO SCH (06:06)
[2023-08-29] MEDS: VENLAFAXINE HCL ER 37.5 MG CAP PO SCH (07:37)
[2023-08-29] MEDS: MULTIVITAMINS, THERA 1 EACH TAB PO SCH (07:37)
[2023-08-29] MEDS: HEPARIN SODIUM,PORCINE 5,000 UNIT/ML 1 ML VIAL SQ SCH ×3 (07:37→23:46)
[2023-08-29] MEDS: VALSARTAN 160 MG TAB PO SCH (07:37)
--- NOTE | 2023-08-29 08:39 | XR ---
EXAMINATION TYPE: XR chest 2V DATE OF EXAM: 08/29/2023 COMPARISON: 08/28/2023 TECHNIQUE: PA and lateral views submitted. HISTORY: Post lobectomy FINDINGS: Right-sided chest tube with approximately 25% pneumothorax. Right- sided consolidation and hilar prom inence with volume loss stable. Left lung clear. Severe diffuse subcutaneous emphysema. Bilateral reinaldo ulder arthropathy. Small amount of pneumomediastinum suspected. Nodular area of soft tissue attenuati on in the left upper lobe may be artifactual structures recommend follow-up x-ray short-term basis. IMPRESSION: 1. Stable size pneumothorax now measuring 25%.
[2023-08-29] MEDS: IPRATROPIUM-ALBUTEROL 3 ML NEB IH SCH ×4 (08:57→21:12)
--- NOTE | 2023-08-29 10:56 | P.PN ---
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 States he feels pretty good. States pain is controlled, denies current shortness of breath. Subcutaneous emphysema appears much improved. Patient is currently on room air with oxygen saturation in the mid 90s. Right pleural chest tube remains to water seal, air leak remains present with forceful coughing, good tidaling. Able to achieve 2500 mL on his incentive spirometry. Has been ambulatory in the room and occasionally in the hallway without difficulty. No other new concerns. Patient's updated daily and all questions answered. Objective - Vital Signs Vital signs: Vital Signs Temp 98.3 F 08/29/23 07:43 Pulse 94 08/29/23 09:09 Resp 16 08/29/23 07:43 BP 116/56 08/29/23 07:43 Pulse Ox 95 08/29/23 07:43 FiO2 21 08/26/23 08:12 Intake & Output 08/28/23 08/29/23 08/29/23 18:59 06:59 18:59 Intake Total 680 1080 0 Output Total 100 180 70 Balance 580 900 -70 Weight 90 kg Intake: Oral 680 1080 0 Output: Chest Tube Drainage 100 180 70 Chest Tube Right Upper 100 180 70 Anterior Chest Other: Voiding Method Toilet Toilet Toilet # Voids 1 3 # Bowel Movements 1 0 - Exam CONSTITUTIONAL: Appears comfortable, cooperative, no acute distress RESPIRATORY: Lungs sounds diminished bilaterally. Respirations even, nonlabored. Currently on room air with oxygen saturation 94%. Able to achieve 2500 mL on incentive spirometry. Strong cough. CARDIOVASCULAR: S1, S2 present. Regular rate and rhythm, sinus rhythm on telemetry. Palpable peripheral pulses bilaterally. No edema present. No calf pain or tenderness noted. SCDs present. GASTROINTESTINAL: Abdomen soft, nontender, nondistended. Active bowel sounds present 4 quadrants. Tolerating diet. Positive bowel movement. GENITOURINARY: Continues to void clear, yellow urine INTEGUMENTARY: Skin is warm and dry. Wound VAC in place to blow holes NEUROLOGIC: Cranial nerves II through XII intact MUSKULOSKELETAL: Able to move all extremities, strength equal bilaterally, gait normal PSYCHIATRIC: Alert and oriented to person place and time, appropriate affect, intact judgment and insight INVASIVE LINES AND TUBES: Right pleural chest tubes present to [facility], air leak present with forceful coughing, 280 mL serosanguineous drainage in the last 24 hours - Allied health notes Allied health notes reviewed: nursing - Labs CBC & Chem 7: 08/28/23 08:28 08/28/23 08:28 - Imaging and Cardiology Chest x-ray: report reviewed, image reviewed Assessment and Plan Assessment: Lung cancer, 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 Klein, status post second blowhole creation by Dr. Parks Prolonged air leak Hyponatremia, secondary to SIADH, secondary to underlying malignancy Plan: Continue chest tube placed to water seal, monitor for air leak resolution, monitor drainage Keep wound VAC in place for now Encourage incentive spirometry use 10 times every hour while awake. Bronchodilators per pulmonology Will monitor daily labs and x-rays GI/DVT prophylaxis Increase activity, ambulate as tolerated Continue home medications Pain control with current medication regimen More recommendations to follow
[2023-08-29 11:17] LABS: HCT 36.6 % (39.0-53.0); HGB 11.8 gm/dL (13.0-17.5); MCH 28.8 pg (25.0-35.0); MCHC 32.2 g/dL (31.0-37.0); MCV 89.5 fL (80.0-100.0); Mean Platelet Volume 7.6; Platelet Count 584 k/uL (150-450); RBC 4.09 m/uL (4.30-5.90); WBC 16.4 k/uL (3.8-10.6)
[2023-08-29 11:30] LABS: African American GFR (CKD) >90 (>60 ml/min/1.73 sqM); Anion Gap 8 mmol/L; Blood Urea Nitrogen 18 mg/dL (9-20); Calcium 8.9 mg/dL (8.4-10.2); Carbon Dioxide 24 mmol/L (22-30); Chloride 93 mmol/L (98-107); Glucose 120 mg/dL (74-99); Non-African American GFR(CKD) >90 (>60 ml/min/1.73 sqM); Potassium 4.8 mmol/L (3.5-5.1); Sodium 125 mmol/L (137-145)
--- NOTE | 2023-08-29 12:27 | P.PN ---
Subjective Patient is seen for follow-up for hyponatremia. Status post Samsca and sodium is improved to 127 and back down to 126 yesterday. Status post Samsca 15 mg yesterday and sodium today was 125. No significant complaints today. Tolerating oral intake. Right chest tube remains in place Maintained on fluid restriction. Objective - Vital Signs Vital signs: Vital Signs Temp 98.1 F 08/29/23 11:38 Pulse 92 08/29/23 11:38 Resp 16 08/29/23 11:38 BP 106/63 08/29/23 11:38 Pulse Ox 92 L 08/29/23 11:38 FiO2 21 08/26/23 08:12 Intake & Output 08/28/23 08/29/23 08/29/23 18:59 06:59 18:59 Intake Total 680 1080 0 Output Total 100 180 70 Balance 580 900 -70 Weight 90 kg Intake: Oral 680 1080 0 Output: Chest Tube Drainage 100 180 70 Chest Tube Right Upper 100 180 70 Anterior Chest Other: Voiding Method Toilet Toilet Toilet # Voids 1 3 # Bowel Movements 1 0 - Exam Awake, comfortable, no acute distress Right sided chest tube noted Examination lower extremity shows no significant edema [employer]MENT [employer]ARD exam grossly intact - Labs CBC & Chem 7: 08/29/23 10:34 08/29/23 10:34 Labs: Abnormal Lab Results - Last 24 Hours (Table) 08/29/23 08/29/23 Range/Units 10:34 10:34 WBC 16.4 H (3.8-10.6) k/uL RBC 4.09 L (4.30-5.90) m/uL Hgb 11.8 L (13.0-17.5) gm/dL Hct 36.6 L (39.0-53.0) % Plt Count 584 H (150-450) k/uL Sodium 125 L (137-145) mmol/L Chloride 93 L (98-107) mmol/L Creatinine 0.62 L (0.66-1.25) mg/dL Glucose 120 H (74-99) mg/dL Assessment and Plan Assessment: 1. Hyponatremia. Patient appears euvolemic. Suspect SIADH post surgery. Sodium had initially improved with Samsca. Currently off of thiazide diuretic. Urine sodium less than 20 and urine osmolality 320. TSH normal. 2. Lung cancer status post right upper lobectomy 08/08/2023. 3. Benign hypertension. Controlled. 4. History of COPD. Plan: Repeat Samsca Add Sodium chloride tab Repeat urine osmolality Repeat sodium this evening Maintain fluid restriction Encourage increased oral protein intake
[2023-08-29] MEDS: SODIUM CHLORIDE TAB 1 GM TAB PO SCH ×2 (12:39→20:44)
--- NOTE | 2023-08-29 14:46 | P.PN ---
Subjective Progress Note Date: 08/29/23 Principal diagnosis: Squamous cell lung cancer, status post robotic-assisted thoracoscopic right upper lobectomy postoperative day #13 On 08/24/2023, the patient is postop day #8. Continues to have an air leak and total amount of output from the chest tube has been 225 mL over the past 8 hours. Chest x-ray shows no evidence of any pneumothorax. This appears emphysema and clinically the patient also subcu emphysema. The patient has also developed hyponatremia. He is receiving no fluids. In fact, he is on fluid restriction. The patient had blow holes placed in the upper chest with a one VAC applied to the area. Oxygenation is stable and the patient is currently on 2 L of oxygen by nasal cannula with a pulse ox of 94%. No other complaints otherwise. No altered mentation. Family is at the bedside. The chest tube is in place to low suction at -10 cm of water. On 08/25/2023, the patient is postop day #9. Clinically stable. Continues emphysema stable. Chest x-ray shows no pneumothorax. There is positive air leak and the chest tube is attached to waterseal. His condition is essentially unchanged. His sodium level is at 124. The white cell cause of 12.4. On today's evaluation of 08/26/2023, the patient portably #10. Chest tube is still in place. No evidence of any pneumothorax. He has bilateral subcutaneous emphysema which is essentially stable. No interval worsening shortness of breath. Clinically stable. The right-sided chest tube is attached to waterseal. There is persistent air leak. The plan is to monitor this patient conservatively. He remains on bronchodilators. No other new complaints otherwise for now. Is ambulating. Sodium level is currently at 124, WBC was a 12.4, hemoglobin 11.6. Patient was reevaluated today on 08/27/2023, postoperative day #11, patient continues to have chest tube in place, continues to have persistent air leak, remains on bronchodilators and incentive spirometry he is on room air, and not in any distress. Subcutaneous emphysema seems to be less. Air leak remains present and his right pleural chest tube placed to waterseal Reevaluated today on 08/28/2023, patient remains on the cardiac floor, doing fairly well, O2 sats is 98% on room air, patient does not seem to be in any form of respiratory distress. Continues to have some subcutaneous emphysema continues to have some air leak in the pleural VAC/chest tube, clinically however the patient is doing great. Patient is status post robotic-assisted thoracoscopic right upper lobectomy, blebectomy/right lower Patient was reevaluated today on 08/29/2023, patient is now postoperative day #13, continues to have persistent air leak, which seems to be quite prolonged, clinically however the patient is doing great, asymptomatic, right-sided chest tube remains to waterseal, leak remains present, patient is doing well with incentive spirometry, labs are basically unremarkable except for sodium of 125. [place] to be related to SIADH, patient remains on fluid restrictions Objective - Vital Signs Vital signs: Vital Signs Temp 98.1 F 08/29/23 11:38 Pulse 92 08/29/23 13:58 Resp 16 08/29/23 11:38 BP 106/63 08/29/23 11:38 Pulse Ox 92 L 08/29/23 11:38 FiO2 21 08/26/23 08:12 Intake & Output 08/28/23 08/29/23 08/29/23 18:59 06:59 18:59 Intake Total 680 1080 110 Output Total 100 180 70 Balance 580 900 40 Weight 90 kg Intake: Oral 680 1080 110 Output: Chest Tube Drainage 100 180 70 Chest Tube Right Upper 100 180 70 Anterior Chest Other: Voiding Method Toilet Toilet Toilet # Voids 1 3 # Bowel Movements 1 0 2 - Exam Physical Exam: Revealed 68-year-old white male in no distress. On room air Head: Atraumatic, normocephalic. HEENT:[Neck is supple.] [No neck masses.] [No thyromegaly.] [No JVD.] Chest: [Clear throughout, no crackles, no rhonchi, no wheezes.] Right pleural chest tube noted, present to water seal, air leak noted. Cardiac Exam: [Normal S1 and S2, no S3 gallop, no murmur.] Abdomen: [Soft, nontender, no megaly, no rebound, no guarding, normal bowel sounds.] Extremities: [No clubbing, no edema, no cyanosis.] Neurological Exam: [No focal neurologic deficit.] Alert oriented 3 Psychiatric: Normal mood, affect and normal status exam. 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 Klein, status post second blowhole creation by Dr. Parks Prolonged air leak Hyponatremia, secondary to SIADH, secondary to underlying malignancy Recommendation: Continue chest tube to waterseal Continue fluid restriction for his hyponatremia Continue incentive spirometry Continue GI and DVT prophylaxis Continue bronchodilators Ambulate We continue to follow Time with Patient: Less than 30
--- NOTE | 2023-08-29 15:53 | P.PN ---
Subjective Progress Note Date: 08/29/23 HISTORY OF PRESENT ILLNESS: This is a 68-year-old male one of my patient and the patient medical history significant for COPD, hypertension and hypertensive cardiovascular disease, hyperlipidemia, history of ALLERGIC rhinitis, remote history of tobacco use and dependence he smoked at least 3 pack every day for many years and quit when he was 43-year-old,, patient has been followed by pulmonary medicine Dr. Rendon on a regular basis, he had pulmonary nodules history, he has been having a computed tomography scan of the chest and PET scan and regular basis until recentlyhis PET scan came back positive patient underwent robotic bronchoscopy with ultrasound of the bronchial tree by Dr. 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 Landon underwent robotic-assisted thoracoscopy right upper lobectomy with lumpectomy of the right lower lobe, and he was admitted to telemetry unit, he was seen and evaluated in his room, appears to be somewhat short of breath, he does have a chest tube in the right side of the chest, draining quite a bit of serosanguineous material, patient appears to be quite short of breath and debility, he did appear to have a significant subcutaneously emphysema as well, Dr. Klein evaluated the patient and the patient has been stable we will follow the patient along with pulmonary as well as thoracic surgery. 08/17: Patient is sitting up in chair continues to have some pain in the right side, he continues to be hospitalized, he has not had a bowel movement, is urinating very well, Senokot and MiraLAX were added, increase activity, continue to monitor the patient very closely, continue DuoNeb, continue Symbicort, we will follow-up the patient very closely, subcutis emphysema spirometer to prevent yesterday. Patient will plan to see the hospital for another 1-2 days. 08/18: Patient sitting up in bed in no apparent distress, he denies any chest pain, he continues to have some cough, no phlegm production, he continues to have a chest tube in the second, subcutaneous emphysema that has progressed and now is all the way to his neck and face , he has no abdominal pain, nausea or vomiting, did have a small bowel movement today, he denies any unusual symptom at this time except for dyspnea on exertion. 08/19: Patient is sitting up in chair in no distress, he continues to have significant subcutaneous emphysema involving his right upper chest neck face, no respiratory distress, has been followed by plastic surgery, chest tube still in place, -20 cm of water, patient has not had any abdominal pain, nausea or vomiting, he did not have a bowel movement as of yet increase activity, continue to use the incentive spirometer. 08/20: Repeat chest x-ray this morning reveals stable 30% right-sided pneumothorax and diffuse subcutaneous emphysema. Patient remains with subcutaneous emphysema, chest tube is in place. Patient is performing incentive spirometry and reaching 2000 mL. Heart rate is in the 70s to 90s, blood pressure 12/12/1977, pulse ox 94% on 2 L nasal cannula. The blood work reveals WBC 10.3, hemoglobin 11.6. Sodium is 128, potassium 4.5, chloride 93, CO2 27, BUN 21 creatinine 0.68. AST 74 and ALT 56. Pathology report is pending. 08/21: Heart rate is 100 104, blood pressure 134/75, afebrile, pulse ox 94% on 2 L. Repeat blood work reveals sodium of 128, potassium 4.3, CO2 94, BUN 19 creatinine 0.72. WBC 10, hemoglobin 11.4, platelet count 294. Repeat chest x- ray revealed reports approximate 5-10% right pneumothorax with severe diffuse bilateral subcutaneous emphysema. Biopsy report right upper lobectomy invasive moderately differential squamous cell carcinoma, margins negative. 6 lymph nodes negative. Right upper lobe bleb excision benign lung parenchyma. Right pleural chest tubes remain in place to wall suction. Patient continues to have significant subcutaneous emphysema. 08/22: Repeat chest x-ray reveals stable severe subcutaneous emphysema, possibly 5-10% right pneumothorax. Patient remains afebrile, heart rate in the 60s to 100, blood pressure 93/62, pulse ox 94% on room air. Patient continues to have significant subcutaneous emphysema and cardiothoracic surgeon did additional left sided blow hole to assist in resolution of subcutaneous emphysema. Drainage from chest tube. Patient is reaching 2000 mL's on incentive spirometry. He still feels shortness of breath. HCTZ discontinued. 08/23: Repeat chest x-ray reveals right-sided chest tube with right-sided pneumothorax 30%. Apical pleural distance 5.5 cm versus 4.6 cm previously. Extensive subcutaneous emphysema. Suspected pneumomediastinum. Patient is on 2 L nasal cannula with pulse ox 100%. Heart rate is running in the 80s and 90s, blood pressure 109/68. Patient remains afebrile. Patient continues to have persistent air leak and currently on water seal. He has had improvement of the subcutaneous emphysema and has bilateral blow holes. Repeat blood work reveals sodium is 124, potassium 4.7, chloride 92, CO2 22. Creatinine 0.47. WBC 12.8 and hemoglobin 11.7. 08/24: A consult for nephrology was admitted for hyponatremia with recommen dations for fluid restriction 1200 mL, bladder scan, sodium chloride tablet 1 today, check serum and urine osmolality and urine sodium, check TSH. He may consider ordering Samsca for the patient. Repeat sodium today is 122, chloride 87, potassium 4.5, BUN 17 creatinine 0.55. Blood sugar 100. WBC 12, hemoglobin 0.3, platelet count 400. Patient remains afebrile, heart rate 100, blood pressure 118/73, pulse ox 94% on room air. Patient continues to have some shortness of breath. Occasional cough and phlegm. No fever or chills. He is having normal BMS. He walked short distance today with shortness of breath. Chest tube is to wall suction. Repeat chest x-ray reveals mild interval reduction in size of pneumothorax. 08/25: Patient is sitting up in his recliner his feeling a bit better today, he continues to have his chest tube in place, he continues to have significant drainage from it, he also continued to have a to [place] the chest wall for the subcutaneous emphysema that appears to be a bit better today than yesterday, he did not sleep very well last night he is asking for a sleeping pill as his Xanax is not doing the trick for him, he has a good bowel movement he ate his br eakfast, breast surgeries following. 08/26: Patient is sitting up in his chair his is giving him a sponge graft, he appears to be somewhat depressed today, he continues to be on venlafaxine, his sodium was 124, did receive Samsca yesterday repeat a sodium 70 the time of dictation, continue to monitor the patient very closely, continue fluid restriction, liver enzymes are elevated would need an ultrasound of the abdomen with the chest resolved, keep atorvastatin off, we will continue to monitor the patient very closely. Discontinue sleeping pill 08/27: Today, sodium is improved to 127 he is status post Samsca and sodium. Patient is maintained on fluid restriction and encouraged to increase oral protein intake. Other lab work reveals WBC of 17.1 and hemoglobin 12.7, platelet count 588. Potassium 4.7, chloride 91, CO2 28, BUN 18 creatinine 0.6. Liver enzymes are elevated with AST 96, ALT 137, alkaline phosphatase 132. Repeat chest x-ray reveals mild interval progression in size no orthotics now measuring 25%. Large area of nodular consolidation in the left upper lobe. This could be superficial location rather than representing interval consolidation. The patient is now postop day #11 and continues to have a persistent air leak. Subcutaneous emphysema is improving. He has a right pleural chest tube to waterseal. Blood pressure 116/71, pulse ox 94% on room air, heart rate in the 90s. 08/28: Patient remains afebrile, heart rate in the 80s and 90s, blood pressure 125/76, pulse ox 95% on room air. Repeat chest x-ray reveals stable size pneumothorax now measuring 25%. Large area of nodular consolidation in the left upper lobe stable. Patient denies having any chest pressure. He states he has slight amount of shortness of breath with ambulating. He has noted no blood in his stools no blood in his urine. He did have a bowel movement every day. It is on the runny side and MiraLAX and Senokot changed to as needed. Chest tube wound VAC in place. Patient is reaching 2500 ML's on incentive spirometry. 08/29: Patient is feeling about the same today. He continues to have prolonged persistent air leak He is very anxious to be discharged from the hospital. He remains afebrile, heart rate 92, blood pressure 106/63, pulse ox 92% on room air. Repeat blood work reveals WBC 16.4, hemoglobin 11.8, sodium 125, potassium 4.8, BUN 18 creatinine 0.62. Repeat dose of Samsca ordered by nephrology and sodium chloride added. Patient is on a fluid restriction REVIEW OF SYSTEMS: Constitutional: No documented fever, no chills, no night sweats. No weight ch stella. No weakness, fatigue or lethargy. No daytime sleepiness. HEENT: No headache. No blurred vision or double vision, no loss of vision. No loss of Hearing, no ringing in the ears, no dizziness. No nasal drainage or congestion. No epistaxis. No sore throat. Lungs: positive for shortness of breath, occasional cough, no sputum production. No wheezing. Reports dyspnea with activity. Cardiovascular: No chest pain, no lower extremity edema. No palpitations. No paroxysmal nocturnal dyspnea. No orthopnea. No lightheadedness or dizziness. No syncopal episodes. Abdominal: Reports no abdominal pain. No nausea, vomiting. No diarrhea. Denies constipation. No bloody or tarry stools reports loss of appetite. Genitourinary: No dysuria, increased frequency, urgency. No urinary retention. Musculoskeletal: No myalgias. No muscle weakness, no gait dysfunction, no frequent falls. No back pain. Integumentary: No wounds, no lesions. No rash or pruritus. No unusual bruising. Significant subcutaneous emphysema Neurologic: No aphasia. No facial droop. No change in mentation. No head injury. No headache. No paralysis. No paresthesia. Psychiatric: Reports depression. No anxiety. No mood swings. Endocrine: No abnormal blood sugars. No weight change. PHYSICAL EXAMINATION: General: 68-year-old male sitting up in chair in no respiratory distress HEENT: Head is atraumatic, normocephalic, pupils were equal round reactive to light, sclera nonicteric, conjunctivae were pale, mucous membranes of the mouth are somewhat dry, subcutaneous emphysema all the way up to the neck and face Neck: Supple, no JVP, normal carotid upstroke bilaterally, no lymphadenopathy, subcutaneous emphysema. Chest: Decreased breath sounds at the bases, few rhonchi, right sided chest tube with subcutaneous emphysema, and the chest wall tenderness minimal intercostal retractions. Heart: First heart sound is normal, second heart sound is normal there is systolic ejection murmur 2/6 located in the left sternal border. Abdomen: Soft, nontender, nondistended, positive bowel sounds. Extremities: There is no edema no calf tenderness DP +2 bilaterally. Neurologic examination: Patient is awake alert and oriented X 3, cranial nerves II-12 appear grossly intact, muscle power were 5 out of 5 in upper extremities and 5 out of 5 in bilateral lower extremities, deep tendon reflexes normal bilaterally. ASSESSMENT AND PLAN: 1. Postoperative day #12 status post robotic-assisted laparoscopic right upper lobectomy with blebectomy of the right lower lobe, positive pathology for moderately differential squamous cell carcinoma. Continue patient on the use of incentive spirometer, increase activity, monitor the patient chest tube. Continue with DuoNeb 3 mL nebulization 4 times every day, continue Symbicort 60/4.5 g 2 puffs twice every day, continue current pain management as outlined by CTS. 2. Extensive subcutaneous emphysema due to air leak. Thoracic surgery is following we will continue to monitor, noted improvement. 3. SIADH . Continue fluid restrictions, patient did receive another dose of Samsca and sodium chloride tablets ordered, no HCTZ 3. Hypertension and hypertensive cardiovascular disease. Continue patient on valsartan 160 mg every day, Continue to monitor the patient very closely. 4. Mixed hyperlipidemia. hold off atorvastatin due to elevated liver function test. 5. ALLERGIC rhinitis. Start the patient back on loratadine 10 mg every day, may use the insulin saline spray 2 sprays initial surgery times every day as well as Flonase as needed patient also would be started back on his montelukast 10 mg orally bedtime. 6. Constipation. patient on Senokot at bedtime as well as MiraLAX 17 gram in 8 OZ of water daily, we will increase activity, add Milk of Magnesia with prune juice 7. Enlarged prostate. Monitor for urinary retention. 8. COPD. Continue patient on DuoNeb 3 nebulization 4 times every day, continue Symbicort 160/4.5 g 2. Position twice every day, pulmonary is following. 9. DVT prophylaxis. Continue heparin 5000 units subcutaneously every 8 hours. 10. GI prophylaxis. Continue Protonix 40 mg every day. 11. Elevated AST and inability due to drug-induced hepatitis likely rule out other pathology ultrasound of the liver would be done when the chest tube is out. Keep the patient off his statins for now. 12. Insomnia. continue Xanax and discontinue Temazepam. Impression and plan of care have been directed as dictated by the signing physician. Myrtle Giordano nurse practitioner acting as scribe for signing physician. Objective - Vital Signs Vital signs: Vital Signs Temp 98.1 F 08/29/23 11:38 Pulse 92 08/29/23 11:38 Resp 16 08/29/23 11:38 BP 106/63 08/29/23 11:38 Pulse Ox 92 L 08/29/23 11:38 FiO2 21 08/26/23 08:12 Intake & Output 08/28/23 08/29/23 08/29/23 18:59 06:59 18:59 Intake Total 680 1080 110 Output Total 100 180 70 Balance 580 900 40 Weight 90 kg Intake: Oral 680 1080 110 Output: Chest Tube Drainage 100 180 70 Chest Tube Right Upper 100 180 70 Anterior Chest Other: Voiding Method Toilet Toilet Toilet # Voids 1 3 # Bowel Movements 1 0 - Labs CBC & Chem 7: 08/29/23 10:34 08/29/23 10:34 Labs: Abnormal Lab Results - Last 24 Hours (Table) 08/29/23 08/29/23 Range/Units 10:34 10:34 WBC 16.4 H (3.8-10.6) k/uL RBC 4.09 L (4.30-5.90) m/uL Hgb 11.8 L (13.0-17.5) gm/dL Hct 36.6 L (39.0-53.0) % Plt Count 584 H (150-450) k/uL Sodium 125 L (137-145) mmol/L Chloride 93 L (98-107) mmol/L Creatinine 0.62 L (0.66-1.25) mg/dL Glucose 120 H (74-99) mg/dL
[2023-08-29] MEDS: MONTELUKAST 10 MG TAB PO SCH (20:44)
[2023-08-30] MEDS: IPRATROPIUM-ALBUTEROL 3 ML NEB IH PRN (04:46)
[2023-08-30] MEDS: PANTOPRAZOLE 40 MG TABLET PO SCH (06:12)
[2023-08-30] MEDS: IPRATROPIUM-ALBUTEROL 3 ML NEB IH SCH ×4 (07:40→14:52)
[2023-08-30 08:19] LABS: HCT 35.5 % (39.0-53.0); HGB 11.7 gm/dL (13.0-17.5); MCH 29.4 pg (25.0-35.0); MCHC 32.9 g/dL (31.0-37.0); MCV 89.4 fL (80.0-100.0); Mean Platelet Volume 6.9; Platelet Count 620 k/uL (150-450); RBC 3.98 m/uL (4.30-5.90); RDW 13.1 % (11.5-15.5); WBC 17.3 k/uL (3.8-10.6)
--- NOTE | 2023-08-30 08:20 | XR ---
EXAMINATION TYPE: XR chest 2V DATE OF EXAM: 08/30/2023 COMPARISON: 08/29/2023 TECHNIQUE: PA and lateral views submitted. HISTORY: Post lobectomy FINDINGS: Right-sided chest tube with approximately 25-30 % pneumothorax. Right- sided consolidation and hilar prominence with volume loss stable. Left lung clear. Severe diffuse subcutaneous emphysema. Bilateral shoulder arthropathy. Small amount of pneumomediastinum suspected. Nodular area of soft tissue atten uation in the left upper lobe may stable. IMPRESSION: 1. Severe diffuse subcutaneous emphysema with approximately 25-30 % right pneumothorax.
[2023-08-30 08:54] LABS: African American GFR (CKD) >90 (>60 ml/min/1.73 sqM); Anion Gap 10 mmol/L; Blood Urea Nitrogen 19 mg/dL (9-20); Carbon Dioxide 23 mmol/L (22-30); Chloride 92 mmol/L (98-107); Glucose 115 mg/dL (74-99); Non-African American GFR(CKD) >90 (>60 ml/min/1.73 sqM); Potassium 4.9 mmol/L (3.5-5.1); Sodium 125 mmol/L (137-145)
[2023-08-30] MEDS: HEPARIN SODIUM,PORCINE 5,000 UNIT/ML 1 ML VIAL SQ SCH (09:31)
[2023-08-30] MEDS: MULTIVITAMINS, THERA 1 EACH TAB PO SCH (09:32)
[2023-08-30] MEDS: VALSARTAN 160 MG TAB PO SCH (09:32)
[2023-08-30] MEDS: SODIUM CHLORIDE TAB 1 GM TAB PO SCH (09:32)
[2023-08-30] MEDS: VENLAFAXINE HCL ER 37.5 MG CAP PO SCH (09:33)
--- NOTE | 2023-08-30 11:08 | XR ---
EXAMINATION TYPE: XR chest 2V DATE OF EXAM: 08/30/2023 COMPARISON: 08/30/2023 TECHNIQUE: PA and lateral views submitted. HISTORY: Postop FINDINGS: Right-sided chest tube with approximately 25-30 % pneumothorax. Right- sided consolidation and hilar prominence with volume loss stable. Left lung clear. Severe diffuse subcutaneous emphysema. Bilateral shoulder arthropathy. Small amount of pneumomediastinum suspected. Nodular area of soft tissue atten uation in the left upper lobe may stable. IMPRESSION: 1. Severe diffuse subcutaneous emphysema with approximately 25-30 % right pneumothorax.
[2023-08-30 11:22] VITALS: BP 146/75; RESP 16; TEMP 98.2
--- NOTE | 2023-08-30 12:02 | P.PN ---
Subjective Patient is seen for follow-up for hyponatremia. Status post Samsca and sodium is improved to 127 and back down to 125 -126. Started sodium chloride tabs. Blood pressure is on the lower side. No significant complaints today. Tolerating oral intake. Right chest tube remains in place Maintained on fluid restriction. Objective - Vital Signs Vital signs: Vital Signs Temp 98.2 F 08/30/23 09:30 Pulse 96 08/30/23 10:42 Resp 16 08/30/23 09:30 BP 146/75 08/30/23 09:30 Pulse Ox 96 08/30/23 09:30 FiO2 21 08/26/23 08:12 Intake & Output 08/29/23 08/30/23 08/30/23 18:59 06:59 18:59 Intake Total 770 180 Output Total 470 220 Balance 300 -220 180 Intake: Oral 770 180 Output: Chest Tube Drainage 120 220 Chest Tube Right Upper 120 220 Anterior Chest Urine 350 Other: Voiding Method Toilet Toilet Toilet # Voids 1 2 # Bowel Movements 2 - Exam Awake, comfortable, no acute distress Right sided chest tube noted Examination lower extremity shows no significant edema [employer] exam grossly intact - Labs CBC & Chem 7: 08/30/23 07:19 08/30/23 07:19 Labs: Abnormal Lab Results - Last 24 Hours (Table) 08/29/23 08/29/23 08/30/23 Range/Units 15:34 17:06 07:19 WBC 17.3 H (3.8-10.6) k/uL RBC 3.98 L (4.30-5.90) m/uL Hgb 11.7 L (13.0-17.5) gm/dL Hct 35.5 L (39.0-53.0) % Plt Count 620 H (150-450) k/uL Sodium 126 L (137-145) mmol/L Chloride (98-107) mmol/L Creatinine (0.66-1.25) mg/dL Glucose (74-99) mg/dL Ur Random Sodium <20 L (40-220) mmol/L 08/30/23 Range/Units 07:19 WBC (3.8-10.6) k/uL RBC (4.30-5.90) m/uL Hgb (13.0-17.5) gm/dL Hct (39.0-53.0) % Plt Count (150-450) k/uL Sodium 125 L (137-145) mmol/L Chloride 92 L (98-107) mmol/L Creatinine 0.57 L (0.66-1.25) mg/dL Glucose 115 H (74-99) mg/dL Ur Random Sodium (40-220) mmol/L Assessment and Plan Assessment: 1. Hyponatremia. Patient appears euvolemic. Suspect SIADH post surgery. Sodium had initially improved with Samsca. Sodium staying around 125-126. Patient is started on sodium chloride tabs. Repeat urine sodium is less than 20 and urine osmolality at 352. I will challenge with normal saline. 2. Lung cancer status post right upper lobectomy 08/08/2023. 3. Benign hypertension. Controlled. 4. History of COPD. Plan: Challenge with normal saline Repeat sodium in 4 hours after starting saline Hold Samsca today until response to saline established Encourage increased oral protein intake
--- NOTE | 2023-08-30 13:40 | P.PN ---
Subjective Progress Note Date: 08/30/23 Principal diagnosis: Squamous cell lung cancer, status post robotic-assisted thoracoscopic right upper lobectomy postoperative day #14 On 08/24/2023, the patient is postop day #8. Continues to have an air leak and total amount of output from the chest tube has been 225 mL over the past 8 hours. Chest x-ray shows no evidence of any pneumothorax. This appears emphysema and clinically the patient also subcu emphysema. The patient has also developed hyponatremia. He is receiving no fluids. In fact, he is on fluid restriction. The patient had blow holes placed in the upper chest with a one VAC applied to the area. Oxygenation is stable and the patient is currently on 2 L of oxygen by nasal cannula with a pulse ox of 94%. No other complaints otherwise. No altered mentation. Family is at the bedside. The chest tube is in place to low suction at -10 cm of water. On 08/25/2023, the patient is postop day #9. Clinically stable. Continues emphysema stable. Chest x-ray shows no pneumothorax. There is positive air leak and the chest tube is attached to waterseal. His condition is essentially unchanged. His sodium level is at 124. The white cell cause of 12.4. On today's evaluation of 08/26/2023, the patient portably #10. Chest tube is still in place. No evidence of any pneumothorax. He has bilateral subcutaneous emphysema which is essentially stable. No interval worsening shortness of breath. Clinically stable. The right-sided chest tube is attached to waterseal. There is persistent air leak. The plan is to monitor this patient conservatively. He remains on bronchodilators. No other new complaints otherwise for now. Is ambulating. Sodium level is currently at 124, WBC was a 12.4, hemoglobin 11.6. Patient was reevaluated today on 08/27/2023, postoperative day #11, patient continues to have chest tube in place, continues to have persistent air leak, remains on bronchodilators and incentive spirometry he is on room air, and not in any distress. Subcutaneous emphysema seems to be less. Air leak remains present and his right pleural chest tube placed to waterseal Reevaluated today on 08/28/2023, patient remains on the cardiac floor, doing fairly well, O2 sats is 98% on room air, patient does not seem to be in any form of respiratory distress. Continues to have some subcutaneous emphysema continues to have some air leak in the pleural VAC/chest tube, clinically however the patient is doing great. Patient is status post robotic-assisted thoracoscopic right upper lobectomy, blebectomy/right lower Patient was reevaluated today on 08/29/2023, patient is now postoperative day #13, continues to have persistent air leak, which seems to be quite prolonged, clinically however the patient is doing great, asymptomatic, right-sided chest tube remains to waterseal, leak remains present, patient is doing well with incentive spirometry, labs are basically unremarkable except for sodium of 125. [place] to be related to SIADH, patient remains on fluid restrictions Reevaluated today on 08/30/2023, patient is now postoperative day #14, continues to have persistent, today's x-ray showed even a 30-40% right-sided pneumothorax off suction when the chest tube was actually on waterseal. I believe the patient may have to be placed back to suction and that being addressed by thoracic surgery on the case. Dr. Klein was even consider discharging the patient home with a Heimlich valve, but it doesn't seem to be possible with that sized pneumothorax off suction on waterseal. Patient may have to be placed back to suction. 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 Patient was seen by nephrology, and he is now on SAMSCA, nephrology is considering getting the patient a challenge of normal saline. Objective - Vital Signs Vital signs: Vital Signs Temp 98.2 F 08/30/23 09:30 Pulse 96 08/30/23 10:42 Resp 16 08/30/23 09:30 BP 146/75 08/30/23 09:30 Pulse Ox 96 08/30/23 09:30 FiO2 21 08/26/23 08:12 Intake & Output 08/29/23 08/30/23 08/30/23 18:59 06:59 18:59 Intake Total 770 180 Output Total 470 220 Balance 300 -220 180 Intake: Oral 770 180 Output: Chest Tube Drainage 120 220 Chest Tube Right Upper 120 220 Anterior Chest Urine 350 Other: Voiding Method Toilet Toilet Toilet # Voids 1 2 # Bowel Movements 2 - Exam Physical Exam: Revealed 68-year-old white male in no distress. On room air Head: Atraumatic, normocephalic. HEENT:[Neck is supple.] [No neck masses.] [No thyromegaly.] [No JVD.] Chest: [Diminished breath sounds at the right apex. Chest tube in place, there is subcutaneous emphysema Cardiac Exam: [Normal S1 and S2, no S3 gallop, no murmur.] Abdomen: [Soft, nontender, no megaly, no rebound, no guarding, normal bowel sounds.] Extremities: [No clubbing, no edema, no cyanosis.] Neurological Exam: [No focal neurologic deficit.] Alert oriented 3 Psychiatric: Normal mood, affect and normal status exam. Skin: No rash - Labs CBC & Chem 7: 08/30/23 07:19 08/30/23 07:19 Labs: Abnormal Lab Results - Last 24 Hours (Table) 08/29/23 08/29/23 08/30/23 Range/Units 15:34 17:06 07:19 WBC 17.3 H (3.8-10.6) k/uL RBC 3.98 L (4.30-5.90) m/uL Hgb 11.7 L (13.0-17.5) gm/dL Hct 35.5 L (39.0-53.0) % Plt Count 620 H (150-450) k/uL Sodium 126 L (137-145) mmol/L Chloride (98-107) mmol/L Creatinine (0.66-1.25) mg/dL Glucose (74-99) mg/dL Ur Random Sodium <20 L (40-220) mmol/L 08/30/23 Range/Units 07:19 WBC (3.8-10.6) k/uL RBC (4.30-5.90) m/uL Hgb (13.0-17.5) gm/dL Hct (39.0-53.0) % Plt Count (150-450) k/uL Sodium 125 L (137-145) mmol/L Chloride 92 L (98-107) mmol/L Creatinine 0.57 L (0.66-1.25) mg/dL Glucose 115 H (74-99) mg/dL Ur Random Sodium (40-220) mmol/L Assessment and Plan Assessment: Impression: Persistent right-sided pneumothorax and persistent air leak Lung cancer, squamous cell carcinoma right upper lobe of the lung, status post robotic assisted thoracoscopic right upper lobectomy, blebectomy right lower lobe, pathology consistent with invasive moderately differentiated squamous cell carcinoma, postoperative day # 14 History of COPD Ex-smoker Hypertension Hyperlipidemia Subcutaneous emphysema and pneumothorax, expected, status post blow-hole creation by Dr. Klein, status post second blowhole creation by Dr. Parks Prolonged air leak Hyponatremia, secondary to SIADH, secondary to underlying malignancy Recommendation: Consider chest tube back to suction Continue fluid restriction for his hyponatremia, nephrology is considering a saline challenge to help improve his hyponatremia if this is truly SIADH may not improve much. Continue incentive spirometry Continue GI and DVT prophylaxis Continue bronchodilators Ambulate We continue to follow Time with Patient: Less than 30
[2023-08-30] MEDS ORDERED: SODIUM CHLORIDE TAB 1 GM TAB PO STA (14:27)
[2023-08-30 15:16] VITALS: PULSE 101
[2023-08-30] MEDS ORDERED: SODIUM CHLORIDE TAB 1 GM TAB PO SCH (21:00)
== END 2023-08-30 16:42 | disposition home health service (06) | DRG 163 ==
LOC: 2ORMAIN 05:44 → 3SCARD 11:42
PROVIDERS: ADMIT Thoracic Surgery (Cardiothoracic Vascular Surgery); ATTEND Thoracic Surgery (Cardiothoracic Vascular Surgery)
PROC: 0BQ Respiratory System, Repair (ICD-10-PCS; principal; 2023-08-16 07:30)
PROC: 8E0W4CZ Robotic Assisted Procedure of Trunk Region, Percutaneous Endoscopic Approach (ICD-10-PCS; principal; 2023-08-16 07:30)
PROC: 0BTC4ZZ Resection of Right Upper Lung Lobe, Percutaneous Endoscopic Approach (ICD-10-PCS; principal; 2023-08-16 07:30)
PROC: 07T74ZZ Resection of Thorax Lymphatic, Percutaneous Endoscopic Approach (ICD-10-PCS; principal; 2023-08-16 07:30)
PROC: 0BBF4ZZ Excision of Right Lower Lung Lobe, Percutaneous Endoscopic Approach (ICD-10-PCS; principal; 2023-08-16 07:30)
PROC: 05HA33Z Insertion of Infusion Device into Left Brachial Vein, Percutaneous Approach (ICD-10-PCS; 2023-08-29 10:55)
PROC: 05HB33Z Insertion of Infusion Device into Right Basilic Vein, Percutaneous Approach (ICD-10-PCS; 2023-08-30)
DX: C34.11 Malignant neoplasm of upper lobe, right bronchus or lung (principal); J96.01 Acute respiratory failure with hypoxia; E22.2 Syndrome of inappropriate secretion of antidiuretic hormone; J93.82 Other air leak; J93.83 Other pneumothorax; I11.9 Hypertensive heart disease without heart failure; J44.9 Chronic obstructive pulmonary disease, unspecified; J43.9 Emphysema, unspecified; F32.9 Major depressive disorder, single episode, unspecified; K75.9 Inflammatory liver disease, unspecified; E78.2 Mixed hyperlipidemia; N40.0 Benign prostatic hyperplasia without lower urinary tract symptoms; D17.1 Benign lipomatous neoplasm of skin and subcutaneous tissue of trunk; I25.10 Atherosclerotic heart disease of native coronary artery without angina pectoris; K59.00 Constipation, unspecified; G47.00 Insomnia, unspecified; J30.9 Allergic rhinitis, unspecified; H91.90 Unspecified hearing loss, unspecified ear; Z87.891 Personal history of nicotine dependence; Z96.611 Presence of right artificial shoulder joint; Z96.612 Presence of left artificial shoulder joint; Z79.51 Long term (current) use of inhaled steroids; Z79.899 Other long term (current) drug therapy; F41.9 Anxiety disorder, unspecified
CPT/HCPCS: 36410; 64999; 71045; 71046; 76937; 80048; 80053; 83735; 83930; 83935; 84295; 84300; 84443; 85025; 85027; 86850; 86900; 86901; 88305; 88307; 88309; 94640; 94760

== ENCOUNTER → 2023-09-06 | Outpatient (CLI) | payer MEDICARE ==
--- NOTE | 2023-09-06 09:53 | XR ---
EXAMINATION TYPE: XR chest 2V DATE OF EXAM: 09/06/2023 COMPARISON: 08/30/2023 HISTORY: Shortness of breath TECHNIQUE: Frontal and lateral views of the chest are obtained. FINDINGS: There is repositioning of the right-sided chest tube with reexpansion of the right lung. Suspect tiny right apical pneumothorax. Scattered pleural parenchymal opacity throughout the right lung persists greatest at the right lung base. Continued subcutaneous emphysema along the right chest wall. The left lung is hyperinflated. There is subcutaneous air along the left chest wall. Pleural-based ma sses seen within the left midlung zone. Heart size is stable. Mediastinal structures are stable and grossly unremarkable. No evidence for hilar prominence. Degenerative changes dorsal spine. IMPRESSION: 1. Near complete resolution of right-sided pneumothorax. Tiny right apical component difficult to exc lude. Otherwise stable examination.
== END | disposition home or self-care (01) ==
LOC: RADXRMAIN 08:57
PROVIDERS: ATTEND Thoracic Surgery (Cardiothoracic Vascular Surgery)
DX: R06.02 Shortness of breath (principal); Z90.2 Acquired absence of lung [part of]
CPT/HCPCS: 71046

== ENCOUNTER → 2023-09-06 | Outpatient (CLI) | payer MEDICARE ==
--- NOTE | 2023-09-06 10:37 | XR ---
EXAMINATION TYPE: XR chest 2V DATE OF EXAM: 09/06/2023 COMPARISON: 09/06/2023 TECHNIQUE: PA and lateral views submitted. HISTORY: Post chest tube removal FINDINGS: The lungs are clear and there is no pneumothorax, pleural effusion, or focal pneumonia. Heart size normal and no overt failure. There is a interval increase in size of the pneumothorax post chest tube removal now measuring approximately 15%. Right-sided consolidation and small effusion. Diffuse subcu taneous emphysema. Suspect the soft tissue artifact overlying the left hemithorax. Bilateral shoulder replacement surgery. Hypertrophic and degenerative change of the spine. IMPRESSION: 1. Chest tube removal. There is interval increase in size of the right-sided pneumothorax now measuri ng approximately 15%.
== END | disposition home or self-care (01) ==
LOC: RADXRMAIN 10:16
PROVIDERS: ATTEND Thoracic Surgery (Cardiothoracic Vascular Surgery)
DX: Z48.03 Encounter for change or removal of drains (principal); J93.9 Pneumothorax, unspecified
CPT/HCPCS: 71046

== ENCOUNTER → 2023-09-11 | Outpatient (CLI) | payer MEDICARE | END | disposition home or self-care (01) | LOC: LABWHC1 11:38 | PROVIDERS: ATTEND Internal Medicine Nephrology | DX: E78.1 Pure hyperglyceridemia (principal) | CPT/HCPCS: 36415; 84295 ==

== ENCOUNTER → 2023-09-20 | Outpatient (CLI) | payer MEDICARE ==
--- NOTE | 2023-09-20 10:53 | XR ---
EXAMINATION TYPE: XR chest 2V DATE OF EXAM: 09/20/2023 COMPARISON: 09/06/2023 TECHNIQUE: PA and lateral views submitted. HISTORY: Post lobectomy FINDINGS: Interval marked reduction in the amount of subcutaneous emphysema. Bilateral shoulder arthropathy and postsurgical changes. Volume loss on the right compatible with previous lobectomy. Right basilar con solidation and small effusion. Left lung is clear correlate for COPD. Heart size normal. IMPRESSION: 1. Interval marked reduction in the degree of soft tissue emphysema. 2. The previously noted right-sided pneumothorax is now filled in with small pleural effusion.
== END | disposition home or self-care (01) ==
LOC: RADXRMAIN 09:38
PROVIDERS: ATTEND Thoracic Surgery (Cardiothoracic Vascular Surgery)
DX: J93.9 Pneumothorax, unspecified (principal); J90 Pleural effusion, not elsewhere classified; Z90.2 Acquired absence of lung [part of]
CPT/HCPCS: 71046

== ENCOUNTER → 2024-05-14 | Outpatient (CLI) | payer MEDICARE ==
[2024-05-14 11:20] LABS: African American GFR (CKD) >90 (>60 ml/min/1.73 sqM); Blood Urea Nitrogen 21 mg/dL (9-20); Non-African American GFR(CKD) >90 (>60 ml/min/1.73 sqM)
--- NOTE | 2024-05-14 12:39 | CT ---
EXAMINATION TYPE: CT chest w con DATE OF EXAM: 05/14/2024 COMPARISON: 07/05/2023 HISTORY: 68-year-old male R91.1, solitary pulmonary nodule, history of lung cancer and partial lung r emoval TECHNIQUE: Contiguous axial scanning of the chest after the administration of 80 mL of Isovue 300. C oronal/sagittal reconstructions performed. CT DLP: 348.4mGycm. Automatic exposure control utilized for a dose reduction. FINDINGS: Heart and bones are normal in size without pericardial effusion. Rightward cardia mediastinal shift i n keeping with patient's interval right upper lobectomy. Ectatic aortic root at 3.9 cm and ascending aorta 3.9 cm as well. Conventional arch vessel branching anatomy. Prominent 1 cm lower right paratracheal lymph node remains unchanged. Otherwise, no thoracic lymphade nopathy by CT size criteria. Large caliber main right and left pulmonary arteries up to 2.9 cm suggesting underlying pulmonary hyp ertension. Again, interval right upper lobectomy with removal of the previous right upper lobe neoplasm. There i s background moderate to advanced emphysema. Curvilinear areas of pleural parenchymal scarring remain s throughout the right upper and midlung. There is clustered 4 mm nodularity posterior left upper lobe which should be reassessed at follow-up. Otherwise, no consolidation or pleural effusion. Visualized upper abdomen shows exophytic 4.3 cm cortical cyst lateral right kidney. Bones: [facility] mid and lower thoracic spine. Bilateral total shoulder arthroplasties. IMPRESSION: 1. Interval right upper lobectomy with removal of the previous right upper lobe neoplasm. Associated volume loss in the right hemithorax. 2. New clustered 4 mm nodularity posterior left upper lobe. Possible small infectious/inflammatory fo cus. Three-month follow-up CT to ensure resolution and exclude early neoplasm. 3. Background COPD with moderate to advanced emphysema, pulmonary arterial hypertension, and scattere d pleural parenchymal scarring on the right.
== END | disposition home or self-care (01) ==
LOC: RADCTMAIN 10:40
PROVIDERS: ATTEND Internal Medicine Critical Care Medicine
DX: R91.1 Solitary pulmonary nodule (principal); J43.9 Emphysema, unspecified; I27.21 Secondary pulmonary arterial hypertension
CPT/HCPCS: 82565; 84520; 71260; 36415; Q9967

== ENCOUNTER → 2024-07-30 | Outpatient (CLI) | payer MEDICARE ==
[2024-07-30 12:25] LABS: African American GFR (CKD) >90 (>60 ml/min/1.73 sqM); Blood Urea Nitrogen 14 mg/dL (9-20); Non-African American GFR(CKD) >90 (>60 ml/min/1.73 sqM)
--- NOTE | 2024-07-30 18:08 | CT ---
EXAMINATION TYPE: CT chest w con CT DLP: 326.8 mGycm, Automated exposure control for dose reduction was used. DATE OF EXAM: 07/30/2024 12:45 PM COMPARISON: CT chest 05/14/2024, 07/05/2023, PET/CT 06/09/2023 CLINICAL INDICATION:Male, 69 years old with history of R91.8 OTHER NONSPECIFIC ABNORMAL FINDING OF LILY NG F; PHH, f/u lung ca TECHNIQUE: Multiple axial images were obtained through the chest following the administration of 100 cc of Isovue 300. . Coronal and sagittal reformats reviewed. FINDINGS: LUNGS/ PLEURA: Postsurgical changes from right upper lobectomy. Background moderate to advanced emph ysematous changes. Curvilinear areas of pleural-parenchymal scarring remain throughout the right uppe r midlung. Slightly decrease clustered nodules within the posterior left upper lobe now measuring up to 2-3 mm, previously 4 mm. No pneumothorax or pleural effusion. AIRWAY: Patent and unremarkable.. HEART: Size within normal limits. Shifted to the right due to right lung volume loss. No pericardial effusion. MEDIASTINUM: Shifted to the right due to right lung volume loss. Prominent 1 cm lower right paratrach eal lymph node remains unchanged. No new adenopathy. VASCULATURE: Increased size of aortic root aneurysm measuring up to 4.2 cm, previously 3.9 cm. Incre ased ascending aortic aneurysm measuring up to 4.1 cm, previously 3.9 cm. No involvement of the aorti c arch. Redemonstration of large caliber right main pulmonary artery measuring up to 3.1 cm. Suggests underlying pulmonary arterial hypertension. MUSCULOSKELETAL: No acute osseous abnormalities. Postsurgical changes from bilateral total shoulder a rthroplasty. 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 SOFT TISSUES/LYMPH NODES: Minimal bilateral gynecomastia. LOWER NECK: No significant findings. UPPER ABDOMEN: Exophytic right renal 4.2 cm cyst redemonstrated. IMPRESSION: 1. Postsurgical changes from right upper lobectomy with associated volume loss. Similar scattered pl eural-parenchymal scarring in the right lung. No new suspicious pulmonary nodules. 2. Marginal increase in size of aortic root and ascending aorta aneurysms measuring up to 4.2 cm and 4.1 cm respectively. 3. Marginal decrease in size of cluster 2-3 mm nodularity in the posterior left upper lobe. Probable small infectious/inflammatory focus. 4. Moderate COPD changes.
== END | disposition home or self-care (01) ==
LOC: RADCTMAIN 11:52
PROVIDERS: ATTEND Internal Medicine Critical Care Medicine
DX: R91.8 Other nonspecific abnormal finding of lung field
CPT/HCPCS: 36415; 71260; 82565; 84520